=== PATIENT | female | born 1940 | race Caucasian/White ===

== ENCOUNTER 2016-09-30 10:11 | Inpatient (IN) ==
[2016-09-30 10:50] LABS: Calcium 9.5 mg/dL (8.6-10.8); Potassium 3.2 mEq/L (3.5-4.5)
[2016-09-30 11:21] LABS: Basophils % 0.3 %; Eosinophils % 0.5 %; Hemoglobin 8.6 g/dL (11.5-15.4); Immature Granulocytes % 3.4 % (0-4); Immature Platelets 2.4 % (1.1-6.1); Lymphocytes # 1.5 K/mcL (0.6-4.6); Mean Corpuscular HGB Conc 29.7 g/dL (31.6-35.5); Mean Corpuscular Hemoglobin 27.8 pg (28.0-33.3); Mean Corpuscular Volume 93.9 fL (83.0-100.0); Mean Platelet Volume 9.9 fL (9.4-12.4); Monocytes # 0.7 K/mcL (0.0-1.3); Monocytes % 8.8 %; Neutrophils # 5.3 K/mcL (1.6-8.9); Nucleated Red Blood Cells 1.4 /100 WBC (0); Platelet Count 224 K/mcL (140-400); Red Blood Count 3.09 M/mcL (3.82-4.97); Red Cell Distribution Width 22.2 % (11.5-14.5)
--- NOTE | 2016-09-30 11:26 | Emergency Department Note ---
Disposition Clinical Impression: Lactic acidosis, Hypoxia, Acute kidney injury Anemia Qualifiers: Anemia type: iron deficiency Iron deficiency anemia type: chronic blood loss Qualified Code(s): D50.0 - Iron deficiency anemia secondary to blood loss ( chronic) Disposition: Admitted As Inpatient Condition: Good Referrals: NONE,PCP [Primary Care Provider] - Forms: ED Satisfaction Letter Time of Disposition: 13:47 General Adult HPI - General Chief complaint: ED Shortness of Breath/Dyspnea Stated complaint: Poss PE Time Seen by Provider: 09/30/16 10:16 Source: patient, family Limitations: no limitations Nursing Notes Reviewed: Yes Vital Signs Reviewed: Yes - History of Present Illness HPI Narrative: History of present illness: 76-year-old female complex past medical history to include: Polymyalgia rheumatica, atrial fibrillation, [place] with 2 cardiac stents, hypertension, mild COPD. No prior history of blood clotting disorder. Denies fevers or chills. For the past month increasing shortness of breath dyspnea on exertion swelling of the extremities and fatigue. She says at times she gets pain in the left side of her chest goes into her left shoulder. Had a chemical stress test approximately 1 month ago per patient was negative. Patient was seen in the pulmonologists office this morning and because of her low pulse ox and her symptoms they are concerned about possible pulmonary embolism and sent her here for further evaluation. Patient of note does have an allergy to contrast dye and her GFR is [address] angiogram for PE and unsafe study. Using the well' s criteria patient is moderate risk and will getting a d-dimer along with the VQ scan and chest x-ray. Patient offers no other complaints aside from dyspnea and fatigue at this time Pain Scale: 0 - Related Data Home Medications Medication Instructions Recorded Confirmed Furosemide [Lasix] 40 mg PO DAILY 10/20/14 09/30/16 Levothyroxine [Synthroid] 100 mcg PO QAM 10/20/14 09/30/16 Losartan [Cozaar] 100 mg PO HS 10/20/14 09/30/16 Nitroglycerin 0.4 mg SL AD PRN 10/20/14 09/30/16 Prasugrel [Effient] 10 mg PO DAILY 10/20/14 09/30/16 Rivaroxaban [Xarelto] 15 mg PO HS 10/20/14 09/30/16 Amiodarone [Cordarone] 200 mg PO DAILY 09/27/15 09/30/16 Ascorbate Calcium [Vitamin C] 1,000 mg PO DAILY 09/30/16 09/30/16 Calcium Crb,Cit/D3/Min34/Dinah 2 tab PO BID 09/30/16 09/30/16 [Citracal + Bone Density Tablet] Esomeprazole Magnesium [Nexium 44.6 mg PO BID 09/30/16 09/30/16 24Hr] Ezetimibe [Zetia] 10 mg PO DAILY 09/30/16 09/30/16 FLUoxetine HCl [Fluoxetine HCl] 40 mg PO DAILY 09/30/16 09/30/16 Mv,Ca,Min/Iron/FA/Guarana/Caff 1 tab PO DAILY 09/30/16 09/30/16 [One-A-Day Women's Tablet] Ondansetron HCl [Ondansetron HCl] 4 mg PO TID PRN 09/30/16 09/30/16 Zolpidem Tartrate [Zolpidem 5 mg PO HS 09/30/16 09/30/16 Tartrate] predniSONE [PredniSONE] 30 mg PO DAILY 09/30/16 09/30/16 risperiDONE [Risperidone] 1 mg PO DAILY 09/30/16 09/30/16 Allergies Allergy/AdvReac Type Severity Reaction Status Date / Time olanzapine [From Zyprexa] Allergy See Verified 09/30/16 12:49 Comments ciprofloxacin [From Cipro] AdvReac Vomiting Verified 09/30/16 12:49 Erythromycin Base AdvReac Vomiting Verified 09/30/16 12:49 Sulfa (Sulfonamide AdvReac Vomiting Verified 09/30/16 12:49 Antibiotics) ivp DYE Allergy Hives Uncoded 09/29/14 15:11 All systems ED: reviewed and negative except as stated. Cardiovascular: Reports: chest pain, dyspnea on exertion, edema Endocrine: Reports: fatigue Past Medical History - Past Medical History Attestation: Yes The following information was validated with the patient. Source: patient, old records reviewed Medical history: Reports: atrial fibrillation, coronary artery disease, hypertension, myocardial infarction, thyroid disease Surgical history: Reports: appendectomy, cataract, cholecystectomy, hysterectomy Psychiatric history: Reports: no psych history - Social History Smoking Status: Former smoker Smokeless Tobacco Status: No Alcohol use: Reports: none Drug use: Reports: none Physical Exam - General Limitations: no limitations General appearance: alert, in distress, obese - Head Head exam: atraumatic, normocephalic - Eye Eye exam: Present: normal appearance, PERRL, EOMI - ENT ENT exam: normal exam, normal oropharynx - Neck Neck exam: Present: normal inspection, full ROM - Chest Chest inspection: Present: normal inspection - Respiratory Respiratory exam: Present: normal lung sounds bilaterally, respiratory distress - Cardiovascular Cardiovascular exam: Present: normal rhythm - Abdominal Exam Abdominal exam: Present: soft, Non-Tender - Extremities Exam Extremities exam: Present: normal inspection, pedal edema - Back Exam Back exam: Present: normal inspection, full ROM - Neurological Exam Neurological exam: Present: alert, oriented X3, CN II-XII intact - Psychiatric Psychiatric exam: Present: normal affect, normal mood - Skin Skin exam: Present: warm, dry, intact Course - Reevaluation(s) Reevaluation #1: ED workup is in progress. Patient's creatinine is 1.6 it was normal last time it has been as high patella with months ago. Which suggests acute kidney injury. Patient also has nucleated RBCs which will need to be further worked up. Troponin is negative. Dimer is elevated at 866. VQ scan pending. Provided 45 minutes of critical care services for this patient. Time: 12:11 Reevaluation #2: ED workup is complete. Patient's lactic L Uli level is elevated above 3, along with her acute kidney injury. VQ scan is read as low probability. Patient also has been having increasing anemia. First and call placed to hospitalist for admission for hypoxia and other laboratory abnormalities for admission. We will try ordered for patient. Disposition pending. Time: 13:18 Reevaluation #3: Discussed the case with the hospitalist, patient accepted for admission in stable condition Time: 13:44 Vital Signs Temperature 97.6 F 09/30/16 10:14 Pulse Rate 88 09/30/16 10:14 Respiratory Rate 18 09/30/16 10:14 Blood Pressure 154/85 09/30/16 10:14 O2 Sat by Pulse Oximetry 95 09/30/16 10:14 Temperature 97.6 F 09/30/16 10:14 Pulse Rate 80 09/30/16 12:57 Respiratory Rate 18 09/30/16 12:57 Blood Pressure 161/74 09/30/16 12:57 O2 Sat by Pulse Oximetry 99 09/30/16 12:57 Oxygen Delivery Oxygen Delivery Room Air Medical Decision Making - Medical Records Medical records reviewed: Yes I reviewed the patient's medical records. - Lab Data Lab results reviewed: Yes I reviewed the patient's lab results. Result diagrams: 09/30/16 11:01 09/30/16 10:30 Lab Results 09/30/16 09/30/16 09/30/16 Range/Units 10:30 10:30 10:30 WBC (4.3-11.1) K/mcL RBC (3.82-4.97) M/mcL Hgb (11.5-15.4) g/dL Hct (35.3-44.9) % MCV (83.0-100.0) fL MCH (28.0-33.3) pg MCHC (31.6-35.5) g/dL RDW (11.5-14.5) % Plt Count (140-400) K/mcL MPV (9.4-12.4) fL Immature Gran % (0-4) % Seg Neutrophils % % Lymphocytes % % Monocytes % % Eosinophils % % Basophils % % Neutrophils # (1.6-8.9) K/mcL Lymphocytes # (0.6-4.6) K/mcL Monocytes # (0.0-1.3) K/mcL Eosinophils # (0.0-0.6) K/mcL Basophils # (0.0-0.2) K/mcL Nucleated RBCs/100 WBC (0) /100 WBC Immature Plt Fraction (1.1-6.1) % D-Dimer (0-500) ng/mLFEU Sodium 142 (136-145) mEq/L Potassium 3.2 L (3.5-4.5) mEq/L Chloride 98 (98-109) mEq/L Carbon Dioxide 32 H (19-29) mEq/L BUN 16 (7-20) mg/dL Creatinine 1.69 H (0.57-1.11) mg/dL Est GFR ( Amer) 36 L (> 60) Est GFR (Non-Af Amer) 30 L (> 60) BUN/Creatinine Ratio 9 (6-26) Glucose 115 H (70-99) mg/dL Calculated Osmolality 296 (280-300) Lactic Acid 3.6 H (0.5-2.2) mmol/L Calcium 9.5 (8.6-10.8) mg/dL Troponin I 0.01 (0-0.03) ng/mL B-Natriuretic Peptide (0-100) pg/mL Specimen Rejected 09/30/16 09/30/16 09/30/16 Range/Units 10:30 10:30 10:30 WBC (4.3-11.1) K/mcL RBC (3.82-4.97) M/mcL Hgb (11.5-15.4) g/dL Hct (35.3-44.9) % MCV (83.0-100.0) fL MCH (28.0-33.3) pg MCHC (31.6-35.5) g/dL RDW (11.5-14.5) % Plt Count (140-400) K/mcL MPV (9.4-12.4) fL Immature Gran % (0-4) % Seg Neutrophils % % Lymphocytes % % Monocytes % % Eosinophils % % Basophils % % Neutrophils # (1.6-8.9) K/mcL Lymphocytes # (0.6-4.6) K/mcL Monocytes # (0.0-1.3) K/mcL Eosinophils # (0.0-0.6) K/mcL Basophils # (0.0-0.2) K/mcL Nucleated RBCs/100 WBC (0) /100 WBC Immature Plt Fraction (1.1-6.1) % D-Dimer 855 H (0-500) ng/mLFEU Sodium (136-145) mEq/L Potassium (3.5-4.5) mEq/L Chloride (98-109) mEq/L Carbon Dioxide (19-29) mEq/L BUN (7-20) mg/dL Creatinine (0.57-1.11) mg/dL Est GFR ( Amer) (> 60) Est GFR (Non-Af Amer) (> 60) BUN/Creatinine Ratio (6-26) Glucose (70-99) mg/dL Calculated Osmolality (280-300) Lactic Acid (0.5-2.2) mmol/L Calcium (8.6-10.8) mg/dL Troponin I (0-0.03) ng/mL B-Natriuretic Peptide 44 (0-100) pg/mL Specimen Rejected MCV Delta 09/30/16 Range/Units 11:01 WBC 7.7 (4.3-11.1) K/mcL RBC 3.09 L (3.82-4.97) M/mcL Hgb 8.6 L (11.5-15.4) g/dL Hct 29.0 L (35.3-44.9) % MCV 93.9 D (83.0-100.0) fL MCH 27.8 L (28.0-33.3) pg MCHC 29.7 L (31.6-35.5) g/dL RDW 22.2 H (11.5-14.5) % Plt Count 224 (140-400) K/mcL MPV 9.9 (9.4-12.4) fL Immature Gran % 3.4 (0-4) % Seg Neutrophils % 68.0 % Lymphocytes % 19.0 % Monocytes % 8.8 % Eosinophils % 0.5 % Basophils % 0.3 % Neutrophils # 5.3 (1.6-8.9) K/mcL Lymphocytes # 1.5 (0.6-4.6) K/mcL Monocytes # 0.7 (0.0-1.3) K/mcL Eosinophils # 0.0 (0.0-0.6) K/mcL Basophils # 0.0 (0.0-0.2) K/mcL Nucleated RBCs/100 WBC 1.4 H (0) /100 WBC Immature Plt Fraction 2.4 (1.1-6.1) % D-Dimer (0-500) ng/mLFEU Sodium (136-145) mEq/L Potassium (3.5-4.5) mEq/L Chloride (98-109) mEq/L Carbon Dioxide (19-29) mEq/L BUN (7-20) mg/dL Creatinine (0.57-1.11) mg/dL Est GFR ( Amer) (> 60) Est GFR (Non-Af Amer) (> 60) BUN/Creatinine Ratio (6-26) Glucose (70-99) mg/dL Calculated Osmolality (280-300) Lactic Acid (0.5-2.2) mmol/L Calcium (8.6-10.8) mg/dL Troponin I (0-0.03) ng/mL B-Natriuretic Peptide (0-100) pg/mL Specimen Rejected - Radiology Data Radiology results reviewed: Yes I reviewed the patient's radiology results. - EKG Data EKG #1 EKG attestation: Yes I reviewed and interpreted this EKG. EKG results narrative: 12 Lead EKG: Interpreted without cardiology shows a sinus rhythm at 79 bpm. [place] interval 153 ms, QRS duration 119 ms QT corrected [place] 52 ms old within normal limits. What looks like nonspecific ST-T changes and a possible early right bundle branch block. There are no acute ischemic changes on this EKG, no acute changes when compared to a prior EKG dated 09/06/2016
[2016-09-30] MEDS ORDERED: predniSONE 20 MG TABLET PO ONE (13:16)
[2016-09-30] MEDS ORDERED: Ondansetron ODT 4 MG TAB.RAPDIS SL ONE (13:51)
--- NOTE | 2016-09-30 16:10 | Electrocardiograph Report ---
[address] [address] Test Date: 2016-09-30 Pat Name: Giuliana Melendez Department: 105 Room: 2A Gender: F Electronics Specialist: MELISSA : 1940 Requested By: Bala Dunn Order Number: [id number] Reading MD: Faustino Duncan MD Measurements Intervals [place] Rate: 79 P: 71 PA: 153 QRS: 31 QRSD: 119 T: 12 QT: 317 QTc: 352 Interpretive Statements SINUS RHYTHM INCOMPLETE RBBB BASELINE ARTIFACT COMPLICATES ACCURATE INTERPRETATION Electronically Signed On 09-30-2016 16:08:35 EDT by Faustino Duncan MD
[2016-09-30] MEDS ORDERED: Naloxone 0.4 MG/ML INJ IVP PRN (16:47)
[2016-09-30] MEDS ORDERED: Nitroglycerin 0.4 MG TAB.SUBL SL PRN (16:49)
--- NOTE | 2016-09-30 17:15 | Internal Med History&Physical ---
Date of Encounter: 09/30/16 Time of Encounter: 16:30 Assessment and Plan (1) Hypoxia Current visit: Yes Status: Acute 1 patient has been experiencing increasing shortness of breath and hypoxia at home. According the patient home SPO2 is around 88%. She has been utilizing her daughter's oxygen as well as she uses CPAP at night. 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 PE workup was negative. Do not suspect this is related to CHF Unsure of cause of hypoxia possibly related to pulmonary hypertension, anemia or paroxysmal atrial fibrillation. We will continue with oxygen titrated to maintain SPO2 greater than 92%-BiPAP at night 2 we will obtain cardiac echo rule out possible right sided heart failure- pulmonary hypertension 3 patient is on Xarelto Effifent and steroids. Last EGD colonoscopy was in 2012. We will obtain stool for occult blood. If positive we will consult GI. We will continue to monitor signs and symptoms of bleeding 4 we will continue with cardiac monitoring to monitor for any possible arrhythmias. We will continue with his amiodarone Xarelto. Patient may need to a Holter monitor upon discharge and will need to follow up with cardiology as outpatient. (2) Acute kidney injury Current visit: Yes Status: Acute 1 creatinine is 1.69 baseline is less than 1 patient has been experiencing multiple bouts of diarrhea as well as she is taking Lasix and losartan. We will hold Lasix and losartan for now continue to monitor creatinine 2 monitor and replace electrolytes 3 avoid nephrotoxins 4 monitor intake and output (3) Intractable diarrhea Current visit: Yes Status: Acute 1 over the past few weeks patient has been experiencing diarrhea. Occurs mostly after eating. She has been on PPI as well as steroid. We will obtain stool for occult blood as well as GI panel and C. difficile. If C. difficile is negative we will continue with Imodium 2 consult GI as needed (4) Lactic acidosis Current visit: Yes Status: Acute 1 patient has been experiencing diarrhea and has been receiving diuretics suspect this is contributing to her acidosis. We will hold diuretics for now and workup patient for positive diarrhea. We will recheck lactate. (5) Hypothyroidism (acquired) Current visit: No Status: Acute 1 we will check TSH patient is on amiodarone and will continue with her Synthroid (6) CAD S/P percutaneous coronary angioplasty Current visit: No Status: Chronic 1 patient does have history of stents we will continue with her Effifent statin and nitroglycerin as needed for chest pain (7) Iron deficiency anemia Current visit: No Status: Chronic 1 patient's hemoglobin is down from last month 10.7 - 8.6. No active bleeding at this time. Patient is on anticoagulation we will obtain stool for occult blood consult GI if positive. 2 she received her last iron infusion last week she will continue follow-up with oncology as outpatient Qualifiers: Iron deficiency anemia type: unspecified iron deficiency Qualified Code(s) : D50.9 - Iron deficiency anemia, unspecified (8) Paroxysmal atrial fibrillation Current visit: No Status: Chronic 1 presently she is in sinus rhythm will continue with her amiodarone and Xarelto. 2 continuous cardiac monitoring 3 patient may require Holter monitor upon discharge she may be experiencing atrial fibrillation which could be triggering her shortness of breath (9) Hypokalemia Current visit: Yes Status: Acute 1 patient has been experiencing bouts of diarrhea as well as receiving Lasix. Potassium is 3.2. We will hold Lasix for now and replace potassium and recheck in a.m. (10) DVT prophylaxis Current visit: Yes Status: Chronic Patient is on Xarelto Internal Medicine - H&P: HPI Chief complaint: SOB Admitted From: Emergency Dept Plans for Post Hospital Care: Home History of present illness: Ms. Melendez is a 76 year old female past medical history of polymyalgia rheumatica atrial fibrillation [place] with 2 cardiac stents hypertension obstructive sleep apnea anemia. According to the patient probably 6 months ago she was diagnosed with polymyalgia rheumatica she was placed on steroids and was doing well until he started to taper her steroids down. She began to experience chest pain and some shortness of breath. She did have a stress test last month which was negative for any ischemia she also had PFTs which were normal. She does have a history of anemia and does receive iron infusions. She is on both Xarelto and Effivent . She did have a colonoscopy in 2012 suggested sessile polyp at splenic flexure. Upper GI endoscopy showed gastric ulcers with clean base 07/2012. Patient's currently on PPI for the past couple weeks she has been experiencing intractable nausea and diarrhea. Which mainly occurs after she eats. She has been experiencing lower extremity edema as well. 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 According to ER records patient underwent a VQ scan due to WILY an allergy to contrast CT scan was completed which was low probability ability for PE. Lab work did reveal hemoglobin 8.6 which is down from last month 10.7 Leukocytosis test was 2.2 crit was 1.69 visit signs around less than 1 troponin was 0.01 BNP was 44 d-dimer was 855. She has been admitted for further workup and evaluation. Presently patient does not appear to be respiratory distress or lung sounds do have some faint scattered crackles in the bases heart sounds are regular S1-S2 no rubs Josemanuel Zachariah is noted EKG does show sinus rhythm with no ST-T wave abnormalities noted abdomen soft nontender she is edematous in her lower extremities with +2 pitting edema. Chest x-ray showed no acute cardiopulmonary abnormalities I reviewed this case with Dr. Doll who agrees with plan. Past Med Surg Social Fam HX - Past Medical History Medical history: atrial fibrillation, coronary artery disease, hypertension, myocardial infarction, thyroid disease Psychiatric history: no psych history - Past Surgical History Surgical History: appendectomy, cataract, cholecystectomy, hysterectomy - Social History Smoking Status: Former smoker Smokeless Tobacco Status: No Alcohol use: none Drug use: none Internal Medicine - H&P: Meds Furosemide [Lasix] 40 mg PO DAILY 10/20/14 [History] Levothyroxine [Synthroid] 100 mcg PO QAM 10/20/14 [History] Losartan [Cozaar] 100 mg PO HS 10/20/14 [History] Nitroglycerin 0.4 mg SL AD PRN 10/20/14 [History] Prasugrel [Effient] 10 mg PO DAILY 10/20/14 [History] Rivaroxaban [Xarelto] 15 mg PO HS 10/20/14 [History] Amiodarone [Cordarone] 200 mg PO DAILY 09/27/15 [History] Ascorbate Calcium [Vitamin C] 1,000 mg PO DAILY 09/30/16 [History] Calcium Crb,Cit/D3/Min34/Dinah [Citracal + Bone Density Tablet] 2 tab PO BID [History] Esomeprazole Magnesium [Nexium 24Hr] 44.6 mg PO BID 09/30/16 [History] Ezetimibe [Zetia] 10 mg PO DAILY 09/30/16 [History] FLUoxetine HCl [Fluoxetine HCl] 40 mg PO DAILY 09/30/16 [History] Mv,Ca,Min/Iron/FA/Guarana/Caff [One-A-Day Women's Tablet] 1 tab PO DAILY [History] Ondansetron HCl [Ondansetron HCl] 4 mg PO TID PRN 09/30/16 [History] Zolpidem Tartrate [Zolpidem Tartrate] 5 mg PO HS 09/30/16 [History] predniSONE [PredniSONE] 30 mg PO DAILY 09/30/16 [History] risperiDONE [Risperidone] 1 mg PO DAILY 09/30/16 [History] Allergies olanzapine [From Zyprexa] Allergy (Verified 09/30/16 12:49) See Comments not sure of reaction ciprofloxacin [From Cipro] Adverse Reaction (Verified 09/30/16 12:49) Vomiting Erythromycin Base Adverse Reaction (Verified 09/30/16 12:49) Vomiting Sulfa (Sulfonamide Antibiotics) Adverse Reaction (Verified 09/30/16 12:49) Vomiting ivp DYE Allergy (Uncoded 09/29/14 15:11) Hives All Systems PM: A 10-system review of systems was performed and is negative for pertinent findings except as documented above in the HPI. - Constitutional Constitutional: fatigue, weight gain, no chills, no fever(s), no night sweats - EENT Eyes: no change in vision, no discharge, no pain, no photophobia Nose, mouth and throat: no dysphagia, no nasal discharge, no neck pain, no sore throat - Cardiovascular Cardiovascular ROS IM: chest pain, dyspnea on exertion, palpitations - Respiratory Respiratory: dyspnea, dyspnea on exertion, no cough, no wheezing, no excessive phlegm production - Gastrointestinal Gastrointestinal: nausea, no abdominal pain, no diarrhea, no hematemesis, no hematochezia, no melena, no vomiting - Genitourinary Genitourinary: no change in urinary stream, no dysuria, no flank pain, no hematuria - Musculoskeletal Musculoskeletal ROS IM: arthralgias - Integumentary Integumentary IM: no rash, no unusual bruising - Neurological Neurological ROS: no confusion, no convulsions, no focal weakness, no numbness, no tingling, no tremor(s) - Hematologic/Lymphatic Hematologic/Lymphatic: no easy bruising - Constitutional Vitals: Temp Pulse Resp BP Pulse Ox 97.6 F 75 17 155/93 98 09/30/16 10:14 09/30/16 13:45 09/30/16 14:47 09/30/16 14:47 09/30/16 13:45 General appearance: Present: A&O X 3, answers questions appropriately - Head Head exam: Present: atraumatic, normocephalic - Neck Neck exam general surgery: Present: supple, trachea midline. Absent: lymphadenopathy - Respiratory Respiratory exam: Present: rales. Absent: accessory muscle use, rhonchi, wheezes - Cardiovascular Cardiovascular exam: Present: RRR, +S1, +S2. Absent: diastolic murmur, gallop, rubs, systolic murmur - GI/Abdominal GI/Abdominal exam: Present: normal bowel sounds, soft, no peritoneal signs. Absent: distended, tenderness - Extremities Exam Extremities exam: Present: pedal edema, warm, radial pulses palpable and symmetrical. Absent: calf tenderness, cyanotic - Neurological Exam Neurological exam: Present: CN II-XII intact, oriented X3, no focal deficits. Absent: pronater drift, facial droop, speech deficit - Skin Skin exam: Present: dry, intact Internal Med - H&P Results - Labs CBC & Chem 7: 09/30/16 11:01 09/30/16 10:30 - EKG Data EKG shows normal: sinus rhythm - EKG Data Prior EKG available for review: yes When compared to previous EKG: there is no significant change - Diagnostic Studies Other Images Additional comments: Chest X-Ray 09/30/16 11:08 IMPRESSION: Low lung volumes with left basilar atelectasis. No acute cardiopulmonary disease. D/ / Giovani Singh MD / Giovani Singh MD Interpreting Provider: Giovani Singh MD Pulmonary Perfusion Imaging 09/30/16 11:08 IMPRESSION: Low Probability for Pulmonary Embolus. Patchy heterogeneous decreased ventilation greater on the left. This could be secondary to airway disease. The left lower lobe disease could represent atelectasis or pneumonia. D/ / Johnson Yang MD / Johnson Yang MD Interpreting Provider: Johnson Yang MD
[2016-09-30 21:02] LABS: INR 1.3; Prothrombin Time 14.6 Seconds (9.4-12.1)
[2016-09-30 21:05] LABS: Activated Partial Thrombo Time 27.6 Seconds (26.0-36.0)
[2016-09-30 21:09] LABS: Alanine Aminotransferase 30 Units/L (0-55); Albumin 2.7 g/dL (3.5-5.0); Alkaline Phosphatase 76 Units/L (38-126); Aspartate Amino Transferase 15 Units/L (5-34); BUN/Creatinine Ratio 12 (6-26); Bilirubin,Direct 0.1 mg/dL (0.0-0.5); Bilirubin,Indirect 0.2 mg/dL (0.0-1.2); Blood Urea Nitrogen 20 mg/dL (7-20); Calcium 8.7 mg/dL (8.6-10.8); Carbon Dioxide 31 mEq/L (19-29); Chloride 98 mEq/L (98-109); Globulin 2.6 g/dL (2.4-3.5); Glucose 302 mg/dL (70-99); Osmolality,Calculated 304 (280-300); Sodium 140 mEq/L (136-145); Total Protein 5.3 g/dL (6.0-8.3); eGFR For African Americans 35 (> 60); eGFR For Non-African Americans 29 (> 60)
[2016-09-30 21:11] LABS: Bilirubin,Total < 0.3 mg/dL (0.2-1.2); Potassium 4.3 mEq/L (3.5-4.5)
[2016-09-30] MEDS: *HR* Rivaroxaban 15 MG TABLET PO SCH (21:12)
[2016-09-30] MEDS ORDERED: 0.9 % Sodium Chloride 1,000 ML IVC ONE (21:18)
[2016-10-01 01:11] LABS: Basophils % 0.2 %; Eosinophils % 0.2 %; Hematocrit 23.4 % (35.3-44.9); Hemoglobin 7.1 g/dL (11.5-15.4); Immature Granulocytes % 1.8 % (0-4); Lymphocytes # 0.7 K/mcL (0.6-4.6); Lymphocytes % 11.4 %; Mean Corpuscular HGB Conc 30.3 g/dL (31.6-35.5); Mean Corpuscular Hemoglobin 28.6 pg (28.0-33.3); Mean Corpuscular Volume 94.4 fL (83.0-100.0); Mean Platelet Volume 9.7 fL (9.4-12.4); Monocytes # 0.4 K/mcL (0.0-1.3); Monocytes % 6.5 %; Neutrophils # 4.9 K/mcL (1.6-8.9); Nucleated Red Blood Cells 1.1 /100 WBC (0); Platelet Count 198 K/mcL (140-400); Red Blood Count 2.48 M/mcL (3.82-4.97); Red Cell Distribution Width 22.3 % (11.5-14.5); Segmented Neutrophils % 79.9 %
[2016-10-01 01:24] LABS: Calcium 8.3 mg/dL (8.6-10.8); Chol/HDL Ratio 3.9 (0-4.9); Magnesium 2.2 mg/dL (1.6-2.6)
[2016-10-01] MEDS: *HR* Amiodarone 200 MG TABLET PO SCH (08:00)
[2016-10-01] MEDS: predniSONE 10 MG TABLET PO SCH (08:00)
[2016-10-01] MEDS ORDERED: (Ezetimibe [Zetia] 10 MG) PO SCH (09:00)
[2016-10-01] MEDS ORDERED: Perflutren Lipid Microsphere 1.3 ML in 0.9 % Sodium Chloride 8.7 ML IVP ONE (16:00)
--- NOTE | 2016-10-01 16:04 | Internal Med Progress Note ---
<Yoan Parkinson - Last Filed: 10/01/16 17:29> Date of Encounter: 10/01/16 - Constitutional Vitals: Temp Pulse Resp BP Pulse Ox 97.7 F 88 13 192/85 98 10/01/16 16:38 10/01/16 16:38 10/01/16 16:38 10/01/16 16:38 10/01/16 16:38 Internal Medicine: Result - Labs CBC & Chem 7: 10/01/16 01:03 10/01/16 01:03 - ABG Interpretation ABG results: PT/INR, D-dimer PT 14.6 Seconds (9.4-12.1) H 09/30/16 20:45 D-Dimer 855 ng/mLFEU (0-500) H 09/30/16 10:30 Consult Discharge Plan - Plan Referrals: Rina Kaba MD [Non-Partnered Physician] - 10/08/16 9:40 am - Attending Attestation I examined this patient and my medical decision-making was reviewed with the Resident Physician. I agree with the documented findings, disposition and treatment plan as described except to the extent set forth below. <Gordon Whittington - Last Filed: 10/01/16 18:16> Date of Encounter: 10/01/16 Time of Encounter: 15:58 - Assessment and plan (1) Hypoxia Current Visit: Yes Status: Acute Assessment and plan: Pulm HTN Vs Anemia vs Paroxysmal Afib vs less likely PE. Patient was experiencing increaseness of SOB and hypoxia at home. Improved at home with CPAP and usage of daughter's oxygen. She was at her tallow [employer] apt when her hypoxia was concern and was instructed to go to ED. NM ventilation perfusion scan - low probability of PE. Hgb last month was 10.7, on admission 7.7. Received Iron infusions, last was last week. Last EGD and colonoscopy in 2012 which did not identify a source of bleeding. - cardio echo pending - stool occult pending, will consult GI if positive - hgb 7.1, continue to monitor - continue cardiac monitoring for arrhythmias - Ct. Amiodarone 200 mg, Xarelto 15 mg, Prasurgrel 10 mg (2) Hypertension Current Visit: No Status: Acute Assessment and plan: poorly controlled HTN. home meds Amiodarone, Lasix 40, Losartan 100. - continue amiodarone 200 mg - BP today 140/80 - will restart home meds Qualifiers: Hypertension type: essential hypertension Qualified Code(s): I10 - Essential (primary) hypertension (3) Hypothyroidism (acquired) Current Visit: No Status: Acute Assessment and plan: TSH 0.653 stable. Cotninue home synthroid (4) Paroxysmal atrial fibrillation Current Visit: No Status: Chronic Assessment and plan: continue amiodarone, Xarelto - Will restart home meds (5) Lactic acidosis Current Visit: Yes Status: Acute Assessment and plan: lactic acidosis 3.6 - 5.7. Will follow (6) Anemia Current Visit: Yes Status: Acute Assessment and plan: last month hgb was 10.7, upon admission 8.6. No active bleed identified. last iron infusion was last week, followed by heme. - will obain stool occult, GI consult if positive Qualifiers: Anemia type: iron deficiency Iron deficiency anemia type: chronic blood loss Qualified Code(s): D50.0 - Iron deficiency anemia secondary to blood loss (chronic) (7) Acute kidney injury Current Visit: Yes Status: Acute Assessment and plan: Cr on admission 1.69, 1.72. Baseline 1.69. Today Cr 1.43 - resolved. will restart home meds. (8) Hypokalemia Current Visit: Yes Status: Acute Assessment and plan: patient has been experiencing bouts of diarrhea as well as receiving Lasix. Potassium is 3.2 - Potassium 4.3, 4.0 - resolved - Subjective Interval history: Ms Melendez is a 76 year old woman on day 1 of admit. She was found to be hypoxic at the pulmonary office and recommended to go to ED. Hx: afib, [place] w/ 2 stent, htn, rosalinda, anemia. 6 months ago diagnosed by family physician with polymalgia rheumatica placed on 60mg prednisone which resolved her symptoms of achivng all over, weakness in legs and arms. Symptoms returned after her prednisone was tapered. Her main complaint is non-foul smelling diarrhea. denies bowel movement today. denies f/c/n/v/ aching/weakness. - Constitutional Vitals: Temp Pulse Resp BP Pulse Ox 98.2 F 81 16 143/75 98 10/01/16 13:48 10/01/16 11:22 08/15/17 11:22 10/01/16 11:22 10/01/16 11:22 General appearance: Present: A&O X 3, answers questions appropriately - Head Head exam: Present: atraumatic, normocephalic - Respiratory Respiratory exam: Present: CTAB. Absent: accessory muscle use, rales, rhonchi, wheezes - Cardiovascular Cardiovascular exam: Present: RRR, +S1, +S2. Absent: diastolic murmur, gallop, rubs, systolic murmur - GI/Abdominal GI/Abdominal exam: Present: normal bowel sounds, soft, no peritoneal signs. Absent: distended, tenderness - Psychiatric Psychiatric exam: Present: normal affect, normal mood Internal Medicine: Result - Labs CBC & Chem 7: 10/01/16 01:03 10/01/16 01:03 Labs: Short CBC 10/01/16 Range/Units 01:03 WBC 6.1 (4.3-11.1) K/mcL Hgb 7.1 L D (11.5-15.4) g/dL Hct 23.4 L (35.3-44.9) % Plt Count 198 (140-400) K/mcL Neutrophils # 4.9 (1.6-8.9) K/mcL BMP 09/30/16 10/01/16 20:45 01:03 Sodium 140 141 Potassium 4.3 D 4.0 Chloride 98 102 Carbon Dioxide 31 H 34 H BUN 20 18 Creatinine 1.72 H 1.43 H Glucose 302 H 172 H Calcium 8.7 8.3 L Cardiac Enzymes 09/30/16 10/01/16 10/01/16 Range/Units 17:19 01:03 01:03 Troponin I 0.00 0.00 0.00 (0-0.03) ng/mL Liver Function 09/30/16 Range/Units 20:45 Total Bilirubin < 0.3 (0.2-1.2) mg/dL Direct Bilirubin 0.1 (0.0-0.5) mg/dL AST 15 (5-34) Units/L ALT 30 (0-55) Units/L Alkaline Phosphatase 76 (38-126) Units/L Albumin 2.7 L (3.5-5.0) g/dL - ABG Interpretation ABG results: PT/INR, D-dimer PT 14.6 Seconds (9.4-12.1) H 09/30/16 20:45 D-Dimer 855 ng/mLFEU (0-500) H 09/30/16 10:30
[2016-10-01] MEDS: risperiDONE 1 MG TABLET PO SCH (21:18)
[2016-10-02 04:41] LABS: Hemoglobin 7.6 g/dL (11.5-15.4); Mean Corpuscular HGB Conc 29.2 g/dL (31.6-35.5); Mean Corpuscular Hemoglobin 27.9 pg (28.0-33.3); Mean Corpuscular Volume 95.6 fL (83.0-100.0); Mean Platelet Volume 9.8 fL (9.4-12.4); Platelet Count 200 K/mcL (140-400); Red Blood Count 2.72 M/mcL (3.82-4.97); Red Cell Distribution Width 22.3 % (11.5-14.5)
[2016-10-02 04:53] LABS: Potassium 3.7 mEq/L (3.5-4.5)
[2016-10-02] MEDS: predniSONE 10 MG TABLET PO SCH (07:49)
[2016-10-02] MEDS: FLUoxetine 20 MG CAPSULE PO SCH (07:51)
[2016-10-02] MEDS: *HR* Amiodarone 200 MG TABLET PO SCH (07:51)
[2016-10-02] MEDS ORDERED: Furosemide 40 MG TABLET PO SCH (09:00)
--- NOTE | 2016-10-02 09:56 | Internal Med Progress Note ---
<Gordon Whittington - Last Filed: 10/02/16 16:25> Date of Encounter: 10/02/16 Time of Encounter: 09:54 - Assessment and plan (1) Hypoxia Current Visit: Yes Status: Acute Assessment and plan: Pulm HTN Vs Anemia vs Paroxysmal Afib vs less likely PE. Patient was experiencing increaseness of SOB and hypoxia at home. Improved at home with CPAP and usage of daughter's oxygen. She was at her [employer] apt when her hypoxia was concern and was instructed to go to ED. NM ventilation perfusion scan - low probability of PE. Hgb last month was 10.7, on admission 7.7. Received Iron infusions, last was last week. Last EGD and colonoscopy in 2012 which did not identify a source of bleeding. Echo LVEF 55% and indeterminate RVSP. - GI consulted. - Iron panel, MMA, retic ordered - CXR 2 view standing - pending - hgb 7.6, continue to monitor - continue cardiac monitoring for arrhythmias - Ct. Amiodarone 200 mg, Xarelto 15 mg, Prasurgrel 10 mg (2) Hypertension Current Visit: No Status: Acute Assessment and plan: poorly controlled HTN. home meds Amiodarone, Lasix 40, Losartan 100. - continue amiodarone 200 mg - BP today 140/80 - will restart home meds Qualifiers: Hypertension type: essential hypertension Qualified Code(s): I10 - Essential (primary) hypertension (3) Hypothyroidism (acquired) Current Visit: No Status: Acute Assessment and plan: TSH 0.653 stable. Cotninue home synthroid (4) Paroxysmal atrial fibrillation Current Visit: No Status: Chronic Assessment and plan: continue amiodarone, Xarelto - Will restart home meds (5) Lactic acidosis Current Visit: Yes Status: Acute Assessment and plan: lactic acidosis 3.6 - 5.7. Will follow (6) Anemia Current Visit: Yes Status: Acute Assessment and plan: last month hgb was 10.7, upon admission 8.6. No active bleed identified. last iron infusion was last week, followed by heme. - will obain stool occult, GI consult if positive Qualifiers: Anemia type: iron deficiency Iron deficiency anemia type: chronic blood loss Qualified Code(s): D50.0 - Iron deficiency anemia secondary to blood loss (chronic) (7) Acute kidney injury Current Visit: Yes Status: Acute Assessment and plan: Cr on admission 1.69, 1.72. Baseline 1.69. Today Cr 1.43 - resolved. will restart home meds. (8) Hypokalemia Current Visit: Yes Status: Acute Assessment and plan: patient has been experiencing bouts of diarrhea as well as receiving Lasix. Potassium is 3.2 - Potassium 4.3, 4.0 - resolved - Subjective Interval history: Ms Melendez is a 76 year old woman on day 2 of admit. She was found to be hypoxic at the pulmonary office and recommended to go to ED. Hx: afib, [place] w/ 2 stent, htn, rosalinda, anemia. 6 months ago diagnosed by family physician with polymalgia rheumatica placed on 60mg prednisone which resolved her symptoms of achivng all over, weakness in legs and arms. Symptoms returned after her prednisone was tapered. Patient reports doing a lot better with 3L O2, and continues to do well denies bowel movement today. denies f/c/n/v/ aching/weakness. - Constitutional Vitals: Temp Pulse Resp BP Pulse Ox 97.6 F 75 18 166/92 100 10/02/16 06:47 10/02/16 06:47 10/02/16 06:47 10/02/16 06:47 10/02/16 06:47 General appearance: Present: A&O X 3, answers questions appropriately - Head Head exam: Present: atraumatic, normocephalic - Respiratory Respiratory exam: Present: decreased breath sounds. Absent: accessory muscle use, rales, rhonchi, wheezes - Cardiovascular Cardiovascular exam: Present: distant heart sounds - GI/Abdominal GI/Abdominal exam: Present: hypoactive bowel sounds Internal Medicine: Result - Labs CBC & Chem 7: 10/02/16 04:13 10/02/16 04:13 Labs: Short CBC 10/02/16 Range/Units 04:13 WBC 6.1 (4.3-11.1) K/mcL Hgb 7.6 L (11.5-15.4) g/dL Hct 26.0 L (35.3-44.9) % Plt Count 200 (140-400) K/mcL BMP 10/02/16 04:13 Sodium 142 Potassium 3.7 Chloride 102 Carbon Dioxide 35 H BUN 17 Creatinine 1.15 H Glucose 144 H Calcium 9.0 - ABG Interpretation ABG results: PT/INR, D-dimer PT 14.6 Seconds (9.4-12.1) H 09/30/16 20:45 D-Dimer 855 ng/mLFEU (0-500) H 09/30/16 10:30 - VTE Documentation of Mechanical Device: Intermittent pneumatic compression device Consult Discharge Plan - Plan Referrals: Rina Kaba MD [Non-Partnered Physician] - 10/08/16 9:40 am <Yoan Parkinson P - Last Filed: 10/02/16 18:09> Date of Encounter: 10/02/16 - Constitutional Vitals: Temp Pulse Resp BP Pulse Ox 97.8 F 85 15 133/68 98 10/02/16 15:27 10/02/16 15:27 10/02/16 15:27 10/02/16 15:27 10/02/16 15:27 Internal Medicine: Result - Labs CBC & Chem 7: 10/02/16 04:13 10/02/16 04:13 Labs: Short CBC 10/02/16 Range/Units 04:13 WBC 6.1 (4.3-11.1) K/mcL Hgb 7.6 L (11.5-15.4) g/dL Hct 26.0 L (35.3-44.9) % Plt Count 200 (140-400) K/mcL BMP 10/02/16 04:13 Sodium 142 Potassium 3.7 Chloride 102 Carbon Dioxide 35 H BUN 17 Creatinine 1.15 H Glucose 144 H Calcium 9.0 - ABG Interpretation ABG results: PT/INR, D-dimer PT 14.6 Seconds (9.4-12.1) H 09/30/16 20:45 D-Dimer 855 ng/mLFEU (0-500) H 09/30/16 10:30 - Impressions Impressions Chest X-Ray 10/02/16 11:28 IMPRESSION: 1. Cardiomegaly with vascular congestion. D/ / Hebert Zarate MD / Hebert Zarate MD Interpreting Provider: Hebert Zarate MD - Attending Attestation I examined this patient and my medical decision-making was reviewed with the Resident Physician. I agree with the documented findings, disposition and treatment plan as described except to the extent set forth below.
[2016-10-02 13:07] LABS: Immature Reticulocyte % 35.2 % (11.0-38.0); Retculocyte # 0.25 M/mcL (0.05-0.10); Reticulocyte % 8.2 % (1.6-2.8)
[2016-10-02 13:18] LABS: % Iron Saturation 13 % (15-50); Iron 48 mcg/dL (50-170); Transferrin 273 mg/dL (180-382)
[2016-10-02] MEDS ORDERED: Furosemide 40 MG/4 ML VIAL IVP ONE (15:51)
[2016-10-02] MEDS: risperiDONE 1 MG TABLET PO SCH (20:45)
[2016-10-02] MEDS: *HR* Rivaroxaban 15 MG TABLET PO SCH (20:47)
[2016-10-03 05:43] LABS: Calcium 8.7 mg/dL (8.6-10.8); Potassium 3.4 mEq/L (3.5-4.5)
[2016-10-03 05:47] LABS: Hematocrit 25.2 % (35.3-44.9); Hemoglobin 7.3 g/dL (11.5-15.4); Mean Corpuscular Hemoglobin 27.5 pg (28.0-33.3); Mean Corpuscular Volume 95.1 fL (83.0-100.0); Mean Platelet Volume 9.9 fL (9.4-12.4); Platelet Count 199 K/mcL (140-400); Red Blood Count 2.65 M/mcL (3.82-4.97); Red Cell Distribution Width 21.8 % (11.5-14.5)
[2016-10-03] MEDS: FLUoxetine 20 MG CAPSULE PO SCH (08:53)
[2016-10-03] MEDS: predniSONE 10 MG TABLET PO SCH (08:53)
[2016-10-03] MEDS: Furosemide 40 MG/4 ML VIAL IVP SCH (08:54)
[2016-10-03] MEDS: *HR* Amiodarone 200 MG TABLET PO SCH (08:54)
[2016-10-03] MEDS ORDERED: Lactulose Oral Soln 20 GM/30 ML UDC PO ONE (09:52)
--- NOTE | 2016-10-03 09:53 | Internal Med Progress Note ---
<Gordon Whittington - Last Filed: 10/03/16 14:38> Date of Encounter: 10/03/16 Time of Encounter: 09:53 - Assessment and plan (1) Anemia Current Visit: Yes Status: Acute Assessment and plan: last month hgb was 10.7, upon admission 8.6. No active bleed identified. last iron infusion was last week, followed by heme. - GI will scope on Friday - holding xarelto - placed on clear liquid diet Qualifiers: Anemia type: iron deficiency Iron deficiency anemia type: chronic blood loss Qualified Code(s): D50.0 - Iron deficiency anemia secondary to blood loss (chronic) (2) Hypoxia Current Visit: Yes Status: Acute Assessment and plan: Pulm HTN Vs Anemia vs Paroxysmal Afib vs less likely PE. Patient was experiencing increaseness of SOB and hypoxia at home. Improved at home with CPAP and usage of daughter's oxygen. She was at her [employer] apt when her hypoxia was concern and was instructed to go to ED. NM ventilation perfusion scan - low probability of PE. Hgb last month was 10.7, on admission 7.7. Received Iron infusions, last was last week. Last EGD and colonoscopy in 2012 which did not identify a source of bleeding. Echo LVEF 55% and indeterminate RVSP. Fe 48 and Trasnferrin 273. - GI will scope on Friday - hgb 7.6, continue to monitor - continue cardiac monitoring for arrhythmias - Ct. Amiodarone 200 mg, Prasurgrel 10 mg (3) Hypertension Current Visit: No Status: Acute Assessment and plan: poorly controlled HTN. home meds Amiodarone, Lasix 40, Losartan 100. - continue amiodarone 200 mg - BP today 140/80 - will restart home meds Qualifiers: Hypertension type: essential hypertension Qualified Code(s): I10 - Essential (primary) hypertension (4) Hypothyroidism (acquired) Current Visit: No Status: Acute Assessment and plan: TSH 0.653 stable. Cotninue home synthroid (5) Paroxysmal atrial fibrillation Current Visit: No Status: Chronic Assessment and plan: continue amiodarone - Will restart home meds (6) Lactic acidosis Current Visit: Yes Status: Acute Assessment and plan: lactic acidosis 3.6 - 5.7. Will follow (7) Acute kidney injury Current Visit: Yes Status: Acute Assessment and plan: Cr on admission 1.69, 1.72. Baseline 1.69. Today Cr 1.43 - resolved. will restart home meds. (8) Hypokalemia Current Visit: Yes Status: Acute Assessment and plan: patient has been experiencing bouts of diarrhea as well as receiving Lasix. Potassium is 3.2 - Potassium 4.3, 4.0 - resolved - Subjective Interval history: Ms Melendez is a 76 year old woman on day 3 of admit. She was found to be hypoxic at the pulmonary office and recommended to go to ED. Hx: afib, [place] w/ 2 stent, htn, rosalinda, anemia. 6 months ago diagnosed by family physician with polymalgia rheumatica placed on 60mg prednisone which resolved her symptoms of achivng all over, weakness in legs and arms. Symptoms returned after her prednisone was tapered. Patient reports doing a lot better with 3L O2. Complains of constipation. She states she has a decrease in swelling in her face. denies f/c/n/v/ aching/ weakness. - Constitutional Vitals: Temp Pulse Resp BP Pulse Ox 97.8 F 72 15 133/69 99 10/03/16 07:53 10/03/16 07:53 10/03/16 07:53 10/03/16 07:53 10/03/16 07:53 General appearance: Present: A&O X 3, answers questions appropriately - Head Head exam: Present: atraumatic, normocephalic - Respiratory Respiratory exam: Present: decreased breath sounds - Cardiovascular Cardiovascular exam: Present: distant heart sounds - GI/Abdominal GI/Abdominal exam: Present: hypoactive bowel sounds, soft, no peritoneal signs. Absent: distended, tenderness - Neurological Exam Neurological exam: Present: alert, oriented X3 - Psychiatric Psychiatric exam: Present: normal affect, normal mood Internal Medicine: Result - Labs CBC & Chem 7: 10/03/16 04:38 10/03/16 04:38 Labs: Short CBC 10/03/16 Range/Units 04:38 WBC 6.0 (4.3-11.1) K/mcL Hgb 7.3 L (11.5-15.4) g/dL Hct 25.2 L (35.3-44.9) % Plt Count 199 (140-400) K/mcL BMP 10/03/16 04:38 Sodium 142 Potassium 3.4 L Chloride 101 Carbon Dioxide 36 H BUN 19 Creatinine 1.10 Glucose 124 H Calcium 8.7 - ABG Interpretation ABG results: PT/INR, D-dimer PT 14.6 Seconds (9.4-12.1) H 09/30/16 20:45 D-Dimer 855 ng/mLFEU (0-500) H 09/30/16 10:30 - Impressions Impressions Chest X-Ray 10/02/16 11:28 IMPRESSION: 1. Cardiomegaly with vascular congestion. D/ / Hebert Zarate MD / Hebert Zarate MD Interpreting Provider: Hebert Zarate MD - VTE Documentation of Mechanical Device: Intermittent pneumatic compression device Consult Discharge Plan - Plan Referrals: Rina Kaba MD [Non-Partnered Physician] - 10/08/16 9:40 am <Yoan Parkinson P - Last Filed: 10/03/16 18:26> Date of Encounter: 10/03/16 - Constitutional Vitals: Temp Pulse Resp BP Pulse Ox 97.8 F 86 16 124/62 98 10/03/16 16:14 10/03/16 16:14 10/03/16 16:14 10/03/16 16:14 10/03/16 16:14 Internal Medicine: Result - Labs CBC & Chem 7: 10/03/16 04:38 10/03/16 04:38 Labs: Short CBC 10/03/16 Range/Units 04:38 WBC 6.0 (4.3-11.1) K/mcL Hgb 7.3 L (11.5-15.4) g/dL Hct 25.2 L (35.3-44.9) % Plt Count 199 (140-400) K/mcL BMP 10/03/16 04:38 Sodium 142 Potassium 3.4 L Chloride 101 Carbon Dioxide 36 H BUN 19 Creatinine 1.10 Glucose 124 H Calcium 8.7 - ABG Interpretation ABG results: PT/INR, D-dimer PT 14.6 Seconds (9.4-12.1) H 09/30/16 20:45 D-Dimer 855 ng/mLFEU (0-500) H 09/30/16 10:30 - Attending Attestation I examined this patient and my medical decision-making was reviewed with the Resident Physician. I agree with the documented findings, disposition and treatment plan as described except to the extent set forth below.
--- NOTE | 2016-10-03 11:14 | Gastroenterology Consult Note ---
<Catalino Riojas - Last Filed: 10/03/16 11:12> Date of Encounter: 10/03/16 Time of Encounter: 10:00 - Assessment and plan (1) Iron deficiency anemia Current Visit: No Status: Chronic Assessment and plan: On admission, Hgb 8.6 and this AM Hgb 7.3. On 09/05/2016 Hgb 10.7 and on 2016 Hgb 12.5. Iron is low at 48. Continue to monitor CBC and transfuse PRBC as needed. Patient last received Effient yesterday morning, and last received Xarelto on Friday. Continue to hold Xarelto and Effient. Plan for EGD and colonoscopy tomorrow. Clear liquid diet today, no red or purple. NPO at midnight. If unable tolerate NuLytely please use MiraLAX prep. If not clear by 6 AM, give 2 tap water enemas. Qualifiers: Iron deficiency anemia type: unspecified iron deficiency Qualified Code(s) : D50.9 - Iron deficiency anemia, unspecified (2) Hypoxia Current Visit: Yes Status: Acute - Time Spent With Patient Total time spent is greater than 50% in coordination of care (as documented) at patient's floor/unit and/or counseling patient: GI History of Present Illness - Data of Consult Patient: known to practice within the last 3 years Consult date: 10/03/16 Requesting Physician: Yoan Parkinson MD - Consult Narrative Reason for consult: anemia History of present illness: Ms. Melendez is a 76 year old female with PMHx of Polymyalgia rheumatica, A fib, CAD, HTN, [place], MESERET who has been experiencing for the past month increasing SOB, FAITH, swelling of extremities, and fatigue. Had a chemical stress test approximately 1 month ago per patient was negative. Patient was seen in the pulmonologists office and because of her low pulse ox and her symptoms they are concerned about possible pulmonary embolism and sent her to the ED for further evaluation. We were consulted due to her anemia. On admission, Hgb 8.6 and this AM Hgb 7.3. On 09/05/2016 Hgb 10.7 and on 07/29/2016 Hgb 12.5. Iron is low at 48. Procedures: EGD 04/20/2014 Dr. Thurman: Normal, empiric dilation of the entire esophagus. EGD 12/01/2013 Dr. Thurman: Gastritis, hyperplastic polyp. Capsule endoscopy 11/04/2013: Finding of a small amount of dark blood in the duodenal lumen with no identifiable source of bleeding. Colonoscopy 03/18/2012 Dr. Monet: 3 mm tubular adenoma at splenic flexure, recommended repeat in 3 years. EGD 03/18/2012 Dr. Monet: Gastric ulcers, chemical gastritis. NSAIDs: None Anticoagulation: Xarelto and Effient Past Med Surg Social Fam HX - Past Medical History Medical history: atrial fibrillation, coronary artery disease, hypertension, myocardial infarction, thyroid disease Psychiatric history: no psych history - Past Surgical History Surgical History: appendectomy, cataract, cholecystectomy, hysterectomy - Social History Smoking Status: Former smoker Smokeless Tobacco Status: No Alcohol use: none Drug use: none - Gastrointestinal Gastrointestinal: Present: as per HPI - Constitutional Constitutional: as per HPI - EENT Eyes: as per HPI Ears: Present: as per HPI Nose, mouth and throat: Present: as per HPI - Cardiovascular Cardiovascular ROS: Present: as per HPI - Respiratory Respiratory IM: Present: as per HPI - Genitourinary Genitourinary: Absent: change in color, Urinary frequency - Neurological ROS Neurological GI: Present: as per HPI - Hematologic/Lymphatic Hematologic/Lymphatic pediatric: Present: as per HPI - Musculoskeletal Musculoskeletal ROS GI: Present: as per HPI - Integumentary Integumentary GI: Present: as per HPI - Psychiatric ROS Psychiatric GI: Present: as per HPI - Endocrine Endocrine IM: Present: as per HPI - Constitutional Vitals: Temp Pulse Resp BP Pulse Ox 97.8 F 72 15 133/69 99 10/03/16 07:53 10/03/16 07:53 10/03/16 07:53 10/03/16 07:53 10/03/16 07:53 General appearance: Present: cooperative, A&O X 3, no acute distress, answers questions appropriately - Head Head exam: Present: atraumatic, normocephalic - Eye Eye exam: Present: normal appearance, sclera anicteric - ENT ENT exam: Present: mucous membranes dry - Neck Neck exam general surgery: Present: normal inspection, trachea midline - Respiratory Respiratory exam: Present: decreased breath sounds, CTAB. Absent: rales, rhonchi - Cardiovascular Cardiovascular exam: Present: RRR, +S1, +S2 - GI/Abdominal GI/Abdominal exam: Present: soft, no peritoneal signs. Absent: distended, firm , guarding, tenderness - Rectal Rectal exam: Present: deferred - Extremities Exam Extremities exam: Present: warm - Neurological Exam Neurological exam: Present: no focal deficits - Psychiatric Psychiatric exam: Present: normal affect, normal mood - Skin Skin exam: Present: dry, intact, normal color, warm Results - Labs CBC & Chem 7: 10/03/16 04:38 10/03/16 04:38 Labs: Last Result Calcium 8.7 mg/dL (8.6-10.8) 10/03/16 04:38 Iron 48 mcg/dL (50-170) L 10/02/16 12:38 % Saturation 13 % (15-50) L 10/02/16 12:38 Transferrin 273 mg/dL (180-382) 10/02/16 12:38 Troponin I 0.00 ng/mL (0-0.03) 10/01/16 01:03 Triglycerides 182 mg/dL (< 150) H 10/01/16 01:03 Entire Visit Hgb 7.3 g/dL (11.5-15.4) L 10/03/16 04:38 Hct 25.2 % (35.3-44.9) L 10/03/16 04:38 PT 14.6 Seconds (9.4-12.1) H 09/30/16 20:45 Total Bilirubin < 0.3 mg/dL (0.2-1.2) 09/30/16 20:45 AST 15 Units/L (5-34) 09/30/16 20:45 ALT 30 Units/L (0-55) 09/30/16 20:45 - ABG ABG results: PT/INR, D-dimer PT 14.6 Seconds (9.4-12.1) H 09/30/16 20:45 D-Dimer 855 ng/mLFEU (0-500) H 09/30/16 10:30 - Impressions Impressions Chest X-Ray 10/02/16 11:28 IMPRESSION: 1. Cardiomegaly with vascular congestion. D/ / Hebert Zarate MD / Hebert Zarate MD Interpreting Provider: Hebert Zarate MD Consult Discharge Plan - Plan Referrals: Rina Kaba MD [Non-Partnered Physician] - 10/08/16 9:40 am <Yoshi Thurmaned - Last Filed: 10/03/16 17:57> Date of Encounter: 10/03/16 Time of Encounter: 13:00 - Time Spent With Patient Total time spent is greater than 50% in coordination of care (as documented) at patient's floor/unit and/or counseling patient: GI History of Present Illness - Data of Consult Requesting Physician: Yoan Parkinson MD - Consult Narrative History of present illness: Ms. Melendez is a 76 year old female - Constitutional Vitals: Temp Pulse Resp BP Pulse Ox 97.8 F 86 16 124/62 98 10/03/16 16:14 10/03/16 16:14 10/03/16 16:14 10/03/16 16:14 10/03/16 16:14 Results - Labs CBC & Chem 7: 10/03/16 04:38 10/03/16 04:38 Labs: Last Result Calcium 8.7 mg/dL (8.6-10.8) 10/03/16 04:38 Iron 48 mcg/dL (50-170) L 10/02/16 12:38 % Saturation 13 % (15-50) L 10/02/16 12:38 Transferrin 273 mg/dL (180-382) 10/02/16 12:38 Troponin I 0.00 ng/mL (0-0.03) 10/01/16 01:03 Triglycerides 182 mg/dL (< 150) H 10/01/16 01:03 Entire Visit Hgb 7.3 g/dL (11.5-15.4) L 10/03/16 04:38 Hct 25.2 % (35.3-44.9) L 10/03/16 04:38 PT 14.6 Seconds (9.4-12.1) H 09/30/16 20:45 Total Bilirubin < 0.3 mg/dL (0.2-1.2) 09/30/16 20:45 AST 15 Units/L (5-34) 09/30/16 20:45 ALT 30 Units/L (0-55) 09/30/16 20:45 - ABG ABG results: PT/INR, D-dimer PT 14.6 Seconds (9.4-12.1) H 09/30/16 20:45 D-Dimer 855 ng/mLFEU (0-500) H 09/30/16 10:30 - Attending Attestation I examined this patient and my medical decision-making was reviewed with the Resident Physician. I agree with the documented findings, disposition and treatment plan as described except to the extent set forth below.
[2016-10-03] MEDS ORDERED: Polyethylene Glycol 3350 255 GM POWDER PO ONE ×3 (14:31→21:51)
[2016-10-03] MEDS: Pantoprazole 40 MG VIAL IVP SCH (17:26)
[2016-10-03] MEDS ORDERED: Ondansetron 4 MG/2 ML VIAL IVP PRN (20:42)
[2016-10-03] MEDS ORDERED: Furosemide 40 MG/4 ML VIAL IVP ONE (20:47)
[2016-10-03] MEDS ORDERED: 0.9 % Sodium Chloride 250 ML ONE (22:56)
[2016-10-03] MEDS: risperiDONE 1 MG TABLET PO SCH (23:27)
[2016-10-04] MEDS: Pantoprazole 40 MG VIAL IVP SCH ×2 (05:24→17:49)
[2016-10-04 06:20] LABS: Hematocrit 30.6 % (35.3-44.9); Mean Corpuscular Hemoglobin 28.9 pg (28.0-33.3); Mean Platelet Volume 9.7 fL (9.4-12.4); Platelet Count 195 K/mcL (140-400); Red Blood Count 3.29 M/mcL (3.82-4.97); Red Cell Distribution Width 21.2 % (11.5-14.5)
[2016-10-04 06:21] LABS: Hemoglobin 9.5 g/dL (11.5-15.4)
[2016-10-04 06:34] LABS: Potassium 2.9 mEq/L (3.5-4.5)
[2016-10-04] MEDS: *HR* Amiodarone 200 MG TABLET PO SCH (09:06)
[2016-10-04] MEDS: Furosemide 40 MG/4 ML VIAL IVP SCH (09:06)
--- NOTE | 2016-10-04 10:07 | Anesthesia Evaluation PreOp ---
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 HX Other Medical History: Renal (ckd), Other (BMI 48) Anesthesia History: No Prior Anesthetic Complications Alcohol Use: none Drug use: none Medications and Allergies Furosemide [Lasix] 40 mg PO DAILY 10/20/14 [History] Levothyroxine [Synthroid] 100 mcg PO QAM 10/20/14 [History] Losartan [Cozaar] 100 mg PO HS 10/20/14 [History] Nitroglycerin 0.4 mg SL AD PRN 10/20/14 [History] Prasugrel [Effient] 10 mg PO DAILY 10/20/14 [History] Rivaroxaban [Xarelto] 15 mg PO HS 10/20/14 [History] Amiodarone [Cordarone] 200 mg PO DAILY 09/27/15 [History] Ascorbate Calcium [Vitamin C] 1,000 mg PO DAILY 09/30/16 [History] Calcium Crb,Cit/D3/Min34/Dinah [Citracal + Bone Density Tablet] 2 tab PO BID [History] Esomeprazole Magnesium [Nexium 24Hr] 44.6 mg PO BID 09/30/16 [History] Ezetimibe [Zetia] 10 mg PO DAILY 09/30/16 [History] FLUoxetine HCl [Fluoxetine HCl] 40 mg PO DAILY 09/30/16 [History] Mv,Ca,Min/Iron/FA/Guarana/Caff [One-A-Day Women's Tablet] 1 tab PO DAILY [History] Ondansetron HCl [Ondansetron HCl] 4 mg PO TID PRN 09/30/16 [History] Zolpidem Tartrate [Zolpidem Tartrate] 5 mg PO HS 09/30/16 [History] predniSONE [PredniSONE] 30 mg PO DAILY 09/30/16 [History] risperiDONE [Risperidone] 1 mg PO DAILY 09/30/16 [History] 3 Allergy/AdvReac Type Severity Reaction Status Date / Time olanzapine [From Zyprexa] Allergy See Verified 09/30/16 12:49 Comments ciprofloxacin [From Cipro] AdvReac Vomiting Verified 09/30/16 12:49 Erythromycin Base AdvReac Vomiting Verified 09/30/16 12:49 Sulfa (Sulfonamide AdvReac Vomiting Verified 09/30/16 12:49 Antibiotics) ivp DYE Allergy Hives Uncoded 09/29/14 15:11 - Meds/Allergy Pre-op Review Medications Reviewed: Yes Allergies Reviewed: Yes Beta Blockers on Current Med List: No Anesthesia Results - Labs 10/04/16 05:50 10/04/16 05:50 - Imaging EKG: report reviewed, image reviewed (SINUS RHYTHM INCOMPLETE RBBB BASELINE ARTIFACT COMPLICATES ACCURATE INTERPRETATION) Additional studies: TTE: Impressions: LVEF 65%. Definity echo contrast was used. Pseudonormal LV diastolic dysfunction. RV is not well evaluated. No significant valvular dysfunction. Lack of adequate TR signal to estimate RVSP. IVC is not dilated. Anesthesia Exam Last Vital Signs Temp 98.2 F 10/04/16 07:27 Pulse 107 10/04/16 07:27 Resp 17 10/04/16 07:27 BP 115/71 10/04/16 07:27 Pulse Ox 99 10/04/16 07:27 Weight: 140 kg (BMI 48) - HEENT Pupil (Motor): Pupils equal, EOMI Mallampati: III Teeth: Edentulous Oral Opening: Greater than 3 - HEALTH SAFETY ENGINEER LOC: Oriented HEALTH SAFETY ENGINEER Motor: Normal RUE, Normal LUE, Normal RLE, Normal LLE, Normal Face - Cardiac Rhythm: Regular Murmur: None - Pulmonary Breath Sounds: bilateral Clear Respiratory Effort: Symmetrical Anesthesia Assess/Plan ASA Score: 3 Modified Juanita Scale for Level of Consciousness: Cooperative, oriented, and tranquil Anesthetic Plan: MAC Monitoring Plan: Standard Monitors Recovery Plan: PACU
--- NOTE | 2016-10-04 11:17 | Anesthesia Evaluation Post Op ---
Date of Encounter: 10/04/16 Time of Encounter: 11:22 - Vital Signs Vital Signs: Vital Signs/O2 Sat, Most Current Temp Pulse Resp BP Pulse Ox 97.8 F 87 20 132/38 99 10/04/16 09:45 10/04/16 09:45 10/04/16 09:45 10/04/16 09:45 10/04/16 09:45 - Lungs Lungs: Clear Ascult./Percussion - Airway Airway: Non-obstructed - Cardiovascular Regular Rate - Mental Status Mental Status: Alert & Oriented, Answers Appropriately - Pain Pain Scale: 0 Pain Scale used: Numeric (1 - 10) - Nausea Vomiting Nausea Vomiting: Not Present - Hydration Hydration: NPO, Has not voided - Discharge PostOp Status: Transfer Patient to floor
--- NOTE | 2016-10-04 11:25 | Internal Med Progress Note ---
<Gordon Whittington - Last Filed: 10/04/16 14:33> Date of Encounter: 10/04/16 Time of Encounter: 11:22 - Assessment and plan (1) Anemia Current Visit: Yes Status: Acute Assessment and plan: last month hgb was 10.7, upon admission 8.6. received 1 unit prbc 10/03/16, hgb 9.5 on 10/04/16 No active bleed identified. last iron infusion was last week, followed by heme. - GI will scope today - pending - holding xarelto - placed on clear liquid diet Qualifiers: Anemia type: iron deficiency Iron deficiency anemia type: chronic blood loss Qualified Code(s): D50.0 - Iron deficiency anemia secondary to blood loss (chronic) (2) Hypoxia Current Visit: Yes Status: Acute Assessment and plan: Pulm HTN Vs Anemia vs Paroxysmal Afib vs less likely PE. Patient was experiencing increaseness of SOB and hypoxia at home. Improved at home with CPAP and usage of daughter's oxygen. 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 NM ventilation perfusion scan - low probability of PE. Hgb last month was 10.7, on admission 7.7. Received Iron infusions, last was last week. Last EGD and colonoscopy in 2012 which did not identify a source of bleeding. Echo LVEF 55% and indeterminate RVSP. Fe 48 and Trasnferrin 273. - GI will scope today - continue cardiac monitoring for arrhythmias - Ct. Amiodarone 200 mg (3) Hypertension Current Visit: No Status: Acute Assessment and plan: poorly controlled HTN. home meds Amiodarone, Lasix 40, Losartan 100. - continue amiodarone 200 mg - BP today 151/81 - continue to closely monitor - will restart home meds Qualifiers: Hypertension type: essential hypertension Qualified Code(s): I10 - Essential (primary) hypertension (4) Hypothyroidism (acquired) Current Visit: No Status: Acute Assessment and plan: TSH 0.653 stable. Continue home synthroid (5) Paroxysmal atrial fibrillation Current Visit: No Status: Chronic Assessment and plan: continue amiodarone - Will restart home meds - home anti-coag currently held for procedure (6) Lactic acidosis Current Visit: Yes Status: Acute Assessment and plan: lactic acidosis 3.6 - 5.7. Will follow (7) Acute kidney injury Current Visit: Yes Status: Acute Assessment and plan: Cr on admission 1.69, 1.72. Baseline 1.69. Today Cr 1.43 - resolved. will restart home meds. (8) Hypokalemia Current Visit: Yes Status: Acute Assessment and plan: patient has been experiencing bouts of diarrhea as well as receiving Lasix. Potassium is 3.2 - Potassium 4.3, 4.0 - resolved - Subjective Interval history: Ms Melendez is a 76 year old woman on day 4 of admit. She was found to be hypoxic at the pulmonary office and recommended to go to ED. Hx: afib, [place] w/ 2 stent, htn, rosalinda, anemia. 6 months ago diagnosed by family physician with polymalgia rheumatica placed on 60mg prednisone which resolved her symptoms of achivng all over, weakness in legs and arms. Symptoms returned after her prednisone was tapered. Patient reports having a rough night straining to have bowel movement and only sleeping 1 hour last night. Had to get multiple bowel preps, and eventually enema. denies f/c/n/v/ aching/weakness - Constitutional Vitals: Temp Pulse Resp BP Pulse Ox 97.8 F 87 20 132/38 99 10/04/16 09:45 10/04/16 09:45 10/04/16 09:45 10/04/16 09:45 10/04/16 09:45 General appearance: Present: A&O X 3, answers questions appropriately - Head Head exam: Present: atraumatic, normocephalic - Respiratory Respiratory exam: Present: CTAB. Absent: accessory muscle use, rales, rhonchi, wheezes - Cardiovascular Cardiovascular exam: Present: RRR, +S1, +S2. Absent: diastolic murmur, gallop, rubs, systolic murmur - GI/Abdominal GI/Abdominal exam: Present: hypoactive bowel sounds, soft, no peritoneal signs. Absent: distended, tenderness Internal Medicine: Result - Labs CBC & Chem 7: 10/04/16 05:50 10/04/16 05:50 Labs: Short CBC 10/04/16 Range/Units 05:50 WBC 10.7 D (4.3-11.1) K/mcL Hgb 9.5 L D (11.5-15.4) g/dL Hct 30.6 L (35.3-44.9) % Plt Count 195 (140-400) K/mcL [facility] 10/04/16 05:50 Sodium 140 Potassium 2.9 L Chloride 97 L Carbon Dioxide 34 H BUN 14 Creatinine 1.10 Glucose 105 H Calcium 9.0 - ABG Interpretation ABG results: PT/INR, D-dimer PT 14.6 Seconds (9.4-12.1) H 09/30/16 20:45 D-Dimer 855 ng/mLFEU (0-500) H 09/30/16 10:30 - VTE Documentation of Mechanical Device: Intermittent pneumatic compression device Consult Discharge Plan - Plan Referrals: Rina Kaba MD [Non-Partnered Physician] - 10/08/16 9:40 am <Yoan Parkinson - Last Filed: 10/04/16 20:24> Date of Encounter: 10/04/16 - Constitutional Vitals: Temp Pulse Resp BP Pulse Ox 99.3 F 96 18 103/58 93 10/04/16 16:42 10/04/16 16:42 10/04/16 16:42 10/04/16 16:42 10/04/16 16:42 Internal Medicine: Result - Labs CBC & Chem 7: 10/04/16 05:50 10/04/16 05:50 Labs: Short CBC 10/04/16 Range/Units 05:50 WBC 10.7 D (4.3-11.1) K/mcL Hgb 9.5 L D (11.5-15.4) g/dL Hct 30.6 L (35.3-44.9) % Plt Count 195 (140-400) K/mcL [facility] 10/04/16 05:50 Sodium 140 Potassium 2.9 L Chloride 97 L Carbon Dioxide 34 H BUN 14 Creatinine 1.10 Glucose 105 H Calcium 9.0 - ABG Interpretation ABG results: PT/INR, D-dimer PT 14.6 Seconds (9.4-12.1) H 09/30/16 20:45 D-Dimer 855 ng/mLFEU (0-500) H 09/30/16 10:30 - Attending Attestation I examined this patient and my medical decision-making was reviewed with the Resident Physician. I agree with the documented findings, disposition and treatment plan as described except to the extent set forth below.
[2016-10-04] MEDS ORDERED: Potassium Chloride 40 MEQ, Lidocaine 1% 2 ML in D5% in Water 500 ML IVPB ONE (11:40)
[2016-10-04] MEDS: predniSONE 10 MG TABLET PO SCH (13:13)
[2016-10-04] MEDS: FLUoxetine 20 MG CAPSULE PO SCH (13:14)
[2016-10-04] MEDS: risperiDONE 1 MG TABLET PO SCH (20:46)
[2016-10-05 05:34] LABS: Hematocrit 26.1 % (35.3-44.9); Hemoglobin 8.1 g/dL (11.5-15.4); Mean Corpuscular Hemoglobin 28.9 pg (28.0-33.3); Mean Corpuscular Volume 93.2 fL (83.0-100.0); Mean Platelet Volume 10.1 fL (9.4-12.4); Platelet Count 172 K/mcL (140-400); Red Cell Distribution Width 20.8 % (11.5-14.5)
[2016-10-05 05:44] LABS: Potassium 3.8 mEq/L (3.5-4.5)
[2016-10-05 05:45] LABS: Calcium 8.5 mg/dL (8.6-10.8)
[2016-10-05] MEDS: Pantoprazole 40 MG VIAL IVP SCH ×2 (06:19→16:51)
[2016-10-05] MEDS: predniSONE 10 MG TABLET PO SCH (08:59)
[2016-10-05] MEDS: Furosemide 40 MG/4 ML VIAL IVP SCH (08:59)
[2016-10-05] MEDS: *HR* Amiodarone 200 MG TABLET PO SCH (09:00)
[2016-10-05] MEDS: FLUoxetine 20 MG CAPSULE PO SCH (09:00)
--- NOTE | 2016-10-05 13:41 | Internal Med Progress Note ---
Date of Encounter: 10/05/16 Time of Encounter: 13:38 - Assessment and plan (1) Anemia Current Visit: Yes Status: Acute Assessment and plan: last month hgb was 10.7, upon admission 8.6. received 1 unit prbc 10/03/16, hgb 9.5 on 10/04/16 No active bleed identified. last iron infusion was last week, followed by heme. - GI will scope today - pending - holding xarelto - placed on clear liquid diet 10/05/2016. Status post EGD and colonoscopy. EGD/colonoscopy findings noted. No active/overt/occult bleeding. Patient denies dizziness, shortness of breath, chest pain, abdominal pain or melena. Plan: Continue close monitoring. Likely home in 1-2 days Qualifiers: Anemia type: iron deficiency Iron deficiency anemia type: chronic blood loss Qualified Code(s): D50.0 - Iron deficiency anemia secondary to blood loss (chronic) (2) Hypertension Current Visit: No Status: Acute Assessment and plan: poorly controlled HTN. home meds Amiodarone, Lasix 40, Losartan 100. - continue amiodarone 200 mg - BP today 151/81 - continue to closely monitor - will restart home meds Qualifiers: Hypertension type: essential hypertension Qualified Code(s): I10 - Essential (primary) hypertension (3) Hypothyroidism (acquired) Current Visit: No Status: Acute Assessment and plan: TSH 0.653 stable. Continue home synthroid (4) Paroxysmal atrial fibrillation Current Visit: No Status: Chronic Assessment and plan: continue amiodarone - Will restart home meds - home anti-coag currently held for procedure - Subjective Interval history: Patient seen and examined. Chart reviewed. Patient is comfortably lying in the bed. Patient's family is at bedside. Patient denies any chest pain, shortness of breath, abdominal pain, nausea, vomiting and diarrhea. All questions answered. - Constitutional Vitals: Temp Pulse Resp BP Pulse Ox 97.8 F 91 16 144/76 98 10/05/16 09:58 10/05/16 09:58 10/05/16 09:58 10/05/16 09:58 10/05/16 09:58 General appearance: Present: A&O X 3, answers questions appropriately - Head Head exam: Present: atraumatic, normocephalic - Eye Eye exam: Present: PERRL, conjuntiva pink, sclera anicteric Pupils: Present: PERRL - Neck Neck exam general surgery: Present: supple, trachea midline. Absent: lymphadenopathy - Respiratory Respiratory exam: Present: CTAB. Absent: accessory muscle use, rales, rhonchi, wheezes - Cardiovascular Cardiovascular exam: Present: RRR, +S1, +S2. Absent: diastolic murmur, gallop, rubs, systolic murmur - GI/Abdominal GI/Abdominal exam: Present: normal bowel sounds, soft, no peritoneal signs. Absent: distended, tenderness - Extremities Exam Extremities exam: Present: warm, radial pulses palpable and symmetrical. Absent : calf tenderness, cyanotic, pedal edema - Neurological Exam Neurological exam: Present: CN II-XII intact, oriented X3, no focal deficits. Absent: pronater drift, facial droop, speech deficit - Skin Skin exam: Present: dry, intact Internal Medicine: Result - Labs CBC & Chem 7: 10/05/16 04:03 10/05/16 04:03 Labs: Short CBC 10/05/16 Range/Units 04:03 WBC 8.0 (4.3-11.1) K/mcL Hgb 8.1 L (11.5-15.4) g/dL Hct 26.1 L (35.3-44.9) % Plt Count 172 (140-400) K/mcL [facility] 10/05/16 04:03 Sodium 141 Potassium 3.8 Chloride 101 Carbon Dioxide 33 H BUN 16 Creatinine 1.35 H Glucose 148 H Calcium 8.5 L - ABG Interpretation ABG results: PT/INR, D-dimer PT 14.6 Seconds (9.4-12.1) H 09/30/16 20:45 D-Dimer 855 ng/mLFEU (0-500) H 09/30/16 10:30 - VTE Documentation of Mechanical Device: Intermittent pneumatic compression device Consult Discharge Plan - Plan Referrals: Rina Kaba MD [Non-Partnered Physician] - 10/08/16 9:40 am
[2016-10-05] MEDS: risperiDONE 1 MG TABLET PO SCH (21:20)
[2016-10-06 05:34] LABS: Basophils % 0.2 %; Eosinophils # 0.1 K/mcL (0.0-0.6); Eosinophils % 0.8 %; Hematocrit 26.5 % (35.3-44.9); Hemoglobin 8.1 g/dL (11.5-15.4); Lymphocytes # 1.3 K/mcL (0.6-4.6); Lymphocytes % 19.2 %; Mean Corpuscular HGB Conc 30.6 g/dL (31.6-35.5); Mean Corpuscular Hemoglobin 28.5 pg (28.0-33.3); Mean Corpuscular Volume 93.3 fL (83.0-100.0); Mean Platelet Volume 9.5 fL (9.4-12.4); Monocytes # 0.5 K/mcL (0.0-1.3); Neutrophils # 4.6 K/mcL (1.6-8.9); Platelet Count 157 K/mcL (140-400); Red Blood Count 2.84 M/mcL (3.82-4.97); Red Cell Distribution Width 19.9 % (11.5-14.5); Segmented Neutrophils % 69.8 %
[2016-10-06 05:52] LABS: Alanine Aminotransferase 26 Units/L (0-55); Albumin 2.4 g/dL (3.5-5.0); Alkaline Phosphatase 69 Units/L (38-126); Aspartate Amino Transferase 13 Units/L (5-34); BUN/Creatinine Ratio 19 (6-26); Bilirubin,Total < 0.3 mg/dL (0.2-1.2); Blood Urea Nitrogen 20 mg/dL (7-20); Calcium 8.3 mg/dL (8.6-10.8); Carbon Dioxide 34 mEq/L (19-29); Chloride 103 mEq/L (98-109); Globulin 2.4 g/dL (2.4-3.5); Glucose 124 mg/dL (70-99); Osmolality,Calculated 298 (280-300); Potassium 3.6 mEq/L (3.5-4.5); Sodium 142 mEq/L (136-145); Total Protein 4.8 g/dL (6.0-8.3); eGFR For African Americans 60 (> 60); eGFR For Non-African Americans 49 (> 60)
[2016-10-06] MEDS: Pantoprazole 40 MG VIAL IVP SCH ×2 (05:52→18:38)
[2016-10-06] MEDS: predniSONE 10 MG TABLET PO SCH (08:20)
[2016-10-06] MEDS: FLUoxetine 20 MG CAPSULE PO SCH (08:20)
[2016-10-06] MEDS: *HR* Amiodarone 200 MG TABLET PO SCH (08:20)
[2016-10-06] MEDS: Furosemide 40 MG/4 ML VIAL IVP SCH (08:21)
--- NOTE | 2016-10-06 09:37 | Internal Med Progress Note ---
<Gordon Whittington - Last Filed: 10/06/16 09:34> Date of Encounter: 10/06/16 Time of Encounter: 09:34 - Assessment and plan (1) Anemia Current Visit: Yes Status: Acute Assessment and plan: last month hgb was 10.7, upon admission 8.6. received 1 unit prbc 10/03/16, hgb 9.5 on 10/04/16 No active bleed identified. last iron infusion was last week, followed by heme. EGD and colonoscopy identified no source of bleeding. Patient denies dizziness, shortness of breath, chest pain, abdominal pain or melena. - Continue close monitoring. - Likely home tomorrow Qualifiers: Anemia type: iron deficiency Iron deficiency anemia type: chronic blood loss Qualified Code(s): D50.0 - Iron deficiency anemia secondary to blood loss (chronic) (2) Hypoxia Current Visit: Yes Status: Acute Assessment and plan: Pulm HTN Vs Anemia vs Paroxysmal Afib vs less likely PE. Patient was experiencing increaseness of SOB and hypoxia at home. Improved at home with CPAP and usage of daughter's oxygen. 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 NM ventilation perfusion scan - low probability of PE. Hgb last month was 10.7, on admission 7.7. Received Iron infusions, last was last week. Last EGD and colonoscopy in 2012 which did not identify a source of bleeding. Echo LVEF 55% and indeterminate RVSP. Fe 48 and Trasnferrin 273. - continue cardiac monitoring for arrhythmias - Ct. Amiodarone 200 mg (3) Hypertension Current Visit: No Status: Acute Assessment and plan: poorly controlled HTN. home meds Amiodarone, Lasix 40, Losartan 100. - BP today 114/58 - continue amiodarone 200 mg - continue to closely monitor - will restart home meds Qualifiers: Hypertension type: essential hypertension Qualified Code(s): I10 - Essential (primary) hypertension (4) Hypothyroidism (acquired) Current Visit: No Status: Acute Assessment and plan: TSH 0.653 stable. Continue home synthroid (5) Paroxysmal atrial fibrillation Current Visit: No Status: Chronic Assessment and plan: continue amiodarone - Will restart home meds - home anti-coag (6) Lactic acidosis Current Visit: Yes Status: Acute Assessment and plan: lactic acidosis 3.6 - 5.7. Will follow (7) Acute kidney injury Current Visit: Yes Status: Acute Assessment and plan: Cr on admission 1.69, 1.72. Baseline 1.69. Today Cr 1.43 - resolved. ct. home meds. (8) Hypokalemia Current Visit: Yes Status: Acute Assessment and plan: patient has been experiencing bouts of diarrhea as well as receiving Lasix. Potassium is 3.2 - Potassium 4.3, 4.0 - resolved - Subjective Interval history: Ms Melendez is a 76 year old woman on day 6 of admit. She was found to be hypoxic at the pulmonary office and recommended to go to ED. Hx: afib, [place] w/ 2 stent, htn, rosalinda, anemia. 6 months ago diagnosed by family physician with polymalgia rheumatica placed on 60mg prednisone which resolved her symptoms of achivng all over, weakness in legs and arms. Symptoms returned after her prednisone was tapered. Patient reports no troubles overnight. continues to deny f/c/n/v/ aching/ weakness - Constitutional Vitals: Temp Pulse Resp BP Pulse Ox 98.1 F 78 16 114/58 92 10/06/16 06:40 10/06/16 06:40 10/06/16 06:40 10/06/16 06:40 10/06/16 08:36 General appearance: Present: A&O X 3, answers questions appropriately - Head Head exam: Present: atraumatic, normocephalic - Respiratory Respiratory exam: Present: CTAB. Absent: accessory muscle use, rales, rhonchi, wheezes - Cardiovascular Cardiovascular exam: Present: RRR, +S1, +S2. Absent: diastolic murmur, gallop, rubs, systolic murmur - GI/Abdominal GI/Abdominal exam: Present: normal bowel sounds, soft, no peritoneal signs. Absent: distended, tenderness Internal Medicine: Result - Labs CBC & Chem 7: 10/06/16 04:59 10/06/16 04:59 Labs: Short CBC 10/06/16 Range/Units 04:59 WBC 6.5 (4.3-11.1) K/mcL Hgb 8.1 L (11.5-15.4) g/dL Hct 26.5 L (35.3-44.9) % Plt Count 157 (140-400) K/mcL Neutrophils # 4.6 (1.6-8.9) K/mcL BMP 10/06/16 04:59 Sodium 142 Potassium 3.6 Chloride 103 Carbon Dioxide 34 H BUN 20 Creatinine 1.08 Glucose 124 H Calcium 8.3 L Liver Function 10/06/16 Range/Units 04:59 Total Bilirubin < 0.3 (0.2-1.2) mg/dL AST 13 (5-34) Units/L ALT 26 (0-55) Units/L Alkaline Phosphatase 69 (38-126) Units/L Albumin 2.4 L (3.5-5.0) g/dL - ABG Interpretation ABG results: PT/INR, D-dimer PT 14.6 Seconds (9.4-12.1) H 09/30/16 20:45 D-Dimer 855 ng/mLFEU (0-500) H 09/30/16 10:30 - VTE Documentation of Mechanical Device: Intermittent pneumatic compression device Consult Discharge Plan - Plan Referrals: Rina Kaba MD [Non-Partnered Physician] - 10/08/16 9:40 am <Yoan Parkinson P - Last Filed: 10/06/16 16:11> Date of Encounter: 10/06/16 - Assessment and plan (1) Anemia Current Visit: Yes Status: Acute Qualifiers: Anemia type: iron deficiency Iron deficiency anemia type: chronic blood loss Qualified Code(s): D50.0 - Iron deficiency anemia secondary to blood loss (chronic) (2) Hypertension Current Visit: No Status: Acute Qualifiers: Hypertension type: essential hypertension Qualified Code(s): I10 - Essential (primary) hypertension (3) Hypothyroidism (acquired) Current Visit: No Status: Acute (4) Paroxysmal atrial fibrillation Current Visit: No Status: Chronic - Constitutional Vitals: Temp Pulse Resp BP Pulse Ox 97.7 F 92 16 148/78 97 10/06/16 12:15 10/06/16 12:15 10/06/16 12:15 10/06/16 12:15 10/06/16 12:15 Internal Medicine: Result - Labs CBC & Chem 7: 10/06/16 04:59 10/06/16 04:59 Labs: Short CBC 10/06/16 Range/Units 04:59 WBC 6.5 (4.3-11.1) K/mcL Hgb 8.1 L (11.5-15.4) g/dL Hct 26.5 L (35.3-44.9) % Plt Count 157 (140-400) K/mcL Neutrophils # 4.6 (1.6-8.9) K/mcL BMP 10/06/16 04:59 Sodium 142 Potassium 3.6 Chloride 103 Carbon Dioxide 34 H BUN 20 Creatinine 1.08 Glucose 124 H Calcium 8.3 L Liver Function 10/06/16 Range/Units 04:59 Total Bilirubin < 0.3 (0.2-1.2) mg/dL AST 13 (5-34) Units/L ALT 26 (0-55) Units/L Alkaline Phosphatase 69 (38-126) Units/L Albumin 2.4 L (3.5-5.0) g/dL - ABG Interpretation ABG results: PT/INR, D-dimer PT 14.6 Seconds (9.4-12.1) H 09/30/16 20:45 D-Dimer 855 ng/mLFEU (0-500) H 09/30/16 10:30 - Attending Attestation I examined this patient and my medical decision-making was reviewed with the Resident Physician. I agree with the documented findings, disposition and treatment plan as described except to the extent set forth below.
[2016-10-06] MEDS: risperiDONE 1 MG TABLET PO SCH (20:04)
[2016-10-07 04:39] LABS: Basophils % 0.3 %; Eosinophils # 0.1 K/mcL (0.0-0.6); Eosinophils % 0.8 %; Hematocrit 27.1 % (35.3-44.9); Hemoglobin 8.2 g/dL (11.5-15.4); Immature Granulocytes % 1.8 % (0-4); Lymphocytes # 1.3 K/mcL (0.6-4.6); Lymphocytes % 20.4 %; Mean Corpuscular HGB Conc 30.3 g/dL (31.6-35.5); Mean Corpuscular Hemoglobin 28.4 pg (28.0-33.3); Mean Corpuscular Volume 93.8 fL (83.0-100.0); Mean Platelet Volume 10.1 fL (9.4-12.4); Monocytes # 0.5 K/mcL (0.0-1.3); Monocytes % 7.3 %; Neutrophils # 4.3 K/mcL (1.6-8.9); Platelet Count 148 K/mcL (140-400); Red Blood Count 2.89 M/mcL (3.82-4.97); Segmented Neutrophils % 69.4 %
[2016-10-07 04:48] LABS: Alanine Aminotransferase 26 Units/L (0-55); Albumin 2.5 g/dL (3.5-5.0); Albumin/Globulin Ratio 0.9 (1.1-2.2); Alkaline Phosphatase 69 Units/L (38-126); Aspartate Amino Transferase 22 Units/L (5-34); BUN/Creatinine Ratio 22 (6-26); Bilirubin,Total 0.4 mg/dL (0.2-1.2); Blood Urea Nitrogen 20 mg/dL (7-20); Calcium 8.7 mg/dL (8.6-10.8); Carbon Dioxide 33 mEq/L (19-29); Chloride 101 mEq/L (98-109); Globulin 2.7 g/dL (2.4-3.5); Glucose 133 mg/dL (70-99); Osmolality,Calculated 299 (280-300); Sodium 142 mEq/L (136-145); Total Protein 5.2 g/dL (6.0-8.3); eGFR For African Americans > 60 (> 60); eGFR For Non-African Americans 59 (> 60)
[2016-10-07 04:49] LABS: Potassium 3.6 mEq/L (3.5-4.5)
[2016-10-07] MEDS: Pantoprazole 40 MG VIAL IVP SCH (05:08)
[2016-10-07] MEDS: predniSONE 10 MG TABLET PO SCH (07:19)
[2016-10-07] MEDS: FLUoxetine 20 MG CAPSULE PO SCH (07:19)
[2016-10-07] MEDS: *HR* Amiodarone 200 MG TABLET PO SCH (07:19)
[2016-10-07] MEDS: Furosemide 40 MG/4 ML VIAL IVP SCH (07:19)
[2016-10-07 08:44] VITALS: BP 141/81
[2016-10-07] MEDS ORDERED: *HR* Propofol 200 MG/20 ML VIAL IVP ONE (09:55)
--- NOTE | 2016-10-07 10:03 | Discharge Summary ---
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 Priority: Primary Status: Acute (2) Anemia Priority: Secondary Status: Acute Qualifiers: Anemia type: iron deficiency Iron deficiency anemia type: chronic blood loss Qualified Code(s): D50.0 - Iron deficiency anemia secondary to blood loss (chronic) (3) Hypoxia Priority: Secondary Status: Acute (4) Hypertension Priority: Secondary Status: Acute Qualifiers: Hypertension type: essential hypertension Qualified Code(s): I10 - Essential (primary) hypertension (5) Hypothyroidism (acquired) Priority: Secondary Status: Acute (6) Paroxysmal atrial fibrillation Priority: Secondary Status: Chronic (7) Lactic acidosis Priority: Secondary Status: Acute (8) Acute kidney injury Priority: Secondary Status: Acute (9) Hypokalemia Priority: Secondary Status: Acute - Discharge Medications Home Medications: Furosemide [Lasix] 40 mg PO DAILY 10/20/14 [History] Levothyroxine [Synthroid] 100 mcg PO QAM 10/20/14 [History] Losartan [Cozaar] 100 mg PO HS 10/20/14 [History] Nitroglycerin 0.4 mg SL AD PRN 10/20/14 [History] Prasugrel [Effient] 10 mg PO DAILY 10/20/14 [History] Rivaroxaban [Xarelto] 15 mg PO HS 10/20/14 [History] Amiodarone [Cordarone] 200 mg PO DAILY 09/27/15 [History] Ascorbate Calcium [Vitamin C] 1,000 mg PO DAILY 09/30/16 [History] Calcium Crb,Cit/D3/Min34/Dinah [Citracal + Bone Density Tablet] 2 tab PO BID [History] Esomeprazole Magnesium [Nexium 24Hr] 44.6 mg PO BID 09/30/16 [History] Ezetimibe [Zetia] 10 mg PO DAILY 09/30/16 [History] FLUoxetine HCl [Fluoxetine HCl] 40 mg PO DAILY 09/30/16 [History] Mv,Ca,Min/Iron/FA/Guarana/Caff [One-A-Day Women's Tablet] 1 tab PO DAILY [History] Ondansetron HCl 4 mg PO TID PRN 09/30/16 [History] Zolpidem Tartrate 5 mg PO HS 09/30/16 [History] predniSONE [PredniSONE] 30 mg PO DAILY 09/30/16 [History] risperiDONE [Risperidone] 1 mg PO DAILY 09/30/16 [History] Allergies/Adverse Reactions: 3 Allergy/AdvReac Type Severity Reaction Status Date / Time olanzapine [From Zyprexa] Allergy See Verified 09/30/16 12:49 Comments ciprofloxacin [From Cipro] AdvReac Vomiting Verified 09/30/16 12:49 Erythromycin Base AdvReac Vomiting Verified 09/30/16 12:49 Sulfa (Sulfonamide AdvReac Vomiting Verified 09/30/16 12:49 Antibiotics) ivp DYE Allergy Hives Uncoded 09/29/14 15:11 Date of admission: 10/01/16 16:34 Primary care physician: PCP NONE Consults: 10/02/16 11:30 Consult to Gastroenterology [CONS] Routine Consulting Provider: [facility] [place] Reason for Consult: lastmonth hgb 10.7, hgb on this admission ~7. possible GI bleed. Call Completed: Yes - Patient Status Disposition: Home Health Service Condition: Good Functional capacity at discharge: wheelchair bound Overall status at discharge: patient is progressing back to baseline - Discharge Instructions Instructions: Anemia (DC), Hypoxia (GEN) Follow Up With: Rina Kaba MD [Non-Partnered Physician] - 10/08/16 9:40 am Valeria Cook MD [Partnered Physician] - Additional Instructions: F/U with [facility] and PCP < 1 week - Diet and Activity Activity: increase activity as tolerated Diet: diabetic diet, low salt diet Interval History: Ms Melednez is a 76 year old F who was admitted due to an hypoxic episode which was recorded at home with an SPO2 of 88% w/ long hx of smoking, MESERET w/ CPAP, and using daughter's O2. Pulm perfusion, echocardiogram, and CXR showed very low probability of PE. Patient was placed on 3L of O2 and her SpO2 remained >95 %. Day of discharge she passed the 6 minute walk test, and did not qualify for home O2 She was found to have a hgb of 8.6 on admission, last month 10.7. GI performed EGD and colonoscopy without identify source of bleed. Her hgb further dropped and she was transfused 1 unit RBC, in which her hgb responded. She was also found to have WILY on admission, her lasix and losartan were held and Cr returned back to baseline. She also had complaints of diarrhea prior to hospitalization, which her daughter gave her 2 doses of immodium, and then received 2 doses in the hospital. She did not have a bowel movement for multiple days, and then had to receive enemas to relieve backup. Hospital course: Ms. Melendez is a 76 year old female - Time Spent with Patient Total time spent providing and/or coordinating discharge services: - Constitutional Vitals: Temp Pulse Resp BP Pulse Ox 97.6 F 91 18 141/81 99 10/07/16 08:40 10/07/16 08:40 10/07/16 08:40 10/07/16 08:40 10/07/16 08:40 General appearance: Present: A&O X 3, answers questions appropriately - Head Head exam: Present: atraumatic, normocephalic - Respiratory Respiratory exam: Present: decreased breath sounds Additional comments: obese patient, difficult to hear breathing vs transmitted breath sounds from O2. - Cardiovascular Cardiovascular exam: Present: RRR, +S1, +S2. Absent: diastolic murmur, gallop, rubs, systolic murmur - VTE Documentation of Mechanical Device: Intermittent pneumatic compression device <Yoan Parkinson P - Last Filed: 10/07/16 16:25> Date of Encounter: 10/07/16 - Discharge Diagnosis (1) Anemia Status: Acute Qualifiers: Anemia type: iron deficiency Iron deficiency anemia type: chronic blood loss Qualified Code(s): D50.0 - Iron deficiency anemia secondary to blood loss (chronic) (2) Hypertension Status: Acute Qualifiers: Hypertension type: essential hypertension Qualified Code(s): I10 - Essential (primary) hypertension (3) Hypothyroidism (acquired) Status: Acute (4) Paroxysmal atrial fibrillation Status: Chronic Date of admission: 10/01/16 16:34 Primary care physician: PCP NONE Consults: 10/02/16 11:30 Consult to Gastroenterology [CONS] Routine Consulting Provider: [facility] Reason for Consult: lastmonth hgb 10.7, hgb on this admission ~7. possible GI bleed. Call Completed: Yes Hospital course: Ms. Melendez is a 76 year old female - Time Spent with Patient Total time spent providing and/or coordinating discharge services: - Constitutional Vitals: Temp Pulse Resp BP Pulse Ox 97.6 F 91 18 141/81 99 10/07/16 08:40 10/07/16 08:40 10/07/16 08:40 10/07/16 08:40 10/07/16 10:00 - Attending Attestation I examined this patient and my medical decision-making was reviewed with the Resident Physician. I agree with the documented findings, disposition and treatment plan as described except to the extent set forth below.
--- NOTE | 2016-10-07 10:07 | Physician Discharge Referral ---
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 For more information, call the [place] Tobacco Quit Line at 7-926-TTRQ-NOW. - Transfer Medications Home Medications: Furosemide [Lasix] 40 mg PO DAILY 10/20/14 [History] Levothyroxine [Synthroid] 100 mcg PO QAM 10/20/14 [History] Losartan [Cozaar] 100 mg PO HS 10/20/14 [History] Nitroglycerin 0.4 mg SL AD PRN 10/20/14 [History] Prasugrel [Effient] 10 mg PO DAILY 10/20/14 [History] Rivaroxaban [Xarelto] 15 mg PO HS 10/20/14 [History] Amiodarone [Cordarone] 200 mg PO DAILY 09/27/15 [History] Ascorbate Calcium [Vitamin C] 1,000 mg PO DAILY 09/30/16 [History] Calcium Crb,Cit/D3/Min34/Dinah [Citracal + Bone Density Tablet] 2 tab PO BID [History] Esomeprazole Magnesium [Nexium 24Hr] 44.6 mg PO BID 09/30/16 [History] Ezetimibe [Zetia] 10 mg PO DAILY 09/30/16 [History] FLUoxetine HCl [Fluoxetine HCl] 40 mg PO DAILY 09/30/16 [History] Mv,Ca,Min/Iron/FA/Guarana/Caff [One-A-Day Women's Tablet] 1 tab PO DAILY [History] Ondansetron HCl 4 mg PO TID PRN 09/30/16 [History] Zolpidem Tartrate 5 mg PO HS 09/30/16 [History] predniSONE [PredniSONE] 30 mg PO DAILY 09/30/16 [History] risperiDONE [Risperidone] 1 mg PO DAILY 09/30/16 [History] Allergies/Adverse Reactions: 3 Allergy/AdvReac Type Severity Reaction Status Date / Time olanzapine [From Zyprexa] Allergy See Verified 09/30/16 12:49 Comments ciprofloxacin [From Cipro] AdvReac Vomiting Verified 09/30/16 12:49 Erythromycin Base AdvReac Vomiting Verified 09/30/16 12:49 Sulfa (Sulfonamide AdvReac Vomiting Verified 09/30/16 12:49 Antibiotics) ivp DYE Allergy Hives Uncoded 09/29/14 15:11 Certification: Further, I certify that my clinical findings support that this patient is homebound (i.e. absences from home require considerable and taxing effort and are for medical reasons or scientologist services or infrequently or short duration when for other reasons) because: Homebound Reason: Patient requires assistance of a person or device to safely leave home Attestation: My signature below is to certify that this patient is under my care and that I, or nurse practitioner, or a physician's syrup mixer assistant working with me, has a face-to -face encounter with this patient. <Yoan Parkinson P - Last Filed: 10/07/16 16:26> - Diagnosis (1) Anemia Status: Acute (2) Hypertension Status: Acute (3) Hypothyroidism (acquired) Status: Acute (4) Paroxysmal atrial fibrillation Status: Chronic - Respiratory Orders Smoking Cessation: Smoking cessation has been advised. For more information, call the [place] Tobacco Quit Line at 6-584-VTIB-NOW. Certification: Further, I certify that my clinical findings support that this patient is homebound (i.e. absences from home require considerable and taxing effort and are for medical reasons or scientologist services or infrequently or short duration when for other reasons) because: Attestation: My signature below is to certify that this patient is under my care and that I, or nurse practitioner, or a physician's syrup mixer assistant working with me, has a face-to -face encounter with this patient.
== END 2016-10-07 11:44 | disposition home health service (06) | DRG 206 ==
LOC: EMEROO 10:11 → 2ANU 10:11 → SUATTDRO 14:39 → 2ANU 15:32
PROVIDERS: ADMIT Internal Medicine; ATTEND Internal Medicine
PROC: ENDOEBX (2016-10-04 10:00)

== ENCOUNTER 2016-10-19 17:19 | Inpatient (IN) ==
--- NOTE | 2016-10-19 17:43 | Emergency Department Note ---
Disposition Clinical Impression: Bilateral lower extremity edema, Elevated lactic acid level, Chronic anemia Fluid overload Qualifiers: Hypervolemia type: unspecified Qualified Code(s): E87.70 - Fluid overload, unspecified Dyspnea Qualifiers: Dyspnea type: unspecified Qualified Code(s): R06.00 - Dyspnea, unspecified Chronic kidney disease Qualifiers: Chronic kidney disease stage: unspecified stage Qualified Code(s): N18.9 - Chronic kidney disease, unspecified Disposition: Admitted As Inpatient Condition: Fair Referrals: Rina Kaba MD [Primary Care Provider] - Forms: Work/School Release, ED Satisfaction Letter Time of Disposition: 19:35 General Adult HPI - General Chief complaint: ED Weakness Stated complaint: Weakness Time Seen by Provider: 10/19/16 17:31 Source: EMS Limitations: no limitations Nursing Notes Reviewed: Yes Vital Signs Reviewed: Yes - History of Present Illness HPI Narrative: Patient is a 76-year-old female with past medical history of hypertension, hyperlipidemia, CHF, CKD, chronic anemia. She presents today due to generalized weakness, shortness of breath, worsening bilateral exudates swelling. Patient states that she was just admitted here at the hospital due to shortness of breath and lower extremity edema. She had adjustment of her diuretics during her stay. She was changed from Lasix to torsemide 10 mg daily. She says that she has been taking this medication daily along with fluid restriction but continues to have worsening lower extremity bilateral edema, worsening shortness of breath especially when lying flat at night. She also reports that she was given a blood transfusion for chronic anemia during her most recent stay. Endoscopy report shows multiple polyps found, internal hemorrhoids, but no other signs of active bleeding or cause of chronic anemia. She denies any chest pain, nausea, vomiting, fevers, abdominal pain, numbness, tingling, weakness. She is concerned for fluid overload. Pain Scale: 0 - Related Data Home Medications Medication Instructions Recorded Confirmed Furosemide [Lasix] 40 mg PO DAILY 10/20/14 10/14/16 Levothyroxine [Synthroid] 100 mcg PO QAM 10/20/14 10/14/16 Losartan [Cozaar] 100 mg PO HS 10/20/14 10/14/16 Nitroglycerin 0.4 mg SL AD PRN 10/20/14 10/14/16 Prasugrel [Effient] 10 mg PO DAILY 10/20/14 10/14/16 Rivaroxaban [Xarelto] 15 mg PO HS 10/20/14 10/14/16 Amiodarone [Cordarone] 200 mg PO DAILY 09/27/15 10/14/16 Ascorbate Calcium [Vitamin C] 1,000 mg PO DAILY 09/30/16 10/14/16 Calcium Crb,Cit/D3/Min34/Dinah 2 tab PO BID 09/30/16 10/14/16 [Citracal + Bone Density Tablet] Esomeprazole Magnesium [Nexium 44.6 mg PO BID 09/30/16 10/14/16 24Hr] Ezetimibe [Zetia] 10 mg PO DAILY 09/30/16 10/14/16 FLUoxetine HCl [Fluoxetine HCl] 40 mg PO DAILY 09/30/16 10/14/16 Mv,Ca,Min/Iron/FA/Guarana/Caff 1 tab PO DAILY 09/30/16 10/14/16 [One-A-Day Women's Tablet] Ondansetron HCl 4 mg PO TID PRN 09/30/16 10/14/16 Zolpidem Tartrate 5 mg PO HS 09/30/16 10/14/16 predniSONE [PredniSONE] 25 mg PO DAILY 09/30/16 10/14/16 risperiDONE [Risperidone] 1 mg PO DAILY 09/30/16 10/14/16 Allergies Allergy/AdvReac Type Severity Reaction Status Date / Time olanzapine [From Zyprexa] Allergy See Verified 09/30/16 12:49 Comments ciprofloxacin [From Cipro] AdvReac Vomiting Verified 09/30/16 12:49 Erythromycin Base AdvReac Vomiting Verified 09/30/16 12:49 Sulfa (Sulfonamide AdvReac Vomiting Verified 09/30/16 12:49 Antibiotics) ivp DYE Allergy Hives Uncoded 09/29/14 15:11 All systems ED: reviewed and negative except as stated. Constitutional: Denies: fever Cardiovascular: Denies: chest pain, palpitations Respiratory: Reports: dyspnea. Denies: cough, wheezes Gastrointestinal: Denies: abdominal pain, nausea, vomiting, diarrhea Neurological: Denies: weakness, numbness, paresthesias Endocrine: Reports: fatigue Past Medical History - Past Medical History Attestation: Yes The following information was validated with the patient. Source: patient Medical history: Reports: atrial fibrillation, coronary artery disease, hypertension, myocardial infarction, thyroid disease Surgical history: Reports: appendectomy, cataract, cholecystectomy, hysterectomy Psychiatric history: Reports: no psych history [employer] BW DEVELOPER history: Reports: no SAP BW DEVELOPER history - Social History Smoking Status: Former smoker Smokeless Tobacco Status: No Alcohol use: Reports: none Drug use: Reports: none Physical Exam - General Limitations: no limitations General appearance: alert, in no apparent distress - Head Head exam: atraumatic, normocephalic, normal inspection - Eye Eye exam: Present: normal appearance, PERRL, EOMI - ENT ENT exam: normal exam, normal oropharynx, mucous membranes moist - Neck Neck exam: Present: normal inspection, full ROM, trachea midline - Chest Chest inspection: Present: normal inspection, symmetric chest wall rise - Respiratory Respiratory exam: Present: other (Mild wheezes bilateral lower lobes) - Cardiovascular Cardiovascular exam: Present: normal rhythm, tachycardia, normal heart sounds - Abdominal Exam Abdominal exam: Present: soft, Non-Tender, distention. Absent: tenderness, guarding, rebound, rigidity - Extremities Exam Extremities exam: Present: other (Significant bilateral lower extremity edema, pitting; +2 over 4 dorsalis pedis pulses bilaterally). Absent: tenderness - Neurological Exam Neurological exam: Present: alert, oriented X3 - Psychiatric Psychiatric exam: Present: normal affect, normal mood - Skin Skin exam: Present: warm, dry, intact, normal color Course Course Narrative: Patient was tachycardic, mildly hypertensive on presentation. Physical exam shows:Significant bilateral lower extremity edema, pitting up to mid thigh; +2 over 4 dorsalis pedis pulses bilaterally. We will obtain basic blood work, EKG , troponin level, BNP. Patient has CT scan of the chest today that showed no acute abnormalities, did show chronic atelectasis. Will give the patient does have IV Lasix here and then plan to admit after labs come back for fluid overload and further adjustment of diuretics. 18:29 troponin negative. EKG shows sinus tachycardia with right bundle branch block, no acute ST changes from his EKG on 09/30/2016. Hemoglobin 9.1, down from 10.1 on 10/15. BMP shows creatinine mildly elevated from baseline. Lactic acid 6.1. Patient has CT scan of the chest today that showed no acute abnormalities, did show chronic atelectasis. No obvious signs of infection at this time to explain elevated lactic acid level. Currently waiting on urinalysis and LFTs. 19:33 UA negative for UTI. LFTs not concerning. I spoke with Dr. Nowak for admission for fluid overload. He accepted the patient and requested that neurology be contacted. I talked with Dr. Weldon who recommended strict I& O. He will act as a consult tomorrow morning. Vital Signs Temperature 98.0 F 10/19/16 17:25 Pulse Rate 102 10/19/16 17:25 Respiratory Rate 18 10/19/16 17:25 Blood Pressure 137/58 10/19/16 17:25 O2 Sat by Pulse Oximetry 93 10/19/16 17:25 Temperature 98.0 F 10/19/16 17:25 Pulse Rate 89 10/19/16 19:28 Respiratory Rate 12 10/19/16 19:28 Blood Pressure 143/64 10/19/16 19:28 O2 Sat by Pulse Oximetry 97 10/19/16 19:28 Oxygen Delivery Oxygen Delivery Room Air Medical Decision Making - MDM Narrative Medical decision making narrative: troponin negative. EKG shows sinus tachycardia with right bundle branch block , no acute ST changes from his EKG on 09/30/2016. Hemoglobin 9.1, down from 10.1 on 10/15. BMP shows creatinine mildly elevated from baseline. Lactic acid 6.1. Patient has CT scan of the chest today that showed no acute abnormalities , did show chronic atelectasis. No obvious signs of infection at this time to explain elevated lactic acid level. UA negative for UTI. LFTs not concerning. I spoke with Dr. Nowak for admission for fluid overload. He accepted the patient and requested that neurology be contacted. I talked with Dr. Weldon who recommended strict I&O. He will act as a consult tomorrow morning. - Medical Records Medical records reviewed: Yes I reviewed the patient's medical records. - Lab Data Lab results reviewed: Yes I reviewed the patient's lab results. Result diagrams: 10/19/16 17:45 10/19/16 17:45 Lab Results 10/19/16 10/19/16 10/19/16 Range/Units 17:45 17:45 17:45 WBC 9.2 (4.3-11.1) K/mcL RBC 3.24 L (3.82-4.97) M/mcL Hgb 9.1 L (11.5-15.4) g/dL Hct 30.3 L (35.3-44.9) % MCV 93.5 (83.0-100.0) fL MCH 28.1 (28.0-33.3) pg MCHC 30.0 L (31.6-35.5) g/dL RDW 19.3 H (11.5-14.5) % Plt Count 194 (140-400) K/mcL MPV 9.8 (9.4-12.4) fL Immature Gran % 2.0 (0-4) % Seg Neutrophils % 85.8 % Lymphocytes % 7.9 % Monocytes % 4.0 % Eosinophils % 0.1 % Basophils % 0.2 % Neutrophils # 7.9 (1.6-8.9) K/mcL Lymphocytes # 0.7 (0.6-4.6) K/mcL Monocytes # 0.4 (0.0-1.3) K/mcL Eosinophils # 0.0 (0.0-0.6) K/mcL Basophils # 0.0 (0.0-0.2) K/mcL Nucleated RBCs/100 WBC 0.3 H (0) /100 WBC Sodium 141 (136-145) mEq/L Potassium 4.5 D (3.5-4.5) mEq/L Chloride 104 (98-109) mEq/L Carbon Dioxide 24 (19-29) mEq/L BUN 21 H (7-20) mg/dL Creatinine 1.42 H (0.57-1.11) mg/dL Est GFR ( Amer) 44 L (> 60) Est GFR (Non-Af Amer) 36 L (> 60) BUN/Creatinine Ratio 15 (6-26) Glucose 273 H (70-99) mg/dL Calculated Osmolality 305 H (280-300) Lactic Acid 6.1 H* (0.5-2.2) mmol/L Calcium 8.8 (8.6-10.8) mg/dL Total Bilirubin 0.3 (0.2-1.2) mg/dL Direct Bilirubin 0.1 (0.0-0.5) mg/dL Indirect Bilirubin 0.2 (0.0-1.2) mg/dL AST 16 (5-34) Units/L ALT 28 (0-55) Units/L Alkaline Phosphatase 93 (38-126) Units/L Troponin I (0-0.03) ng/mL B-Natriuretic Peptide (0-100) pg/mL Serum Total Protein 5.4 L (6.0-8.3) g/dL Albumin 2.7 L (3.5-5.0) g/dL Globulin 2.7 (2.4-3.5) g/dL Albumin/Globulin Ratio 1.0 L (1.1-2.2) Urine Color (Yellow) Urine Clarity (Clear) Urine pH (5.0-8.0) pH Units Ur Specific Norris (1.010-1.025) Urine Protein (Neg-Trace) mg/dL Urine Glucose (UA) (Normal) mg/dL Urine Ketones (Negative) mg/dL Urine Blood (Negative) Urine Nitrite (Negative) Urine Bilirubin (Negative) Urine Urobilinogen (Normal) mg/dL Ur Leukocyte Esterase (Negative) Urine Microscopic RBC (0-3) per hpf Urine Microscopic WBC (0-3) per hpf Ur Squamous Epith Cells (None-Few) per lpf Urine Bacteria (None-Few) per hpf Hyaline Casts (None-Few) per lpf Ur Culture Indicated? (NO) 10/19/16 10/19/16 10/19/16 Range/Units 17:45 17:45 18:35 WBC (4.3-11.1) K/mcL RBC (3.82-4.97) M/mcL Hgb (11.5-15.4) g/dL Hct (35.3-44.9) % MCV (83.0-100.0) fL MCH (28.0-33.3) pg MCHC (31.6-35.5) g/dL RDW (11.5-14.5) % Plt Count (140-400) K/mcL MPV (9.4-12.4) fL Immature Gran % (0-4) % Seg Neutrophils % % Lymphocytes % % Monocytes % % Eosinophils % % Basophils % % Neutrophils # (1.6-8.9) K/mcL Lymphocytes # (0.6-4.6) K/mcL Monocytes # (0.0-1.3) K/mcL Eosinophils # (0.0-0.6) K/mcL Basophils # (0.0-0.2) K/mcL Nucleated RBCs/100 WBC (0) /100 WBC Sodium (136-145) mEq/L Potassium (3.5-4.5) mEq/L Chloride (98-109) mEq/L Carbon Dioxide (19-29) mEq/L BUN (7-20) mg/dL Creatinine (0.57-1.11) mg/dL Est GFR ( Amer) (> 60) Est GFR (Non-Af Amer) (> 60) BUN/Creatinine Ratio (6-26) Glucose (70-99) mg/dL Calculated Osmolality (280-300) Lactic Acid (0.5-2.2) mmol/L Calcium (8.6-10.8) mg/dL Total Bilirubin (0.2-1.2) mg/dL Direct Bilirubin (0.0-0.5) mg/dL Indirect Bilirubin (0.0-1.2) mg/dL AST (5-34) Units/L ALT (0-55) Units/L Alkaline Phosphatase (38-126) Units/L Troponin I 0.00 (0-0.03) ng/mL B-Natriuretic Peptide 38 (0-100) pg/mL Serum Total Protein (6.0-8.3) g/dL Albumin (3.5-5.0) g/dL Globulin (2.4-3.5) g/dL Albumin/Globulin Ratio (1.1-2.2) Urine Color Yellow (Yellow) Urine Clarity Clear (Clear) Urine pH 6.0 (5.0-8.0) pH Units Ur Specific Norris 1.020 (1.010-1.025) Urine Protein Negative (Neg-Trace) mg/dL Urine Glucose (UA) >=1000 H (Normal) mg/dL Urine Ketones Negative (Negative) mg/dL Urine Blood Small H (Negative) Urine Nitrite Negative (Negative) Urine Bilirubin Negative (Negative) Urine Urobilinogen Normal (Normal) mg/dL Ur Leukocyte Esterase Negative (Negative) Urine Microscopic RBC 0-3 (0-3) per hpf Urine Microscopic WBC 0-3 (0-3) per hpf Ur Squamous Epith Cells Moderate H (None-Few) per lpf Urine Bacteria None Seen (None-Few) per hpf Hyaline Casts None Seen (None-Few) per lpf Ur Culture Indicated? NO (NO) - Radiology Data Radiology results reviewed: Yes I reviewed the patient's radiology results. - EKG Data EKG #1 EKG attestation: Yes I reviewed and interpreted this EKG. EKG results narrative: 10/19/2016 18:08. Sinus tachycardia. Rate 100. AL 150. QRS 104. QTC 425. Normal axis. Right bundle branch block. No acute ST changes from previous EKG on 09/30/2016 [facility] - [facility] Situation: Demographics, MOA Background: Presenting Complaint, Relevant PMH, Meds, & Allergies Assessment: Vital Signs, Course and respsone to treatment, Exam Concerns, Patient/Family Expectation, Pertinant Lab Results, Outstanding Labs Recommendation: Barrier(s) to disposition, Recommendation based on pending studies, treatments, or consults Hermes Report Given to: Dr Eliu Mirza Repor Time: 19:35 Attestation Statement - Attestation Attestation: I, Saul Benavidez DO, examined this patient [id number] and my medical decision-making was reviewed with Dr. Jason Anderson, Resident Physician. I agree with the documented findings, disposition and treatment plan as described except to the extent set forth below. Please see my progress notes for details. 76-year-old female presents by EMS for evaluation of shortness of breath at home. She was seen and evaluated and discharged within the last several weeks for fluid overload. She was discharged home without any intervention except for oral medications. Patient has been persistently gaining fluid last several days and has exertional dyspnea at this time. Physical exam shows a morbidly obese female sitting upright in the bed with some mild respiratory distress and orthopnea. Vital signs reviewed she is tachycardic but otherwise stableand fever. Patient detailed workup including chest x-ray labs liver function testing. She has an elevated lactic acid of unknown etiology at this time. She has no abdominal pain or other symptoms. White blood cell count is normal no infectious etiology noted on the workup at this time. Patient will be provided with IV Lasix here for a catheter placed for symptom control and admission to be completed for appears to be fluid overloaded unknown etiology as well as elevated lactic acid. Patient otherwise stable resting admitted this time family and patient for now comfortable the course of care plan. No other concerns or issues noted during the treatment course this time. See detailed documentation of the medical intervention and consultations with the resident physician
[2016-10-19] MEDS ORDERED: Furosemide 40 MG/4 ML VIAL IVP ONE (17:47)
[2016-10-19 17:56] LABS: Basophils % 0.2 %; Eosinophils % 0.1 %; Hematocrit 30.3 % (35.3-44.9); Hemoglobin 9.1 g/dL (11.5-15.4); Lymphocytes # 0.7 K/mcL (0.6-4.6); Lymphocytes % 7.9 %; Mean Corpuscular Hemoglobin 28.1 pg (28.0-33.3); Mean Corpuscular Volume 93.5 fL (83.0-100.0); Mean Platelet Volume 9.8 fL (9.4-12.4); Monocytes # 0.4 K/mcL (0.0-1.3); Neutrophils # 7.9 K/mcL (1.6-8.9); Nucleated Red Blood Cells 0.3 /100 WBC (0); Platelet Count 194 K/mcL (140-400); Red Blood Count 3.24 M/mcL (3.82-4.97); Red Cell Distribution Width 19.3 % (11.5-14.5); Segmented Neutrophils % 85.8 %
[2016-10-19 18:09] LABS: Calcium 8.8 mg/dL (8.6-10.8)
[2016-10-19 18:16] LABS: Potassium 4.5 mEq/L (3.5-4.5)
[2016-10-19 18:47] LABS: Albumin 2.7 g/dL (3.5-5.0); Bilirubin,Direct 0.1 mg/dL (0.0-0.5); Bilirubin,Indirect 0.2 mg/dL (0.0-1.2); Bilirubin,Total 0.3 mg/dL (0.2-1.2); Globulin 2.7 g/dL (2.4-3.5); Total Protein 5.4 g/dL (6.0-8.3)
[2016-10-19 18:50] LABS: Bilirubin,Urine Negative (Negative); Blood,Urine Small (Negative); Clarity,Urine Clear (Clear); Color,Urine Yellow (Yellow); Glucose,Urine (UA) >=1000 mg/dL (Normal); Ketones,Urine Negative (Negative); Leukocyte Esterase,Urine Negative (Negative); Nitrite,Urine Negative (Negative); Protein,Urine Negative (Neg-Trace); Urobilinogen,Urine Normal (Normal)
[2016-10-19 18:53] LABS: Bacteria,Urine None Seen per hpf (None-Few); Hyaline Casts,Urine None Seen per lpf (None-Few); RBC,Urine 0-3 per hpf (0-3); Squamous Epithelial Cell,Urine Moderate per lpf (None-Few); WBC,Urine 0-3 per hpf (0-3)
[2016-10-19] MEDS ORDERED: Nitroglycerin 0.4 MG TAB.SUBL SL PRN (22:07)
[2016-10-19] MEDS ORDERED: Ondansetron 4 MG/2 ML VIAL IVP PRN (22:09)
[2016-10-19] MEDS ORDERED: Acetaminophen 325 MG TABLET PO PRN (22:09)
[2016-10-19] MEDS ORDERED: MOM Conc 10 ML UD.LIQ PO PRN (22:09)
[2016-10-19] MEDS ORDERED: Naloxone 0.4 MG/ML INJ IVP PRN (22:09)
[2016-10-19] MEDS ORDERED: Albuterol 2.5 MG/3 ML NEBULIZER IH PRN (22:13)
--- NOTE | 2016-10-19 22:18 | Internal Med History&Physical ---
Date of Encounter: 10/20/16 Time of Encounter: 22:16 Assessment and Plan (1) Atrial fibrillation with RVR Current visit: Yes Status: Acute Patient has converted to sinus rhythm she was on IV Cardizem in the ER which has been stopped (2) Acute on chronic congestive heart failure Current visit: Yes Status: Acute IV Lasix Qualifiers: Qualified Code(s): I50.9 - Heart failure, unspecified (3) COPD (chronic obstructive pulmonary disease) Current visit: Yes Status: Acute Qualifiers: Qualified Code(s): J44.9 - Chronic obstructive pulmonary disease, unspecified (4) Elevated lactic acid level Current visit: Yes Status: Acute (5) Chronic kidney disease Current visit: Yes Status: Acute Qualifiers: Chronic kidney disease stage: unspecified stage Qualified Code(s): N18.9 - Chronic kidney disease, unspecified (6) Hypertension Current visit: Yes Status: Acute Qualifiers: Qualified Code(s): I10 - Essential (primary) hypertension (7) Hyperlipidemia Current visit: Yes Status: Acute Qualifiers: Qualified Code(s): E78.5 - Hyperlipidemia, unspecified (8) CAD S/P percutaneous coronary angioplasty Current visit: Yes Status: Chronic (9) Morbid obesity with BMI of 45.0-49.9, adult Current visit: Yes Status: Acute (10) Hypothyroidism (acquired) Current visit: Yes Status: Acute Internal Medicine - H&P: HPI Chief complaint: Shortness of breath Admitted From: Home Plans for Post Hospital Care: Home History of present illness: Martha is a 76-year-old female with past medical history of hypertension, hyperlipidemia, CHF, CKD, chronic anemia. She presents today due to generalized weakness, shortness of breath, worsening bilateral exudates swelling. Patient states that she was just admitted here at the hospital due to shortness of breath and lower extremity edema. She had adjustment of her diuretics during her stay. She was changed from Lasix to torsemide 10 mg daily. She says that she has been taking this medication daily along with fluid restriction but continues to have worsening lower extremity bilateral edema, worsening shortness of breath especially when lying flat at night. She also reports that she was given a blood transfusion for chronic anemia during her most recent stay. Endoscopy report shows multiple polyps found, internal hemorrhoids, but no other signs of active bleeding or cause of chronic anemia. She denies any chest pain, nausea, vomiting, fevers, abdominal pain, numbness, tingling, weakness. She is concerned for fluid overload. Past Med Surg Social Fam HX - Past Medical History Medical history: atrial fibrillation, coronary artery disease, hypertension, myocardial infarction, thyroid disease Psychiatric history: no psych history - Past Surgical History Surgical History: appendectomy, cataract, cholecystectomy, hysterectomy - Social History Smoking Status: Former smoker Smokeless Tobacco Status: No Alcohol use: none Drug use: none Internal Medicine - H&P: Meds Furosemide [Lasix] 40 mg PO DAILY 10/20/14 [History] Levothyroxine [Synthroid] 100 mcg PO QAM 10/20/14 [History] Losartan [Cozaar] 100 mg PO HS 10/20/14 [History] Nitroglycerin 0.4 mg SL AD PRN 10/20/14 [History] Prasugrel [Effient] 10 mg PO DAILY 10/20/14 [History] Rivaroxaban [Xarelto] 15 mg PO HS 10/20/14 [History] Amiodarone [Cordarone] 200 mg PO DAILY 09/27/15 [History] Ascorbate Calcium [Vitamin C] 1,000 mg PO DAILY 09/30/16 [History] Calcium Crb,Cit/D3/Min34/Dinah [Citracal + Bone Density Tablet] 2 tab PO BID [History] Esomeprazole Magnesium [Nexium 24Hr] 44.6 mg PO BID 09/30/16 [History] Ezetimibe [Zetia] 10 mg PO DAILY 09/30/16 [History] FLUoxetine HCl [Fluoxetine HCl] 40 mg PO DAILY 09/30/16 [History] Mv,Ca,Min/Iron/FA/Guarana/Caff [One-A-Day Women's Tablet] 1 tab PO DAILY [History] Ondansetron HCl 4 mg PO TID PRN 09/30/16 [History] Zolpidem Tartrate 5 mg PO HS 09/30/16 [History] predniSONE [PredniSONE] 25 mg PO DAILY 09/30/16 [History] risperiDONE [Risperidone] 1 mg PO DAILY 09/30/16 [History] Torsemide [Demadex] 10 mg PO QAM 10/20/16 [History] 3 Allergy/AdvReac Type Severity Reaction Status Date / Time olanzapine [From Zyprexa] Allergy See Verified 09/30/16 12:49 Comments ciprofloxacin [From Cipro] AdvReac Vomiting Verified 09/30/16 12:49 Erythromycin Base AdvReac Vomiting Verified 09/30/16 12:49 Sulfa (Sulfonamide AdvReac Vomiting Verified 09/30/16 12:49 Antibiotics) ivp DYE Allergy Hives Uncoded 09/29/14 15:11 All Systems PM: A 10-system review of systems was performed and is negative for pertinent findings except as documented above in the HPI. - Constitutional Constitutional: no chills, no fever(s), no night sweats - EENT Eyes: no change in vision, no discharge, no pain, no photophobia Ears: no ear discharge, no ear pain, no tinnitus Nose, mouth and throat: no dysphagia, no nasal discharge, no neck pain, no sore throat - Cardiovascular Cardiovascular ROS IM: dyspnea, edema, no chest pain, no diaphoresis, no lightheadedness, no palpitations, no syncope - Respiratory Respiratory: no cough, no dyspnea, no wheezing, no excessive phlegm production - Gastrointestinal Gastrointestinal: no abdominal pain, no diarrhea, no hematemesis, no hematochezia, no melena, no nausea, no vomiting - Genitourinary Genitourinary: no change in urinary stream, no dysuria, no flank pain, no hematuria - Musculoskeletal Musculoskeletal ROS IM: no numbness, no tingling - Integumentary Integumentary IM: no rash, no unusual bruising - Neurological Neurological ROS: no confusion, no convulsions, no focal weakness, no numbness, no tingling, no tremor(s) - Hematologic/Lymphatic Hematologic/Lymphatic: no easy bruising - Constitutional Vitals: Temp Pulse Resp BP Pulse Ox 97.7 F 87 18 126/73 94 10/19/16 20:59 10/19/16 20:59 10/19/16 20:59 10/19/16 20:59 10/19/16 20:59 - Head Head exam: Present: atraumatic, normocephalic - Eye Eye exam: Present: PERRL, conjuntiva pink, sclera anicteric Pupils: Present: PERRL - Neck Neck exam general surgery: Present: supple, trachea midline. Absent: lymphadenopathy - Respiratory Respiratory exam: Present: decreased breath sounds, rales. Absent: accessory muscle use, rhonchi, wheezes - Cardiovascular Cardiovascular exam: Present: irregular rhythm, +S1, +S2. Absent: diastolic murmur, gallop, rubs, systolic murmur - GI/Abdominal GI/Abdominal exam: Present: normal bowel sounds, soft, no peritoneal signs. Absent: distended, tenderness - Extremities Exam Extremities exam: Present: warm, radial pulses palpable and symmetrical. Absent : calf tenderness, cyanotic, pedal edema - Neurological Exam Neurological exam: Present: CN II-XII intact, oriented X3, no focal deficits. Absent: pronater drift, facial droop, speech deficit - Skin Skin exam: Present: dry, intact Internal Med - H&P Results - Labs CBC & Chem 7: 10/19/16 17:45 10/19/16 17:45
[2016-10-19] MEDS: Ipratropium/Albuterol Neb 3 ML IH SCH (22:58)
[2016-10-19] MEDS: Furosemide 40 MG/4 ML VIAL IVP SCH (23:29)
[2016-10-19] MEDS: *HR* Rivaroxaban 15 MG TABLET PO SCH (23:30)
[2016-10-20] MEDS: Ipratropium/Albuterol Neb 3 ML IH SCH ×4 (04:29→22:23)
[2016-10-20 05:19] LABS: Basophils % 0.3 %; Eosinophils # 0.1 K/mcL (0.0-0.6); Eosinophils % 0.6 %; Hematocrit 29.7 % (35.3-44.9); Hemoglobin 9.1 g/dL (11.5-15.4); Immature Granulocytes % 2.2 % (0-4); Lymphocytes % 25.5 %; Mean Corpuscular HGB Conc 30.6 g/dL (31.6-35.5); Mean Corpuscular Hemoglobin 28.7 pg (28.0-33.3); Mean Corpuscular Volume 93.7 fL (83.0-100.0); Mean Platelet Volume 10.1 fL (9.4-12.4); Monocytes # 0.6 K/mcL (0.0-1.3); Monocytes % 7.8 %; Neutrophils # 4.9 K/mcL (1.6-8.9); Nucleated Red Blood Cells 0.9 /100 WBC (0); Platelet Count 185 K/mcL (140-400); Red Blood Count 3.17 M/mcL (3.82-4.97); Red Cell Distribution Width 19.2 % (11.5-14.5); Segmented Neutrophils % 63.6 %
[2016-10-20 05:30] LABS: Calcium 9.2 mg/dL (8.6-10.8)
[2016-10-20 05:32] LABS: Potassium 3.4 mEq/L (3.5-4.5)
[2016-10-20] MEDS: risperiDONE 1 MG TABLET PO SCH (09:05)
[2016-10-20] MEDS: Multivit/Ca/Min/Fe/FA 1 TAB TABLET PO SCH (09:06)
[2016-10-20] MEDS: FLUoxetine 20 MG CAPSULE PO SCH (09:06)
[2016-10-20] MEDS: Ascorbic Acid 500 MG TABLET PO SCH (09:06)
[2016-10-20] MEDS: Furosemide 40 MG/4 ML VIAL IVP SCH ×2 (09:07→20:50)
[2016-10-20] MEDS: *HR* Amiodarone 200 MG TABLET PO SCH (09:07)
[2016-10-20] MEDS: (Ezetimibe [Zetia] 10 MG) PO SCH (09:07)
--- NOTE | 2016-10-20 09:33 | Nephrology Consult Note ---
Date of Encounter: 10/20/16 Time of Encounter: 09:29 Assessment and Plan (1) CKD (chronic kidney disease), stage III Current Visit: Yes Status: Chronic Chronic: established with Dr. Coburn in the [facility] office just two days ago. I reviewed his notes and recent hospital progress notes. See below : (2) Diabetic renal disease Current Visit: Yes Status: Chronic Glucosuria noted in the UA. I advised improved glycemic control, weight loss and lifestyle modifications to help delay CKD progression over the assisted. Qualifiers: Diabetes mellitus type: type 2 Qualified Code(s): E11.21 - Type 2 diabetes mellitus with diabetic nephropathy (3) Bilateral lower extremity edema Current Visit: Yes Status: Acute Suspect multifactorial, but definitely not d/t nephrotic syndrome (she has no proteinuria). Counseled her on lifestyle mods. Continue diuretics as long as the met alkalosis and SCr demonstrate tolerability to the lasix 40mg IV bid. UOP appears responsive. Hx of urologic / ureteral surgeries, and so the fact that she may have had diminished UOP may also include a post-renal issue: therefore she has indications to keep the suarez catheter and to have a renal U/S checked. After this hospitalization she may need to see Urology. (4) Hypokalemia Current Visit: No Status: Acute Will replete and check Mag tomorrow. 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 She recently established care with Dr. Coburn. She did not affirm CP, N/V/ D or recent increase in dietary sodium. Her adult daughter did most of the talking. The pt does not take NSAIDs. There is no FHx of ESRD. She said torsemide was recently decreased to 10 mg per day. Past Med Surg Social Fam HX - Past Medical History Medical history: atrial fibrillation, coronary artery disease, hypertension, myocardial infarction, thyroid disease Psychiatric history: no psych history - Past Surgical History Surgical History: appendectomy, cataract, cholecystectomy, hysterectomy - Social History Smoking Status: Former smoker Smokeless Tobacco Status: No Alcohol use: none Drug use: none Medications and Allergies Levothyroxine [Synthroid] 100 mcg PO QAM 10/20/14 [History] Losartan [Cozaar] 100 mg PO HS 10/20/14 [History] Prasugrel [Effient] 10 mg PO DAILY 10/20/14 [History] Rivaroxaban [Xarelto] 15 mg PO QPM 10/20/14 [History] Amiodarone [Cordarone] 200 mg PO HS 09/27/15 [History] Ascorbate Calcium [Vitamin C] 1,000 mg PO DAILY 09/30/16 [History] Calcium Crb,Cit/D3/Min34/Dinah [Citracal + Bone Density Tablet] 2 tab PO BID [History] Esomeprazole Magnesium [Nexium 24Hr] 44.6 mg PO BID 09/30/16 [History] Ezetimibe [Zetia] 10 mg PO HS 09/30/16 [History] FLUoxetine HCl [Fluoxetine HCl] 40 mg PO DAILY 09/30/16 [History] Mv,Ca,Min/Iron/FA/Guarana/Caff [One-A-Day Women's Tablet] 1 tab PO DAILY [History] Zolpidem Tartrate 5 mg PO HS 09/30/16 [History] predniSONE [PredniSONE] 25 mg PO DAILY 09/30/16 [History] risperiDONE [Risperidone] 1 mg PO HS 09/30/16 [History] Torsemide [Demadex] 10 mg PO QAM 10/20/16 [History] 3 Allergy/AdvReac Type Severity Reaction Status Date / Time olanzapine [From Zyprexa] Allergy See Verified 09/30/16 12:49 Comments ciprofloxacin [From Cipro] AdvReac Vomiting Verified 09/30/16 12:49 Erythromycin Base AdvReac Vomiting Verified 09/30/16 12:49 Sulfa (Sulfonamide AdvReac Vomiting Verified 09/30/16 12:49 Antibiotics) ivp DYE Allergy Hives Uncoded 09/29/14 15:11 Review of Systems All Systems: reviewed and no additional remarkable complaints except as stated Exam - Vital Signs Vital signs: Initial Vital Signs Temp Pulse Resp BP Pulse Ox 98.0 F 102 18 137/58 93 10/19/16 17:25 10/19/16 17:25 10/19/16 17:25 10/19/16 17:25 10/19/16 17:25 Vital Signs - Last 8 Hours Temp Pulse Resp BP Pulse Ox 10/20/16 07:27 98.2 F 87 16 121/72 98 10/20/16 05:44 89 10/20/16 05:31 98.5 F 83 16 154/55 92 10/20/16 04:30 15 93 Intake and Output 10/19/16 10/20/16 10/20/16 23:59 07:59 15:59 Intake Total 0 / 0 200 / 200 Output Total 850 / 850 925 / 925 Balance -850 / -850 -725 / -725 Intake: Oral 0 / 0 200 / 200 Output: Catheter 850 / 850 925 / 925 - General Appearance General appearance: well-developed, well-nourished, appears started age, obese, chronically ill, fatigue, frail EENT: ATNC, PERRL, mucous membranes moist Neck: supple Respiratory: course breath sounds Cardiology: edema, regular rate, regular rhythm, normal S1, normal S2 Gastrointestinal: normoactive bowel sounds, no tenderness, no guarding, obese Integumentary: warm and dry Neurologic: no focal deficit, no asterixis, alert and oriented x3 Musculoskeletal: no deformities, no erythema, no clubbing Psychiatric: mood/affect appropriate, cooperative Results - Lab Results 10/23/16 06:43 10/23/16 06:43 Most recent lab results Calcium 9.2 mg/dL (8.6-10.8) 10/20/16 05:00 I reviewed the above data putnam and also reviewed labs, progress notes, vitals , I/Os and imaging. Consult Discharge Plan - Plan Referrals: Rina Kaba MD [Primary Care Provider] -
[2016-10-20] MEDS: *HR* Rivaroxaban 15 MG TABLET PO SCH (20:51)
[2016-10-21] MEDS: Ipratropium/Albuterol Neb 3 ML IH SCH ×3 (04:31→16:12)
[2016-10-21 08:12] LABS: Basophils % 0.3 %; Eosinophils # 0.1 K/mcL (0.0-0.6); Eosinophils % 1.1 %; Hemoglobin 8.7 g/dL (11.5-15.4); Immature Granulocytes % 1.7 % (0-4); Lymphocytes # 1.2 K/mcL (0.6-4.6); Lymphocytes % 16.4 %; Mean Corpuscular Hemoglobin 28.2 pg (28.0-33.3); Mean Corpuscular Volume 94.2 fL (83.0-100.0); Mean Platelet Volume 10.3 fL (9.4-12.4); Monocytes # 0.6 K/mcL (0.0-1.3); Monocytes % 7.9 %; Neutrophils # 5.3 K/mcL (1.6-8.9); Nucleated Red Blood Cells 0.6 /100 WBC (0); Platelet Count 198 K/mcL (140-400); Red Blood Count 3.08 M/mcL (3.82-4.97); Red Cell Distribution Width 19.9 % (11.5-14.5); Segmented Neutrophils % 72.6 %
[2016-10-21 08:28] LABS: Calcium 8.8 mg/dL (8.6-10.8); Magnesium 1.9 mg/dL (1.6-2.6); Phosphorous 3.5 mg/dL (2.3-4.7); Potassium 3.4 mEq/L (3.5-4.5)
--- NOTE | 2016-10-21 11:26 | Nephrology Progress Note ---
Date of Encounter: 10/21/16 Time of Encounter: 09:15 - Assessment and Plan (1) CKD (chronic kidney disease), stage III Current Visit: Yes Status: Chronic Edema continues: cont Lasix 40mg IV BID with slow but steady UOP. Need strict I/ Os. Long discussion with the pt, her and the family including her adult daughter. (2) Diabetic renal disease Current Visit: Yes Status: Chronic Qualifiers: Diabetes mellitus type: type 2 Qualified Code(s): E11.21 - Type 2 diabetes mellitus with diabetic nephropathy (3) Bilateral lower extremity edema Current Visit: Yes Status: Acute (4) Hypokalemia Current Visit: No Status: Acute (5) Hypoxia Current Visit: No Status: Acute Subjective Principal diagnosis: Edema Interval history: Pt was s/e and did not affirm N/V/D. Her family was present and the pt's daughter asked to stop Albuterol treatments (I'll defer to the primary team). Objective - Vital Signs Vital signs: Vital Signs Temp Pulse Resp BP Pulse Ox 10/21/16 07:56 98 F 92 16 137/62 94 10/21/16 04:31 16 94 10/21/16 03:44 98.3 F 93 15 141/74 94 10/21/16 00:00 98.6 F 95 93 131/69 93 10/20/16 22:24 19 92 10/20/16 19:00 98.7 F 101 22 131/93 98 10/20/16 16:36 18 95 10/20/16 12:18 20 96 Intake and Output 10/20/16 10/21/16 10/21/16 23:59 07:59 15:59 Intake Total 0 / 0 0 / 0 360 / 360 Output Total 600 / 600 650 / 650 Balance -600 / -600 -650 / -650 360 / 360 Intake: Oral 0 / 0 0 / 0 360 / 360 Output: Catheter 600 / 600 650 / 650 Other: Meal Breakfast Percent of Meal Consumed 25% Weight 144 kg Patient Weight 10/21/16 23:59 Weight 144 kg - General Appearance Exam: General appearance: well-developed, well-nourished, appears started age, obese, chronically ill, fatigue, frail EENT: ATNC, PERRL, mucous membranes moist Neck: supple Respiratory: course breath sounds Cardiology: edema, regular rate, regular rhythm, normal S1, normal S2 Gastrointestinal: normoactive bowel sounds, no tenderness, no guarding, obese Integumentary: warm and dry Neurologic: no focal deficit, no asterixis, alert and oriented x3 Musculoskeletal: no deformities, no erythema, no clubbing Psychiatric: mood/affect appropriate, cooperative - Lab 10/23/16 06:43 10/23/16 06:43 Most recent lab results Calcium 8.8 mg/dL (8.6-10.8) 10/21/16 07:05 Phosphorus 3.5 mg/dL (2.3-4.7) 10/21/16 07:05 Magnesium 1.9 mg/dL (1.6-2.6) 10/21/16 07:05 Consult Discharge Plan - Plan Referrals: Rina Kaba MD [Primary Care Provider] -
[2016-10-21] MEDS: *HR* Amiodarone 200 MG TABLET PO SCH (11:42)
[2016-10-21] MEDS: Ascorbic Acid 500 MG TABLET PO SCH (11:42)
[2016-10-21] MEDS: Multivit/Ca/Min/Fe/FA 1 TAB TABLET PO SCH (11:42)
[2016-10-21] MEDS: FLUoxetine 20 MG CAPSULE PO SCH (11:42)
[2016-10-21] MEDS: risperiDONE 1 MG TABLET PO SCH (11:43)
[2016-10-21] MEDS: (Ezetimibe [Zetia] 10 MG) PO SCH (11:43)
[2016-10-21] MEDS: Furosemide 40 MG/4 ML VIAL IVP SCH ×2 (11:43→21:51)
[2016-10-21] MEDS: *HR* Rivaroxaban 15 MG TABLET PO SCH (21:50)
--- NOTE | 2016-10-21 23:47 | Internal Med Progress Note ---
Date of Encounter: 10/22/16 Time of Encounter: 10:00 - Assessment and plan (1) Acute on chronic congestive heart failure Current Visit: Yes Status: Acute Qualifiers: Qualified Code(s): I50.9 - Heart failure, unspecified (2) Acute kidney injury Current Visit: No Status: Acute Assessment and plan: renally dosed medications and avoiding nephrotoxic agents. Nephro following. (3) Fluid overload Current Visit: Yes Status: Acute Qualifiers: Hypervolemia type: other Qualified Code(s): E87.79 - Other fluid overload - Subjective Interval history: Breathing improved with diuresis - Constitutional Vitals: Temp Pulse Resp BP Pulse Ox 98.5 F 92 19 130/61 94 10/21/16 21:12 10/21/16 21:12 10/21/16 21:12 10/21/16 21:12 10/21/16 21:12 Internal Medicine: Result - Labs CBC & Chem 7: 10/21/16 07:05 10/21/16 07:05 Labs: Short CBC 10/21/16 Range/Units 07:05 WBC 7.3 (4.3-11.1) K/mcL Hgb 8.7 L (11.5-15.4) g/dL Hct 29.0 L (35.3-44.9) % Plt Count 198 (140-400) K/mcL Neutrophils # 5.3 (1.6-8.9) K/mcL BMP 10/21/16 07:05 Sodium 144 Potassium 3.4 L Chloride 102 Carbon Dioxide 31 H BUN 25 H Creatinine 1.41 H Glucose 157 H Calcium 8.8 - Impressions Impressions Chest X-Ray 10/21/16 13:53 IMPRESSION: Patchy infrahilar and basilar airspace disease. This could represent atelectasis particularly given the low lung volumes. Pneumonia not excluded. Follow-up recommended with departmental upright PA and lateral views. D/ / Johnson Yang MD / Johnson Yang MD Interpreting Provider: Johnson Yang MD Chest X-Ray 10/21/16 16:34 IMPRESSION: 1. Trace left pleural effusion and associated atelectasis. D/ / Jose Garcia MD / Jose Garcia MD Interpreting Provider: Jose Garcia MD Consult Discharge Plan - Plan Referrals: Rina Kaba MD [Primary Care Provider] -
--- NOTE | 2016-10-21 23:48 | Internal Med Progress Note ---
Date of Encounter: 10/21/16 Time of Encounter: 10:00 - Assessment and plan (1) Acute kidney injury superimposed on chronic kidney disease Current Visit: Yes Status: Acute (2) Acute on chronic congestive heart failure Current Visit: Yes Status: Acute Qualifiers: Qualified Code(s): I50.9 - Heart failure, unspecified (3) Atrial fibrillation with RVR Current Visit: Yes Status: Acute - Subjective Interval history: Little urine output today. Breathing became more difficult. Has been inactive in bed, per nursing they are trying to get her more active. CXR done today for dyspnea showed atelectasis low lung volumes - Constitutional Vitals: Temp Pulse Resp BP Pulse Ox 98.5 F 92 19 130/61 94 10/21/16 21:12 10/21/16 21:12 10/21/16 21:12 10/21/16 21:12 10/21/16 21:12 General appearance: Present: A&O X 3, morbidly obese, no acute distress - Head Head exam: Present: atraumatic, normocephalic - Respiratory Respiratory exam: Present: decreased breath sounds, rales. Absent: accessory muscle use, wheezes - Cardiovascular Cardiovascular exam: Present: RRR - Extremities Exam Extremities exam: Present: pedal edema, radial pulses palpable and symmetrical. Absent: calf tenderness Internal Medicine: Result - Labs CBC & Chem 7: 10/21/16 07:05 10/21/16 07:05 Labs: Short CBC 10/21/16 Range/Units 07:05 WBC 7.3 (4.3-11.1) K/mcL Hgb 8.7 L (11.5-15.4) g/dL Hct 29.0 L (35.3-44.9) % Plt Count 198 (140-400) K/mcL Neutrophils # 5.3 (1.6-8.9) K/mcL BMP 10/21/16 07:05 Sodium 144 Potassium 3.4 L Chloride 102 Carbon Dioxide 31 H BUN 25 H Creatinine 1.41 H Glucose 157 H Calcium 8.8 - Impressions Impressions Chest X-Ray 10/21/16 13:53 IMPRESSION: Patchy infrahilar and basilar airspace disease. This could represent atelectasis particularly given the low lung volumes. Pneumonia not excluded. Follow-up recommended with departmental upright PA and lateral views. D/ / Johnson Yang MD / Johnson Yang MD Interpreting Provider: Johnson Yang MD Chest X-Ray 10/21/16 16:34 IMPRESSION: 1. Trace left pleural effusion and associated atelectasis. D/ / Jose Garcia MD / Jose Garcia MD Interpreting Provider: Jose Garcia MD Consult Discharge Plan - Plan Referrals: Rina Kaba MD [Primary Care Provider] -
[2016-10-22] MEDS: Ipratropium/Albuterol Neb 3 ML IH SCH ×3 (00:31→10:48)
[2016-10-22 05:29] LABS: Basophils % 0.4 %; Eosinophils # 0.1 K/mcL (0.0-0.6); Eosinophils % 1.8 %; Hematocrit 30.1 % (35.3-44.9); Hemoglobin 9.2 g/dL (11.5-15.4); Immature Granulocytes % 2.2 % (0-4); Lymphocytes # 1.2 K/mcL (0.6-4.6); Lymphocytes % 17.1 %; Mean Corpuscular HGB Conc 30.6 g/dL (31.6-35.5); Mean Corpuscular Hemoglobin 28.8 pg (28.0-33.3); Mean Corpuscular Volume 94.4 fL (83.0-100.0); Mean Platelet Volume 10.3 fL (9.4-12.4); Monocytes # 0.8 K/mcL (0.0-1.3); Monocytes % 10.6 %; Neutrophils # 4.8 K/mcL (1.6-8.9); Nucleated Red Blood Cells 0.4 /100 WBC (0); Platelet Count 197 K/mcL (140-400); Red Blood Count 3.19 M/mcL (3.82-4.97); Red Cell Distribution Width 19.6 % (11.5-14.5); Segmented Neutrophils % 67.9 %
[2016-10-22 05:44] LABS: Calcium 8.6 mg/dL (8.6-10.8); Potassium 3.6 mEq/L (3.5-4.5)
--- NOTE | 2016-10-22 08:17 | Electrocardiograph Report ---
[place] [id number] Test Date: 2016-10-19 Pat Name: Giuliana Melendez Department: 104 Room: 2N5 Gender: F Person Investigator: LIAT : 1940 Requested By: Jason Anderson Order Number: [id number] Reading MD: Marlyn Reinoso Measurements Intervals [place] Rate: 100 P: 54 PA: 150 QRS: 46 QRSD: 104 T: 41 QT: 368 QTc: 425 Interpretive Statements SINUS TACHYCARDIA POSSIBLE RIGHT VENTRICULAR CONDUCTION DELAY ABNORMAL RHYTHM ECG Electronically Signed On 10-21-2016 11:22:31 EDT by Marlyn Reinoso
[2016-10-22] MEDS: risperiDONE 1 MG TABLET PO SCH (09:07)
[2016-10-22] MEDS: Ascorbic Acid 500 MG TABLET PO SCH (09:07)
[2016-10-22] MEDS: *HR* Amiodarone 200 MG TABLET PO SCH (09:07)
[2016-10-22] MEDS: FLUoxetine 20 MG CAPSULE PO SCH (09:07)
[2016-10-22] MEDS: Furosemide 40 MG/4 ML VIAL IVP SCH (09:07)
[2016-10-22] MEDS: Multivit/Ca/Min/Fe/FA 1 TAB TABLET PO SCH (09:07)
[2016-10-22] MEDS: (Ezetimibe [Zetia] 10 MG) PO SCH (09:09)
--- NOTE | 2016-10-22 09:30 | Nephrology Progress Note ---
Date of Encounter: 10/22/16 Time of Encounter: 09:28 - Assessment and Plan (1) CKD (chronic kidney disease), stage III Current Visit: Yes Status: Chronic Kidney function stable Continue Lasix 40mg IV BID Good UOP 1025ml Continue fluid restriction (2) Fluid overload Current Visit: Yes Status: Acute see above Qualifiers: Hypervolemia type: other Qualified Code(s): E87.79 - Other fluid overload (3) Morbid obesity with BMI of 45.0-49.9, adult Current Visit: Yes Status: Acute per primary team Subjective Principal diagnosis: CKD stage 3, fluid overload Interval history: Patient seen and examined. Family at bedside. Patient states she is feeling ok this morning. Objective - Vital Signs Vital signs: Vital Signs Temp Pulse Resp BP Pulse Ox 10/22/16 07:00 113 18 127/83 95 10/22/16 05:15 97.7 F 92 18 110/62 65 10/21/16 23:52 99.7 F H 97 20 146/70 94 10/21/16 21:12 98.5 F 92 19 130/61 94 10/21/16 15:40 98.2 F 98 16 138/58 96 10/21/16 12:07 95 10/21/16 11:24 98 F 102 16 141/66 95 10/21/16 11:14 16 96 Intake and Output 10/21/16 10/22/16 10/22/16 23:59 07:59 15:59 Intake Total 0 / 0 0 / 0 Output Total 750 / 750 Balance 0 / 0 -750 / -750 Intake: Oral 0 / 0 0 / 0 Output: Catheter 750 / 750 Other: # Voids 0 Weight 144 kg 145.5 kg Patient Weight 10/22/16 23:59 Weight 145.5 kg - General Appearance General appearance: Present: obese EENT: Present: ATNC, mucous membranes moist, hearing intact, vision intact Neck: Present: supple Respiratory: Present: clear (occa wheeze heard in [place]) Cardiology: Present: edema, rapid rhythm Gastrointestinal: Present: no tenderness, no guarding, obese Integumentary: Present: warm and dry Neurologic: Present: alert and oriented x3 Psychiatric: Present: mood/affect appropriate, cooperative - Lab 10/22/16 04:41 10/22/16 04:41 Most recent lab results Calcium 8.6 mg/dL (8.6-10.8) 10/22/16 04:41 Phosphorus 3.5 mg/dL (2.3-4.7) 10/21/16 07:05 Magnesium 1.9 mg/dL (1.6-2.6) 10/21/16 07:05 Consult Discharge Plan - Plan Referrals: Rina Kaba MD [Primary Care Provider] -
[2016-10-22] MEDS ORDERED: Bisacodyl 10 MG RECTAL SUPPOSITORY RC ONE (13:54)
[2016-10-22] MEDS ORDERED: Ipratropium/Albuterol Neb 3 ML IH PRN (14:18)
[2016-10-22] MEDS ORDERED: Furosemide 40 MG/4 ML VIAL IVP SCH (17:00)
[2016-10-22] MEDS: Sennosides/Docusate Sodium TABLET PO SCH ×2 (17:27→21:24)
--- NOTE | 2016-10-22 19:28 | Internal Med Progress Note ---
Date of Encounter: 10/22/16 Time of Encounter: 13:00 - Assessment and plan (1) Morbid obesity with BMI of 50.0-59.9, adult Current Visit: Yes Status: Acute Assessment and plan: Outpatient follow-up, dietary regimen. (2) DVT prophylaxis Current Visit: No Status: Chronic Assessment and plan: On Xarelto. No additional prophylaxis indicated. (3) Chronic anemia Current Visit: Yes Status: Acute Assessment and plan: Monitor H&H. (4) Atrial fibrillation with RVR Current Visit: Yes Status: Acute Assessment and plan: Currently rate controlled. We will continue with amiodarone. (5) Acute on chronic congestive heart failure Current Visit: Yes Status: Acute Assessment and plan: A cardiogram from 10/01/2016 shows ejection fraction of 65% and diastolic dysfunction. We will treat her with IV Lasix, fluid restriction and daily weights. Qualifiers: Congestive heart failure type: diastolic Qualified Code(s): I50.33 - Acute on chronic diastolic (congestive) heart failure (6) Acute kidney injury superimposed on chronic kidney disease Current Visit: Yes Status: Acute - Subjective Interval history: She reports moderate shortness of breath at rest associated with weakness constant around last few days. She reports inability to ambulate due to dyspnea on exertion and wheezing. - Constitutional Vitals: Temp Pulse Resp BP Pulse Ox 97.6 F 99 17 139/67 96 10/22/16 15:00 10/22/16 15:00 10/22/16 15:00 10/22/16 15:00 10/22/16 15:00 General appearance: Present: A&O X 3, morbidly obese, no acute distress - Head Head exam: Present: atraumatic, normocephalic - Eye Eye exam: Present: PERRL, conjuntiva pink, sclera anicteric Pupils: Present: PERRL - Respiratory Respiratory exam: Present: wheezes. Absent: accessory muscle use, rales, rhonchi - Cardiovascular Cardiovascular exam: Present: irregular rhythm, +S1, +S2. Absent: diastolic murmur, gallop, rubs, systolic murmur - GI/Abdominal GI/Abdominal exam: Present: normal bowel sounds, soft, no peritoneal signs. Absent: distended, tenderness - Extremities Exam Extremities exam: Present: pedal edema, warm, radial pulses palpable and symmetrical. Absent: calf tenderness, cyanotic - Skin Skin exam: Present: dry, intact Internal Medicine: Result - Labs CBC & Chem 7: 10/22/16 04:41 10/22/16 04:41 Labs: Short CBC 10/22/16 Range/Units 04:41 WBC 7.1 (4.3-11.1) K/mcL Hgb 9.2 L (11.5-15.4) g/dL Hct 30.1 L (35.3-44.9) % Plt Count 197 (140-400) K/mcL Neutrophils # 4.8 (1.6-8.9) K/mcL BMP 10/22/16 04:41 Sodium 142 Potassium 3.6 Chloride 103 Carbon Dioxide 31 H BUN 27 H Creatinine 1.26 H Glucose 163 H Calcium 8.6 - Impressions Impressions Retroperitoneum Ultrasound 10/22/16 11:30 IMPRESSION: Increased echogenicity of the kidneys, suggestive of chronic medical renal disease. No evidence of hydronephrosis. Limited distention of the bladder limits evaluation. Gallegos catheter is present. D/ / Isaiah Coreas MD / Isaiah Coreas MD Interpreting Provider: Isaiah Coreas MD Consult Discharge Plan - Plan Referrals: Rina Kaba MD [Primary Care Provider] -
[2016-10-22] MEDS: *HR* Rivaroxaban 15 MG TABLET PO SCH (21:26)
[2016-10-23 07:51] LABS: Basophils % 0.6 %; Eosinophils # 0.1 K/mcL (0.0-0.6); Eosinophils % 1.7 %; Hematocrit 29.6 % (35.3-44.9); Lymphocytes # 1.3 K/mcL (0.6-4.6); Lymphocytes % 17.5 %; Mean Corpuscular HGB Conc 30.4 g/dL (31.6-35.5); Mean Corpuscular Hemoglobin 28.2 pg (28.0-33.3); Mean Corpuscular Volume 92.8 fL (83.0-100.0); Mean Platelet Volume 10.2 fL (9.4-12.4); Monocytes # 0.8 K/mcL (0.0-1.3); Monocytes % 10.5 %; Neutrophils # 4.8 K/mcL (1.6-8.9); Nucleated Red Blood Cells 0.3 /100 WBC (0); Platelet Count 217 K/mcL (140-400); Red Blood Count 3.19 M/mcL (3.82-4.97); Red Cell Distribution Width 19.6 % (11.5-14.5); Segmented Neutrophils % 67.7 %
[2016-10-23 08:09] LABS: Calcium 8.9 mg/dL (8.6-10.8); Potassium 3.5 mEq/L (3.5-4.5)
--- NOTE | 2016-10-23 10:33 | Nephrology Progress Note ---
Date of Encounter: 10/23/16 Time of Encounter: 10:32 - Assessment and Plan (1) CKD (chronic kidney disease), stage III Current Visit: Yes Status: Chronic SCr slightly improving along with the slow diuresis of Lasix 40mg IV BID, but since she remains edematous, I will increase the lasix to 40mg IV TID. Okay to d/c the suarez from my perspective. Continue strict I/Os. Long discussion with the pt and her adult daughters. (2) Diabetic renal disease Current Visit: Yes Status: Chronic Qualifiers: Diabetes mellitus type: type 2 Qualified Code(s): E11.21 - Type 2 diabetes mellitus with diabetic nephropathy (3) Bilateral lower extremity edema Current Visit: Yes Status: Acute (4) Hypokalemia Current Visit: No Status: Acute (5) Hypoxia Current Visit: No Status: Acute Subjective Principal diagnosis: CKD stage 3, fluid overload Interval history: Pt was s/e and did not affirm N/V/D or uremic symptoms. Her daughter asked to keep the suarez, but I counseled them that it's safer to try to remove a suarez catheter if able. Objective - Vital Signs Vital signs: Vital Signs Temp Pulse Resp BP Pulse Ox 10/23/16 08:00 98.4 F 98 18 135/77 96 10/23/16 04:41 98.4 F 93 16 139/61 92 10/22/16 23:49 97.9 F 95 20 140/61 94 10/22/16 21:20 93 10/22/16 19:28 98.8 F 98 20 109/55 93 10/22/16 15:00 97.6 F 99 17 139/67 96 10/22/16 10:48 98 Intake and Output 10/22/16 10/23/16 10/23/16 23:59 07:59 15:59 Intake Total 120 / 120 120 / 120 Balance 120 / 120 120 / 120 Intake: Oral 120 / 120 120 / 120 Other: Meal Dinner Breakfast Percent of Meal Consumed 80% 25% Weight 149.7 kg Patient Weight 10/23/16 23:59 Weight 149.7 kg - General Appearance Exam: General appearance: well-developed, well-nourished, appears started age, obese, chronically ill, fatigue, frail EENT: ATNC, PERRL, mucous membranes moist Neck: supple Respiratory: course breath sounds Cardiology: edema, regular rate, regular rhythm, normal S1, normal S2 Gastrointestinal: normoactive bowel sounds, no tenderness, no guarding, obese Integumentary: warm and dry Neurologic: no focal deficit, no asterixis, alert and oriented x3 Musculoskeletal: no deformities, no erythema, no clubbing Psychiatric: mood/affect appropriate, cooperative - Lab 10/23/16 06:43 10/23/16 06:43 Most recent lab results Calcium 8.9 mg/dL (8.6-10.8) 10/23/16 06:43 Phosphorus 3.5 mg/dL (2.3-4.7) 10/21/16 07:05 Magnesium 1.9 mg/dL (1.6-2.6) 10/21/16 07:05 Consult Discharge Plan - Plan Referrals: Rina Kaba MD [Primary Care Provider] -
[2016-10-23] MEDS: Sennosides/Docusate Sodium TABLET PO SCH ×2 (11:04→21:51)
[2016-10-23] MEDS: predniSONE 10 MG TABLET PO SCH (11:05)
[2016-10-23] MEDS: FLUoxetine 20 MG CAPSULE PO SCH (11:05)
[2016-10-23] MEDS: *HR* Amiodarone 200 MG TABLET PO SCH (11:05)
[2016-10-23] MEDS: Ascorbic Acid 500 MG TABLET PO SCH (11:06)
[2016-10-23] MEDS: Multivit/Ca/Min/Fe/FA 1 TAB TABLET PO SCH (11:06)
[2016-10-23] MEDS: Furosemide 40 MG/4 ML VIAL IVP SCH ×2 (11:07→18:34)
[2016-10-23] MEDS: (Ezetimibe [Zetia] 10 MG) PO SCH (11:08)
[2016-10-23] MEDS: risperiDONE 1 MG TABLET PO SCH (11:20)
[2016-10-23] MEDS ORDERED: D5% in Water 1,000 ML IVC PRN (11:35)
[2016-10-23] MEDS ORDERED: Dextrose Gel 15 GM PO PRN ×2 (11:35)
[2016-10-23] MEDS ORDERED: *HR* Dextrose 50 % in Water (Syg) 50 ML SYRINGE IVP PRN (11:35)
[2016-10-23] MEDS: Insulin LISPRO 300 UNITS/3 ML VIAL SQ SCH ×3 (12:53→21:53)
[2016-10-23] MEDS: Levalbuterol Neb 1.25 MG/3 ML IH SCH ×3 (13:05→21:51)
--- NOTE | 2016-10-23 19:16 | Internal Med Progress Note ---
Date of Encounter: 10/23/16 Time of Encounter: 13:00 - Assessment and plan (1) Morbid obesity with BMI of 50.0-59.9, adult Current Visit: Yes Status: Acute Assessment and plan: Outpatient follow-up, dietary regimen. (2) DVT prophylaxis Current Visit: No Status: Chronic Assessment and plan: On Xarelto. No additional prophylaxis indicated. (3) Chronic anemia Current Visit: Yes Status: Acute Assessment and plan: Monitor H&H. (4) Atrial fibrillation with RVR Current Visit: Yes Status: Acute Assessment and plan: Currently rate controlled. We will continue with amiodarone. (5) Acute on chronic congestive heart failure Current Visit: Yes Status: Acute Assessment and plan: A cardiogram from 10/01/2016 shows ejection fraction of 65% and diastolic dysfunction. We will treat her with IV Lasix, fluid restriction and daily weights. Qualifiers: Congestive heart failure type: systolic Qualified Code(s): I50.23 - Acute on chronic systolic (congestive) heart failure (6) Acute kidney injury superimposed on chronic kidney disease Current Visit: Yes Status: Acute (7) Elevated glucose level Current Visit: Yes Status: Acute Assessment and plan: *Start low-dose insulin sliding scale. Check hemoglobin A1c - Subjective Interval history: She reports moderate shortness of breath at rest associated with weakness constant around last few days. She reports inability to ambulate due to dyspnea on exertion and wheezing. - Constitutional Vitals: Temp Pulse Resp BP Pulse Ox 98.3 F 98 16 142/79 97 10/23/16 15:49 10/23/16 15:49 10/23/16 16:40 10/23/16 16:40 10/23/16 16:40 General appearance: Present: A&O X 3, morbidly obese, no acute distress - Respiratory Respiratory exam: Present: CTAB. Absent: accessory muscle use, rales, rhonchi, wheezes - Cardiovascular Cardiovascular exam: Present: RRR, +S1, +S2. Absent: diastolic murmur, gallop, rubs, systolic murmur - GI/Abdominal GI/Abdominal exam: Present: normal bowel sounds, soft, no peritoneal signs. Absent: distended, tenderness - Extremities Exam Extremities exam: Present: pedal edema, warm, radial pulses palpable and symmetrical. Absent: calf tenderness, cyanotic - Skin Skin exam: Present: dry, intact Internal Medicine: Result - Labs CBC & Chem 7: 10/23/16 06:43 10/23/16 06:43 Labs: Short CBC 10/23/16 Range/Units 06:43 WBC 7.1 (4.3-11.1) K/mcL Hgb 9.0 L (11.5-15.4) g/dL Hct 29.6 L (35.3-44.9) % Plt Count 217 (140-400) K/mcL Neutrophils # 4.8 (1.6-8.9) K/mcL BMP 10/23/16 06:43 Sodium 142 Potassium 3.5 Chloride 103 Carbon Dioxide 34 H BUN 31 H Creatinine 1.23 H Glucose 156 H Calcium 8.9 - Impressions Impressions Chest X-Ray 10/23/16 08:00 IMPRESSION: Left lower lobe atelectasis versus pneumonia, not significantly changed. No pleural effusion. D/ / Giovani Singh MD / Giovani Singh MD Interpreting Provider: Giovani Singh MD Consult Discharge Plan - Plan Referrals: Rina Kaba MD [Primary Care Provider] -
[2016-10-23] MEDS: *HR* Rivaroxaban 15 MG TABLET PO SCH (21:50)
[2016-10-24] MEDS: Levalbuterol Neb 1.25 MG/3 ML IH SCH ×4 (04:00→22:38)
[2016-10-24 05:01] LABS: Basophils % 0.3 %; Eosinophils # 0.1 K/mcL (0.0-0.6); Hematocrit 27.8 % (35.3-44.9); Hemoglobin 8.5 g/dL (11.5-15.4); Immature Granulocytes % 1.5 % (0-4); Lymphocytes # 1.3 K/mcL (0.6-4.6); Mean Corpuscular HGB Conc 30.6 g/dL (31.6-35.5); Mean Corpuscular Hemoglobin 28.4 pg (28.0-33.3); Mean Platelet Volume 10.1 fL (9.4-12.4); Monocytes # 0.6 K/mcL (0.0-1.3); Monocytes % 7.6 %; Neutrophils # 5.2 K/mcL (1.6-8.9); Nucleated Red Blood Cells 0.3 /100 WBC (0); Platelet Count 203 K/mcL (140-400); Red Blood Count 2.99 M/mcL (3.82-4.97); Segmented Neutrophils % 71.6 %
[2016-10-24 05:13] LABS: Calcium 8.9 mg/dL (8.6-10.8); Potassium 3.5 mEq/L (3.5-4.5)
--- NOTE | 2016-10-24 09:47 | Nephrology Progress Note ---
Date of Encounter: 10/24/16 Time of Encounter: 09:45 - Assessment and Plan (1) CKD (chronic kidney disease), stage III Current Visit: Yes Status: Chronic Kidney function continues to remain stable Continue Lasix 40mg IV TID Good UOP 1550ml Nephrology signing off at this time. Please reconsult if needed Follow up in office in 4 weeks BMP 1 week after discharge (2) Fluid overload Current Visit: Yes Status: Acute Improving see above Qualifiers: Hypervolemia type: other Qualified Code(s): E87.79 - Other fluid overload (3) Morbid obesity with BMI of 45.0-49.9, adult Current Visit: Yes Status: Acute per primary team Subjective Principal diagnosis: CKD stage 3, fluid overload Interval history: Patient seen and examined. Family at bedside. Sitting up in chair, states she is feeling better. Objective - Vital Signs Vital signs: Vital Signs Temp Pulse Resp BP Pulse Ox 10/24/16 07:13 97.5 F L 81 16 118/65 95 10/24/16 04:10 97.4 F L 87 18 133/54 100 10/24/16 04:00 16 97 10/23/16 21:52 16 94 10/23/16 20:00 98.5 F 103 18 151/77 96 10/23/16 16:40 16 142/79 97 10/23/16 15:49 98.3 F 98 18 142/79 95 10/23/16 13:05 18 96 10/23/16 11:48 97.8 F 100 16 131/89 97 Intake and Output 10/23/16 10/24/16 10/24/16 23:59 07:59 15:59 Intake Total 970 / 970 0 / 0 Output Total 1550 / 1550 500 / 500 Balance -580 / -580 -500 / -500 Intake: Oral 970 / 970 0 / 0 Output: Urine 1550 / 1550 500 / 500 Other: Meal Dinner Percent of Meal Consumed 95% Weight 148.5 kg Blood Glucose* 282 155 Patient Weight 10/24/16 23:59 Weight 148.5 kg - General Appearance General appearance: Present: obese EENT: Present: ATNC, mucous membranes moist, hearing intact, vision intact Neck: Present: supple Respiratory: Present: clear Cardiology: Present: edema (improved), normal S1, normal S2 Gastrointestinal: Present: no tenderness, no guarding, obese Integumentary: Present: warm and dry Neurologic: Present: alert and oriented x3 Psychiatric: Present: mood/affect appropriate, cooperative - Lab 10/24/16 04:22 10/24/16 04:22 Most recent lab results Calcium 8.9 mg/dL (8.6-10.8) 10/24/16 04:22 Phosphorus 3.5 mg/dL (2.3-4.7) 10/21/16 07:05 Magnesium 2.0 mg/dL (1.6-2.6) 10/24/16 04:22 - VTE Documentation of Mechanical Device: Graduated compression elastic hosiery Consult Discharge Plan - Plan Referrals: Rina Kaba MD [Primary Care Provider] -
[2016-10-24] MEDS: Insulin LISPRO 300 UNITS/3 ML VIAL SQ SCH ×4 (09:49→21:20)
[2016-10-24] MEDS: predniSONE 10 MG TABLET PO SCH (09:50)
[2016-10-24] MEDS: FLUoxetine 20 MG CAPSULE PO SCH (09:50)
[2016-10-24] MEDS: Multivit/Ca/Min/Fe/FA 1 TAB TABLET PO SCH (09:50)
[2016-10-24] MEDS: Sennosides/Docusate Sodium TABLET PO SCH ×2 (09:50→21:11)
[2016-10-24] MEDS: *HR* Amiodarone 200 MG TABLET PO SCH (09:50)
[2016-10-24] MEDS: Furosemide 40 MG/4 ML VIAL IVP SCH ×3 (09:50→17:35)
[2016-10-24] MEDS: Ascorbic Acid 500 MG TABLET PO SCH (09:50)
[2016-10-24] MEDS: risperiDONE 1 MG TABLET PO SCH (09:50)
[2016-10-24] MEDS: (Ezetimibe [Zetia] 10 MG) PO SCH (09:52)
[2016-10-24] MEDS ORDERED: predniSONE 10 MG TABLET PO ONE (11:18)
[2016-10-24] MEDS: Ipratropium Neb 0.5 MG NEBULIZER IH SCH ×2 (15:32→22:38)
--- NOTE | 2016-10-24 19:32 | Internal Med Progress Note ---
Date of Encounter: 10/24/16 Time of Encounter: 19:31 - Assessment and plan (1) Morbid obesity with BMI of 50.0-59.9, adult Current Visit: Yes Status: Acute Assessment and plan: Outpatient follow-up, dietary regimen. (2) DVT prophylaxis Current Visit: No Status: Chronic Assessment and plan: On Xarelto. No additional prophylaxis indicated. (3) Chronic anemia Current Visit: Yes Status: Acute Assessment and plan: Monitor H&H. (4) Atrial fibrillation with RVR Current Visit: Yes Status: Acute Assessment and plan: Currently rate controlled. We will continue with amiodarone. (5) Acute on chronic congestive heart failure Current Visit: Yes Status: Acute Assessment and plan: A cardiogram from 10/01/2016 shows ejection fraction of 65% and diastolic dysfunction. We will treat her with IV Lasix, fluid restriction and daily weights. Qualifiers: Congestive heart failure type: systolic Qualified Code(s): I50.23 - Acute on chronic systolic (congestive) heart failure (6) Acute kidney injury superimposed on chronic kidney disease Current Visit: Yes Status: Acute Assessment and plan: Appreciate nephrology recommendations. We will monitor kidney function closely. Strict I's and O's and daily weights. (7) Elevated glucose level Current Visit: Yes Status: Acute Assessment and plan: *Start low-dose insulin sliding scale. Check hemoglobin A1c (8) COPD (chronic obstructive pulmonary disease) Current Visit: Yes Status: Acute Assessment and plan: She does not tolerate albuterol due to tremors. She tolerated Xopenex well. We will continue with this. Can add Atrovent. Will increase prednisone to 40 mg daily. Qualifiers: COPD type: emphysema Emphysema type: unspecified Qualified Code(s): J43.9 - Emphysema, unspecified - Subjective Interval history: She reports mild shortness of breath at rest associated with weakness slightly improved from yesterday. She was started on Xopenex yesterday which she thinks helps her breathing. - Constitutional Vitals: Temp Pulse Resp BP Pulse Ox 97.5 F L 105 17 129/67 93 10/24/16 16:00 10/24/16 16:00 10/24/16 16:00 10/24/16 16:00 10/24/16 16:00 General appearance: Present: A&O X 3, morbidly obese, no acute distress - Respiratory Respiratory exam: Present: prolonged expiratory phase, wheezes. Absent: accessory muscle use, rales, rhonchi - Cardiovascular Cardiovascular exam: Present: RRR, +S1, +S2. Absent: diastolic murmur, gallop, rubs, systolic murmur - GI/Abdominal GI/Abdominal exam: Present: normal bowel sounds, soft, no peritoneal signs. Absent: distended, tenderness - Extremities Exam Extremities exam: Present: warm, radial pulses palpable and symmetrical. Absent : calf tenderness, cyanotic, pedal edema - Skin Skin exam: Present: dry, intact Internal Medicine: Result - Labs CBC & Chem 7: 10/24/16 04:22 10/24/16 04:22 Labs: Short CBC 10/24/16 Range/Units 04:22 WBC 7.2 (4.3-11.1) K/mcL Hgb 8.5 L (11.5-15.4) g/dL Hct 27.8 L (35.3-44.9) % Plt Count 203 (140-400) K/mcL Neutrophils # 5.2 (1.6-8.9) K/mcL BMP 10/24/16 04:22 Sodium 144 Potassium 3.5 Chloride 103 Carbon Dioxide 32 H BUN 28 H Creatinine 1.14 H Glucose 159 H Calcium 8.9 - VTE Documentation of Mechanical Device: Graduated compression elastic hosiery Consult Discharge Plan - Plan Referrals: Rina Kaba MD [Primary Care Provider] -
[2016-10-24] MEDS: *HR* Rivaroxaban 15 MG TABLET PO SCH (21:12)
[2016-10-25 01:33] LABS: Eosinophils % 0.2 %; Hematocrit 25.6 % (35.3-44.9); Hemoglobin 8.1 g/dL (11.5-15.4); Immature Granulocytes % 2.1 % (0-4); Lymphocytes # 0.8 K/mcL (0.6-4.6); Lymphocytes % 8.9 %; Mean Corpuscular HGB Conc 31.6 g/dL (31.6-35.5); Mean Corpuscular Hemoglobin 28.9 pg (28.0-33.3); Mean Corpuscular Volume 91.4 fL (83.0-100.0); Mean Platelet Volume 10.2 fL (9.4-12.4); Monocytes # 0.5 K/mcL (0.0-1.3); Monocytes % 5.9 %; Nucleated Red Blood Cells 0.2 /100 WBC (0); Platelet Count 209 K/mcL (140-400); Red Cell Distribution Width 18.6 % (11.5-14.5); Segmented Neutrophils % 82.9 %
[2016-10-25 01:46] LABS: Calcium 8.6 mg/dL (8.6-10.8); Potassium 3.9 mEq/L (3.5-4.5)
[2016-10-25] MEDS: Levalbuterol Neb 1.25 MG/3 ML IH SCH ×4 (04:49→22:25)
[2016-10-25] MEDS: Ipratropium Neb 0.5 MG NEBULIZER IH SCH ×4 (04:49→22:25)
[2016-10-25] MEDS: Sennosides/Docusate Sodium TABLET PO SCH (09:32)
[2016-10-25] MEDS: FLUoxetine 20 MG CAPSULE PO SCH (09:33)
[2016-10-25] MEDS: Ascorbic Acid 500 MG TABLET PO SCH (09:33)
[2016-10-25] MEDS: *HR* Amiodarone 200 MG TABLET PO SCH (09:33)
[2016-10-25] MEDS: Multivit/Ca/Min/Fe/FA 1 TAB TABLET PO SCH (09:33)
[2016-10-25] MEDS: Insulin LISPRO 300 UNITS/3 ML VIAL SQ SCH ×4 (09:33→19:59)
[2016-10-25] MEDS: risperiDONE 1 MG TABLET PO SCH (09:33)
[2016-10-25] MEDS: Furosemide 40 MG/4 ML VIAL IVP SCH ×3 (09:33→17:21)
[2016-10-25] MEDS: predniSONE 20 MG TABLET PO SCH (09:33)
[2016-10-25] MEDS: (Ezetimibe [Zetia] 10 MG) PO SCH (09:35)
[2016-10-25] MEDS ORDERED: Sennosides/Docusate Sodium TABLET PO PRN (11:17)
--- NOTE | 2016-10-25 19:13 | Internal Med Progress Note ---
Date of Encounter: 10/25/16 Time of Encounter: 11:00 - Assessment and plan (1) Morbid obesity with BMI of 50.0-59.9, adult Current Visit: Yes Status: Acute Assessment and plan: Outpatient follow-up, dietary regimen. (2) DVT prophylaxis Current Visit: No Status: Chronic Assessment and plan: On Xarelto. No additional prophylaxis indicated. (3) Chronic anemia Current Visit: Yes Status: Acute Assessment and plan: Monitor H&H. (4) Atrial fibrillation with RVR Current Visit: Yes Status: Acute Assessment and plan: Currently rate controlled. We will continue with amiodarone. (5) Acute on chronic congestive heart failure Current Visit: Yes Status: Acute Assessment and plan: Continue with Lasix 40 mg IV every 8 hours. Echocardiogram from 10/01/2016 shows ejection fraction of 65% and diastolic dysfunction. We will treat her with IV Lasix, fluid restriction and daily weights. Qualifiers: Congestive heart failure type: systolic Qualified Code(s): I50.23 - Acute on chronic systolic (congestive) heart failure (6) Acute kidney injury superimposed on chronic kidney disease Current Visit: Yes Status: Acute Assessment and plan: Continue with IV Lasix 3 times a day. Avoid nephrotoxins. Appreciate nephrology recommendations. We will monitor kidney function closely. Strict I's and O's and daily weights. (7) Elevated glucose level Current Visit: Yes Status: Acute Assessment and plan: *Start low-dose insulin sliding scale. Check hemoglobin A1c (8) COPD (chronic obstructive pulmonary disease) Current Visit: Yes Status: Acute Assessment and plan: She does not tolerate albuterol due to tremors. She tolerated Xopenex well. We will continue with this. Can add Atrovent. Will increase prednisone to 40 mg daily. Qualifiers: COPD type: emphysema Emphysema type: unspecified Qualified Code(s): J43.9 - Emphysema, unspecified - Subjective Interval history: 10/25/2016: She reports improvement in her shortness of breath which notes mild depressed and she can move and ambulate within her room. Xopenex and Atrovent have helped and so did prednisone. She continued to report lower extremity swelling. 10/24/2016: She reports mild shortness of breath at rest associated with weakness slightly improved from yesterday. She was started on Xopenex yesterday which she thinks helps her breathing. - Constitutional Vitals: Temp Pulse Resp BP Pulse Ox 98.1 F 91 17 156/69 94 10/25/16 15:55 10/25/16 15:55 10/25/16 16:09 10/25/16 15:55 10/25/16 16:09 General appearance: Present: A&O X 3, morbidly obese, no acute distress - Respiratory Respiratory exam: Present: CTAB. Absent: accessory muscle use, rales, rhonchi, wheezes - Cardiovascular Cardiovascular exam: Present: RRR, +S1, +S2. Absent: diastolic murmur, gallop, rubs, systolic murmur - GI/Abdominal GI/Abdominal exam: Present: normal bowel sounds, soft, no peritoneal signs. Absent: distended, tenderness - Extremities Exam Extremities exam: Present: pedal edema (2+ lower extremity edema), warm, radial pulses palpable and symmetrical. Absent: calf tenderness, cyanotic - Neurological Exam Neurological exam: Present: CN II-XII intact, oriented X3, no focal deficits. Absent: pronater drift, facial droop, speech deficit Internal Medicine: Result - Labs CBC & Chem 7: 10/25/16 01:21 10/25/16 01:21 Labs: Short CBC 10/25/16 Range/Units 01:21 WBC 8.5 (4.3-11.1) K/mcL Hgb 8.1 L (11.5-15.4) g/dL Hct 25.6 L (35.3-44.9) % Plt Count 209 (140-400) K/mcL Neutrophils # 7.0 (1.6-8.9) K/mcL BMP 10/25/16 01:21 Sodium 142 Potassium 3.9 Chloride 103 Carbon Dioxide 30 H BUN 25 H Creatinine 1.11 Glucose 198 H Calcium 8.6 - VTE Documentation of Mechanical Device: Graduated compression elastic hosiery Consult Discharge Plan - Plan Referrals: Rina Kaba MD [Primary Care Provider] -
[2016-10-25] MEDS: *HR* Rivaroxaban 15 MG TABLET PO SCH (19:58)
[2016-10-26] MEDS: Ipratropium Neb 0.5 MG NEBULIZER IH SCH ×4 (04:07→21:35)
[2016-10-26] MEDS: Levalbuterol Neb 1.25 MG/3 ML IH SCH ×4 (04:08→21:35)
[2016-10-26 07:19] LABS: BUN/Creatinine Ratio 26 (6-26); Blood Urea Nitrogen 27 mg/dL (7-20); Calcium 8.8 mg/dL (8.6-10.8); Carbon Dioxide 31 mEq/L (19-29); Chloride 104 mEq/L (98-109); Glucose 129 mg/dL (70-99); Osmolality,Calculated 307 (280-300); Potassium 3.6 mEq/L (3.5-4.5); Sodium 145 mEq/L (136-145); eGFR For African Americans > 60 (> 60); eGFR For Non-African Americans 52 (> 60)
[2016-10-26 07:47] LABS: Basophils % 0.4 %; Eosinophils # 0.2 K/mcL (0.0-0.6); Hematocrit 26.4 % (35.3-44.9); Immature Granulocytes % 2.5 % (0-4); Lymphocytes # 1.3 K/mcL (0.6-4.6); Mean Corpuscular HGB Conc 30.3 g/dL (31.6-35.5); Mean Corpuscular Hemoglobin 28.4 pg (28.0-33.3); Mean Corpuscular Volume 93.6 fL (83.0-100.0); Mean Platelet Volume 10.5 fL (9.4-12.4); Monocytes # 0.6 K/mcL (0.0-1.3); Monocytes % 7.4 %; Neutrophils # 5.4 K/mcL (1.6-8.9); Nucleated Red Blood Cells 1.1 /100 WBC (0); Platelet Count 235 K/mcL (140-400); Red Blood Count 2.82 M/mcL (3.82-4.97); Red Cell Distribution Width 18.9 % (11.5-14.5); Segmented Neutrophils % 70.7 %
[2016-10-26] MEDS: risperiDONE 1 MG TABLET PO SCH (08:26)
[2016-10-26] MEDS: FLUoxetine 20 MG CAPSULE PO SCH (08:26)
[2016-10-26] MEDS: Ascorbic Acid 500 MG TABLET PO SCH (08:27)
[2016-10-26] MEDS: *HR* Amiodarone 200 MG TABLET PO SCH (08:27)
[2016-10-26] MEDS: predniSONE 20 MG TABLET PO SCH (08:27)
[2016-10-26] MEDS: Furosemide 40 MG/4 ML VIAL IVP SCH ×3 (08:28→16:38)
[2016-10-26] MEDS: Multivit/Ca/Min/Fe/FA 1 TAB TABLET PO SCH (08:28)
[2016-10-26] MEDS: (Ezetimibe [Zetia] 10 MG) PO SCH (08:32)
[2016-10-26] MEDS: Insulin LISPRO 300 UNITS/3 ML VIAL SQ SCH ×4 (08:32→22:24)
--- NOTE | 2016-10-26 18:50 | Internal Med Progress Note ---
Date of Encounter: 10/26/16 Time of Encounter: 18:48 - Assessment and plan (1) Morbid obesity with BMI of 50.0-59.9, adult Current Visit: Yes Status: Acute Assessment and plan: Outpatient follow-up, dietary regimen. (2) DVT prophylaxis Current Visit: No Status: Chronic Assessment and plan: On Xarelto. No additional prophylaxis indicated. (3) Chronic anemia Current Visit: Yes Status: Acute Assessment and plan: Monitor H&H. We will transfuse if hemoglobin below 8.0. (4) Atrial fibrillation with RVR Current Visit: Yes Status: Acute Assessment and plan: Currently rate controlled. We will continue with amiodarone. (5) Acute on chronic congestive heart failure Current Visit: Yes Status: Acute Assessment and plan: Continue with Lasix 40 mg IV every 8 hours. Echocardiogram from 10/01/2016 shows ejection fraction of 65% and diastolic dysfunction. We will treat her with IV Lasix, fluid restriction and daily weights. Qualifiers: Congestive heart failure type: systolic Qualified Code(s): I50.23 - Acute on chronic systolic (congestive) heart failure (6) Acute kidney injury superimposed on chronic kidney disease Current Visit: Yes Status: Acute Assessment and plan: Continue with IV Lasix 3 times a day. Avoid nephrotoxins. Appreciate nephrology recommendations. We will monitor kidney function closely. Strict I's and O's and daily weights. (7) Elevated glucose level Current Visit: Yes Status: Acute Assessment and plan: 10/26/2016: She will likely just need a diabetic diet and no medications at home. Her hemoglobin A1c is 6.0. 10/25/2016: Start low-dose insulin sliding scale. Check hemoglobin A1c (8) COPD (chronic obstructive pulmonary disease) Current Visit: Yes Status: Acute Assessment and plan: She does not tolerate albuterol due to tremors. She tolerated Xopenex well. We will continue with this. Can add Atrovent. Will increase prednisone to 40 mg daily. Qualifiers: COPD type: emphysema Emphysema type: unspecified Qualified Code(s): J43.9 - Emphysema, unspecified - Subjective Interval history: 10/26/2016: She reports being more active today, able to ambulate within her room. Her shortness of breath has improved. She reports improvement in her lower extremity edema. 10/25/2016: She reports improvement in her shortness of breath which notes mild depressed and she can move and ambulate within her room. Xopenex and Atrovent have helped and so did prednisone. She continued to report lower extremity swelling. 10/24/2016: She reports mild shortness of breath at rest associated with weakness slightly improved from yesterday. She was started on Xopenex yesterday which she thinks helps her breathing. - Constitutional Vitals: Temp Pulse Resp BP Pulse Ox 97.7 F 90 16 152/73 94 10/26/16 16:07 10/26/16 16:07 10/26/16 16:15 10/26/16 16:07 10/26/16 16:15 General appearance: Present: A&O X 3, morbidly obese, no acute distress - Respiratory Respiratory exam: Present: CTAB. Absent: accessory muscle use, rales, rhonchi, wheezes - Cardiovascular Cardiovascular exam: Present: RRR, +S1, +S2. Absent: diastolic murmur, gallop, rubs, systolic murmur - GI/Abdominal GI/Abdominal exam: Present: normal bowel sounds, soft, no peritoneal signs. Absent: distended, tenderness - Extremities Exam Extremities exam: Present: pedal edema (2+ lower extremity pitting edema, upper extremity edema significantly improved), warm, radial pulses palpable and symmetrical. Absent: calf tenderness, cyanotic - Skin Skin exam: Present: dry, intact Internal Medicine: Result - Labs CBC & Chem 7: 10/26/16 06:42 10/26/16 06:42 Labs: Short CBC 10/26/16 Range/Units 06:42 WBC 7.6 (4.3-11.1) K/mcL Hgb 8.0 L (11.5-15.4) g/dL Hct 26.4 L (35.3-44.9) % Plt Count 235 (140-400) K/mcL Neutrophils # 5.4 (1.6-8.9) K/mcL BMP 10/26/16 06:42 Sodium 145 Potassium 3.6 Chloride 104 Carbon Dioxide 31 H BUN 27 H Creatinine 1.03 Glucose 129 H Calcium 8.8 - VTE Documentation of Mechanical Device: Graduated compression elastic hosiery Consult Discharge Plan - Plan Referrals: Rina Kaba MD [Primary Care Provider] -
[2016-10-26] MEDS: *HR* Rivaroxaban 15 MG TABLET PO SCH (22:23)
[2016-10-27] MEDS: Levalbuterol Neb 1.25 MG/3 ML IH SCH ×4 (03:50→21:39)
[2016-10-27] MEDS: Ipratropium Neb 0.5 MG NEBULIZER IH SCH ×4 (03:50→21:39)
[2016-10-27 05:00] LABS: Basophils % 0.4 %; Eosinophils # 0.1 K/mcL (0.0-0.6); Eosinophils % 1.5 %; Hematocrit 25.7 % (35.3-44.9); Hemoglobin 7.9 g/dL (11.5-15.4); Immature Granulocytes % 2.4 % (0-4); Lymphocytes # 1.3 K/mcL (0.6-4.6); Lymphocytes % 17.6 %; Mean Corpuscular HGB Conc 30.7 g/dL (31.6-35.5); Mean Corpuscular Hemoglobin 28.2 pg (28.0-33.3); Mean Corpuscular Volume 91.8 fL (83.0-100.0); Mean Platelet Volume 10.2 fL (9.4-12.4); Monocytes # 0.5 K/mcL (0.0-1.3); Monocytes % 7.2 %; Neutrophils # 5.2 K/mcL (1.6-8.9); Nucleated Red Blood Cells 1.1 /100 WBC (0); Platelet Count 209 K/mcL (140-400); Segmented Neutrophils % 70.9 %
[2016-10-27 05:12] LABS: % Iron Saturation 10 % (15-50); Iron 34 mcg/dL (50-170); Transferrin 241 mg/dL (180-382)
[2016-10-27 05:15] LABS: BUN/Creatinine Ratio 27 (6-26); Blood Urea Nitrogen 26 mg/dL (7-20); Calcium 8.8 mg/dL (8.6-10.8); Carbon Dioxide 30 mEq/L (19-29); Chloride 103 mEq/L (98-109); Glucose 143 mg/dL (70-99); Osmolality,Calculated 303 (280-300); Potassium 3.1 mEq/L (3.5-4.5); Sodium 143 mEq/L (136-145); eGFR For African Americans > 60 (> 60); eGFR For Non-African Americans 55 (> 60)
[2016-10-27] MEDS: Insulin LISPRO 300 UNITS/3 ML VIAL SQ SCH ×3 (10:30→16:31)
[2016-10-27] MEDS: predniSONE 20 MG TABLET PO SCH (10:39)
[2016-10-27] MEDS: FLUoxetine 20 MG CAPSULE PO SCH (10:39)
[2016-10-27] MEDS: *HR* Amiodarone 200 MG TABLET PO SCH (10:40)
[2016-10-27] MEDS: Ascorbic Acid 500 MG TABLET PO SCH (10:40)
[2016-10-27] MEDS: risperiDONE 1 MG TABLET PO SCH (10:40)
[2016-10-27] MEDS: Furosemide 40 MG/4 ML VIAL IVP SCH ×4 (10:40→18:37)
[2016-10-27] MEDS: Multivit/Ca/Min/Fe/FA 1 TAB TABLET PO SCH (10:40)
[2016-10-27] MEDS: (Ezetimibe [Zetia] 10 MG) PO SCH (10:41)
--- NOTE | 2016-10-27 11:11 | Discharge Summary ---
Date of Encounter: 10/27/16 Time of Encounter: 11:03 - Discharge Diagnosis (1) Morbid obesity with BMI of 50.0-59.9, adult Priority: Secondary Status: Acute (2) Chronic anemia Priority: Secondary Status: Acute (3) Atrial fibrillation with RVR Priority: Secondary Status: Acute (4) Acute on chronic congestive heart failure Priority: Primary Status: Acute Qualifiers: Congestive heart failure type: systolic Qualified Code(s): I50.23 - Acute on chronic systolic (congestive) heart failure (5) Acute kidney injury superimposed on chronic kidney disease Priority: Secondary Status: Acute (6) Elevated glucose level Priority: Secondary Status: Acute (7) COPD (chronic obstructive pulmonary disease) Priority: Secondary Status: Acute Qualifiers: COPD type: emphysema Emphysema type: unspecified Qualified Code(s): J43.9 - Emphysema, unspecified (8) Iron deficiency anemia Priority: Secondary Status: Chronic Qualifiers: Iron deficiency anemia type: unspecified iron deficiency Qualified Code(s) : D50.9 - Iron deficiency anemia, unspecified (9) CAD S/P percutaneous coronary angioplasty Priority: Secondary Status: Chronic (10) CKD (chronic kidney disease), stage III Priority: Secondary Status: Chronic - Discharge Medications Prescriptions: Ipratropium Neb [Atrovent Neb] 0.5 mg IH [id number] 30 Days Levalbuterol Neb [Xopenex Neb] 1.25 mg IH [id number] 30 Days Furosemide [Lasix] 40 mg PO TID 30 Days Potassium Chloride 20 meq PO BID #60 predniSONE [PredniSONE] 40 mg PO DAILY #60 tab Home Medications: Levothyroxine [Synthroid] 100 mcg PO QAM 10/20/14 [History] Losartan [Cozaar] 100 mg PO HS 10/20/14 [History] Prasugrel [Effient] 10 mg PO DAILY 10/20/14 [History] Rivaroxaban [Xarelto] 15 mg PO QPM 10/20/14 [History] Amiodarone [Cordarone] 200 mg PO HS 09/27/15 [History] Ascorbate Calcium [Vitamin C] 1,000 mg PO DAILY 09/30/16 [History] Calcium Crb,Cit/D3/Min34/Dinah [Citracal + Bone Density Tablet] 2 tab PO BID [History] Esomeprazole Magnesium [Nexium 24Hr] 44.6 mg PO BID 09/30/16 [History] Ezetimibe [Zetia] 10 mg PO HS 09/30/16 [History] FLUoxetine HCl [Fluoxetine HCl] 40 mg PO DAILY 09/30/16 [History] Mv,Ca,Min/Iron/FA/Guarana/Caff [One-A-Day Women's Tablet] 1 tab PO DAILY [History] Zolpidem Tartrate 5 mg PO HS 09/30/16 [History] predniSONE [PredniSONE] 25 mg PO DAILY 09/30/16 [History] risperiDONE [Risperidone] 1 mg PO HS 09/30/16 [History] Furosemide [Lasix] 40 mg PO TID 30 Days 10/27/16 [Rx] Ipratropium Neb [Atrovent Neb] 0.5 mg IH [id number] 30 Days 10/27/16 [Rx] Levalbuterol Neb [Xopenex Neb] 1.25 mg IH [id number] 30 Days 10/27/16 [Rx] Potassium Chloride 20 meq PO BID #60 10/27/16 [Rx] predniSONE [PredniSONE] 40 mg PO DAILY #60 tab 10/27/16 [Rx] Allergies/Adverse Reactions: 3 Allergy/AdvReac Type Severity Reaction Status Date / Time olanzapine [From Zyprexa] Allergy See Verified 09/30/16 12:49 Comments ciprofloxacin [From Cipro] AdvReac Vomiting Verified 09/30/16 12:49 Erythromycin Base AdvReac Vomiting Verified 09/30/16 12:49 Sulfa (Sulfonamide AdvReac Vomiting Verified 09/30/16 12:49 Antibiotics) ivp DYE Allergy Hives Uncoded 09/29/14 15:11 Date of admission: 10/19/16 22:09 Primary care physician: Rina Kaba, - Patient Status Disposition: Home Health Service Condition: Fair Functional capacity at discharge: uses cane/walker Overall status at discharge: patient is progressing back to baseline - Discharge Instructions Follow Up With: Rina Kaba MD [Primary Care Provider] - Additional Instructions: Follow low sodium diet. Low sugar and low carbohydrate. Follow-up with PCP within the next 7 days. Follow up with process machine operator and fisher diver net within the next 7-14 days. If weight goes up in spite of treatment with Lasix he can double up on your morning Lasix dose. If weight continues to go up clear doctor right away. - Diet and Activity Activity: increase activity as tolerated Diet: diabetic diet (Follow diabetic diet while on prednisone), low fat, low cholesterol, low salt diet (Fluid restriction of 1500 mL daily) Hospital course: Ms. Melendez is a 76 year old female with multiple medical comorbidities including morbid obesity, essential hypertension, hyperlipidemia, coronary artery disease, diastolic CHF, CK D and chronic anemia who was brought to the hospital for evaluation of shortness of breath. She also reported worsening lower extremity edema since she was switched from Lasix to torsemide. She was diagnosed with fluid overload secondary to acute diastolic heart failure. Additionally her creatinine was elevated from her baseline. She was admitted to the medical service. She was treated with IV Lasix. She had a good diuretic response. Nephrology was consulted. They recommended continued Lasix therapy. Her creatinine continued to trend down and today as at 0.98. Her echocardiogram showed normal ejection fraction and diastolic dysfunction. Her hemoglobin trended down and today is 7.9 and given her history of heart disease she will be transfused 1 unit PRBC and given a dose of Lasix after transfusion. She is being followed for her chronic anemia by hematology and was advised to follow-up within the next 2 weeks. Her edema and shortness of breath have improved. She had a cumulative 6.6 L out during this hospitalization. She will be switched to oral Lasix and discharged home. - Time Spent with Patient Total time spent providing and/or coordinating discharge services: Greater than 30 minutes - Constitutional Vitals: Temp Pulse Resp BP Pulse Ox 97.9 F 93 16 144/71 93 10/27/16 07:20 10/27/16 07:20 10/27/16 10:25 10/27/16 07:20 10/27/16 10:25 General appearance: Present: A&O X 3, morbidly obese, no acute distress - Respiratory Respiratory exam: Present: wheezes. Absent: accessory muscle use, rales, rhonchi - Cardiovascular Cardiovascular exam: Present: RRR, +S1, +S2. Absent: diastolic murmur, gallop, rubs, systolic murmur - GI/Abdominal GI/Abdominal exam: Present: normal bowel sounds, soft, no peritoneal signs. Absent: distended, tenderness - Extremities Exam Extremities exam: Present: pedal edema, warm, radial pulses palpable and symmetrical. Absent: calf tenderness, cyanotic - Skin Skin exam: Present: dry, intact - VTE Documentation of Mechanical Device: Graduated compression elastic hosiery
--- NOTE | 2016-10-27 11:28 | Physician Discharge Referral ---
Home Health/Hosp Referral Info Transfer to: Home Health Provider in Charge Post Discharge: PCP - Diagnosis (1) Morbid obesity with BMI of 50.0-59.9, adult Status: Acute (2) Chronic anemia Status: Acute (3) Atrial fibrillation with RVR Status: Acute (4) Acute on chronic congestive heart failure Status: Acute (5) Acute kidney injury superimposed on chronic kidney disease Status: Acute (6) Elevated glucose level Status: Acute (7) COPD (chronic obstructive pulmonary disease) Status: Acute (8) Iron deficiency anemia Status: Chronic (9) CAD S/P percutaneous coronary angioplasty Status: Chronic (10) CKD (chronic kidney disease), stage III Status: Chronic - Respiratory Orders Smoking Cessation: Smoking cessation has been advised. For more information, call the [place] Tobacco Quit Line at 5-794-AYRV-NOW. - Diet/Nutrition Diet/Nutrition Orders: No Added Salt (EDWIN) (Fluid restriction 1500 mL daily), Cardiac, No Concentrated Sweets - Activity Activity Orders: Walker - Services Needed Following services are medically necessary services: Nursing, Home Health Aide, Physical Therapy - Transfer Medications Prescriptions: Ipratropium Neb [Atrovent Neb] 0.5 mg IH [id number] 30 Days Levalbuterol Neb [Xopenex Neb] 1.25 mg IH [id number] 30 Days Furosemide [Lasix] 40 mg PO TID 30 Days Potassium Chloride 20 meq PO BID #60 predniSONE [PredniSONE] 40 mg PO DAILY #60 tab Home Medications: Levothyroxine [Synthroid] 100 mcg PO QAM 10/20/14 [History] Losartan [Cozaar] 100 mg PO HS 10/20/14 [History] Prasugrel [Effient] 10 mg PO DAILY 10/20/14 [History] Rivaroxaban [Xarelto] 15 mg PO QPM 10/20/14 [History] Amiodarone [Cordarone] 200 mg PO HS 09/27/15 [History] Ascorbate Calcium [Vitamin C] 1,000 mg PO DAILY 09/30/16 [History] Calcium Crb,Cit/D3/Min34/Dinah [Citracal + Bone Density Tablet] 2 tab PO BID [History] Esomeprazole Magnesium [Nexium 24Hr] 44.6 mg PO BID 09/30/16 [History] Ezetimibe [Zetia] 10 mg PO HS 09/30/16 [History] FLUoxetine HCl [Fluoxetine HCl] 40 mg PO DAILY 09/30/16 [History] Mv,Ca,Min/Iron/FA/Guarana/Caff [One-A-Day Women's Tablet] 1 tab PO DAILY [History] Zolpidem Tartrate 5 mg PO HS 09/30/16 [History] predniSONE [PredniSONE] 25 mg PO DAILY 09/30/16 [History] risperiDONE [Risperidone] 1 mg PO HS 09/30/16 [History] Furosemide [Lasix] 40 mg PO TID 30 Days 10/27/16 [Rx] Ipratropium Neb [Atrovent Neb] 0.5 mg IH [id number] 30 Days 10/27/16 [Rx] Levalbuterol Neb [Xopenex Neb] 1.25 mg IH [id number] 30 Days 10/27/16 [Rx] Potassium Chloride 20 meq PO BID #60 10/27/16 [Rx] predniSONE [PredniSONE] 40 mg PO DAILY #60 tab 10/27/16 [Rx] Allergies/Adverse Reactions: 3 Allergy/AdvReac Type Severity Reaction Status Date / Time olanzapine [From Zyprexa] Allergy See Verified 09/30/16 12:49 Comments ciprofloxacin [From Cipro] AdvReac Vomiting Verified 09/30/16 12:49 Erythromycin Base AdvReac Vomiting Verified 09/30/16 12:49 Sulfa (Sulfonamide AdvReac Vomiting Verified 09/30/16 12:49 Antibiotics) ivp DYE Allergy Hives Uncoded 09/29/14 15:11 Certification: Further, I certify that my clinical findings support that this patient is homebound (i.e. absences from home require considerable and taxing effort and are for medical reasons or restoration services or infrequently or short duration when for other reasons) because: Homebound Reason: Patient requires assistance of a person or device to safely leave home, Leaving home requires considerable and taxing effort due to condition, Severity of cardiac or pulmonary status limits activity tolerance Attestation: My signature below is to certify that this patient is under my care and that I, or nurse practitioner, or a physician's dental chairside assistant working with me, has a face-to -face encounter with this patient.
[2016-10-27] MEDS ORDERED: 0.9 % Sodium Chloride 500 ML ONE (14:54)
[2016-10-27 18:40] VITALS: BP 154/77
[2016-10-28 21:44] LABS: Ferritin 102 ng/ml (5-204)
== END 2016-10-27 17:30 | disposition home health service (06) | DRG 291 ==
LOC: EMEROO 17:19 → 2NENU 17:19 → SUATTDRO 22:09
PROVIDERS: ADMIT Internal Medicine; ATTEND Internal Medicine

== ENCOUNTER 2016-12-01 17:38 | Inpatient (IN) ==
--- NOTE | 2016-12-01 18:18 | Emergency Department Note ---
Disposition Clinical Impression: Weakness CHF (congestive heart failure) Qualifiers: Congestive heart failure type: unspecified congestive heart failure type Congestive heart failure chronicity: acute on chronic Qualified Code(s): I50.9 - Heart failure, unspecified Disposition: Still a Patient Condition: Good Referrals: Rina Kaba MD [Primary Care Provider] - Forms: ED Satisfaction Letter Time of Disposition: 18:57 General Adult HPI - General Chief complaint: ED Dizziness Stated complaint: SOB, weak Time Seen by Provider: 12/01/16 17:52 Source: EMS Limitations: physical limitation Nursing Notes Reviewed: Yes Vital Signs Reviewed: Yes - History of Present Illness HPI Narrative: Two-week history of increased weight gain increased shortness of breath. Does have history of CHF. 2 day history of generalized weakness and myalgias. No provoking or alleviating factors. Has tried Lasix and spironolactone increased with no relief. Pain Scale: 6 - Related Data Home Medications Medication Instructions Recorded Confirmed Levothyroxine [Synthroid] 100 mcg PO QAM 10/20/14 10/20/16 Losartan [Cozaar] 100 mg PO HS 10/20/14 10/20/16 Prasugrel [Effient] 10 mg PO DAILY 10/20/14 10/20/16 Rivaroxaban [Xarelto] 15 mg PO QPM 10/20/14 10/20/16 Amiodarone [Cordarone] 200 mg PO HS 09/27/15 10/20/16 Ascorbate Calcium [Vitamin C] 1,000 mg PO DAILY 09/30/16 10/20/16 Calcium Crb,Cit/D3/Min34/Dinah 2 tab PO BID 09/30/16 10/20/16 [Citracal + Bone Density Tablet] Esomeprazole Magnesium [Nexium 44.6 mg PO BID 09/30/16 10/20/16 24Hr] Ezetimibe [Zetia] 10 mg PO HS 09/30/16 10/20/16 FLUoxetine HCl [Fluoxetine HCl] 40 mg PO DAILY 09/30/16 10/20/16 Mv,Ca,Min/Iron/FA/Guarana/Caff 1 tab PO DAILY 09/30/16 10/20/16 [One-A-Day Women's Tablet] Zolpidem Tartrate 5 mg PO HS 09/30/16 10/20/16 predniSONE [PredniSONE] 25 mg PO DAILY 09/30/16 10/20/16 risperiDONE [Risperidone] 1 mg PO HS 09/30/16 10/20/16 Previous Rx's Medication Instructions Recorded Furosemide [Lasix] 40 mg PO TID 30 Days tab 10/27/16 Ipratropium Neb [Atrovent Neb] 0.5 mg IH [id number] 30 Days inh 10/27/16 Levalbuterol Neb [Xopenex Neb] 1.25 mg IH [id number] 30 Days 10/27/16 Potassium Chloride 20 meq PO BID #60 10/27/16 predniSONE [PredniSONE] 40 mg PO DAILY #60 tab 10/27/16 Allergies Allergy/AdvReac Type Severity Reaction Status Date / Time olanzapine [From Zyprexa] Allergy See Verified 09/30/16 12:49 Comments ciprofloxacin [From Cipro] AdvReac Vomiting Verified 09/30/16 12:49 Erythromycin Base AdvReac Vomiting Verified 09/30/16 12:49 Sulfa (Sulfonamide AdvReac Vomiting Verified 09/30/16 12:49 Antibiotics) ivp DYE Allergy Hives Uncoded 09/29/14 15:11 All systems ED: reviewed and negative except as stated. Constitutional: Reports: weakness. Denies: fever, chills ENT ED: Denies: congestion Cardiovascular: Reports: dyspnea on exertion. Denies: chest pain, palpitations , syncope Respiratory: Reports: dyspnea. Denies: cough, sputum production Gastrointestinal: Denies: abdominal pain, nausea, vomiting, diarrhea Genitourinary: Reports: other (foul odor to urine ). Denies: urgency, dysuria, frequency Musculoskeletal: Reports: myalgia. Denies: back pain, neck pain Integumentary: Denies: rash Neurological: Denies: headache, weakness Past Medical History - Past Medical History Attestation: Yes The following information was validated with the patient. Source: patient Medical history: Reports: atrial fibrillation, coronary artery disease, hypertension, myocardial infarction, renal disease, thyroid disease Surgical history: Reports: appendectomy, cataract, cholecystectomy, hysterectomy Psychiatric history: Reports: no psych history ALARM MECHANISM ADJUSTER history: Reports: no ALARM MECHANISM ADJUSTER history - Social History Smoking Status: Former smoker Smokeless Tobacco Status: No Alcohol use: Reports: none Drug use: Reports: none Physical Exam - General Limitations: physical limitation General appearance: alert, in no apparent distress - Head Head exam: atraumatic, normocephalic, normal inspection - Eye Eye exam: Present: normal appearance, PERRL, EOMI. Absent: scleral icterus, conjunctival injection - ENT ENT exam: normal exam, normal oropharynx, mucous membranes moist - Neck Neck exam: Present: normal inspection, full ROM, trachea midline. Absent: tenderness, meningismus - Chest Chest inspection: Present: normal inspection, symmetric chest wall rise. Absent : tenderness, rash - Respiratory Respiratory exam: Present: other (Mild rales to lower lobes bilaterally.). Absent: respiratory distress, accessory muscle use - Cardiovascular Cardiovascular exam: Present: regular rate, normal rhythm, normal heart sounds - Abdominal Exam Abdominal exam: Present: soft, Non-Tender. Absent: tenderness, organomegaly - Extremities Exam Extremities exam: Present: normal inspection, full ROM, normal capillary refill. Absent: tenderness, pedal edema - Back Exam Back exam: Present: normal inspection, full ROM. Absent: tenderness - Neurological Exam Neurological exam: Present: alert, oriented X3 - Psychiatric Psychiatric exam: Present: normal affect, normal mood - Skin Skin exam: Present: warm, dry, intact, normal color. Absent: rash, cyanosis, diaphoresis, erythema Course Course Narrative: Female patient presenting from home with family. She is advising that she has generalized aches all over. Patient's family states the patient has had an increase in weight gain in the past 2 weeks. She states she does have a history of CHF and has been on an increasing dose of Lasix as well as potassium and spironolactone with no decrease in her weight. Patient denies any fevers or chills. She does report increasing shortness of breath. Dyspnea on exertion. Had an event today where she had a near syncopal event walking to her bed. This is after urinating. The daughter states that she was able to place the patient on the bed before she fell to the floor. The patient's lung sounds are relatively clear but she does have some mild rales in her lower lobes. She does have pitting edema to her lower extremities. Her abdomen is soft and nontender. She denies any trouble urinating but does state that she has some foul odor to her urine. She is requesting to be cathetered because she does not believe she can get up to move around. We will do basic lab workup on patient inclusive of a chest x-ray. I anticipate an admission due to increased generalized weakness and increased shortness of breath and increased weight gain. - Consultations Consultation #1: Dat accepted patient stable condition Time: 19:39 Vital Signs Temperature 99.2 F 12/01/16 17:44 Pulse Rate 89 12/01/16 17:44 Respiratory Rate 12 12/01/16 17:44 Blood Pressure 172/85 12/01/16 17:44 O2 Sat by Pulse Oximetry 99 12/01/16 17:44 Temperature 99.2 F 12/01/16 17:44 Pulse Rate 99 12/01/16 18:26 Respiratory Rate 12 12/01/16 18:20 Blood Pressure 172/85 12/01/16 18:26 O2 Sat by Pulse Oximetry 97 12/01/16 18:20 Oxygen Delivery Oxygen Delivery Nasal Cannula Medical Decision Making - Medical Records Medical records reviewed: Yes I reviewed the patient's medical records. - Lab Data Lab results reviewed: Yes I reviewed the patient's lab results. Result diagrams: 12/01/16 18:27 12/01/16 18:27 Lab Results 12/01/16 12/01/16 12/01/16 Range/Units 18:24 18:27 18:27 WBC 8.5 (4.3-11.1) K/mcL RBC 3.12 L (3.82-4.97) M/mcL Hgb 8.8 L (11.5-15.4) g/dL Hct 28.9 L (35.3-44.9) % MCV 92.6 (83.0-100.0) fL MCH 28.2 (28.0-33.3) pg MCHC 30.4 L (31.6-35.5) g/dL RDW 17.6 H (11.5-14.5) % Plt Count 241 (140-400) K/mcL MPV 9.8 (9.4-12.4) fL Immature Gran % 1.3 (0-4) % Seg Neutrophils % 82.1 % Lymphocytes % 10.4 % Monocytes % 5.3 % Eosinophils % 0.5 % Basophils % 0.4 % Neutrophils # 7.0 (1.6-8.9) K/mcL Lymphocytes # 0.9 (0.6-4.6) K/mcL Monocytes # 0.5 (0.0-1.3) K/mcL Eosinophils # 0.0 (0.0-0.6) K/mcL Basophils # 0.0 (0.0-0.2) K/mcL Nucleated RBCs/100 WBC 0.4 H (0) /100 WBC PT 13.9 H (9.4-12.1) Seconds INR 1.3 APTT 29.7 (26.0-36.0) Seconds Sodium (136-145) mEq/L Potassium (3.5-4.5) mEq/L Chloride (98-109) mEq/L Carbon Dioxide (19-29) mEq/L BUN (7-20) mg/dL Creatinine (0.57-1.11) mg/dL Est GFR ( Amer) (> 60) Est GFR (Non-Af Amer) (> 60) BUN/Creatinine Ratio (6-26) Glucose (70-99) mg/dL POC Glucose 183 H (58-89) Calculated Osmolality (280-300) Lactic Acid (0.5-2.2) mmol/L Calcium (8.6-10.8) mg/dL Troponin I (0-0.03) ng/mL B-Natriuretic Peptide (0-100) pg/mL Urine Color (Yellow) Urine Clarity (Clear) Urine pH (5.0-8.0) pH Units Ur Specific [place] (1.010-1.025) Urine Protein (Neg-Trace) mg/dL Urine Glucose (UA) (Normal) mg/dL Urine Ketones (Negative) mg/dL Urine Blood (Negative) Urine Nitrite (Negative) Urine Bilirubin (Negative) Urine Urobilinogen (Normal) mg/dL Ur Leukocyte Esterase (Negative) Urine Microscopic RBC (0-3) per hpf Urine Microscopic WBC (0-3) per hpf Ur Squamous Epith Cells (None-Few) per lpf Urine Bacteria (None-Few) per hpf Hyaline Casts (None-Few) per lpf 12/01/16 12/01/16 12/01/16 Range/Units 18:27 18:27 18:27 WBC (4.3-11.1) K/mcL RBC (3.82-4.97) M/mcL Hgb (11.5-15.4) g/dL Hct (35.3-44.9) % MCV (83.0-100.0) fL MCH (28.0-33.3) pg MCHC (31.6-35.5) g/dL RDW (11.5-14.5) % Plt Count (140-400) K/mcL MPV (9.4-12.4) fL Immature Gran % (0-4) % Seg Neutrophils % % Lymphocytes % % Monocytes % % Eosinophils % % Basophils % % Neutrophils # (1.6-8.9) K/mcL Lymphocytes # (0.6-4.6) K/mcL Monocytes # (0.0-1.3) K/mcL Eosinophils # (0.0-0.6) K/mcL Basophils # (0.0-0.2) K/mcL Nucleated RBCs/100 WBC (0) /100 WBC PT (9.4-12.1) Seconds INR APTT (26.0-36.0) Seconds Sodium 140 (136-145) mEq/L Potassium 4.2 (3.5-4.5) mEq/L Chloride 99 (98-109) mEq/L Carbon Dioxide 33 H (19-29) mEq/L BUN 23 H (7-20) mg/dL Creatinine 1.31 H (0.57-1.11) mg/dL Est GFR ( Amer) 48 L (> 60) Est GFR (Non-Af Amer) 40 L (> 60) BUN/Creatinine Ratio 18 (6-26) Glucose 177 H (70-99) mg/dL POC Glucose (58-89) Calculated Osmolality 298 (280-300) Lactic Acid 2.5 H (0.5-2.2) mmol/L Calcium 9.2 (8.6-10.8) mg/dL Troponin I 0.01 (0-0.03) ng/mL B-Natriuretic Peptide (0-100) pg/mL Urine Color (Yellow) Urine Clarity (Clear) Urine pH (5.0-8.0) pH Units Ur Specific [place] (1.010-1.025) Urine Protein (Neg-Trace) mg/dL Urine Glucose (UA) (Normal) mg/dL Urine Ketones (Negative) mg/dL Urine Blood (Negative) Urine Nitrite (Negative) Urine Bilirubin (Negative) Urine Urobilinogen (Normal) mg/dL Ur Leukocyte Esterase (Negative) Urine Microscopic RBC (0-3) per hpf Urine Microscopic WBC (0-3) per hpf Ur Squamous Epith Cells (None-Few) per lpf Urine Bacteria (None-Few) per hpf Hyaline Casts (None-Few) per lpf 12/01/16 12/01/16 Range/Units 18:27 18:41 WBC (4.3-11.1) K/mcL RBC (3.82-4.97) M/mcL Hgb (11.5-15.4) g/dL Hct (35.3-44.9) % MCV (83.0-100.0) fL MCH (28.0-33.3) pg MCHC (31.6-35.5) g/dL RDW (11.5-14.5) % Plt Count (140-400) K/mcL MPV (9.4-12.4) fL Immature Gran % (0-4) % Seg Neutrophils % % Lymphocytes % % Monocytes % % Eosinophils % % Basophils % % Neutrophils # (1.6-8.9) K/mcL Lymphocytes # (0.6-4.6) K/mcL Monocytes # (0.0-1.3) K/mcL Eosinophils # (0.0-0.6) K/mcL Basophils # (0.0-0.2) K/mcL Nucleated RBCs/100 WBC (0) /100 WBC PT (9.4-12.1) Seconds INR APTT (26.0-36.0) Seconds Sodium (136-145) mEq/L Potassium (3.5-4.5) mEq/L Chloride (98-109) mEq/L Carbon Dioxide (19-29) mEq/L BUN (7-20) mg/dL Creatinine (0.57-1.11) mg/dL Est GFR ( Amer) (> 60) Est GFR (Non-Af Amer) (> 60) BUN/Creatinine Ratio (6-26) Glucose (70-99) mg/dL POC Glucose (58-89) Calculated Osmolality (280-300) Lactic Acid (0.5-2.2) mmol/L Calcium (8.6-10.8) mg/dL Troponin I (0-0.03) ng/mL B-Natriuretic Peptide 29 (0-100) pg/mL Urine Color Yellow (Yellow) Urine Clarity Clear (Clear) Urine pH 7.0 (5.0-8.0) pH Units Ur Specific [place] 1.013 (1.010-1.025) Urine Protein Negative (Neg-Trace) mg/dL Urine Glucose (UA) Normal (Normal) mg/dL Urine Ketones Negative (Negative) mg/dL Urine Blood Negative (Negative) Urine Nitrite Negative (Negative) Urine Bilirubin Negative (Negative) Urine Urobilinogen Normal (Normal) mg/dL Ur Leukocyte Esterase Trace H (Negative) Urine Microscopic RBC 0-3 (0-3) per hpf Urine Microscopic WBC 0-3 (0-3) per hpf Ur Squamous Epith Cells Moderate H (None-Few) per lpf Urine Bacteria Many H (None-Few) per hpf Hyaline Casts None Seen (None-Few) per lpf - Radiology Data Radiology results reviewed: Yes I reviewed the patient's radiology results. Chest X-Ray 12/01/16 18:11 IMPRESSION: Stable portable study. D/ / Yareli Hoyos Cha, MD / Yareli Hoyos Cha, MD Interpreting Provider: Yareli Hoyos Cha, MD - EKG Data EKG #1 EKG attestation: Yes I reviewed and interpreted this EKG. EKG results narrative: 89 NSR, no stemi. Attestation Statement - Attestation Attestation: I, Jesus Maxwell, examined this patient and my medical decision-making was reviewed with the WASTEWATER TECHNICIAN/PA/Advanced Practice Nurse/Resident Physician. I agree with the documented findings, disposition and treatment plan as described except to the extent set forth below. 76-year-old female presents to ED after syncopal event. +unconscious for seconds before resolving without intervention, no post-ictal period. Pt denies chest pain, palpitations, SOB, fever, chills, dysuria. event occured after urination. never happened before. +recent spironolactone and lasix however pt continues to have weight gain and LE edema. Likely vasovagal syncope, but will admit for further evaluation of LE edema, anemia, Lactic acidosis.
[2016-12-01 18:37] LABS: Basophils % 0.4 %; Eosinophils % 0.5 %; Hematocrit 28.9 % (35.3-44.9); Hemoglobin 8.8 g/dL (11.5-15.4); Immature Granulocytes % 1.3 % (0-4); Lymphocytes # 0.9 K/mcL (0.6-4.6); Lymphocytes % 10.4 %; Mean Corpuscular HGB Conc 30.4 g/dL (31.6-35.5); Mean Corpuscular Hemoglobin 28.2 pg (28.0-33.3); Mean Corpuscular Volume 92.6 fL (83.0-100.0); Mean Platelet Volume 9.8 fL (9.4-12.4); Monocytes # 0.5 K/mcL (0.0-1.3); Monocytes % 5.3 %; Nucleated Red Blood Cells 0.4 /100 WBC (0); Platelet Count 241 K/mcL (140-400); Red Blood Count 3.12 M/mcL (3.82-4.97); Red Cell Distribution Width 17.6 % (11.5-14.5); Segmented Neutrophils % 82.1 %
[2016-12-01 18:50] LABS: Calcium 9.2 mg/dL (8.6-10.8); Potassium 4.2 mEq/L (3.5-4.5)
[2016-12-01 18:55] LABS: INR 1.3; Prothrombin Time 13.9 Seconds (9.4-12.1)
[2016-12-01 18:58] LABS: Activated Partial Thrombo Time 29.7 Seconds (26.0-36.0)
[2016-12-01 18:58] LABS: Bilirubin,Urine Negative (Negative); Blood,Urine Negative (Negative); Clarity,Urine Clear (Clear); Color,Urine Yellow (Yellow); Glucose,Urine (UA) Normal (Normal); Ketones,Urine Negative (Negative); Leukocyte Esterase,Urine Trace (Negative); Nitrite,Urine Negative (Negative); Protein,Urine Negative (Neg-Trace); Specific Gravity,Urine 1.013 (1.010-1.025); Urobilinogen,Urine Normal (Normal)
[2016-12-01 19:00] LABS: Bacteria,Urine Many per hpf (None-Few); Hyaline Casts,Urine None Seen per lpf (None-Few); RBC,Urine 0-3 per hpf (0-3); Squamous Epithelial Cell,Urine Moderate per lpf (None-Few); WBC,Urine 0-3 per hpf (0-3)
[2016-12-01] MEDS ORDERED: Ondansetron 4 MG/2 ML VIAL IVP PRN (21:08)
[2016-12-01] MEDS ORDERED: *HR* Morphine 2 MG/ML SYRINGE IVP PRN (21:08)
[2016-12-01] MEDS ORDERED: Acetaminophen 325 MG TABLET PO PRN (21:08)
[2016-12-01] MEDS ORDERED: Naloxone 0.4 MG/ML INJ IVP PRN (21:08)
--- NOTE | 2016-12-01 22:05 | Internal Med History&Physical ---
Date of Encounter: 12/01/16 Time of Encounter: 21:35 Assessment and Plan (1) CHF (congestive heart failure) Current visit: Yes Status: Acute Syncope - unclear etiology - possibly due to UTI, CHF and Atrial fibrillation Acute on chronic diastolic CHF exacerbation, mild - with LVEF 65% - with weight gain and worsening bilateral lower leg edema Continue IV Lasix, Losartan Chest x-ray - clear lungs, stable EKG - sinus rhythm with no acute ST-T changes Troponin - 0.01, cycle Troponin BNP - 29 Cardiac telemetry, fluid restriction, strict I's and O's, daily weight, labs in a.m., monitor closely Qualifiers: Congestive heart failure type: diastolic Congestive heart failure chronicity: acute on chronic Qualified Code(s): I50.33 - Acute on chronic diastolic (congestive) heart failure (2) UTI (urinary tract infection) Current visit: Yes Status: Acute Probable UTI, present on admission - possibly contributing to generalized weakness and syncope Empiric IV Rocephin Cultures - pending Qualifiers: Urinary tract infection type: acute cystitis Hematuria presence: without hematuria Qualified Code(s): N30.00 - Acute cystitis without hematuria (3) Atrial fibrillation Current visit: Yes Status: Chronic Chronic atrial fibrillation, rate controlled Continue home dose of Amiodarone Continue anticoagulation with Xarelto Qualifiers: Atrial fibrillation type: chronic Qualified Code(s): I48.2 - Chronic atrial fibrillation (4) COPD (chronic obstructive pulmonary disease) Current visit: No Status: Chronic COPD, stable Continue breathing treatments Continue BiPAP for obstructive sleep apnea Qualifiers: COPD type: unspecified COPD Qualified Code(s): J44.9 - Chronic obstructive pulmonary disease, unspecified (5) Hyperlipidemia Current visit: No Status: Chronic Continue Zetia, patient is intolerant of statins Qualifiers: Hyperlipidemia type: unspecified Qualified Code(s): E78.5 - Hyperlipidemia , unspecified (6) Hypertension Current visit: No Status: Chronic Essential hypertension, controlled, monitor Continue home meds Qualifiers: Hypertension type: essential hypertension Qualified Code(s): I10 - Essential (primary) hypertension (7) CAD S/P percutaneous coronary angioplasty Current visit: No Status: Chronic Coronary artery disease status post stents - history of PR - stable Continue Prasugrel, Zetia EKG - sinus rhythm with no acute ST-T changes Troponin - negative (8) CKD (chronic kidney disease), stage III Current visit: No Status: Chronic Chronic kidney disease stage III, stable - creatinine and GFR at baseline Patient follows up with Dr. Toshia Clayton in a.m. (9) Morbid obesity with BMI of 45.0-49.9, adult Current visit: No Status: Chronic Morbid obesity with BMI of 46.0 (10) MESERET (obstructive sleep apnea) Current visit: Yes Status: Chronic Continue BiPAP (11) DVT prophylaxis Current visit: No Status: Chronic Internal Medicine - H&P: HPI Chief complaint: Syncope, shortness of breath Admitted From: Emergency Dept Plans for Post Hospital Care: Home History of present illness: Ms. Melendez is a 76 year old female with past medical history of HTN, Atrial fibrillation, MESERET, CKD stage III, HLD, CAD s/p stents, hypothyroidism, COPD, chronic anemia and CHF diastolic dysfunction. Patient presents to the ED with complaints of syncope and generalized weakness. Examined in the room. Patient is awake and alert. Not in any distress. Able to provide all history. No family members at bedside. Patient states she developed generalized body aches about 24 hours ago. She took an extra dose of Percocet at home last night. She woke up this morning and continued to have body aches. She states she was having some difficulty ambulating and required assistance from her daughter to go to the bathroom. When she was walking back from the bathroom to her bed, she had passed out for a few seconds and had to be supported by her daughter. Patient states she did not fall to the ground. She denies any head injury or any other injuries. Patient complains of associated shortness of breath and dizziness. Denies chest pain or palpitations. Complains of nausea but no vomiting. Denies abdominal pain or diarrhea or loss of appetite. Patient also states she has gained more weight over the past few days and her legs have been swelling. She states she has been following a strict fluid restriction of 1500 mL daily. Patient states she has been taking all her meds including Lasix regularly. She also takes Prasugrel and Xarelto. She complains of easy bruising because of the blood thinners. Currently patient states she does not have dizziness or shortness of breath. Seems to be feeling better. No other associated symptoms. No other acute complaints. Patient states she did use her nebulizer treatments today, but did not help with shortness of breath. She also used her daughter's oxygen and this seemed to have given some relief. Initial workup in the ED reveals chronic anemia and elevated creatinine which is likely at baseline. Troponin is negative and BNP peptide is within normal limits. EKG shows sinus rhythm with no acute ST-T changes. Chest x-ray shows clear lungs. UA shows trace leukocyte esterase. Patient has been given IV Rocephin in the ED for probable UTI. Patient is being admitted for CHF exacerbation, with worsening lower leg edema. She will need IV Lasix and strict intake/output with fluid restriction. Patient has been explained about her condition and plan of care in detail. She understood and agreed. No unanswered questions. CODE STATUS full code. Past Med Surg Social Fam HX - Past Medical History Medical history: atrial fibrillation, coronary artery disease, hypertension, myocardial infarction, renal disease, thyroid disease Psychiatric history: no psych history - Past Surgical History Surgical History: appendectomy, cataract, cholecystectomy, hysterectomy - Social History Smoking Status: Former smoker Smokeless Tobacco Status: No Alcohol use: none Drug use: none - Family History Father Adopted: No Living Status: Hx Family Cardiac Disorders: Yes (PR) Mother Adopted: No Living Status: Hx Family Cancer: Yes (Colon cancer) Internal Medicine - H&P: Meds Amiodarone [Cordarone] 200 mg PO DAILY 12/01/16 [History] Ascorbic Acid [Vitamin C] 1,000 mg PO DAILY 12/01/16 [History] Calcium Carb,Cit/D3/Phytostrol [Citracal D + Heart Health Tab] 1 each PO DAILY 12/01/16 [History] Docusate [Colace] 100 mg PO DAILY 12/01/16 [History] Esomeprazole Magnesium [Nexium 24Hr] 80 mg PO DAILY 12/01/16 [History] Ezetimibe [Zetia] 10 mg PO DAILY 12/01/16 [History] FLUoxetine HCl [Fluoxetine HCl] 40 mg PO DAILY 12/01/16 [History] Furosemide [Lasix] 40 mg PO TID 12/01/16 [History] Ipratropium [Atrovent Inhaler] 1 puff IH BID 12/01/16 [History] Levalbuterol [Xopenex] 1 puff IH BID 12/01/16 [History] Levothyroxine [Synthroid] 100 mcg PO 0630 12/01/16 [History] Losartan [Cozaar] 100 mg PO DAILY 12/01/16 [History] Multivitamin [Multivitamins] 1 each PO DAILY 12/01/16 [History] Potassium [Potassium] 10 meq PO TID 12/01/16 [History] Prasugrel [Effient] 10 mg PO DAILY 12/01/16 [History] RisperiDONE [Risperidone Odt] 1 mg PO HS 12/01/16 [History] Rivaroxaban [Xarelto] 15 mg PO 1700 12/01/16 [History] Spironolactone [Aldactone] 25 mg PO BID 12/01/16 [History] Zolpidem [Ambien] 5 mg PO HS 12/01/16 [History] predniSONE [Prednisone] 12.5 mg PO DAILY 12/01/16 [History] 3 Allergy/AdvReac Type Severity Reaction Status Date / Time olanzapine [From Zyprexa] Allergy See Verified 09/30/16 12:49 Comments ciprofloxacin [From Cipro] AdvReac Vomiting Verified 09/30/16 12:49 Erythromycin Base AdvReac Vomiting Verified 09/30/16 12:49 Sulfa (Sulfonamide AdvReac Vomiting Verified 09/30/16 12:49 Antibiotics) ivp DYE Allergy Hives Uncoded 09/29/14 15:11 All Systems PM: A 10-system review of systems was performed and is negative for pertinent findings except as documented above in the HPI. - Constitutional Constitutional: fatigue, weakness, no chills, no fever(s) - EENT Eyes: no blurry vision - Cardiovascular Cardiovascular ROS IM: dyspnea, dyspnea on exertion, edema, lightheadedness, syncope, no chest pain, no claudication, no diaphoresis, no palpitations - Respiratory Respiratory: cough, dyspnea, dyspnea on exertion, no hemoptysis, no wheezing, no chest congestion - Gastrointestinal Gastrointestinal: no abdominal pain, no bloating, no cramping, no diarrhea, no hematochezia, no melena, no nausea, no vomiting - Genitourinary Genitourinary: no dysuria - Neurological Neurological ROS: dizziness, no abnormal gait, no abnormal speech, no confusion , no focal weakness, no loss of vision, no numbness, no tingling - Psychiatric Psychiatric: no confusion - Endocrine Endocrine IM: fatigue - Constitutional Vitals: Temp Pulse Resp BP Pulse Ox 98.6 F 80 20 136/79 99 12/01/16 21:09 12/01/16 21:09 12/01/16 21:09 12/01/16 21:09 12/01/16 21:09 General appearance: Present: cooperative, A&O X 3, morbidly obese, pleasant, no acute distress, answers questions appropriately - Head Head exam: Present: atraumatic - Eye Eye exam: Present: EOMI - ENT ENT exam: Present: mucous membranes moist - Neck Additional comments: Obese - Respiratory Respiratory exam: Present: CTAB. Absent: accessory muscle use, chest wall tenderness, rales, rhonchi, wheezes, tachypnea - Cardiovascular Cardiovascular exam: Present: RRR, +S1, +S2 - GI/Abdominal GI/Abdominal exam: Present: soft (Obese). Absent: distended, firm, guarding, tenderness - Extremities Exam Extremities exam: Present: pedal edema (Bilateral lower leg 2+ pitting edema), radial pulses palpable and symmetrical. Absent: calf tenderness, cyanotic - Neurological Exam Neurological exam: Present: alert, oriented X3, no focal deficits. Absent: facial droop, speech deficit Internal Med - H&P Results - Labs CBC & Chem 7: 12/01/16 18:27 12/01/16 18:27
[2016-12-01] MEDS: RisperiDONE-M 1 MG TAB.RAPDIS PO SCH (22:18)
[2016-12-01] MEDS: Spironolactone 25 MG TABLET PO SCH (22:18)
[2016-12-01] MEDS: Furosemide 40 MG/4 ML VIAL IVP SCH (22:18)
[2016-12-01] MEDS: Ipratropium 1 PUFF INHALER IH SCH (22:22)
[2016-12-02 00:23] LABS: Basophils % 0.3 %; Eosinophils # 0.1 K/mcL (0.0-0.6); Eosinophils % 0.8 %; Hematocrit 26.5 % (35.3-44.9); Hemoglobin 8.2 g/dL (11.5-15.4); Immature Platelets 2.4 % (1.1-6.1); Lymphocytes # 1.4 K/mcL (0.6-4.6); Lymphocytes % 18.8 %; Mean Corpuscular HGB Conc 30.9 g/dL (31.6-35.5); Mean Corpuscular Hemoglobin 28.6 pg (28.0-33.3); Mean Corpuscular Volume 92.3 fL (83.0-100.0); Mean Platelet Volume 9.8 fL (9.4-12.4); Monocytes # 0.6 K/mcL (0.0-1.3); Monocytes % 7.5 %; Neutrophils # 5.2 K/mcL (1.6-8.9); Nucleated Red Blood Cells 0.5 /100 WBC (0); Platelet Count 222 K/mcL (140-400); Red Blood Count 2.87 M/mcL (3.82-4.97); Red Cell Distribution Width 17.5 % (11.5-14.5); Segmented Neutrophils % 71.6 %
[2016-12-02 00:34] LABS: Calcium 8.7 mg/dL (8.6-10.8); Magnesium 2.4 mg/dL (1.6-2.6); Potassium 3.8 mEq/L (3.5-4.5)
--- NOTE | 2016-12-02 09:05 | Internal Med Progress Note ---
<Lorena Ortiz - Last Filed: 12/02/16 14:32> Date of Encounter: 12/02/16 Time of Encounter: 10:20 - Assessment and plan (1) Syncope and collapse Current Visit: Yes Status: Acute Assessment and plan: carotid duplex ordered continuous cardiac monitoring recent stress test and echo *10/01/2016 echo: EF 65%, pseudonormal LV diastolic dysfunction. No significant valvular dysfunction. *09/12/2016 stress test: EF 70%, negative for ischemia or infarct. (2) Weakness Current Visit: Yes Status: Acute Assessment and plan: increased weakness with back pain spreading to whole body aches/pain in the past 2 weeks consult to PT/OT consult to social service director and nurse navigator for discharge planning - patient came from home. She has had increased difficulty walking the distances of her house in the weeks prior to admission. (3) CHF (congestive heart failure) Current Visit: Yes Status: Acute Assessment and plan: history of increasing weights and pedal edema prior to admission BNP normal switch lasix to IV continue spironolactone, losartan continuous cardiac monitoring, 1.5 L fluid restriction, strict I/Os, daily weights 10/01/2016 echo: EF 65%, pseudonormal LV diastolic dysfunction. No significant valvular dysfunction. Qualifiers: Congestive heart failure type: diastolic Congestive heart failure chronicity: acute on chronic Qualified Code(s): I50.33 - Acute on chronic diastolic (congestive) heart failure (4) UTI (urinary tract infection) Current Visit: Yes Status: Acute Assessment and plan: probable culture pending rocephin Qualifiers: Urinary tract infection type: acute cystitis Hematuria presence: without hematuria Qualified Code(s): N30.00 - Acute cystitis without hematuria (5) Atrial fibrillation Current Visit: Yes Status: Chronic Assessment and plan: chronic, stable, rhythm controlled continue home medications: rhythm control: amiodarone rate control: carvedilol anticoagulation: Xarelto Qualifiers: Atrial fibrillation type: chronic Qualified Code(s): I48.2 - Chronic atrial fibrillation (6) MESERET (obstructive sleep apnea) Current Visit: Yes Status: Chronic Assessment and plan: continue BiPAP at night (7) Chronic anemia Current Visit: No Status: Acute Assessment and plan: appears to be anemia of chronic disease follows with Dr. Mcadams of Heme/Onc outpatient (8) Chronic kidney disease Current Visit: No Status: Acute Assessment and plan: chronic, stable follows with Dr. Pope outpatient recently started on spironolactone monitor with daily labs avoid nephrotoxins as able renally dose medications as needed Qualifiers: Chronic kidney disease stage: stage 3 (moderate) Qualified Code(s): N18.3 - Chronic kidney disease, stage 3 (moderate) (9) CAD S/P percutaneous coronary angioplasty Current Visit: No Status: Chronic Assessment and plan: stable continue home medications - effient, zetia 09/12/2016 stress test EF 70%, negative for ischemia or infarct (10) Hypertension Current Visit: No Status: Chronic Assessment and plan: chronic, stable continue home medications - carvedilol, losartan Qualifiers: Hypertension type: essential hypertension Qualified Code(s): I10 - Essential (primary) hypertension (11) Hyperlipidemia Current Visit: No Status: Chronic Assessment and plan: continue home medication - zetia intolerant to statins Qualifiers: Hyperlipidemia type: unspecified Qualified Code(s): E78.5 - Hyperlipidemia , unspecified - Subjective Interval history: Patient is doing better today. Swelling in face and extremities has decreased. Whole body pain is improved. She still has generalized weakness. - Constitutional Vitals: Temp Pulse Resp BP Pulse Ox 97.7 F 80 14 116/55 99 12/02/16 07:30 12/02/16 07:30 12/02/16 07:30 12/02/16 07:30 12/02/16 07:30 General appearance: Present: cooperative, A&O X 3, morbidly obese, pleasant, no acute distress, answers questions appropriately - Head Head exam: Present: atraumatic, normocephalic - Eye Eye exam: Present: PERRL, conjuntiva pink, sclera anicteric Pupils: Present: PERRL - Neck Neck exam general surgery: Present: supple, trachea midline - Respiratory Respiratory exam: Present: decreased breath sounds - Cardiovascular Cardiovascular exam: Present: distant heart sounds, RRR - GI/Abdominal GI/Abdominal exam: Present: normal bowel sounds, soft. Absent: tenderness Additional comments: exam limited by body habitus - Extremities Exam Extremities exam: Present: warm. Absent: calf tenderness, cyanotic, pedal edema - Neurological Exam Neurological exam: Present: alert, oriented X3. Absent: facial droop, speech deficit - Skin Skin exam: Present: dry, intact, warm Internal Medicine: Result - Labs CBC & Chem 7: 12/02/16 00:15 12/02/16 00:15 Labs: Short CBC 12/02/16 Range/Units 00:15 WBC 7.3 (4.3-11.1) K/mcL Hgb 8.2 L (11.5-15.4) g/dL Hct 26.5 L (35.3-44.9) % Plt Count 222 (140-400) K/mcL Neutrophils # 5.2 (1.6-8.9) K/mcL BMP 12/02/16 00:15 Sodium 142 Potassium 3.8 Chloride 100 Carbon Dioxide 33 H BUN 19 Creatinine 1.13 H Glucose 123 H Calcium 8.7 Cardiac Enzymes 12/02/16 12/02/16 Range/Units 00:15 06:00 Troponin I 0.01 0.01 (0-0.03) ng/mL - ABG Interpretation ABG results: PT/INR, D-dimer PT 13.9 Seconds (9.4-12.1) H 12/01/16 18:27 Consult Discharge Plan - Plan Referrals: Rina Kaba MD [Primary Care Provider] - <Yoan Parkinson P - Last Filed: 12/02/16 20:35> Date of Encounter: 12/02/16 - Constitutional Vitals: Temp Pulse Resp BP Pulse Ox 98.2 F 89 14 120/61 98 12/02/16 14:49 12/02/16 14:49 12/02/16 14:49 12/02/16 14:49 12/02/16 14:49 Internal Medicine: Result - Labs CBC & Chem 7: 12/02/16 00:15 12/02/16 00:15 Labs: Short CBC 12/02/16 Range/Units 00:15 WBC 7.3 (4.3-11.1) K/mcL Hgb 8.2 L (11.5-15.4) g/dL Hct 26.5 L (35.3-44.9) % Plt Count 222 (140-400) K/mcL Neutrophils # 5.2 (1.6-8.9) K/mcL BMP 12/02/16 00:15 Sodium 142 Potassium 3.8 Chloride 100 Carbon Dioxide 33 H BUN 19 Creatinine 1.13 H Glucose 123 H Calcium 8.7 Cardiac Enzymes 12/02/16 12/02/16 12/02/16 Range/Units 00:15 06:00 11:59 Troponin I 0.01 0.01 0.01 (0-0.03) ng/mL - ABG Interpretation ABG results: PT/INR, D-dimer PT 13.9 Seconds (9.4-12.1) H 12/01/16 18:27 - Attending Attestation I examined this patient and my medical decision-making was reviewed with the Resident Physician. I agree with the documented findings, disposition and treatment plan as described except to the extent set forth below. 76/female Admitted with syncopal episode. Syncopal episode is the principal diagnosis and not the CHF exacerbation. Presently workup is going on for syncopal episode. Etiology for syncopal episode can be multifactorial. Plan: We will follow up the workup for syncopal episode. We will in all subspecialty if needed. Plan explained to the patient and her family members. The verbalize understanding
[2016-12-02] MEDS: Multivit/Ca/Min/Fe/FA 1 TAB TABLET PO SCH (09:07)
[2016-12-02] MEDS: FLUoxetine 20 MG CAPSULE PO SCH (09:07)
[2016-12-02] MEDS: Ascorbic Acid 500 MG TABLET PO SCH (09:07)
[2016-12-02] MEDS: Spironolactone 25 MG TABLET PO SCH ×2 (09:08→20:52)
[2016-12-02] MEDS: Furosemide 40 MG/4 ML VIAL IVP SCH ×3 (09:08→20:56)
[2016-12-02] MEDS: *HR* Amiodarone 200 MG TABLET PO SCH (09:08)
[2016-12-02] MEDS ORDERED: *HR* HYDROcodone/Acet 5/325 mg TABLET PO PRN (10:18)
[2016-12-02] MEDS: Ipratropium 1 PUFF INHALER IH SCH ×2 (10:32→22:41)
[2016-12-02] MEDS: Levalbuterol Neb 1.25 MG/3 ML IH SCH ×2 (10:32→22:41)
[2016-12-02] MEDS ORDERED: Ondansetron ODT 4 MG TAB.RAPDIS SL PRN (12:28)
[2016-12-02] MEDS ORDERED: Gabapentin 300 MG CAPSULE PO SCH (15:00)
[2016-12-02] MEDS: *HR* Rivaroxaban 15 MG TABLET PO SCH (16:00)
[2016-12-02] MEDS: (Ezetimibe [Zetia] 10 MG) PO SCH (16:01)
[2016-12-02] MEDS ORDERED: predniSONE 10 MG TABLET PO STA ×2 (16:55→18:24)
--- NOTE | 2016-12-02 18:08 | Electrocardiograph Report ---
[place] [id number] Test Date: 2016-12-01 Pat Name: Giuliana Melendez Department: 103 Room: 2NE23 Gender: F [employer]: : 1940 Requested By: Jesus Maxwell Order Number: [id number] Reading MD: Faustino Duncan MD Measurements Intervals [place] Rate: 89 P: 43 HI: 168 QRS: 24 QRSD: 108 T: 30 QT: 355 QTc: 402 Interpretive Statements SINUS RHYTHM incomplete rbbb Electronically Signed On 12-02-2016 18:06:35 EDT by Faustino Duncan MD
[2016-12-02] MEDS: RisperiDONE-M 1 MG TAB.RAPDIS PO SCH (20:51)
[2016-12-03] MEDS ORDERED: predniSONE 5 MG TABLET PO SCH (09:00)
[2016-12-03] MEDS: Ascorbic Acid 500 MG TABLET PO SCH (09:46)
[2016-12-03] MEDS: Multivit/Ca/Min/Fe/FA 1 TAB TABLET PO SCH (09:46)
[2016-12-03] MEDS: *HR* Amiodarone 200 MG TABLET PO SCH (09:46)
[2016-12-03] MEDS: Spironolactone 25 MG TABLET PO SCH ×2 (09:46→22:43)
[2016-12-03] MEDS: FLUoxetine 20 MG CAPSULE PO SCH (09:46)
[2016-12-03] MEDS: Furosemide 40 MG/4 ML VIAL IVP SCH ×3 (09:47→22:43)
[2016-12-03] MEDS: Levalbuterol Neb 1.25 MG/3 ML IH SCH (09:48)
[2016-12-03] MEDS: Ipratropium 1 PUFF INHALER IH SCH ×2 (09:48→22:49)
[2016-12-03] MEDS: (Ezetimibe [Zetia] 10 MG) PO SCH (09:49)
--- NOTE | 2016-12-03 10:28 | Internal Med Progress Note ---
<Lorena Ortiz - Last Filed: 12/03/16 14:44> Date of Encounter: 12/03/16 Time of Encounter: 10:26 - Assessment and plan (1) Weakness Current Visit: Yes Status: Acute Assessment and plan: Reports increased weakness with pain spreading from back to whole body in the past 2 weeks. She was diagnosed with temporal arteritis and has been tapering prednisone. Her dose was decreased 11/29 to 12.5 mg by her taper. Possible polymyalgia rheumatica? -Trial IV steroids to see if patient pain and weakness improve. consult to PT/OT consult to social media strategist and nurse navigator for discharge planning - patient came from home. She has had increased difficulty walking the distances of her house in the weeks prior to admission. (2) Syncope and collapse Current Visit: Yes Status: Acute Assessment and plan: carotid duplex pending, preliminary report: right carotid normal, left carotid very minimal nonstenotic plaque only negative orthostatic vital signs continuous cardiac monitoring recent stress test and echo *10/01/2016 echo: EF 65%, pseudonormal LV diastolic dysfunction. No significant valvular dysfunction. *09/12/2016 stress test: EF 70%, negative for ischemia or infarct. (3) CHF (congestive heart failure) Current Visit: Yes Status: Acute Assessment and plan: history of increasing weights and pedal edema prior to admission BNP normal switch lasix to IV continue spironolactone, losartan continuous cardiac monitoring, 1.5 L fluid restriction, strict I/Os, daily weights 10/01/2016 echo: EF 65%, pseudonormal LV diastolic dysfunction. No significant valvular dysfunction. Qualifiers: Congestive heart failure type: diastolic Congestive heart failure chronicity: acute on chronic Qualified Code(s): I50.33 - Acute on chronic diastolic (congestive) heart failure (4) UTI (urinary tract infection) Current Visit: Yes Status: Acute Assessment and plan: probable culture pending kesha Qualifiers: Urinary tract infection type: acute cystitis Hematuria presence: without hematuria Qualified Code(s): N30.00 - Acute cystitis without hematuria (5) Atrial fibrillation Current Visit: Yes Status: Chronic Assessment and plan: chronic, stable, rhythm controlled continue home medications: rhythm control: amiodarone rate control: carvedilol anticoagulation: Xarelto Qualifiers: Atrial fibrillation type: chronic Qualified Code(s): I48.2 - Chronic atrial fibrillation (6) MESERET (obstructive sleep apnea) Current Visit: Yes Status: Chronic Assessment and plan: continue BiPAP at night (7) Chronic anemia Current Visit: No Status: Acute Assessment and plan: appears to be anemia of chronic disease follows with Dr. Mcadams of Heme/Onc outpatient (8) Chronic kidney disease Current Visit: No Status: Acute Assessment and plan: chronic, stable follows with Dr. Pope outpatient recently started on spironolactone monitor with daily labs avoid nephrotoxins as able renally dose medications as needed Qualifiers: Chronic kidney disease stage: stage 3 (moderate) Qualified Code(s): N18.3 - Chronic kidney disease, stage 3 (moderate) (9) CAD S/P percutaneous coronary angioplasty Current Visit: No Status: Chronic Assessment and plan: stable continue home medications - effient, zetia 09/12/2016 stress test EF 70%, negative for ischemia or infarct (10) Hypertension Current Visit: No Status: Chronic Assessment and plan: chronic, stable continue home medications - carvedilol, losartan Qualifiers: Hypertension type: essential hypertension Qualified Code(s): I10 - Essential (primary) hypertension (11) Hyperlipidemia Current Visit: No Status: Chronic Assessment and plan: continue home medication - zetia intolerant to statins Qualifiers: Hyperlipidemia type: unspecified Qualified Code(s): E78.5 - Hyperlipidemia , unspecified - Subjective Interval history: Patient states that she could not get comfortable in the hospital bed yesterday. She continues to have whole body pain. - Constitutional Vitals: Temp Pulse Resp BP Pulse Ox 98.3 F 77 14 115/80 97 12/03/16 07:38 12/03/16 07:38 12/03/16 09:51 12/03/16 07:38 12/03/16 09:51 General appearance: Present: cooperative, morbidly obese, pleasant, no acute distress, answers questions appropriately - Head Head exam: Present: atraumatic, normocephalic - Eye Eye exam: Present: PERRL, conjuntiva pink, sclera anicteric Pupils: Present: PERRL - Neck Neck exam general surgery: Present: supple, trachea midline - Respiratory Respiratory exam: Present: CTAB. Absent: respiratory distress, wheezes, tachypnea Additional comments: on 2L NC, does not use home O2 - Cardiovascular Cardiovascular exam: Present: RRR, +S1, +S2. Absent: diastolic murmur, gallop, rubs, systolic murmur - GI/Abdominal GI/Abdominal exam: Present: normal bowel sounds, soft. Absent: tenderness Additional comments: exam limited by body habitus - Extremities Exam Extremities exam: Present: warm. Absent: calf tenderness, cyanotic, pedal edema - Neurological Exam Neurological exam: Present: alert. Absent: facial droop, speech deficit - Skin Skin exam: Present: dry, intact, normal color, warm Internal Medicine: Result - Labs CBC & Chem 7: 12/03/16 10:56 12/03/16 10:56 Labs: Cardiac Enzymes 12/02/16 Range/Units 11:59 Troponin I 0.01 (0-0.03) ng/mL - ABG Interpretation ABG results: PT/INR, D-dimer PT 13.9 Seconds (9.4-12.1) H 12/01/16 18:27 Consult Discharge Plan - Plan Referrals: Rina Kaba MD [Primary Care Provider] - <Alphonse Lee - Last Filed: 12/03/16 18:49> Date of Encounter: 12/03/16 - Assessment and plan (1) UTI (urinary tract infection) Current Visit: Yes Status: Acute Qualifiers: Urinary tract infection type: acute cystitis Hematuria presence: without hematuria Qualified Code(s): N30.00 - Acute cystitis without hematuria (2) Polymyalgia rheumatica Current Visit: Yes Status: Suspected (3) Temporal arteritis Current Visit: Yes Status: Acute (4) Syncope and collapse Current Visit: Yes Status: Acute (5) MESERET (obstructive sleep apnea) Current Visit: Yes Status: Chronic (6) CHF (congestive heart failure) Current Visit: Yes Status: Acute Qualifiers: Congestive heart failure type: diastolic Congestive heart failure chronicity: acute on chronic Qualified Code(s): I50.33 - Acute on chronic diastolic (congestive) heart failure (7) Hypertension Current Visit: No Status: Chronic Qualifiers: Hypertension type: essential hypertension Qualified Code(s): I10 - Essential (primary) hypertension (8) Paroxysmal atrial fibrillation Current Visit: No Status: Chronic - Constitutional Vitals: Temp Pulse Resp BP Pulse Ox 97.7 F 80 14 123/57 97 12/03/16 15:42 12/03/16 15:42 12/03/16 15:42 12/03/16 15:42 12/03/16 15:42 Internal Medicine: Result - Labs CBC & Chem 7: 12/03/16 10:56 12/03/16 10:56 Labs: Short CBC 12/03/16 Range/Units 10:56 WBC 7.0 (4.3-11.1) K/mcL Hgb 8.4 L (11.5-15.4) g/dL Hct 27.3 L (35.3-44.9) % Plt Count 241 (140-400) K/mcL Neutrophils # 5.1 (1.6-8.9) K/mcL BMP 12/03/16 10:56 Sodium 141 Potassium 3.8 Chloride 99 Carbon Dioxide 35 H BUN 19 Creatinine 1.31 H Glucose 141 H Calcium 8.9 Liver Function 12/03/16 Range/Units 10:56 Total Bilirubin 0.2 (0.2-1.2) mg/dL Direct Bilirubin 0.1 (0.0-0.5) mg/dL AST 15 (5-34) Units/L ALT 23 (0-55) Units/L Alkaline Phosphatase 71 (38-126) Units/L Albumin 2.8 L (3.5-5.0) g/dL - ABG Interpretation ABG results: PT/INR, D-dimer PT 13.9 Seconds (9.4-12.1) H 12/01/16 18:27 - Attending Attestation I examined this patient and my medical decision-making was reviewed with the Resident Physician on 12/03/16. I agree with the documented findings, disposition and treatment plan as described except to the extent set forth below. Ms Melendez is currently admitted for weakness and syncope. She remains moderate to high risk due to potential for worsening neuro status. She has diagnosis of temporal arteritis - no biopsy and has been weaning off prednisone. Now has shoulder pain and low back/hip pain. Exam Alert. Comfortable Mucus membranes dry Heart reg No wheeze No weakess with movement but painful shoulder I/P 1. Weakness - PT/OT 2. ? PMR Further diagnoses and plan as above.
[2016-12-03 11:06] LABS: Basophils % 0.1 %; Eosinophils # 0.1 K/mcL (0.0-0.6); Hematocrit 27.3 % (35.3-44.9); Hemoglobin 8.4 g/dL (11.5-15.4); Immature Granulocytes % 1.1 % (0-4); Lymphocytes # 1.1 K/mcL (0.6-4.6); Lymphocytes % 16.4 %; Mean Corpuscular HGB Conc 30.8 g/dL (31.6-35.5); Mean Corpuscular Hemoglobin 28.6 pg (28.0-33.3); Mean Corpuscular Volume 92.9 fL (83.0-100.0); Monocytes # 0.6 K/mcL (0.0-1.3); Monocytes % 8.6 %; Neutrophils # 5.1 K/mcL (1.6-8.9); Nucleated Red Blood Cells 0.6 /100 WBC (0); Platelet Count 241 K/mcL (140-400); Red Blood Count 2.94 M/mcL (3.82-4.97); Red Cell Distribution Width 17.6 % (11.5-14.5); Segmented Neutrophils % 72.8 %
[2016-12-03 11:16] LABS: Albumin 2.8 g/dL (3.5-5.0); Bilirubin,Direct 0.1 mg/dL (0.0-0.5); Bilirubin,Indirect 0.1 mg/dL (0.0-1.2); Bilirubin,Total 0.2 mg/dL (0.2-1.2); Calcium 8.9 mg/dL (8.6-10.8); Globulin 2.8 g/dL (2.4-3.5); Potassium 3.8 mEq/L (3.5-4.5); Total Protein 5.6 g/dL (6.0-8.3)
[2016-12-03] MEDS ORDERED: methylPREDNISolone 125 MG/2 ML VIAL IVP ONE (14:11)
[2016-12-03] MEDS: *HR* Rivaroxaban 15 MG TABLET PO SCH (15:44)
[2016-12-03] MEDS ORDERED: MOM Conc 10 ML UD.LIQ PO PRN (16:15)
[2016-12-03] MEDS: RisperiDONE-M 1 MG TAB.RAPDIS PO SCH (22:44)
[2016-12-03] MEDS: Levalbuterol 1 PUFF INHALER IH SCH (22:49)
[2016-12-04 03:51] LABS: Basophils % 0.1 %; Hematocrit 27.4 % (35.3-44.9); Hemoglobin 8.3 g/dL (11.5-15.4); Immature Granulocytes % 1.1 % (0-4); Lymphocytes # 0.7 K/mcL (0.6-4.6); Mean Corpuscular HGB Conc 30.3 g/dL (31.6-35.5); Mean Corpuscular Hemoglobin 28.1 pg (28.0-33.3); Mean Corpuscular Volume 92.9 fL (83.0-100.0); Mean Platelet Volume 10.2 fL (9.4-12.4); Monocytes # 0.1 K/mcL (0.0-1.3); Monocytes % 1.7 %; Neutrophils # 6.4 K/mcL (1.6-8.9); Nucleated Red Blood Cells 0.3 /100 WBC (0); Platelet Count 237 K/mcL (140-400); Red Blood Count 2.95 M/mcL (3.82-4.97); Segmented Neutrophils % 88.1 %
[2016-12-04 04:05] LABS: Calcium 8.9 mg/dL (8.6-10.8); Potassium 3.9 mEq/L (3.5-4.5)
[2016-12-04] MEDS ORDERED: MethylPREDNISolone 40 MG/ML VIAL IVP SCH (06:00)
--- NOTE | 2016-12-04 06:37 | Internal Med Progress Note ---
<Lorena Ortiz - Last Filed: 12/04/16 08:32> Date of Encounter: 12/04/16 Time of Encounter: 06:35 - Assessment and plan (1) Weakness Current Visit: Yes Status: Acute Assessment and plan: improved with one time dose of 80 mg solumedrol will increase daily prednisone back to 15 mg (from 12.5) probably PMR due to pain in the hip and shoulder girdles along with weakness that appeared when the patient tapered to 12.5 mg of prednisone at home (2) Polymyalgia rheumatica Current Visit: Yes Status: Suspected Assessment and plan: will increase home dose of prednisone to 15 (from 12.5) and change taper to a PMR taper (long, slow) from a temporal arteritis taper (3) Syncope and collapse Current Visit: Yes Status: Acute Assessment and plan: carotid duplex - essentially normal carotids negative orthostatic vital signs continuous cardiac monitoring recent stress test and echo *10/01/2016 echo: EF 65%, pseudonormal LV diastolic dysfunction. No significant valvular dysfunction. *09/12/2016 stress test: EF 70%, negative for ischemia or infarct. (4) Temporal arteritis Current Visit: Yes Status: Acute Assessment and plan: currently on prednisone taper (5) CHF (congestive heart failure) Current Visit: Yes Status: Acute Assessment and plan: history of increasing weights and pedal edema prior to admission BNP normal switch lasix to IV continue spironolactone, losartan continuous cardiac monitoring, 1.5 L fluid restriction, strict I/Os, daily weights 10/01/2016 echo: EF 65%, pseudonormal LV diastolic dysfunction. No significant valvular dysfunction. Qualifiers: Congestive heart failure type: diastolic Congestive heart failure chronicity: acute on chronic Qualified Code(s): I50.33 - Acute on chronic diastolic (congestive) heart failure (6) Atrial fibrillation Current Visit: Yes Status: Chronic Assessment and plan: chronic, stable, rhythm controlled continue home medications: rhythm control: amiodarone rate control: carvedilol anticoagulation: Xarelto Qualifiers: Atrial fibrillation type: chronic Qualified Code(s): I48.2 - Chronic atrial fibrillation (7) MESERET (obstructive sleep apnea) Current Visit: Yes Status: Chronic Assessment and plan: continue BiPAP at night (8) Chronic anemia Current Visit: No Status: Acute Assessment and plan: appears to be anemia of chronic disease follows with Dr. Mcadams of Heme/Onc outpatient (9) Chronic kidney disease Current Visit: No Status: Acute Assessment and plan: chronic, stable follows with Dr. Pope outpatient recently started on spironolactone monitor with daily labs avoid nephrotoxins as able renally dose medications as needed Qualifiers: Chronic kidney disease stage: stage 3 (moderate) Qualified Code(s): N18.3 - Chronic kidney disease, stage 3 (moderate) (10) CAD S/P percutaneous coronary angioplasty Current Visit: No Status: Chronic Assessment and plan: stable continue home medications - effient, zetia 09/12/2016 stress test EF 70%, negative for ischemia or infarct (11) Hypertension Current Visit: No Status: Chronic Assessment and plan: chronic, stable continue home medications - carvedilol, losartan Qualifiers: Hypertension type: essential hypertension Qualified Code(s): I10 - Essential (primary) hypertension (12) Hyperlipidemia Current Visit: No Status: Chronic Assessment and plan: continue home medication - zetia intolerant to statins Qualifiers: Hyperlipidemia type: unspecified Qualified Code(s): E78.5 - Hyperlipidemia , unspecified (13) UTI (urinary tract infection) Current Visit: Yes Status: Resolved Assessment and plan: resolved possible UTI based on urinalysis, more likely contaminated received rocephin x2 days Qualifiers: Urinary tract infection type: acute cystitis Hematuria presence: without hematuria Qualified Code(s): N30.00 - Acute cystitis without hematuria - Subjective Interval history: Patient states that she feels better today. Her body aches are decreased. States she needs milk of magnesia today - she takes this at home. - Constitutional Vitals: Temp Pulse Resp BP Pulse Ox 98 F 74 18 118/69 92 12/03/16 21:00 12/03/16 21:00 12/03/16 22:49 12/03/16 21:00 12/03/16 22:49 General appearance: Present: cooperative, morbidly obese, pleasant, no acute distress, answers questions appropriately - Head Head exam: Present: atraumatic, normocephalic - Eye Eye exam: Present: PERRL, conjuntiva pink, sclera anicteric Pupils: Present: PERRL - Neck Neck exam general surgery: Present: supple, trachea midline - Respiratory Respiratory exam: Present: CTAB. Absent: accessory muscle use, rales, rhonchi, wheezes - Cardiovascular Cardiovascular exam: Present: RRR, +S1, +S2. Absent: diastolic murmur, gallop, rubs, systolic murmur - GI/Abdominal GI/Abdominal exam: Present: normal bowel sounds, soft, no peritoneal signs. Absent: distended, tenderness Additional comments: exam limited by body habitus - Extremities Exam Extremities exam: Present: warm. Absent: calf tenderness, cyanotic, pedal edema - Neurological Exam Neurological exam: Present: alert, oriented X3. Absent: facial droop, speech deficit - Skin Skin exam: Present: dry, intact, normal color, warm Internal Medicine: Result - Labs CBC & Chem 7: 12/04/16 02:49 12/04/16 02:49 Labs: Short CBC 12/03/16 12/04/16 Range/Units 10:56 02:49 WBC 7.0 7.2 (4.3-11.1) K/mcL Hgb 8.4 L 8.3 L (11.5-15.4) g/dL Hct 27.3 L 27.4 L (35.3-44.9) % Plt Count 241 237 (140-400) K/mcL Neutrophils # 5.1 6.4 (1.6-8.9) K/mcL BMP 12/03/16 12/04/16 10:56 02:49 Sodium 141 140 Potassium 3.8 3.9 Chloride 99 99 Carbon Dioxide 35 H 33 H BUN 19 18 Creatinine 1.31 H 1.17 H Glucose 141 H 220 H Calcium 8.9 8.9 Liver Function 12/03/16 Range/Units 10:56 Total Bilirubin 0.2 (0.2-1.2) mg/dL Direct Bilirubin 0.1 (0.0-0.5) mg/dL AST 15 (5-34) Units/L ALT 23 (0-55) Units/L Alkaline Phosphatase 71 (38-126) Units/L Albumin 2.8 L (3.5-5.0) g/dL - ABG Interpretation ABG results: PT/INR, D-dimer PT 13.9 Seconds (9.4-12.1) H 12/01/16 18:27 Consult Discharge Plan - Plan Referrals: Rina Kaba MD [Primary Care Provider] - <Alphonse Lee - Last Filed: 12/04/16 18:04> Date of Encounter: 12/04/16 - Assessment and plan (1) UTI (urinary tract infection) Current Visit: Yes Status: Resolved Qualifiers: Urinary tract infection type: acute cystitis Hematuria presence: without hematuria Qualified Code(s): N30.00 - Acute cystitis without hematuria (2) Polymyalgia rheumatica Current Visit: Yes Status: Suspected (3) Temporal arteritis Current Visit: Yes Status: Acute (4) Syncope and collapse Current Visit: Yes Status: Acute (5) MESERET (obstructive sleep apnea) Current Visit: Yes Status: Chronic (6) CHF (congestive heart failure) Current Visit: Yes Status: Acute Qualifiers: Congestive heart failure type: diastolic Congestive heart failure chronicity: acute on chronic Qualified Code(s): I50.33 - Acute on chronic diastolic (congestive) heart failure (7) Hypertension Current Visit: No Status: Chronic Qualifiers: Hypertension type: essential hypertension Qualified Code(s): I10 - Essential (primary) hypertension (8) Paroxysmal atrial fibrillation Current Visit: No Status: Chronic - Constitutional Vitals: Temp Pulse Resp BP Pulse Ox 98.0 F 81 20 137/65 94 12/04/16 15:26 12/04/16 15:26 12/04/16 15:26 12/04/16 15:26 12/04/16 15:26 Internal Medicine: Result - Labs CBC & Chem 7: 12/04/16 02:49 12/04/16 02:49 Labs: Short CBC 12/04/16 Range/Units 02:49 WBC 7.2 (4.3-11.1) K/mcL Hgb 8.3 L (11.5-15.4) g/dL Hct 27.4 L (35.3-44.9) % Plt Count 237 (140-400) K/mcL Neutrophils # 6.4 (1.6-8.9) K/mcL BMP 12/04/16 02:49 Sodium 140 Potassium 3.9 Chloride 99 Carbon Dioxide 33 H BUN 18 Creatinine 1.17 H Glucose 220 H Calcium 8.9 - ABG Interpretation ABG results: PT/INR, D-dimer PT 13.9 Seconds (9.4-12.1) H 12/01/16 18:27 - Attending Attestation I examined this patient and my medical decision-making was reviewed with the Resident Physician on 12/04/16. I agree with the documented findings, disposition and treatment plan as described except to the extent set forth below. Ms Melendez is currently admitted for weakness and probable syncope. She remains moderate to high risk due to potential for worsening clinical status. Ms Melendez is doing better since getting IV steroids yesterday. Her PO dose has been increased. Her pain in her shoulders has improved. No fever or chills. No CP or SOB Exam Alert. Comfortable Heart not tachy No wheeze Abd nontender I/P 1. PMR 2. Weakness 3. 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 Further diagnoses and plan as above.
[2016-12-04] MEDS: Multivit/Ca/Min/Fe/FA 1 TAB TABLET PO SCH (09:30)
[2016-12-04] MEDS: Ascorbic Acid 500 MG TABLET PO SCH (09:30)
[2016-12-04] MEDS: *HR* Amiodarone 200 MG TABLET PO SCH (09:32)
[2016-12-04] MEDS: Furosemide 40 MG/4 ML VIAL IVP SCH ×3 (09:32→19:52)
[2016-12-04] MEDS: predniSONE 10 MG TABLET PO SCH (09:33)
[2016-12-04] MEDS: Spironolactone 25 MG TABLET PO SCH ×2 (09:33→19:52)
[2016-12-04] MEDS: MOM Conc 10 ML UD.LIQ PO SCH (09:33)
[2016-12-04] MEDS: FLUoxetine 20 MG CAPSULE PO SCH (09:33)
[2016-12-04] MEDS: (Ezetimibe [Zetia] 10 MG) PO SCH (09:39)
[2016-12-04] MEDS: Levalbuterol 1 PUFF INHALER IH SCH ×2 (10:53→20:28)
[2016-12-04] MEDS: Ipratropium 1 PUFF INHALER IH SCH ×2 (10:53→20:28)
[2016-12-04] MEDS: *HR* Rivaroxaban 15 MG TABLET PO SCH (18:30)
[2016-12-04] MEDS: RisperiDONE-M 1 MG TAB.RAPDIS PO SCH (19:52)
[2016-12-05 05:11] LABS: Calcium 8.8 mg/dL (8.6-10.8)
[2016-12-05 07:13] VITALS: BP 123/49
--- NOTE | 2016-12-05 08:44 | Discharge Summary ---
<Lorena Ortiz - Last Filed: 12/05/16 10:30> Date of Encounter: 12/05/16 Time of Encounter: 08:40 - Discharge Diagnosis (1) Weakness Priority: Primary Status: Acute (2) Polymyalgia rheumatica Priority: Primary Status: Suspected (3) Syncope and collapse Priority: Secondary Status: Acute (4) Temporal arteritis Priority: Secondary Status: Acute (5) CHF (congestive heart failure) Priority: Secondary Status: Acute Qualifiers: Congestive heart failure type: diastolic Congestive heart failure chronicity: acute on chronic Qualified Code(s): I50.33 - Acute on chronic diastolic (congestive) heart failure (6) Atrial fibrillation Priority: Secondary Status: Chronic Qualifiers: Atrial fibrillation type: chronic Qualified Code(s): I48.2 - Chronic atrial fibrillation (7) MESERET (obstructive sleep apnea) Priority: Secondary Status: Chronic (8) Chronic anemia Priority: Secondary Status: Acute (9) Chronic kidney disease Priority: Secondary Status: Acute Qualifiers: Chronic kidney disease stage: stage 3 (moderate) Qualified Code(s): N18.3 - Chronic kidney disease, stage 3 (moderate) (10) CAD S/P percutaneous coronary angioplasty Priority: Secondary Status: Chronic (11) Hypertension Priority: Secondary Status: Chronic Qualifiers: Hypertension type: essential hypertension Qualified Code(s): I10 - Essential (primary) hypertension (12) Hyperlipidemia Priority: Secondary Status: Chronic Qualifiers: Hyperlipidemia type: unspecified Qualified Code(s): E78.5 - Hyperlipidemia , unspecified (13) UTI (urinary tract infection) Priority: Secondary Status: Resolved Qualifiers: Urinary tract infection type: acute cystitis Hematuria presence: without hematuria Qualified Code(s): N30.00 - Acute cystitis without hematuria - Discharge Medications Prescriptions: predniSONE [PredniSONE] 2 mg PO DAILY #100 tablet predniSONE [PredniSONE] 5 mg PO DAILY #77 tablet Home Medications: Amiodarone [Cordarone] 200 mg PO DAILY 12/01/16 [History] Ascorbic Acid [Vitamin C] 1,000 mg PO DAILY 12/01/16 [History] Calcium Carb,Cit/D3/Phytostrol [Citracal D + Heart Health Tab] 1 each PO DAILY 12/01/16 [History] Docusate [Colace] 100 mg PO DAILY 12/01/16 [History] Esomeprazole Magnesium [Nexium 24Hr] 80 mg PO DAILY 12/01/16 [History] Ezetimibe [Zetia] 10 mg PO DAILY 12/01/16 [History] FLUoxetine HCl [Fluoxetine HCl] 40 mg PO DAILY 12/01/16 [History] Furosemide [Lasix] 40 mg PO TID 12/01/16 [History] Ipratropium [ATROVENT Inhaler] 1 puff IH BID 12/01/16 [History] Levalbuterol [Xopenex INH] 1 puff IH BID 12/01/16 [History] Levothyroxine [Synthroid] 100 mcg PO 0630 12/01/16 [History] Losartan [Cozaar] 100 mg PO DAILY 12/01/16 [History] Multivitamin [Multivitamins] 1 each PO DAILY 12/01/16 [History] Potassium 10 meq PO TID 12/01/16 [History] Prasugrel [Effient] 10 mg PO DAILY 12/01/16 [History] RisperiDONE [Risperidone Odt] 1 mg PO HS 12/01/16 [History] Rivaroxaban [Xarelto] 15 mg PO 1700 12/01/16 [History] Spironolactone [Aldactone] 25 mg PO BID 12/01/16 [History] Zolpidem [Ambien] 5 mg PO HS 12/01/16 [History] Carvedilol 3.125 mg PO BID 12/02/16 [History] Gabapentin [Neurontin] 300 mg PO TID 12/02/16 [History] Ondansetron HCl 1 tab SL TID PRN 12/02/16 [History] Ergocalciferol (VITAMIN D2) [Drisdol (50,000 Unit)] 50,000 unit PO QWEEK capsule 12/05/16 [Rx] predniSONE [PredniSONE] 2 mg PO DAILY #100 tablet 12/05/16 [Rx] predniSONE [PredniSONE] 5 mg PO DAILY #77 tablet 12/05/16 [Rx] Allergies/Adverse Reactions: 3 Allergy/AdvReac Type Severity Reaction Status Date / Time olanzapine [From Zyprexa] Allergy See Verified 09/30/16 12:49 Comments ciprofloxacin [From Cipro] AdvReac Vomiting Verified 09/30/16 12:49 Erythromycin Base AdvReac Vomiting Verified 09/30/16 12:49 Sulfa (Sulfonamide AdvReac Vomiting Verified 09/30/16 12:49 Antibiotics) ivp DYE Allergy Hives Uncoded 09/29/14 15:11 Procedures/tests Complete & Pending: Procedures Performed prior 72 hours Category Date Time Status EV carotid duplex imaging BI Routine Y 12/03/16 10:49 Completed Date of admission: 12/01/16 21:08 Primary care physician: Rina Kaba, Consults: 12/01/16 22:34 Consult to Physical Therapy [CONS] Routine Comment: Evaluate, develop and implement POC Reason for Consult: patient is very weak syncopal episode at home not safe to discharge home Consult to Biology Tutor [CONS] Routine Reason for SW Consult: patient has hh via [facility] , might need andrew home oz, no oxgyen at home has a nurse charlie tello patient is very weak no energy at home OT [Consult to Occupational Therapy] [CONS] Routine Comment: Evaluate, develop and implement POC Reason for Consult: patient is very weak at home not safe to discharge syncopal episode at home. 12/01/16 22:37 Consult to Nurse Navigator [CONS] Routine Comment: patient is already enrolled with [facility] Discharging clinician: Lorena Ortiz Anticipated date of discharge: 12/05/16 - Patient Status Disposition: Home Health Service Condition: Good Functional capacity at discharge: uses cane/walker Overall status at discharge: patient is back to baseline - Discharge Instructions Instructions: Heart Failure (DC) Follow Up With: Ottoniel Dozier MD [Non-Partnered Physician] - Rina Kaba MD [Primary Care Provider] - 12/11/16 10:00 am - Diet and Activity Activity: as per physical therapy Diet: low fat, low cholesterol, other (1.5 L fluid restriction) Interval History: Patient feels much better today. States she is ready to go home. Her pain is much improved. Hospital course: Ms. Melendez is a 76 year old female admitted following possible syncope when she was walking from the bathroom to the bedroom and stopped at the foot of the bed, turned white, and collapsed. She had been experiencing increased weakness and pain for approximately 2 weeks with the pain going from her back to her entire body and being aching in nature. She was also having weight gain associated with CKD and CHF. She was beign treated for temporal arteritis and tapering prednisone. On further question and exam, her weakness was largely subjective or due to pain and her pain was mainly located in the hip and shoulder girdle. Due to this, PMR (polymyalgia rheumatica) was suspected and she given a one time dose of solumedrol. This greatly improved her pain and weakness. Her prednisone taper was bumped up from 12.5 mg to 15 mg and she is being discharged home on a longer prednisone taper for PMR. She will follow-up outpatient with her PCP, rheumatology, nephrology, and cardiology. She can keep her normal appointments with nephrology and cardiology. She has an appointment next month with rheumatology. She will have a hospital follow-up appointment scheduled with her PCP. She is also going home with home health nursing, PT, and OT; which she had prior to admission. - Time Spent with Patient Total time spent providing and/or coordinating discharge services: - Constitutional Vitals: Temp Pulse Resp BP Pulse Ox 97.5 F L 75 15 123/49 93 12/05/16 07:08 12/05/16 07:08 12/05/16 07:08 12/05/16 07:08 12/05/16 07:08 General appearance: Present: cooperative, morbidly obese, pleasant, no acute distress, answers questions appropriately - Head Head exam: Present: atraumatic, normocephalic - Eye Eye exam: Present: PERRL, conjuntiva pink, sclera anicteric Pupils: Present: PERRL - Neck Neck exam general surgery: Present: supple, trachea midline - Respiratory Respiratory exam: Present: CTAB. Absent: accessory muscle use, rales, rhonchi, wheezes - Cardiovascular Cardiovascular exam: Present: RRR, +S1, +S2. Absent: diastolic murmur, gallop, rubs, systolic murmur - GI/Abdominal GI/Abdominal exam: Present: normal bowel sounds, soft, no peritoneal signs. Absent: distended, tenderness Additional comments: exam limited by body habitus - Extremities Exam Extremities exam: Present: normal capillary refill, normal inspection, warm. Absent: pedal edema, tenderness - Neurological Exam Neurological exam: Present: CN II-XII intact, oriented X3, no focal deficits. Absent: pronater drift, facial droop, speech deficit - Skin Skin exam: Present: dry, intact, normal color, warm <Jesus,Alphonse A - Last Filed: 12/05/16 15:17> Date of Encounter: 12/05/16 - Discharge Diagnosis (1) Polymyalgia rheumatica Status: Suspected (2) UTI (urinary tract infection) Status: Resolved Qualifiers: Urinary tract infection type: acute cystitis Hematuria presence: without hematuria Qualified Code(s): N30.00 - Acute cystitis without hematuria (3) Temporal arteritis Status: Acute (4) Syncope and collapse Status: Resolved (5) MESERET (obstructive sleep apnea) Status: Chronic (6) CHF (congestive heart failure) Status: Acute Qualifiers: Congestive heart failure type: diastolic Congestive heart failure chronicity: acute on chronic Qualified Code(s): I50.33 - Acute on chronic diastolic (congestive) heart failure (7) Hypertension Status: Chronic Qualifiers: Hypertension type: essential hypertension Qualified Code(s): I10 - Essential (primary) hypertension (8) Paroxysmal atrial fibrillation Priority: Secondary Status: Chronic Procedures/tests Complete & Pending: Procedures Performed prior 72 hours Category Date Time Status EV carotid duplex imaging BI Routine Y 12/03/16 10:49 Completed Date of admission: 12/01/16 21:08 Primary care physician: Rina Kaba, Consults: 12/01/16 22:34 Consult to Physical Therapy [CONS] Routine Comment: Evaluate, develop and implement POC Reason for Consult: patient is very weak syncopal episode at home not safe to discharge home Consult to Biology Tutor [CONS] Routine Reason for SW Consult: patient has hh via [facility] , might need andrew home oz, no oxgyen at home has a nurse charlie tello patient is very weak no energy at home OT [Consult to Occupational Therapy] [CONS] Routine Comment: Evaluate, develop and implement POC Reason for Consult: patient is very weak at home not safe to discharge syncopal episode at home. 12/01/16 22:37 Consult to Nurse Navigator [CONS] Routine Comment: patient is already enrolled with [facility] course: Ms. Melendez is a 76 year old female - Time Spent with Patient Total time spent providing and/or coordinating discharge services: 39min - Constitutional Vitals: Temp Pulse Resp BP Pulse Ox 97.5 F L 75 15 123/49 93 12/05/16 07:08 12/05/16 07:08 12/05/16 07:08 12/05/16 07:08 12/05/16 07:08 - Attending Attestation I examined this patient and my medical decision-making was reviewed with the Resident Physician on 12/05/16. I agree with the documented findings, disposition and treatment plan as described except to the extent set forth below. Ms Melendez has been admitted for weakness and falls. She has responded to increased steroid dose. Her achiness has improved. She is afebrile with stable vitals. She is ready to go home today. Exam Alert. Comfortable Heart reg No wheeze Plan D/C home today Continue PO steroids. Follow up with rheumatology as scheduled. Need calcium and Vit D - bisphosphonate per rheumatology.
--- NOTE | 2016-12-05 09:17 | Physician Discharge Referral ---
Home Health/Hosp Referral Info Transfer to: Home Health Attending Provider: Dr. Alphonse Lee Provider in Charge Post Discharge: PCP - Diagnosis (1) Weakness Priority: Primary Status: Acute (2) Polymyalgia rheumatica Priority: Primary Status: Suspected (3) Syncope and collapse Priority: Secondary Status: Acute (4) Temporal arteritis Priority: Secondary Status: Acute (5) CHF (congestive heart failure) Priority: Secondary Status: Acute (6) Atrial fibrillation Priority: Secondary Status: Chronic (7) MESERET (obstructive sleep apnea) Priority: Secondary Status: Chronic (8) Chronic anemia Priority: Secondary Status: Acute (9) Chronic kidney disease Priority: Secondary Status: Acute (10) CAD S/P percutaneous coronary angioplasty Priority: Secondary Status: Chronic (11) Hypertension Priority: Secondary Status: Chronic (12) Hyperlipidemia Priority: Secondary Status: Chronic (13) UTI (urinary tract infection) Priority: Secondary Status: Resolved - Respiratory Orders Smoking Cessation: Smoking cessation has been advised. For more information, call the [place] [employer] Quit Line at 0-359-WZNP-NOW. - Diet/Nutrition Diet/Nutrition Orders: Cardiac (1.5 L fluid restriction) - Activity Activity Orders: Up ad juanita, Walker - Services Needed Following services are medically necessary services: Nursing, Home Health Aide, Physical Therapy, Occupational Therapy - Transfer Medications Prescriptions: predniSONE [PredniSONE] 2 mg PO DAILY #100 tablet predniSONE [PredniSONE] 5 mg PO DAILY #77 tablet Home Medications: Amiodarone [Cordarone] 200 mg PO DAILY 12/01/16 [History] Ascorbic Acid [Vitamin C] 1,000 mg PO DAILY 12/01/16 [History] Calcium Carb,Cit/D3/Phytostrol [Citracal D + Heart Health Tab] 1 each PO DAILY 12/01/16 [History] Docusate [Colace] 100 mg PO DAILY 12/01/16 [History] Esomeprazole Magnesium [Nexium 24Hr] 80 mg PO DAILY 12/01/16 [History] Ezetimibe [Zetia] 10 mg PO DAILY 12/01/16 [History] FLUoxetine HCl [Fluoxetine HCl] 40 mg PO DAILY 12/01/16 [History] Furosemide [Lasix] 40 mg PO TID 12/01/16 [History] Ipratropium [ATROVENT Inhaler] 1 puff IH BID 12/01/16 [History] Levalbuterol [Xopenex INH] 1 puff IH BID 12/01/16 [History] Levothyroxine [Synthroid] 100 mcg PO 0630 12/01/16 [History] Losartan [Cozaar] 100 mg PO DAILY 12/01/16 [History] Multivitamin [Multivitamins] 1 each PO DAILY 12/01/16 [History] Potassium 10 meq PO TID 12/01/16 [History] Prasugrel [Effient] 10 mg PO DAILY 12/01/16 [History] RisperiDONE [Risperidone Odt] 1 mg PO HS 12/01/16 [History] Rivaroxaban [Xarelto] 15 mg PO 1700 12/01/16 [History] Spironolactone [Aldactone] 25 mg PO BID 12/01/16 [History] Zolpidem [Ambien] 5 mg PO HS 12/01/16 [History] Carvedilol 3.125 mg PO BID 12/02/16 [History] Gabapentin [Neurontin] 300 mg PO TID 12/02/16 [History] Ondansetron HCl 1 tab SL TID PRN 12/02/16 [History] Ergocalciferol (VITAMIN D2) [Drisdol (50,000 Unit)] 50,000 unit PO QWEEK capsule 12/05/16 [Rx] predniSONE [PredniSONE] 2 mg PO DAILY #100 tablet 12/05/16 [Rx] predniSONE [PredniSONE] 5 mg PO DAILY #77 tablet 12/05/16 [Rx] Allergies/Adverse Reactions: 3 Allergy/AdvReac Type Severity Reaction Status Date / Time olanzapine [From Zyprexa] Allergy See Verified 09/30/16 12:49 Comments ciprofloxacin [From Cipro] AdvReac Vomiting Verified 09/30/16 12:49 Erythromycin Base AdvReac Vomiting Verified 09/30/16 12:49 Sulfa (Sulfonamide AdvReac Vomiting Verified 09/30/16 12:49 Antibiotics) ivp DYE Allergy Hives Uncoded 09/29/14 15:11 Certification: Further, I certify that my clinical findings support that this patient is homebound (i.e. absences from home require considerable and taxing effort and are for medical reasons or judaism services or infrequently or short duration when for other reasons) because: Homebound Reason: Patient requires assistance of a person or device to safely leave home, Leaving home requires considerable and taxing effort due to condition Attestation: My signature below is to certify that this patient is under my care and that I, or nurse practitioner, or a physician's student assistant working with me, has a face-to -face encounter with this patient.
[2016-12-05] MEDS: Ascorbic Acid 500 MG TABLET PO SCH (09:34)
[2016-12-05] MEDS: Spironolactone 25 MG TABLET PO SCH (09:35)
[2016-12-05] MEDS: Furosemide 40 MG/4 ML VIAL IVP SCH (09:35)
[2016-12-05] MEDS: predniSONE 10 MG TABLET PO SCH (09:35)
[2016-12-05] MEDS: MOM Conc 10 ML UD.LIQ PO SCH (09:36)
[2016-12-05] MEDS: (Ezetimibe [Zetia] 10 MG) PO SCH (09:36)
[2016-12-05] MEDS: FLUoxetine 20 MG CAPSULE PO SCH (09:36)
[2016-12-05] MEDS: *HR* Amiodarone 200 MG TABLET PO SCH (09:36)
[2016-12-05] MEDS: Multivit/Ca/Min/Fe/FA 1 TAB TABLET PO SCH (09:37)
== END 2016-12-05 11:05 | disposition home health service (06) | DRG 291 ==
LOC: EMEROO 17:38 → 2NENU 17:38 → SUATTDRO 21:08
PROVIDERS: ADMIT Internal Medicine; ATTEND Internal Medicine

== ENCOUNTER 2016-12-23 16:12 | Inpatient (IN) ==
[2016-12-23] MEDS ORDERED: Ipratropium/Albuterol Neb 3 ML IH ONE (19:39)
--- NOTE | 2016-12-23 19:47 | Emergency Department Note ---
START Narrative - START START: I examined this patient and my medical decision-making was reviewed with the WAITSTAFF CAPTAIN/PA/Advanced Practice Nurse/Resident Physician. I agree with the documented findings, disposition and treatment plan as described except to the extent set forth below. ED attending: Patient's emergency medicine resident Dr. BRODIE SORTO. Please see copy of this note for H&P evaluation and management and ED disposition. We both had independent [id number] time in contact with this patient. Briefly: 76-year-old female morbidly obese but in by family for cough for several days and body ache for months. Patient arrives with some expiratory wheezing audibly some mild respiratory distress. Patient is going ahead and do chest x-ray screening labs. Disposition pending.
[2016-12-23] MEDS ORDERED: methylPREDNISolone 125 MG/2 ML VIAL IVP ONE (19:49)
--- NOTE | 2016-12-23 20:03 | Emergency Department Note ---
Disposition Clinical Impression: COPD (chronic obstructive pulmonary disease), Acute on chronic congestive heart failure Disposition: Still a Patient Condition: Fair Referrals: Rina Kaba MD [Primary Care Provider] - Forms: ED Satisfaction Letter, Work/School Release General Adult HPI - General Chief complaint: ED General Medical Stated complaint: cough for a week, pain all over, for months Time Seen by Provider: 12/23/16 19:26 Source: patient Mode of arrival: ambulatory Limitations: no limitations Nursing Notes Reviewed: Yes Vital Signs Reviewed: Yes - History of Present Illness HPI Narrative: Patient presents to the ED with the chief complaint of shortness of breath and cough. Onset was about a week ago. Has been prophylactically treated with antibiotics of doxycycline and azithromycin by her primary care physician. Reports that she is not getting better. He does have a history of congestive heart failure and is treated with Lasix and spironolactone, although her peripheral edema has improved. Reports she has had a deep rattling cough but has not been able to cough up any sputum. States that she hurts all over chronically. Has seen rheumatology and thought that she may have had polymyalgia rheumatica and is on chronic steroid treatment at 12.5 mg per day of prednisone. Reports that she has a history of COPD as well. She stopped smoking 25 years ago and no one smokes in the home. States she just hurts all over and does not feel well. No fevers. Some chest tightness but denies pain otherwise. No vomiting, no diarrhea. SHe also has a history of anemia and is supposed to be having a bone biopsy next week with oncology. She has had multiple transfusions in the past. She has had upper and lower scopes in the found no source of bleeding. She is on Effient and Xarelto for atrial fibrillation Pain Scale: 8 - Related Data Home Medications Medication Instructions Recorded Confirmed Amiodarone [Cordarone] 200 mg PO DAILY 12/01/16 12/13/16 Ascorbic Acid [Vitamin C] 1,000 mg PO DAILY 12/01/16 12/13/16 Calcium Carb,Cit/D3/Phytostrol 1 each PO DAILY 12/01/16 12/13/16 [Citracal D + Heart Health Tab] Esomeprazole Magnesium [Nexium 80 mg PO DAILY 12/01/16 12/13/16 24Hr] Ezetimibe [Zetia] 10 mg PO DAILY 12/01/16 12/13/16 FLUoxetine HCl [Fluoxetine HCl] 40 mg PO DAILY 12/01/16 12/13/16 Furosemide [Lasix] 40 mg PO TID 12/01/16 12/13/16 Ipratropium [ATROVENT Inhaler] 1 puff IH BID 12/01/16 12/13/16 Levothyroxine [Synthroid] 100 mcg PO 0630 12/01/16 12/13/16 Losartan [Cozaar] 100 mg PO DAILY 12/01/16 12/13/16 Multivitamin [Multivitamins] 1 each PO DAILY 12/01/16 12/13/16 Potassium 10 meq PO TID 12/01/16 12/13/16 Prasugrel [Effient] 10 mg PO DAILY 12/01/16 12/13/16 RisperiDONE [Risperidone Odt] 1 mg PO HS 12/01/16 12/13/16 Rivaroxaban [Xarelto] 15 mg PO 1700 12/01/16 12/13/16 Zolpidem [Ambien] 5 mg PO HS 12/01/16 12/13/16 Carvedilol 3.125 mg PO BID 12/02/16 12/13/16 Gabapentin [Neurontin] 300 mg PO TID 12/02/16 12/13/16 PredniSONE [Deltasone] 20 mg PO DAILY 12/13/16 12/13/16 Allergies Allergy/AdvReac Type Severity Reaction Status Date / Time olanzapine [From Zyprexa] Allergy See Verified 12/13/16 15:34 Comments ciprofloxacin [From Cipro] AdvReac Vomiting Verified 12/13/16 15:34 Erythromycin Base AdvReac Vomiting Verified 12/13/16 15:34 Sulfa (Sulfonamide AdvReac Vomiting Verified 12/13/16 15:34 Antibiotics) ivp DYE Allergy Hives Uncoded 12/13/16 15:34 All systems ED: reviewed and negative except as stated. Constitutional: Denies: fever Cardiovascular: Reports: chest pain Respiratory: Reports: cough, dyspnea, wheezes Musculoskeletal: Reports: as per HPI Integumentary: Denies: rash Neurological: Denies: headache Endocrine: Reports: fatigue Past Medical History - Past Medical History Attestation: Yes The following information was validated with the patient. Source: patient, old records reviewed Medical history: Reports: atrial fibrillation, coronary artery disease, hypertension, myocardial infarction, renal disease, thyroid disease Surgical history: Reports: appendectomy, cataract, cholecystectomy, hysterectomy Psychiatric history: Reports: no psych history BALLASTER history: Reports: no BALLASTER history - Social History Smoking Status: Former smoker Smokeless Tobacco Status: No Alcohol use: Reports: none Drug use: Reports: none Physical Exam - General Limitations: no limitations General appearance: alert, in no apparent distress - Head Head exam: atraumatic, normocephalic, normal inspection - Eye Eye exam: Present: normal appearance, PERRL, EOMI, periorbital swelling, other - ENT ENT exam: normal exam, normal oropharynx, mucous membranes moist - Chest Chest inspection: Present: normal inspection, symmetric chest wall rise - Respiratory Respiratory exam: Present: wheezes (Diffuse inspiratory and expiratory wheezes in all lung [place]nam). Absent: normal lung sounds bilaterally, respiratory distress - Cardiovascular Cardiovascular exam: Present: regular rate, normal rhythm, normal heart sounds - Abdominal Exam Abdominal exam: Present: soft, Non-Tender, other (obese). Absent: tenderness, distention, guarding, rebound, rigidity - Extremities Exam Extremities exam: Present: normal inspection, full ROM, pedal edema (1-2+ pitting bilateral ). Absent: tenderness - Neurological Exam Neurological exam: Present: alert, oriented X3 - Psychiatric Psychiatric exam: Present: flat affect - Skin Skin exam: Present: warm, dry, intact, normal color Course Course Narrative: Patient presenting to the ED with suspected COPD exacerbation versus pneumonia. Patient's wheezing all throughout. 2 nebs and steroids ordered. She will need to be admitted. - Reevaluation(s) Reevaluation #1: Patient is awaiting blood draws establishment of IV and chest x-ray. Patient did get breathing treatments and 2 Percocet for pain control. Patient be signed out to the [facility] emergency medicine attending ELYSIA Graff. After the patient's labs have been completed and she will reevaluate and will admit patient to the medicine service. Patient signed out in stable condition Time: 20:45 Vital Signs Temperature 97.9 F 12/23/16 16:34 Pulse Rate 95 12/23/16 16:34 Respiratory Rate 16 12/23/16 16:34 Blood Pressure 120/65 12/23/16 16:34 O2 Sat by Pulse Oximetry 92 12/23/16 16:34 Temperature 97.9 F 12/23/16 16:34 Pulse Rate 82 12/23/16 19:39 Respiratory Rate 16 12/23/16 19:57 Blood Pressure 138/75 12/23/16 19:39 O2 Sat by Pulse Oximetry 94 12/23/16 19:57 Oxygen Delivery Oxygen Delivery Room Air Medical Decision Making - Medical Records Medical records reviewed: Yes I reviewed the patient's medical records. - Lab Data Lab results reviewed: Yes I reviewed the patient's lab results. - Radiology Data Radiology results reviewed: Yes I reviewed the patient's radiology results. - EKG Data EKG #1 EKG attestation: Yes I reviewed and interpreted this EKG. EKG results narrative: Sinus rhythm, rate 84, MS interval 159, QRS 109, QTC 435, normal axis, right ventricular conduction delay, no acute ischemic changes.
[2016-12-23] MEDS ORDERED: *HR* OxyCODONE/APAP 5/325 TABLET PO ONE (20:23)
[2016-12-23 20:54] LABS: Basophils % 0.1 %; Eosinophils % 0.2 %; Lymphocytes # 1.5 K/mcL (0.6-4.6); Lymphocytes % 14.2 %; Mean Corpuscular Volume 86.7 fL (83.0-100.0); Mean Platelet Volume 10.1 fL (9.4-12.4); Monocytes # 0.6 K/mcL (0.0-1.3); Monocytes % 5.7 %; Neutrophils # 8.1 K/mcL (1.6-8.9); Nucleated Red Blood Cells 0.2 /100 WBC (0); Platelet Count 273 K/mcL (140-400); Red Blood Count 3.46 M/mcL (3.82-4.97); Red Cell Distribution Width 16.1 % (11.5-14.5); Segmented Neutrophils % 78.8 %
[2016-12-23 21:08] LABS: Calcium 9.7 mg/dL (8.6-10.8); Potassium 3.8 mEq/L (3.5-4.5)
[2016-12-23 21:30] LABS: Thyroid Stimulating Hormone 1.236 mcIU/mL (0.350-4.840)
--- NOTE | 2016-12-23 22:15 | Emergency Department Note ---
START Narrative - START START: I spoke with Dr. Soraida tuttle to admit pt. 22:10.
[2016-12-24] MEDS ORDERED: Ipratropium/Albuterol Neb 3 ML IH PRN (05:29)
[2016-12-24] MEDS ORDERED: *HR* Morphine 2 MG/ML SYRINGE IVP PRN (05:29)
[2016-12-24] MEDS ORDERED: Naloxone 0.4 MG/ML INJ IVP PRN (05:31)
[2016-12-24] MEDS ORDERED: Acetaminophen 325 MG TABLET PO PRN (05:31)
[2016-12-24] MEDS ORDERED: Ondansetron 4 MG/2 ML VIAL IVP PRN (05:31)
--- NOTE | 2016-12-24 05:35 | Internal Med History&Physical ---
Date of Encounter: 12/24/16 Time of Encounter: 05:33 Assessment and Plan (1) Acute respiratory failure with hypoxia Current visit: Yes Status: Acute Acute on chronic hypoxic respiratory failure secondary to acute COPD exacerbation possibly from acute bacterial bronchitis that failed outpatient therapy Start cefepime IV, sputum culture concerning for possible Pseudomonas colonization Solu-Medrol, oxygen therapy, DuoNeb nebs as needed Omeprazole for GI prophylaxis and Xarelto for DVT prophylaxis. The patient will be admitted as inpatient, expected to stay more than 2 midnights. Full code. Time spent on this admission 40 minutes (2) Hypertension Current visit: No Status: Chronic Stable Qualifiers: Hypertension type: essential hypertension Qualified Code(s): I10 - Essential (primary) hypertension (3) Hyperlipidemia Current visit: No Status: Chronic Qualifiers: Hyperlipidemia type: unspecified Qualified Code(s): E78.5 - Hyperlipidemia , unspecified (4) CAD S/P percutaneous coronary angioplasty Current visit: No Status: Chronic Continue aspirin and Effient (5) Morbid obesity with BMI of 45.0-49.9, adult Current visit: No Status: Chronic (6) Paroxysmal atrial fibrillation Current visit: No Status: Chronic Continue Xarelto amiodarone (7) Chronic kidney disease Current visit: No Status: Acute Qualifiers: Chronic kidney disease stage: stage 3 (moderate) Qualified Code(s): N18.3 - Chronic kidney disease, stage 3 (moderate) (8) CHF (congestive heart failure) Current visit: No Status: Acute No exacerbation Continue Lasix 40 mg 3 times a day Qualifiers: Congestive heart failure type: diastolic Congestive heart failure chronicity: acute on chronic Qualified Code(s): I50.33 - Acute on chronic diastolic (congestive) heart failure (9) Polymyalgia rheumatica Current visit: No Status: Suspected No prednisone for now as the patient will be on Solu-Medrol Internal Medicine - H&P: HPI Chief complaint: Shortness of breath Admitted From: Emergency Dept History of present illness: Ms. Melendez is a 76 year old female with a past medical history of COPD oxygen dependent, chronic kidney disease stage III, possible polymyalgia rheumatica on prednisone 20 mg daily, atrial fibrillation on Xarelto, diastolic CHF who was recently discharged from the hospital on 12/05/2016 where she was treated for possible PMR and temporal arteritis. Patient has been feeling more short of breath for the past week, was given doxycycline and azithromycin apparently by his primary care physician. The patient is to complain of yellowish and brownish phlegm coming up. Was wheezing loudly, chest x-ray does not show any acute cardiopulmonary disease but the patient desaturated down to the 80s. Hemoglobin is 9 and she has history of chronic anemia with prior history of gastric ulcers but normal capsule studies and normal colonoscopy except for polypectomy. She was scheduled to have a bone marrow biopsy arranged by oncology today. Past Med Surg Social Fam HX - Past Medical History Medical history: atrial fibrillation (Paroxysmal, On Xarelto), COPD (Oxygen dependent), coronary artery disease (History of stents), GERD, hypertension, myocardial infarction, renal disease (Chronic kidney disease stage III), thyroid disease (Hypothyroidism), other (Morbid obesity, polymyalgia rheumatica on 20 mg of prednisone, iron deficiency anemia, peripheral vascular disease, diverticulitis, gastric ulcer, multiple transfusions since 2011, mild aortic insufficiency, obstructive sleep apnea using CPAP, diastolic CHF) Psychiatric history: no psych history - Past Surgical History Surgical History: appendectomy, cataract, cholecystectomy, hysterectomy, other ( Negative capsule study, partial thyroidectomy and laminectomy) - Social History Smoking Status: Former smoker Smokeless Tobacco Status: No Alcohol use: none Drug use: none - Family History Father Adopted: No Family Member Ethnicity: Non- Living Status: Hx Family Cardiac Disorders: Yes ([place]) Hx Family Respiratory Disorders: Yes (copd) Hx Family Endocrine Disorder: Yes (dm) Mother Adopted: No Living Status: Hx Family Cancer: Yes (Colon cancer) Hx Family Endocrine Disorder: Yes (dm) - Additional Family History Additional family history: Father with COPD and myocardial infarction, sister with diabetes, mother with colon cancer and hypertension Internal Medicine - H&P: Meds Amiodarone [Cordarone] 200 mg PO DAILY 12/01/16 [History] Ascorbic Acid [Vitamin C] 1,000 mg PO DAILY 12/01/16 [History] Calcium Carb,Cit/D3/Phytostrol [Citracal D + Heart Health Tab] 1 each PO DAILY 12/01/16 [History] Esomeprazole Magnesium [Nexium 24Hr] 20 mg PO BID 12/01/16 [History] Ezetimibe [Zetia] 10 mg PO DAILY 12/01/16 [History] FLUoxetine HCl [Fluoxetine HCl] 40 mg PO DAILY 12/01/16 [History] Furosemide [Lasix] 40 mg PO TID 12/01/16 [History] Levothyroxine [Synthroid] 100 mcg PO 0630 12/01/16 [History] Losartan [Cozaar] 100 mg PO DAILY 12/01/16 [History] Multivitamin [Multivitamins] 1 each PO DAILY 12/01/16 [History] Potassium 10 meq PO TID 12/01/16 [History] Prasugrel [Effient] 10 mg PO DAILY 12/01/16 [History] Rivaroxaban [Xarelto] 15 mg PO 1700 12/01/16 [History] Zolpidem [Ambien] 5 mg PO HS 12/01/16 [History] Carvedilol 3.125 mg PO BID 12/02/16 [History] Gabapentin [Neurontin] 300 mg PO HS 12/02/16 [History] PredniSONE [Deltasone] 20 mg PO DAILY 12/13/16 [History] Ipratropium Neb [Atrovent Neb] 0.5 mg IH TID 12/23/16 [History] Levalbuterol Neb [Xopenex Neb] 0.63 mg IH TID 12/23/16 [History] Oxycodone HCl/Acetaminophen [Percocet 5-325 mg Tablet] 1 each PO Q6H PRN [History] Spironolactone [Aldactone] 25 mg PO BID 12/23/16 [History] RisperiDONE [Risperidone Odt] 1 mg PO DAILY 12/24/16 [History] 3 Allergy/AdvReac Type Severity Reaction Status Date / Time olanzapine [From Zyprexa] Allergy See Verified 12/13/16 15:34 Comments ciprofloxacin [From Cipro] AdvReac Vomiting Verified 12/13/16 15:34 Erythromycin Base AdvReac Vomiting Verified 12/13/16 15:34 Sulfa (Sulfonamide AdvReac Vomiting Verified 12/13/16 15:34 Antibiotics) ivp DYE Allergy Hives Uncoded 12/13/16 15:34 All Systems PM: A 10-system review of systems was performed and is negative for pertinent findings except as documented above in the HPI. Review of systems: Denies chest pain, no abdominal pain, other systems out of 10 reveals were negative, extreme fatigue. - Constitutional Vitals: Temp Pulse Resp BP Pulse Ox 98.0 F 72 18 148/85 94 12/24/16 03:30 12/24/16 03:30 12/24/16 03:30 12/24/16 03:30 12/24/16 03:30 General appearance: Present: A&O X 3, morbidly obese - Head Head exam: Present: atraumatic, normocephalic - Eye Eye exam: Present: PERRL, conjuntiva pink, sclera anicteric Pupils: Present: PERRL - Neck Neck exam general surgery: Present: supple, trachea midline. Absent: lymphadenopathy - Respiratory Respiratory exam: Present: CTAB, wheezes (Diffuse wheezing). Absent: accessory muscle use, rales, rhonchi - Cardiovascular Cardiovascular exam: Present: RRR, +S1, +S2. Absent: diastolic murmur, gallop, rubs, systolic murmur - GI/Abdominal GI/Abdominal exam: Present: distended, normal bowel sounds, soft, no peritoneal signs. Absent: tenderness - Extremities Exam Extremities exam: Present: pedal edema (+1 pitting edema in both lower extremities, appears chronic), warm, radial pulses palpable and symmetrical. Absent: calf tenderness, cyanotic - Neurological Exam Neurological exam: Present: CN II-XII intact, oriented X3, no focal deficits. Absent: pronater drift, facial droop, speech deficit - Skin Skin exam: Present: dry, intact Internal Med - H&P Results - Labs CBC & Chem 7: 12/23/16 20:21 12/23/16 20:21
[2016-12-24] MEDS ORDERED: Cefepime HCl 1,000 MG in D5% in Water (Mini-Bag+) 100 ML IVPB SCH (06:00)
[2016-12-24] MEDS: MethylPREDNISolone 40 MG/ML VIAL IVP SCH ×3 (06:01→21:22)
[2016-12-24] MEDS: Cefepime HCl 1,000 MG in Water for inj. (sterile) 10 ML IVP SCH ×2 (06:02→17:34)
[2016-12-24] MEDS: *HR* Amiodarone 200 MG TABLET PO SCH (08:28)
[2016-12-24] MEDS: Furosemide 40 MG TABLET PO SCH ×3 (08:28→21:22)
[2016-12-24] MEDS: FLUoxetine 20 MG CAPSULE PO SCH (08:28)
[2016-12-24] MEDS: Spironolactone 25 MG TABLET PO SCH ×2 (08:28→21:22)
[2016-12-24] MEDS: ZETIA 10MG PO SCH (08:29)
[2016-12-24] MEDS: RisperiDONE-M 1 MG TAB.RAPDIS PO SCH (08:49)
[2016-12-24] MEDS ORDERED: ESOMEPRAZOLE MAGNESIUM 20 MG PO SCH (09:00)
[2016-12-24] MEDS: *HR* OxyCODONE/APAP 5/325 TABLET PO PRN (09:42)
[2016-12-24] MEDS: *HR* HYDROmorphone (PF) 1 MG/ML SYRINGE IVP PRN ×4 (10:49→21:22)
[2016-12-24] MEDS: Levalbuterol Neb 0.63 MG/3 ML IH SCH ×3 (11:20→22:05)
[2016-12-24] MEDS: *HR* Rivaroxaban 15 MG TABLET PO SCH (17:34)
--- NOTE | 2016-12-24 21:11 | Event Note ---
Date of Encounter: 12/24/16 Time of Encounter: 11:00 I have examined the patient signed this morning. She continues to remain off back pain. She is in moderate pain. Heart is regular. Lung exam reveals bilateral expiratory wheezes. We will continue treatment with IV steroids. Continue cefepime. Supplemental oxygen by nasal cannula. She complains of severe back pain. I reviewed her MRI report from February of this year which reveals degenerative disease of the lumbar spine. I am concerned about possible compression fracture given her chronic use of steroids and possible osteoporosis and therefore I will obtain CT of the thoracic and lumbar spine.
[2016-12-24] MEDS: Gabapentin 300 MG CAPSULE PO SCH (21:22)
[2016-12-25 04:55] LABS: Potassium 3.7 mEq/L (3.5-4.5)
[2016-12-25 05:08] LABS: Hematocrit 27.7 % (35.3-44.9); Hemoglobin 8.2 g/dL (11.5-15.4); Mean Corpuscular HGB Conc 29.6 g/dL (31.6-35.5); Mean Corpuscular Hemoglobin 25.7 pg (28.0-33.3); Mean Corpuscular Volume 86.8 fL (83.0-100.0); Mean Platelet Volume 10.4 fL (9.4-12.4); Platelet Count 244 K/mcL (140-400); Red Blood Count 3.19 M/mcL (3.82-4.97); Red Cell Distribution Width 15.7 % (11.5-14.5)
[2016-12-25] MEDS: Cefepime HCl 1,000 MG in Water for inj. (sterile) 10 ML IVP SCH ×2 (06:04→17:12)
[2016-12-25] MEDS: MethylPREDNISolone 40 MG/ML VIAL IVP SCH ×3 (06:05→21:42)
[2016-12-25] MEDS: *HR* OxyCODONE/APAP 5/325 TABLET PO PRN ×2 (06:14→12:52)
[2016-12-25] MEDS: Spironolactone 25 MG TABLET PO SCH ×2 (09:14→20:54)
[2016-12-25] MEDS: Furosemide 40 MG TABLET PO SCH ×3 (09:14→20:53)
[2016-12-25] MEDS: RisperiDONE-M 1 MG TAB.RAPDIS PO SCH (09:14)
[2016-12-25] MEDS: FLUoxetine 20 MG CAPSULE PO SCH (09:14)
[2016-12-25] MEDS: *HR* Amiodarone 200 MG TABLET PO SCH (09:14)
[2016-12-25] MEDS: ZETIA 10MG PO SCH (09:20)
[2016-12-25] MEDS: Levalbuterol Neb 0.63 MG/3 ML IH SCH ×3 (10:27→22:00)
[2016-12-25] MEDS: *HR* HYDROmorphone (PF) 1 MG/ML SYRINGE IVP PRN ×3 (14:35→20:54)
[2016-12-25] MEDS ORDERED: *HR* Promethazine 25 MG/ML VIAL IVP PRN (16:00)
--- NOTE | 2016-12-25 16:08 | Electrocardiograph Report ---
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
[2016-12-25] MEDS: *HR* Rivaroxaban 15 MG TABLET PO SCH (16:22)
--- NOTE | 2016-12-25 19:35 | Internal Med Progress Note ---
Date of Encounter: 12/25/16 Time of Encounter: 15:00 - Assessment and plan (1) Hypertension Current Visit: No Status: Chronic Qualifiers: Hypertension type: essential hypertension Qualified Code(s): I10 - Essential (primary) hypertension (2) Hyperlipidemia Current Visit: No Status: Chronic Qualifiers: Hyperlipidemia type: unspecified Qualified Code(s): E78.5 - Hyperlipidemia , unspecified (3) CAD S/P percutaneous coronary angioplasty Current Visit: No Status: Chronic Assessment and plan: Resume Effient continue Coreg., (4) Morbid obesity with BMI of 45.0-49.9, adult Current Visit: No Status: Chronic Assessment and plan: Outpatient weight loss regimen (5) Paroxysmal atrial fibrillation Current Visit: No Status: Chronic Assessment and plan: Resume anticoagulation with Xarelto. (6) CKD (chronic kidney disease), stage III Current Visit: No Status: Chronic (7) Acute respiratory failure with hypoxia Current Visit: Yes Status: Acute Assessment and plan: Oxygen by nasal cannula. BiPAP as needed for breathing. (8) COPD exacerbation Current Visit: Yes Status: Acute Assessment and plan: IV steroids. Inhaled bronchodilators. (9) CHF (congestive heart failure) Current Visit: No Status: Acute Assessment and plan: Continue with oral Lasix. Daily weight. Sodium restriction diet. Qualifiers: Congestive heart failure type: diastolic Congestive heart failure chronicity: acute on chronic Qualified Code(s): I50.33 - Acute on chronic diastolic (congestive) heart failure (10) Lumbar radiculopathy Current Visit: No Status: Chronic Assessment and plan: Chest pain with significant worsening. She has been managing her pain with oxycodone. She has required increasing doses of oxycodone lately.. I will consult pain management. - Subjective Interval history: Patient reports chronic back pain that is worse today compared to her baseline but improved from yesterday. Changes with position in bed. Her shortness of breath has improved over last 2 days. - Constitutional Vitals: Temp Pulse Resp BP Pulse Ox 98.0 F 74 16 120/56 94 12/25/16 19:01 12/25/16 19:01 12/25/16 19:01 12/25/16 19:01 12/25/16 19:01 General appearance: Present: A&O X 3, morbidly obese - Respiratory Respiratory exam: Present: wheezes. Absent: accessory muscle use, rales, rhonchi - Cardiovascular Cardiovascular exam: Present: RRR, +S1, +S2. Absent: diastolic murmur, gallop, rubs, systolic murmur - GI/Abdominal GI/Abdominal exam: Present: normal bowel sounds, soft, no peritoneal signs. Absent: distended, tenderness - Extremities Exam Extremities exam: Present: warm, radial pulses palpable and symmetrical. Absent : calf tenderness, cyanotic, pedal edema - Skin Skin exam: Present: dry, intact Internal Medicine: Result - Labs CBC & Chem 7: 12/25/16 04:03 12/25/16 04:03 Labs: Short CBC 12/25/16 Range/Units 04:03 WBC 9.5 (4.3-11.1) K/mcL Hgb 8.2 L (11.5-15.4) g/dL Hct 27.7 L (35.3-44.9) % Plt Count 244 (140-400) K/mcL BMP 12/25/16 04:03 Sodium 142 Potassium 3.7 Chloride 102 Carbon Dioxide 31 H BUN 24 H Creatinine 1.11 Glucose 200 H Calcium 9.0 - Impressions Impressions Lumbar Spine CT 12/24/16 18:12 IMPRESSION: Postoperative changes of prior posterior decompression in the lumbar spine as detailed above. No evidence of acute fracture or malalignment in the thoracic or lumbar spine. Multilevel degenerative change as detailed above, greatest in the mid and lower lumbar spine. Minimal retrolisthesis of L3 on L4, similar to prior examination and likely related to facet arthrosis. D/ / 12/24/2016 21:41:29 Isaiah Coreas MD / roma Interpreting Provider: Isaiah Coreas MD Thoracic Spine CT 12/24/16 18:12 IMPRESSION: Postoperative changes of prior posterior decompression in the lumbar spine as detailed above. No evidence of acute fracture or malalignment in the thoracic or lumbar spine. Multilevel degenerative change as detailed above, greatest in the mid and lower lumbar spine. Minimal retrolisthesis of L3 on L4, similar to prior examination and likely related to facet arthrosis. D/ / 12/24/2016 21:41:29 Isaiah Coreas MD / roma Interpreting Provider: Isaiah Coreas MD Consult Discharge Plan - Plan Referrals: Rina Kaba MD [Primary Care Provider] -
[2016-12-25] MEDS: Sennosides/Docusate Sodium TABLET PO SCH (20:53)
[2016-12-25] MEDS: Gabapentin 300 MG CAPSULE PO SCH (20:54)
[2016-12-26] MEDS: Cefepime HCl 1,000 MG in Water for inj. (sterile) 10 ML IVP SCH ×2 (05:53→17:06)
[2016-12-26] MEDS: MethylPREDNISolone 40 MG/ML VIAL IVP SCH ×2 (05:54→14:53)
[2016-12-26] MEDS: *HR* OxyCODONE/APAP 5/325 TABLET PO PRN ×3 (06:06→17:05)
[2016-12-26 06:25] LABS: Hematocrit 27.2 % (35.3-44.9); Hemoglobin 7.9 g/dL (11.5-15.4); Immature Granulocytes % 0.6 % (0-4); Lymphocytes # 0.5 K/mcL (0.6-4.6); Lymphocytes % 5.1 %; Mean Corpuscular Hemoglobin 25.4 pg (28.0-33.3); Mean Corpuscular Volume 87.5 fL (83.0-100.0); Mean Platelet Volume 10.4 fL (9.4-12.4); Monocytes # 0.4 K/mcL (0.0-1.3); Monocytes % 4.3 %; Neutrophils # 8.9 K/mcL (1.6-8.9); Platelet Count 226 K/mcL (140-400); Red Blood Count 3.11 M/mcL (3.82-4.97); Red Cell Distribution Width 15.9 % (11.5-14.5)
[2016-12-26 06:37] LABS: Potassium 4.3 mEq/L (3.5-4.5)
[2016-12-26] MEDS: Levalbuterol Neb 0.63 MG/3 ML IH SCH ×3 (07:59→20:26)
[2016-12-26] MEDS: RisperiDONE-M 1 MG TAB.RAPDIS PO SCH (08:34)
[2016-12-26] MEDS: Sennosides/Docusate Sodium TABLET PO SCH ×2 (08:34→21:18)
[2016-12-26] MEDS: Spironolactone 25 MG TABLET PO SCH ×2 (08:34→21:18)
[2016-12-26] MEDS: FLUoxetine 20 MG CAPSULE PO SCH (08:34)
[2016-12-26] MEDS: *HR* HYDROmorphone (PF) 1 MG/ML SYRINGE IVP PRN ×4 (08:34→18:31)
[2016-12-26] MEDS: *HR* Amiodarone 200 MG TABLET PO SCH (08:34)
[2016-12-26] MEDS: Furosemide 40 MG TABLET PO SCH ×3 (08:35→21:18)
[2016-12-26] MEDS: ZETIA 10MG PO SCH (10:37)
[2016-12-26] MEDS: *HR* Rivaroxaban 15 MG TABLET PO SCH (17:06)
--- NOTE | 2016-12-26 18:26 | Internal Med Progress Note ---
Date of Encounter: 12/26/16 Time of Encounter: 09:00 - Assessment and plan (1) Hypertension Current Visit: No Status: Chronic Assessment and plan: Continue with Coreg, losartan and intact. Qualifiers: Hypertension type: essential hypertension Qualified Code(s): I10 - Essential (primary) hypertension (2) Hyperlipidemia Current Visit: No Status: Chronic Qualifiers: Hyperlipidemia type: unspecified Qualified Code(s): E78.5 - Hyperlipidemia , unspecified (3) CAD S/P percutaneous coronary angioplasty Current Visit: No Status: Chronic Assessment and plan: Resume Effient continue Coreg., (4) Morbid obesity with BMI of 45.0-49.9, adult Current Visit: No Status: Chronic Assessment and plan: Outpatient weight loss regimen (5) Paroxysmal atrial fibrillation Current Visit: No Status: Chronic Assessment and plan: Resume anticoagulation with Xarelto. (6) CKD (chronic kidney disease), stage III Current Visit: No Status: Chronic (7) Acute respiratory failure with hypoxia Current Visit: Yes Status: Acute Assessment and plan: Oxygen by nasal cannula. BiPAP as needed for breathing. (8) COPD exacerbation Current Visit: Yes Status: Acute Assessment and plan: We will start tapering IV steroids. Continue with Inhaled bronchodilators. She is symptomatically improved. (9) CHF (congestive heart failure) Current Visit: No Status: Acute Assessment and plan: Continue with oral Lasix. Daily weight. Sodium restriction diet. Qualifiers: Congestive heart failure type: diastolic Congestive heart failure chronicity: acute on chronic Qualified Code(s): I50.33 - Acute on chronic diastolic (congestive) heart failure (10) Lumbar radiculopathy Current Visit: No Status: Chronic Assessment and plan: Continue with Percocet. Follow-up with pain management. Back pain with significant worsening. She has been managing her pain with oxycodone. - Subjective Interval history: She reports severe sharp back pain with movement. Her shortness of breath has improved - Constitutional Vitals: Temp Pulse Resp BP Pulse Ox 98.0 F 74 16 143/82 98 12/26/16 16:41 12/26/16 16:41 12/26/16 17:15 12/26/16 16:41 12/26/16 17:15 General appearance: Present: A&O X 3, morbidly obese - Eye Eye exam: Present: PERRL, conjuntiva pink, sclera anicteric Pupils: Present: PERRL - Respiratory Respiratory exam: Present: CTAB. Absent: accessory muscle use, rales, rhonchi, wheezes - Cardiovascular Cardiovascular exam: Present: RRR, +S1, +S2. Absent: diastolic murmur, gallop, rubs, systolic murmur - GI/Abdominal GI/Abdominal exam: Present: normal bowel sounds, soft, no peritoneal signs. Absent: distended, tenderness - Extremities Exam Extremities exam: Present: warm, radial pulses palpable and symmetrical. Absent : calf tenderness, cyanotic, pedal edema - Skin Skin exam: Present: dry, intact Internal Medicine: Result - Labs CBC & Chem 7: 12/26/16 05:09 12/26/16 05:09 Labs: Short CBC 12/26/16 Range/Units 05:09 WBC 9.9 (4.3-11.1) K/mcL Hgb 7.9 L (11.5-15.4) g/dL Hct 27.2 L (35.3-44.9) % Plt Count 226 (140-400) K/mcL Neutrophils # 8.9 (1.6-8.9) K/mcL BMP 12/26/16 05:09 Sodium 145 Potassium 4.3 Chloride 104 Carbon Dioxide 31 H BUN 34 H D Creatinine 1.34 H Glucose 218 H Calcium 9.0 Consult Discharge Plan - Plan Referrals: Rina Kaba MD [Primary Care Provider] -
--- NOTE | 2016-12-26 18:43 | Pain Management Consultation ---
Date of Encounter: 12/26/16 Time of Encounter: 18:36 Assessment and Plan (1) Myofacial muscle pain Current Visit: Yes Status: Chronic Recommendations: 1. no evidence for acute spine pathology based on history, exam, or imaging. 2. stop IV opioid. 3. recommend low dose oral opioid such as Tylenol No. 3 or tramadol on a PRN basis. 4. recommend use of gabapentin 100 mg TID rather than singular dose at QHS 5. recommend trying muscle relaxant agent for symptom control 6. recommend PT, out of bed, motion, movement 7. follow up with me as an outpatient for consideration of working diagnosis of fibromyalgia The assessment and plan as outlined above was discussed with the patient and/or family members who expressed understanding and agreement. All questions were answered. History of Present Illness Chief complaint: back pain HPI: Ms. Melendez is a 76 year old female suffering with aching, stabbing, tense pain in the lower back. Pain been present for the past 4-6 weeks. The patient does not have a chronic history of lower back pain, rather she feels the pain began in this timeframe. She denies any accidents or falls. She presented to the emergency Department complaining of pain in the lower back that did not involve pain in the legs. She had a CT scan and was admitted to the hospital secondary to intractable pain. Denies radiation into legs. Pain scale is 10/10 most times. Moving from seated to standing to sitting again helps the pain go down. Denies IV pain medication (dilaudid) is helpful. Past Med Surg Social Fam HX - Past Medical History Medical history: atrial fibrillation (Paroxysmal, On Xarelto), COPD (Oxygen dependent), coronary artery disease (History of stents), GERD, hypertension, myocardial infarction, renal disease (Chronic kidney disease stage III), thyroid disease (Hypothyroidism), other (Morbid obesity, polymyalgia rheumatica on 20 mg of prednisone, iron deficiency anemia, peripheral vascular disease, diverticulitis, gastric ulcer, multiple transfusions since 2011, mild aortic insufficiency, obstructive sleep apnea using CPAP, diastolic CHF) Psychiatric history: no psych history - Past Surgical History Surgical History: appendectomy, cataract, cholecystectomy, hysterectomy, other ( Negative capsule study, partial thyroidectomy and laminectomy) - Social History Smoking Status: Former smoker Smokeless Tobacco Status: No Alcohol use: none Drug use: none - Family History Father Adopted: No Family Member Ethnicity: Non- Living Status: Hx Family Cardiac Disorders: Yes ([place]) Hx Family Respiratory Disorders: Yes (copd) Hx Family Endocrine Disorder: Yes (dm) Mother Adopted: No Living Status: Hx Family Cancer: Yes (Colon cancer) Hx Family Endocrine Disorder: Yes (dm) Medications and Allergies Amiodarone [Cordarone] 200 mg PO DAILY 12/01/16 [History] Ascorbic Acid [Vitamin C] 1,000 mg PO DAILY 12/01/16 [History] Calcium Carb,Cit/D3/Phytostrol [Citracal D + Heart Health Tab] 1 each PO DAILY 12/01/16 [History] Esomeprazole Magnesium [Nexium 24Hr] 20 mg PO BID 12/01/16 [History] Ezetimibe [Zetia] 10 mg PO DAILY 12/01/16 [History] FLUoxetine HCl [Fluoxetine HCl] 40 mg PO DAILY 12/01/16 [History] Furosemide [Lasix] 40 mg PO TID 12/01/16 [History] Levothyroxine [Synthroid] 100 mcg PO 0630 12/01/16 [History] Losartan [Cozaar] 100 mg PO DAILY 12/01/16 [History] Multivitamin [Multivitamins] 1 each PO DAILY 12/01/16 [History] Potassium 10 meq PO TID 12/01/16 [History] Prasugrel [Effient] 10 mg PO DAILY 12/01/16 [History] Rivaroxaban [Xarelto] 15 mg PO 1700 12/01/16 [History] Zolpidem [Ambien] 5 mg PO HS 12/01/16 [History] Carvedilol 3.125 mg PO BID 12/02/16 [History] Gabapentin [Neurontin] 300 mg PO HS 12/02/16 [History] PredniSONE [Deltasone] 20 mg PO DAILY 12/13/16 [History] Ipratropium Neb [Atrovent Neb] 0.5 mg IH TID 12/23/16 [History] Levalbuterol Neb [Xopenex Neb] 0.63 mg IH TID 12/23/16 [History] Oxycodone HCl/Acetaminophen [Percocet 5-325 mg Tablet] 1 each PO Q6H PRN [History] Spironolactone [Aldactone] 25 mg PO BID 12/23/16 [History] RisperiDONE [Risperidone Odt] 1 mg PO DAILY 12/24/16 [History] 3 Allergy/AdvReac Type Severity Reaction Status Date / Time olanzapine [From Zyprexa] Allergy See Verified 12/13/16 15:34 Comments ciprofloxacin [From Cipro] AdvReac Vomiting Verified 12/13/16 15:34 Erythromycin Base AdvReac Vomiting Verified 12/13/16 15:34 Sulfa (Sulfonamide AdvReac Vomiting Verified 12/13/16 15:34 Antibiotics) ivp DYE Allergy Hives Uncoded 12/13/16 15:34 Review of Systems - Constitutional Constitutional ROS IM: no photophobia, no phonophobia, no daytime sleepiness, no fever(s), no stops breathing during sleep - EENT Nose, mouth and throat: no headache(s), no neck pain, no neck trauma - Cardiovascular Cardiovascular ROS: no chest pain, no leg edema, no lightheadedness - Respiratory Respiratory: no pain on inspiration, no pain with cough - Gastrointestinal Gastrointestinal: no abdominal pain, no constipation, no diarrhea, no heartburn - Genitourinary Genitourinary ROS: no difficulty urinating, no flank pain, no urinary hesitancy - Musculoskeletal Musculoskeletal ROS: abnormal gait, muscle weakness, no numbness, no radiating pain into limb, no tingling - Integumentary Integumentary: no erythema, no lesions, no swelling - Neurological Neurological ROS: no abnormal gait, no behavioral changes, no focal weakness, no radicular pain - Psychiatric Psychiatric general: no anxiety, no confusion, no depression - Hematologic/Lymphatic Hematologic/Lymphatic pediatric: no easy bleeding, no easy bruising Physical Exam Initial Vital Signs Temp Pulse Resp BP Pulse Ox 97.9 F 95 16 120/65 92 12/23/16 16:34 12/23/16 16:34 12/23/16 16:34 12/23/16 16:34 12/23/16 16:34 - Additional Findings EYES:: pupils equal and round, no myosis. SKIN:: no areas of echymoses or petechiae CARDIOVASCULAR:: regular rate and rhythm PULMONARY:: nasal oxygen on. Quiet, normal respiratory pattern. GASTROINTESTINAL:: active bowel sounds. MUSCULOSKELETAL GAIT:: antalgic. Able to sit and stand under own power. INSPECTION:: no surgical scarring in upper lumbar area or thoracic spine. PALPATION:: paraspinous musculature is tender to deep palpation in the upper lumbar and lower thoracic area bilaterally. ROM:: Active flexion and extension are reduced in the lumbar area. Active Rotation is reduced in the lumbar area. Facet loading positions (extension with sidebending and rotation) are negative in the lumbar area. STRENGTH:: RIGHT hip flexors: 5/5 :: LEFT hip flexors: 5/5 RIGHT hip adduction 5/5 :: LEFT hip adduction 5/5 RIGHT hip abduction 5/5 :: LEFT hip abduction 5/5 RIGHT knee extension 5/5 :: LEFT knee extension 5/5 RIGHT knee flexion 5/5 :: LEFT knee flexion 5/5 RIGHT ankle dorsiflexion 5/5 :: LEFT ankle dorsiflexion 5/5 RIGHT ankle plantarflexion 5/5 :: LEFT ankle plantarflexion 5/5 RIGHT great toe dorsiflexion 5/5 :: LEFT great toe dorsiflexion 5/5 RIGHT great toe plantarflexion 5/5 :: LEFT great toe plantarflexion 5/5 STRAIGHT LEG RAISE:: LLE is negative at 90 degrees. RLE is positive at 90 degrees for pain along right L4 proximal to knee. NEUROLOGIC SENSATION:: hypesthesia is not noted in lower extremity dermatomes. SIGNS OF NEUROVASCULAR COMPRESSION Clonus: none found bilateral with passive ROM at ankle joint Spasticity:: none Atrophy:: not present in UE or LE musculature Fasciculation:: not present in UE or LE musculature PSYCHIATRIC:: ORIENTATION:: awake and alert. INSIGHT:: good awareness of illness. AFFECT:: pleasant. Radiology Images Viewed By Me:: December 2016 CT scan of the thoracic and lumbar spine does not show an acute compression fracture. There is severe degenerative disc disease present for about the lumbar neuraxis. L4 laminectomy present. No evidence of acute fracture or new disc process. I have reviewed and agree with information documented in the scribed documentation, YO, patient medications, allergies, medical history, surgical history, social history, and family history. Results - Labs 12/26/16 05:09 12/26/16 05:09 Abnormal lab results RBC 3.11 M/mcL (3.82-4.97) L 12/26/16 05:09 Hgb 7.9 g/dL (11.5-15.4) L 12/26/16 05:09 Hct 27.2 % (35.3-44.9) L 12/26/16 05:09 MCH 25.4 pg (28.0-33.3) L 12/26/16 05:09 MCHC 29.0 g/dL (31.6-35.5) L 12/26/16 05:09 RDW 15.9 % (11.5-14.5) H 12/26/16 05:09 Lymphocytes # 0.5 K/mcL (0.6-4.6) L 12/26/16 05:09 Nucleated RBCs/100 WBC 0.2 /100 WBC (0) H 12/23/16 20:21 Carbon Dioxide 31 mEq/L (19-29) H 12/26/16 05:09 BUN 34 mg/dL (7-20) H D 12/26/16 05:09 Creatinine 1.34 mg/dL (0.57-1.11) H 12/26/16 05:09 Est GFR ( Amer) 47 (> 60) L 12/26/16 05:09 Est GFR (Non-Af Amer) 39 (> 60) L 12/26/16 05:09 Glucose 218 mg/dL (70-99) H 12/26/16 05:09 Calculated Osmolality 314 (280-300) H 12/26/16 05:09 Diabetes panel 12/26/16 Range/Units 05:09 Sodium 145 (136-145) mEq/L Potassium 4.3 (3.5-4.5) mEq/L Chloride 104 (98-109) mEq/L Carbon Dioxide 31 H (19-29) mEq/L BUN 34 H D (7-20) mg/dL Creatinine 1.34 H (0.57-1.11) mg/dL Glucose 218 H (70-99) mg/dL Calcium 9.0 (8.6-10.8) mg/dL Calcium panel 12/26/16 Range/Units 05:09 Calcium 9.0 (8.6-10.8) mg/dL Pituitary panel 12/26/16 Range/Units 05:09 Sodium 145 (136-145) mEq/L Potassium 4.3 (3.5-4.5) mEq/L Chloride 104 (98-109) mEq/L Carbon Dioxide 31 H (19-29) mEq/L BUN 34 H D (7-20) mg/dL Creatinine 1.34 H (0.57-1.11) mg/dL Glucose 218 H (70-99) mg/dL Calcium 9.0 (8.6-10.8) mg/dL Adrenal panel 12/26/16 Range/Units 05:09 Sodium 145 (136-145) mEq/L Potassium 4.3 (3.5-4.5) mEq/L Chloride 104 (98-109) mEq/L Carbon Dioxide 31 H (19-29) mEq/L BUN 34 H D (7-20) mg/dL Creatinine 1.34 H (0.57-1.11) mg/dL Glucose 218 H (70-99) mg/dL Calcium 9.0 (8.6-10.8) mg/dL All other labs normal. Consult Discharge Plan - Plan Referrals: Rina Kaba MD [Primary Care Provider] -
[2016-12-26] MEDS: Gabapentin 300 MG CAPSULE PO SCH (21:18)
[2016-12-27] MEDS: Cefepime HCl 1,000 MG in Water for inj. (sterile) 10 ML IVP SCH ×2 (06:02→16:18)
[2016-12-27] MEDS: MethylPREDNISolone 40 MG/ML VIAL IVP SCH ×2 (06:03→16:19)
[2016-12-27] MEDS: *HR* HYDROmorphone (PF) 1 MG/ML SYRINGE IVP PRN (06:12)
[2016-12-27 06:27] LABS: Calcium 8.9 mg/dL (8.6-10.8); Potassium 4.2 mEq/L (3.5-4.5)
[2016-12-27 06:47] LABS: Hematocrit 28.1 % (35.3-44.9); Hemoglobin 8.3 g/dL (11.5-15.4); Immature Granulocytes % 0.8 % (0-4); Lymphocytes # 0.8 K/mcL (0.6-4.6); Lymphocytes % 8.5 %; Mean Corpuscular HGB Conc 29.5 g/dL (31.6-35.5); Mean Corpuscular Hemoglobin 25.8 pg (28.0-33.3); Mean Corpuscular Volume 87.3 fL (83.0-100.0); Mean Platelet Volume 10.3 fL (9.4-12.4); Monocytes # 0.8 K/mcL (0.0-1.3); Monocytes % 8.4 %; Neutrophils # 7.5 K/mcL (1.6-8.9); Nucleated Red Blood Cells 0.2 /100 WBC (0); Platelet Count 231 K/mcL (140-400); Red Blood Count 3.22 M/mcL (3.82-4.97); Red Cell Distribution Width 15.5 % (11.5-14.5); Segmented Neutrophils % 82.3 %
[2016-12-27] MEDS: Furosemide 40 MG TABLET PO SCH ×3 (09:12→20:02)
[2016-12-27] MEDS: Sennosides/Docusate Sodium TABLET PO SCH ×2 (09:12→20:02)
[2016-12-27] MEDS: Gabapentin 100 MG CAPSULE PO SCH ×3 (09:12→20:02)
[2016-12-27] MEDS: Spironolactone 25 MG TABLET PO SCH ×2 (09:12→20:02)
[2016-12-27] MEDS: *HR* Amiodarone 200 MG TABLET PO SCH (09:14)
[2016-12-27] MEDS: FLUoxetine 20 MG CAPSULE PO SCH (09:14)
[2016-12-27] MEDS: *HR* OxyCODONE/APAP 5/325 TABLET PO PRN ×3 (09:14→16:14)
[2016-12-27] MEDS: RisperiDONE-M 1 MG TAB.RAPDIS PO SCH (09:16)
[2016-12-27] MEDS: ZETIA 10MG PO SCH (09:16)
[2016-12-27] MEDS: Levalbuterol Neb 0.63 MG/3 ML IH SCH ×3 (10:49→23:22)
[2016-12-27] MEDS: *HR* Rivaroxaban 15 MG TABLET PO SCH (16:17)
--- NOTE | 2016-12-27 16:51 | Internal Med Progress Note ---
Date of Encounter: 12/27/16 Time of Encounter: 11:00 - Assessment and plan (1) Hypertension Current Visit: No Status: Chronic Assessment and plan: Continue with Coreg, losartan and intact. Qualifiers: Hypertension type: essential hypertension Qualified Code(s): I10 - Essential (primary) hypertension (2) Hyperlipidemia Current Visit: No Status: Chronic Assessment and plan: Continue with statin. Qualifiers: Hyperlipidemia type: unspecified Qualified Code(s): E78.5 - Hyperlipidemia , unspecified (3) CAD S/P percutaneous coronary angioplasty Current Visit: No Status: Chronic Assessment and plan: Resume Effient continue Coreg., (4) Morbid obesity with BMI of 45.0-49.9, adult Current Visit: No Status: Chronic Assessment and plan: Outpatient weight loss regimen (5) Paroxysmal atrial fibrillation Current Visit: No Status: Chronic Assessment and plan: Resume anticoagulation with Xarelto. (6) CKD (chronic kidney disease), stage III Current Visit: No Status: Chronic Assessment and plan: At baseline. No need to monitor while inpatient currently. (7) Acute respiratory failure with hypoxia Current Visit: Yes Status: Acute Assessment and plan: Oxygen by nasal cannula. Oxygen requirements have improved, currently at baseline. (8) COPD exacerbation Current Visit: Yes Status: Acute Assessment and plan: Continue tapering IV steroids. Continue with Inhaled bronchodilators. She is symptomatically improved. (9) CHF (congestive heart failure) Current Visit: No Status: Acute Assessment and plan: Continue with oral Lasix. Daily weight. Sodium restriction diet. Qualifiers: Congestive heart failure type: diastolic Congestive heart failure chronicity: acute on chronic Qualified Code(s): I50.33 - Acute on chronic diastolic (congestive) heart failure (10) Lumbar radiculopathy Current Visit: No Status: Chronic Assessment and plan: I appreciate pain service recommendations. We will start gabapentin. I will continue with Percocet. Stop all IV opiates. CT of the lumbar spine and thoracic spine was done to look for compression fractures or any other pathology. She has had an MRI done in the past and both studies showed extensive degenerative disease. At this point we will treat her pain conservatively and she will have follow-up for possible repeat MRI and more invasive pain management therapeutic options. - Subjective Interval history: She reports severe sharp back pain with movement. Her shortness of breath has improved, denies associated chest pain. - Constitutional Vitals: Temp Pulse Resp BP Pulse Ox 98 F 83 18 135/81 95 12/27/16 16:29 12/27/16 16:29 12/27/16 16:29 12/27/16 16:29 12/27/16 16:29 General appearance: Present: A&O X 3, morbidly obese - Respiratory Respiratory exam: Present: CTAB. Absent: accessory muscle use, rales, rhonchi, wheezes - Cardiovascular Cardiovascular exam: Present: RRR, +S1, +S2. Absent: diastolic murmur, gallop, rubs, systolic murmur - GI/Abdominal GI/Abdominal exam: Present: normal bowel sounds, soft, no peritoneal signs. Absent: distended, tenderness - Extremities Exam Extremities exam: Present: warm, radial pulses palpable and symmetrical. Absent : calf tenderness, cyanotic, pedal edema - Neurological Exam Neurological exam: Present: CN II-XII intact, oriented X3, no focal deficits. Absent: pronater drift, facial droop, speech deficit - Skin Skin exam: Present: dry, intact Internal Medicine: Result - Labs CBC & Chem 7: 12/27/16 06:30 12/27/16 05:37 Labs: Short CBC 12/27/16 Range/Units 06:30 WBC 9.1 (4.3-11.1) K/mcL Hgb 8.3 L (11.5-15.4) g/dL Hct 28.1 L (35.3-44.9) % Plt Count 231 (140-400) K/mcL Neutrophils # 7.5 (1.6-8.9) K/mcL BMP 12/27/16 05:37 Sodium 142 Potassium 4.2 Chloride 105 Carbon Dioxide 28 BUN 30 H Creatinine 1.23 H Glucose 184 H Calcium 8.9 Consult Discharge Plan - Plan Referrals: Rina Kaba MD [Primary Care Provider] -
[2016-12-27] MEDS ORDERED: *HR* HYDROmorphone (PF) 1 MG/ML SYRINGE IVP PRN (18:01)
[2016-12-28] MEDS: *HR* OxyCODONE/APAP 5/325 TABLET PO PRN ×2 (00:01→08:13)
[2016-12-28 04:29] LABS: Calcium 8.5 mg/dL (8.6-10.8); Potassium 4.4 mEq/L (3.5-4.5)
[2016-12-28 04:51] LABS: Basophils % 0.1 %; Hematocrit 27.4 % (35.3-44.9); Hemoglobin 8.3 g/dL (11.5-15.4); Immature Granulocytes % 1.4 % (0-4); Lymphocytes # 0.6 K/mcL (0.6-4.6); Lymphocytes % 7.3 %; Mean Corpuscular HGB Conc 30.3 g/dL (31.6-35.5); Mean Corpuscular Hemoglobin 26.3 pg (28.0-33.3); Mean Corpuscular Volume 86.7 fL (83.0-100.0); Mean Platelet Volume 10.7 fL (9.4-12.4); Monocytes # 0.5 K/mcL (0.0-1.3); Monocytes % 5.9 %; Neutrophils # 7.1 K/mcL (1.6-8.9); Platelet Count 215 K/mcL (140-400); Red Blood Count 3.16 M/mcL (3.82-4.97); Red Cell Distribution Width 15.9 % (11.5-14.5); Segmented Neutrophils % 85.3 %
[2016-12-28] MEDS: Cefepime HCl 1,000 MG in Water for inj. (sterile) 10 ML IVP SCH (05:46)
[2016-12-28] MEDS: Levalbuterol Neb 0.63 MG/3 ML IH SCH (07:57)
[2016-12-28] MEDS: Gabapentin 100 MG CAPSULE PO SCH (08:13)
[2016-12-28] MEDS: RisperiDONE-M 1 MG TAB.RAPDIS PO SCH (08:13)
[2016-12-28] MEDS: *HR* Amiodarone 200 MG TABLET PO SCH (08:14)
[2016-12-28] MEDS: FLUoxetine 20 MG CAPSULE PO SCH (08:16)
[2016-12-28] MEDS: Furosemide 40 MG TABLET PO SCH (08:16)
[2016-12-28] MEDS: Sennosides/Docusate Sodium TABLET PO SCH (08:16)
[2016-12-28] MEDS: Spironolactone 25 MG TABLET PO SCH (08:16)
[2016-12-28] MEDS: ZETIA 10MG PO SCH (08:17)
[2016-12-28] MEDS ORDERED: methylPREDNISolone 125 MG/2 ML VIAL IVP SCH (09:00)
--- NOTE | 2016-12-28 11:17 | Discharge Summary ---
Date of Encounter: 12/28/16 Time of Encounter: 11:03 - Discharge Diagnosis (1) Hypertension Priority: Secondary Status: Chronic Qualifiers: Hypertension type: essential hypertension Qualified Code(s): I10 - Essential (primary) hypertension (2) Hyperlipidemia Priority: Secondary Status: Chronic Qualifiers: Hyperlipidemia type: unspecified Qualified Code(s): E78.5 - Hyperlipidemia , unspecified (3) CAD S/P percutaneous coronary angioplasty Priority: Secondary Status: Chronic (4) Morbid obesity with BMI of 45.0-49.9, adult Priority: Secondary Status: Chronic (5) Paroxysmal atrial fibrillation Priority: Secondary Status: Chronic (6) CKD (chronic kidney disease), stage III Priority: Secondary Status: Chronic (7) Acute respiratory failure with hypoxia Priority: Secondary Status: Acute (8) COPD exacerbation Priority: Primary Status: Acute (9) CHF (congestive heart failure) Priority: Secondary Status: Acute Qualifiers: Congestive heart failure type: diastolic Congestive heart failure chronicity: acute on chronic Qualified Code(s): I50.33 - Acute on chronic diastolic (congestive) heart failure (10) Lumbar radiculopathy Priority: Secondary Status: Chronic (11) Anemia of chronic disease Priority: Secondary Status: Acute - Discharge Medications Prescriptions: Cefdinir [Omnicef] 300 mg PO BID #12 capsule Gabapentin [Neurontin] 200 mg PO TID #90 capsule Metaxalone [Skelaxin] 800 mg PO TID #90 tablet predniSONE [PredniSONE] 60 mg PO DAILY #60 tablet Home Medications: Amiodarone [Cordarone] 200 mg PO DAILY 12/01/16 [History] Ascorbic Acid [Vitamin C] 1,000 mg PO DAILY 12/01/16 [History] Calcium Carb,Cit/D3/Phytostrol [Citracal D + Heart Health Tab] 1 each PO DAILY 12/01/16 [History] Esomeprazole Magnesium [Nexium 24Hr] 20 mg PO BID 12/01/16 [History] Ezetimibe [Zetia] 10 mg PO DAILY 12/01/16 [History] FLUoxetine HCl [Fluoxetine HCl] 40 mg PO DAILY 12/01/16 [History] Levothyroxine [Synthroid] 100 mcg PO 0630 12/01/16 [History] Losartan [Cozaar] 100 mg PO DAILY 12/01/16 [History] Multivitamin [Multivitamins] 1 each PO DAILY 12/01/16 [History] Potassium 10 meq PO TID 12/01/16 [History] Prasugrel [Effient] 10 mg PO DAILY 12/01/16 [History] Rivaroxaban [Xarelto] 15 mg PO 1700 12/01/16 [History] Zolpidem [Ambien] 5 mg PO HS 12/01/16 [History] Carvedilol 3.125 mg PO BID 12/02/16 [History] Ipratropium Neb [Atrovent Neb] 0.5 mg IH TID 12/23/16 [History] Levalbuterol Neb [Xopenex Neb] 0.63 mg IH TID 12/23/16 [History] Oxycodone HCl/Acetaminophen [Percocet 5-325 mg Tablet] 1 each PO Q6H PRN [History] Spironolactone [Aldactone] 25 mg PO BID 12/23/16 [History] RisperiDONE [Risperidone Odt] 1 mg PO DAILY 12/24/16 [History] Cefdinir [Omnicef] 300 mg PO BID #12 capsule 12/28/16 [Rx] Furosemide [Lasix] 40 mg PO BID #0 12/28/16 [Rx] Gabapentin [Neurontin] 200 mg PO TID #90 capsule 12/28/16 [Rx] Metaxalone [Skelaxin] 800 mg PO TID #90 tablet 12/28/16 [Rx] Sennosides/Docusate Sodium [Senna Plus] 1 each PO BID PRN tablet 12/28/16 [Rx] predniSONE [PredniSONE] 60 mg PO DAILY #60 tablet 12/28/16 [Rx] Allergies/Adverse Reactions: 3 Allergy/AdvReac Type Severity Reaction Status Date / Time olanzapine [From Zyprexa] Allergy See Verified 12/13/16 15:34 Comments ciprofloxacin [From Cipro] AdvReac Vomiting Verified 12/13/16 15:34 Erythromycin Base AdvReac Vomiting Verified 12/13/16 15:34 Sulfa (Sulfonamide AdvReac Vomiting Verified 12/13/16 15:34 Antibiotics) ivp DYE Allergy Hives Uncoded 12/13/16 15:34 Date of admission: 12/24/16 05:31 Primary care physician: Rina Kaba, Consults: 12/25/16 16:36 Consult to Pain Management [CONS] Routine Consulting Provider: Melquiades Slade Reason for Consult: Acute on chronic back pain Call Completed: Yes 12/27/16 10:06 Consult to Physical Therapy [CONS] Routine Comment: Evaluate, develop and implement POC Reason for Consult: checking to see the needs for patient. May need ECF for therapy 12/27/16 10:07 Consult to Occupational Therapy [CONS] Routine Comment: Evaluate, develop and implement POC Reason for Consult: the needs for patient, possible ECf for therapy 12/27/16 13:15 Consult to Traffic Engineer [CONS] Routine Reason for SW Consult: oxygen and home health set up - Patient Status Disposition: Home Health Service Condition: Fair Functional capacity at discharge: uses cane/walker Overall status at discharge: patient is progressing back to baseline - Discharge Instructions Instructions: Furosemide (By mouth), Prednisone (By mouth), Metaxalone (By mouth), Gabapentin (By mouth), Cefdinir (By mouth), Chronic Obstructive Pulmonary Disease (DC) Follow Up With: Rina Kaba MD [Primary Care Provider] - - Diet and Activity Activity: as per physical therapy, increase activity as tolerated, wear oxygen at all times Diet: low fat, low cholesterol, low salt diet Hospital course: Ms. Melendez is a 76 year old female with multiple medical comorbidities including hypertension, coronary artery disease, morbid obesity, MESERET, chronic back pain and degenerative joint disease presented to the hospital due to worsening shortness of breath. She was diagnosed with CHF exacerbation and acute hypoxic respiratory failure. She was admitted to the medical service and received treatment with IV steroids and inhaled bronchodilators. She responded well to this treatment however she started having increasingly severe lower back pain. Acute pain service was consulted and they recommended starting muscle relaxant, oral opiates and dosing gabapentin 3 times daily. I have updated titrated her pain medications and currently her back pain is tolerable. Her COPD is back to baseline and will she will be discharged on a prednisone taper. She was prescribed home oxygen due to chronic hypoxic respiratory failure with oxygen saturation below 88% on room air while at rest. - Time Spent with Patient Total time spent providing and/or coordinating discharge services: Greater than 30 minutes (I have spent 45 minutes coordinating this discharge.) - Constitutional Vitals: Temp Pulse Resp BP Pulse Ox 97.8 F 73 16 137/76 97 12/28/16 07:52 12/28/16 07:52 12/28/16 07:57 12/28/16 07:52 12/28/16 07:57 General appearance: Present: A&O X 3, morbidly obese - Respiratory Respiratory exam: Present: CTAB. Absent: accessory muscle use, rales, rhonchi, wheezes - Cardiovascular Cardiovascular exam: Present: RRR, +S1, +S2. Absent: diastolic murmur, gallop, rubs, systolic murmur - GI/Abdominal GI/Abdominal exam: Present: normal bowel sounds, soft, no peritoneal signs. Absent: distended, tenderness - Extremities Exam Extremities exam: Present: warm, radial pulses palpable and symmetrical. Absent : calf tenderness, cyanotic, pedal edema - Skin Skin exam: Present: dry, intact
--- NOTE | 2016-12-28 11:19 | Physician Discharge Referral ---
Home Health/Hosp Referral Info Transfer to: Home Health Provider in Charge Post Discharge: PCP - Diagnosis (1) Hypertension Status: Chronic (2) Hyperlipidemia Status: Chronic (3) CAD S/P percutaneous coronary angioplasty Status: Chronic (4) Morbid obesity with BMI of 45.0-49.9, adult Status: Chronic (5) Paroxysmal atrial fibrillation Status: Chronic (6) CKD (chronic kidney disease), stage III Status: Chronic (7) Acute respiratory failure with hypoxia Status: Acute (8) COPD exacerbation Status: Acute (9) CHF (congestive heart failure) Status: Acute (10) Lumbar radiculopathy Status: Chronic - Respiratory Orders Oxygen / L per min Smoking Cessation: Smoking cessation has been advised. For more information, call the [place] Tobacco Quit Line at 0-877-BAYM-NOW. - Diet/Nutrition Diet/Nutrition Orders: No Added Salt (EDWIN), Cardiac - Activity Activity Orders: Walker - Services Needed Following services are medically necessary services: Nursing, Home Health Aide, Physical Therapy, Occupational Therapy - Transfer Medications Prescriptions: Cefdinir [Omnicef] 300 mg PO BID #12 capsule Gabapentin [Neurontin] 200 mg PO TID #90 capsule Metaxalone [Skelaxin] 800 mg PO TID #90 tablet predniSONE [PredniSONE] 60 mg PO DAILY #60 tablet Home Medications: Amiodarone [Cordarone] 200 mg PO DAILY 12/01/16 [History] Ascorbic Acid [Vitamin C] 1,000 mg PO DAILY 12/01/16 [History] Calcium Carb,Cit/D3/Phytostrol [Citracal D + Heart Health Tab] 1 each PO DAILY 12/01/16 [History] Esomeprazole Magnesium [Nexium 24Hr] 20 mg PO BID 12/01/16 [History] Ezetimibe [Zetia] 10 mg PO DAILY 12/01/16 [History] FLUoxetine HCl [Fluoxetine HCl] 40 mg PO DAILY 12/01/16 [History] Levothyroxine [Synthroid] 100 mcg PO 0630 12/01/16 [History] Losartan [Cozaar] 100 mg PO DAILY 12/01/16 [History] Multivitamin [Multivitamins] 1 each PO DAILY 12/01/16 [History] Potassium 10 meq PO TID 12/01/16 [History] Prasugrel [Effient] 10 mg PO DAILY 12/01/16 [History] Rivaroxaban [Xarelto] 15 mg PO 1700 12/01/16 [History] Zolpidem [Ambien] 5 mg PO HS 12/01/16 [History] Carvedilol 3.125 mg PO BID 12/02/16 [History] Ipratropium Neb [Atrovent Neb] 0.5 mg IH TID 12/23/16 [History] Levalbuterol Neb [Xopenex Neb] 0.63 mg IH TID 12/23/16 [History] Oxycodone HCl/Acetaminophen [Percocet 5-325 mg Tablet] 1 each PO Q6H PRN [History] Spironolactone [Aldactone] 25 mg PO BID 12/23/16 [History] RisperiDONE [Risperidone Odt] 1 mg PO DAILY 12/24/16 [History] Cefdinir [Omnicef] 300 mg PO BID #12 capsule 12/28/16 [Rx] Furosemide [Lasix] 40 mg PO BID #0 12/28/16 [Rx] Gabapentin [Neurontin] 200 mg PO TID #90 capsule 12/28/16 [Rx] Metaxalone [Skelaxin] 800 mg PO TID #90 tablet 12/28/16 [Rx] Sennosides/Docusate Sodium [Senna Plus] 1 each PO BID PRN tablet 12/28/16 [Rx] predniSONE [PredniSONE] 60 mg PO DAILY #60 tablet 12/28/16 [Rx] Allergies/Adverse Reactions: 3 Allergy/AdvReac Type Severity Reaction Status Date / Time olanzapine [From Zyprexa] Allergy See Verified 12/13/16 15:34 Comments ciprofloxacin [From Cipro] AdvReac Vomiting Verified 12/13/16 15:34 Erythromycin Base AdvReac Vomiting Verified 12/13/16 15:34 Sulfa (Sulfonamide AdvReac Vomiting Verified 12/13/16 15:34 Antibiotics) ivp DYE Allergy Hives Uncoded 12/13/16 15:34 Certification: Further, I certify that my clinical findings support that this patient is homebound (i.e. absences from home require considerable and taxing effort and are for medical reasons or [facility] services or infrequently or short duration when for other reasons) because: Homebound Reason: Patient requires assistance of a person or device to safely leave home, Leaving home requires considerable and taxing effort due to condition, Severity of cardiac or pulmonary status limits activity tolerance Attestation: My signature below is to certify that this patient is under my care and that I, or nurse practitioner, or a physician's assistant case manager working with me, has a face-to -face encounter with this patient.
[2016-12-28 11:48] VITALS: BP 112/60
== END 2016-12-28 14:22 | disposition home health service (06) | DRG 190 ==
LOC: 3BNU 16:12 → EMEROO 16:12 → 3BNU 23:59 → SUATTDRO 12-24 05:31
PROVIDERS: ADMIT Internal Medicine; ATTEND Internal Medicine

== ENCOUNTER 2017-01-03 08:37 | Observation (INO) ==
--- NOTE | 2017-01-03 08:47 | Emergency Department Note ---
Disposition Clinical Impression: Confusion, Rectal bleeding, Generalized weakness Disposition: Admitted As Inpatient Condition: Fair Referrals: Rina Kaba MD [Primary Care Provider] - Forms: ED Satisfaction Letter Time of Disposition: 11:43 General Adult HPI - General Chief complaint: ED Altered Mental Status Stated complaint: Confusion Time Seen by Provider: 01/03/17 08:39 Source: patient, family, EMS Mode of arrival: EMS Limitations: altered mental status Nursing Notes Reviewed: Yes Vital Signs Reviewed: Yes - History of Present Illness HPI Narrative: 76-year-old who has a history renal insufficiency is had altered mental status and some lethargy last couple days with generalized weakness. It is not on dialysis. They do not report of fever. Patient is somnolent but does arouse to verbal stimuli. Pt Subjective Complaint: Generalized weakness Onset (ago): hour(s) Location: other Radiation: other Pain Severity: moderate Pain Scale: 0 Quality: aching Consistency: constant Improves with: nothing Worsens with: nothing Associated symptoms: Reports: confusion Treatments Prior to Arrival: other (IV fluids) - Related Data Home Medications Medication Instructions Recorded Confirmed Amiodarone [Cordarone] 200 mg PO DAILY 12/01/16 12/23/16 Ascorbic Acid [Vitamin C] 1,000 mg PO DAILY 12/01/16 12/23/16 Calcium Carb,Cit/D3/Phytostrol 1 each PO DAILY 12/01/16 12/23/16 [Citracal D + Heart Health Tab] Esomeprazole Magnesium [Nexium 20 mg PO BID 12/01/16 12/24/16 24Hr] Ezetimibe [Zetia] 10 mg PO DAILY 12/01/16 12/23/16 FLUoxetine HCl [Fluoxetine HCl] 40 mg PO DAILY 12/01/16 12/23/16 Levothyroxine [Synthroid] 100 mcg PO 0630 12/01/16 12/23/16 Losartan [Cozaar] 100 mg PO DAILY 12/01/16 12/23/16 Multivitamin [Multivitamins] 1 each PO DAILY 12/01/16 12/23/16 Potassium 10 meq PO TID 12/01/16 12/23/16 Prasugrel [Effient] 10 mg PO DAILY 12/01/16 12/23/16 Rivaroxaban [Xarelto] 15 mg PO 1700 12/01/16 12/23/16 Zolpidem [Ambien] 5 mg PO HS 12/01/16 12/23/16 Carvedilol 3.125 mg PO BID 12/02/16 12/23/16 Ipratropium Neb [Atrovent Neb] 0.5 mg IH TID 12/23/16 12/23/16 Levalbuterol Neb [Xopenex Neb] 0.63 mg IH TID 12/23/16 12/23/16 Oxycodone HCl/Acetaminophen 1 each PO Q6H PRN 12/23/16 12/23/16 [Percocet 5-325 mg Tablet] Spironolactone [Aldactone] 25 mg PO BID 12/23/16 12/24/16 RisperiDONE [Risperidone Odt] 1 mg PO DAILY 12/24/16 12/24/16 Previous Rx's Medication Instructions Recorded Cefdinir [Omnicef] 300 mg PO BID #12 capsule 12/28/16 Furosemide [Lasix] 40 mg PO BID #0 12/28/16 Gabapentin [Neurontin] 200 mg PO TID #90 capsule 12/28/16 Metaxalone [Skelaxin] 800 mg PO TID #90 tablet 12/28/16 Sennosides/Docusate Sodium [Senna 1 each PO BID PRN tablet 12/28/16 Plus] predniSONE [PredniSONE] 60 mg PO DAILY #60 tablet 12/28/16 Allergies Allergy/AdvReac Type Severity Reaction Status Date / Time olanzapine [From Zyprexa] Allergy See Verified 12/13/16 15:34 Comments ciprofloxacin [From Cipro] AdvReac Vomiting Verified 12/13/16 15:34 Erythromycin Base AdvReac Vomiting Verified 12/13/16 15:34 Sulfa (Sulfonamide AdvReac Vomiting Verified 12/13/16 15:34 Antibiotics) ivp DYE Allergy Hives Uncoded 12/13/16 15:34 All systems ED: reviewed and negative except as stated. Constitutional: Reports: weakness (Generalized). Denies: fever, chills, weight change Eyes: Denies: eye pain, eye discharge, vision change ENT ED: Denies: ear pain, throat pain, dental pain, hearing loss, epistaxis, congestion, dysphagia Cardiovascular: Denies: chest pain, palpitations, dyspnea on exertion, edema, syncope Respiratory: Denies: cough, dyspnea, wheezes, hemoptysis, stridor Gastrointestinal: Denies: abdominal pain, nausea, vomiting, diarrhea, constipation, hematemesis, melena, hematochezia Genitourinary: Denies: dysuria, frequency, hematuria, discharge Musculoskeletal: Reports: arthralgia. Denies: back pain, neck pain, myalgia Integumentary: Denies: rash, abrasion, lesions Neurological: Reports: confusion. Denies: headache, weakness, numbness, paresthesias, abnormal gait, vertigo Psychiatric: Denies: anxiety, depression, suicidal thoughts, homicidal thoughts , auditory hallucinations, visual hallucinations Endocrine: Denies: fatigue Hematological/Lymphatic: Denies: easy bleeding, easy bruising Allergic/Immunologic: Denies: facial swelling, urticaria Past Medical History - Past Medical History Medical history: Reports: atrial fibrillation (Paroxysmal, On Xarelto), COPD ( Oxygen dependent), coronary artery disease (History of stents), GERD, hypertension, myocardial infarction, renal disease (Chronic kidney disease stage III), thyroid disease (Hypothyroidism), other (Morbid obesity, polymyalgia rheumatica on 20 mg of prednisone, iron deficiency anemia, peripheral vascular disease, diverticulitis, gastric ulcer, multiple transfusions since 2012, mild aortic insufficiency, obstructive sleep apnea using CPAP, diastolic CHF) Surgical history: Reports: appendectomy, cataract, cholecystectomy, hysterectomy , other (Negative capsule study, partial thyroidectomy and laminectomy) Psychiatric history: Reports: no psych history TOOLMAKER HELPER history: Reports: no TOOLMAKER HELPER history - Social History Smoking Status: Former smoker Smokeless Tobacco Status: No Alcohol use: Reports: none Drug use: Reports: none Physical Exam - General Limitations: altered mental status (Patient is somnolent but does answer questions appropriately with verbal stimuli.) General appearance: lethargic - Head Head exam: atraumatic, normocephalic, normal inspection - Eye Eye exam: Present: normal appearance, PERRL, EOMI - ENT ENT exam: normal exam, normal oropharynx, mucous membranes moist - Neck Neck exam: Present: normal inspection, full ROM, trachea midline - Chest Chest inspection: Present: normal inspection, symmetric chest wall rise - Respiratory Respiratory exam: Present: normal lung sounds bilaterally - Cardiovascular Cardiovascular exam: Present: regular rate, normal rhythm, normal heart sounds - Abdominal Exam Abdominal exam: Present: soft, Non-Tender. Absent: tenderness, distention, guarding, rebound, rigidity - Extremities Exam Extremities exam: Present: normal inspection, full ROM. Absent: tenderness, pedal edema - Expanded Lower Extremity Exam Neurovascular/Tendon exam: Absent: motor deficit, sensory deficit, tendon deficit Gait: not tested/not observed - Back Exam Back exam: Present: normal inspection - Neurological Exam Neurological exam: Absent: motor sensory deficit - Psychiatric Psychiatric exam: Present: normal affect, normal mood - Skin Skin exam: Present: warm, dry, intact, normal color Course - Reevaluation(s) Reevaluation #1: Patient's blood pressure is marginal, her creatinine is elevated at 2.65 and gets up from 1.59. Echocardiogram done earlier this year shows EF 65% it appears patient is dry we'll give her fluids to see if her blood pressure doesn' t respond. Time: 09:47 - Consultations Consultation #1: Discussed with Dr. Campo, marlon. Time: 11:42 Vital Signs Temperature 98.9 F 01/03/17 08:39 Pulse Rate 93 01/03/17 08:39 Respiratory Rate 11 01/03/17 08:39 Blood Pressure 114/71 01/03/17 08:39 O2 Sat by Pulse Oximetry 92 01/03/17 08:39 Temperature 98.9 F 01/03/17 08:39 Pulse Rate 78 01/03/17 11:10 Respiratory Rate 12 01/03/17 11:10 Blood Pressure 109/34 01/03/17 11:10 O2 Sat by Pulse Oximetry 100 01/03/17 11:10 Oxygen Delivery Oxygen Delivery Nasal Cannula Medical Decision Making - Lab Data Result diagrams: 01/03/17 08:55 01/03/17 08:55 Lab Results 01/03/17 01/03/17 01/03/17 Range/Units 08:55 08:55 08:55 WBC 11.9 H (4.3-11.1) K/mcL RBC 3.30 L (3.82-4.97) M/mcL Hgb 8.5 L (11.5-15.4) g/dL Hct 28.5 L (35.3-44.9) % MCV 86.4 (83.0-100.0) fL MCH 25.8 L (28.0-33.3) pg MCHC 29.8 L (31.6-35.5) g/dL RDW 16.6 H (11.5-14.5) % Plt Count 243 (140-400) K/mcL MPV 10.4 (9.4-12.4) fL Immature Gran % 3.7 (0-4) % Seg Neutrophils % 68.0 % Lymphocytes % 18.1 % Monocytes % 9.4 % Eosinophils % 0.7 % Basophils % 0.1 % Neutrophils # 8.1 (1.6-8.9) K/mcL Lymphocytes # 2.2 (0.6-4.6) K/mcL Monocytes # 1.1 (0.0-1.3) K/mcL Eosinophils # 0.1 (0.0-0.6) K/mcL Basophils # 0.0 (0.0-0.2) K/mcL Nucleated RBCs/100 WBC 0.8 H (0) /100 WBC Immature Plt Fraction 3.9 (1.1-6.1) % PT 11.2 (9.4-12.1) Seconds INR 1.0 APTT 21.9 L (26.0-36.0) Seconds VBG pH (7.32-7.42) pH Units VBG pCO2 (41-51) mmHg VBG pO2 (25-50) mmHg VBG HCO3 (21-27) mEq/L Inspired O2 (1-15=lpm [id number]=%) Sodium 140 (136-145) mEq/L Potassium 4.3 (3.5-4.5) mEq/L Chloride 99 (98-109) mEq/L Carbon Dioxide 28 (19-29) mEq/L BUN 34 H (7-20) mg/dL Creatinine 2.65 H (0.57-1.11) mg/dL Est GFR ( Amer) 21 L (> 60) Est GFR (Non-Af Amer) 18 L (> 60) BUN/Creatinine Ratio 13 (6-26) Glucose 158 H (70-99) mg/dL Calculated Osmolality 301 H (280-300) Lactic Acid (0.5-2.2) mmol/L Calcium 10.1 (8.6-10.8) mg/dL Total Bilirubin 0.4 (0.2-1.2) mg/dL Direct Bilirubin 0.1 (0.0-0.5) mg/dL Indirect Bilirubin 0.3 (0.0-1.2) mg/dL AST 13 (5-34) Units/L ALT 28 (0-55) Units/L Alkaline Phosphatase 73 (38-126) Units/L Ammonia (18-72) mcmol/L Troponin I (0-0.03) ng/mL B-Natriuretic Peptide (0-100) pg/mL Serum Total Protein 5.3 L (6.0-8.3) g/dL Albumin 2.6 L (3.5-5.0) g/dL Globulin 2.7 (2.4-3.5) g/dL Albumin/Globulin Ratio 1.0 L (1.1-2.2) Urine Color (Yellow) Urine Clarity (Clear) Urine pH (5.0-8.0) pH Units Ur Specific [place] (1.010-1.025) Urine Protein (Neg-Trace) mg/dL Urine Glucose (UA) (Normal) mg/dL Urine Ketones (Negative) mg/dL Urine Blood (Negative) Urine Nitrite (Negative) Urine Bilirubin (Negative) Urine Urobilinogen (Normal) mg/dL Ur Leukocyte Esterase (Negative) Urine Microscopic RBC (0-3) per hpf Ur Squamous Epith Cells (None-Few) per lpf Ur Transition Epith Cell (None-Few) per hpf Calcium Oxalate Crystal Urine Bacteria (None-Few) per hpf Hyaline Casts (None-Few) per lpf Ur Culture Indicated? (NO) Urine Opiates Screen (Wzsoei=583) ng/mL Ur Barbiturates Screen (Eidgki=786) ng/mL Ur Phencyclidine Scrn (Cutoff=25) ng/mL Ur Amphetamines Screen (Ygskit=7140) ng/mL U Benzodiazepines Scrn (Tjyffq=570) ng/mL Urine Cocaine Screen (Cutoff= 300) ng/mL U Marijuana (THC) Screen (Cutoff = 50) ng/mL Ethyl Alcohol < 10 (0-10) mg/dL 01/03/17 01/03/17 01/03/17 Range/Units 08:55 08:55 08:55 WBC (4.3-11.1) K/mcL RBC (3.82-4.97) M/mcL Hgb (11.5-15.4) g/dL Hct (35.3-44.9) % MCV (83.0-100.0) fL MCH (28.0-33.3) pg MCHC (31.6-35.5) g/dL RDW (11.5-14.5) % Plt Count (140-400) K/mcL MPV (9.4-12.4) fL Immature Gran % (0-4) % Seg Neutrophils % % Lymphocytes % % Monocytes % % Eosinophils % % Basophils % % Neutrophils # (1.6-8.9) K/mcL Lymphocytes # (0.6-4.6) K/mcL Monocytes # (0.0-1.3) K/mcL Eosinophils # (0.0-0.6) K/mcL Basophils # (0.0-0.2) K/mcL Nucleated RBCs/100 WBC (0) /100 WBC Immature Plt Fraction (1.1-6.1) % PT (9.4-12.1) Seconds INR APTT (26.0-36.0) Seconds VBG pH (7.32-7.42) pH Units VBG pCO2 (41-51) mmHg VBG pO2 (25-50) mmHg VBG HCO3 (21-27) mEq/L Inspired O2 (1-15=lpm [id number]=%) Sodium (136-145) mEq/L Potassium (3.5-4.5) mEq/L Chloride (98-109) mEq/L Carbon Dioxide (19-29) mEq/L BUN (7-20) mg/dL Creatinine (0.57-1.11) mg/dL Est GFR ( Amer) (> 60) Est GFR (Non-Af Amer) (> 60) BUN/Creatinine Ratio (6-26) Glucose (70-99) mg/dL Calculated Osmolality (280-300) Lactic Acid (0.5-2.2) mmol/L Calcium (8.6-10.8) mg/dL Total Bilirubin (0.2-1.2) mg/dL Direct Bilirubin (0.0-0.5) mg/dL Indirect Bilirubin (0.0-1.2) mg/dL AST (5-34) Units/L ALT (0-55) Units/L Alkaline Phosphatase (38-126) Units/L Ammonia 25 (18-72) mcmol/L Troponin I 0.03 (0-0.03) ng/mL B-Natriuretic Peptide 40 (0-100) pg/mL Serum Total Protein (6.0-8.3) g/dL Albumin (3.5-5.0) g/dL Globulin (2.4-3.5) g/dL Albumin/Globulin Ratio (1.1-2.2) Urine Color (Yellow) Urine Clarity (Clear) Urine pH (5.0-8.0) pH Units Ur Specific [place] (1.010-1.025) Urine Protein (Neg-Trace) mg/dL Urine Glucose (UA) (Normal) mg/dL Urine Ketones (Negative) mg/dL Urine Blood (Negative) Urine Nitrite (Negative) Urine Bilirubin (Negative) Urine Urobilinogen (Normal) mg/dL Ur Leukocyte Esterase (Negative) Urine Microscopic RBC (0-3) per hpf Ur Squamous Epith Cells (None-Few) per lpf Ur Transition Epith Cell (None-Few) per hpf Calcium Oxalate Crystal Urine Bacteria (None-Few) per hpf Hyaline Casts (None-Few) per lpf Ur Culture Indicated? (NO) Urine Opiates Screen (Nxwzid=016) ng/mL Ur Barbiturates Screen (Bqivod=397) ng/mL Ur Phencyclidine Scrn (Cutoff=25) ng/mL Ur Amphetamines Screen (Ndpkqs=3163) ng/mL U Benzodiazepines Scrn (Aqpeph=709) ng/mL Urine Cocaine Screen (Cutoff= 300) ng/mL U Marijuana (THC) Screen (Cutoff = 50) ng/mL Ethyl Alcohol (0-10) mg/dL 01/03/17 01/03/17 01/03/17 Range/Units 08:56 08:58 08:58 WBC (4.3-11.1) K/mcL RBC (3.82-4.97) M/mcL Hgb (11.5-15.4) g/dL Hct (35.3-44.9) % MCV (83.0-100.0) fL MCH (28.0-33.3) pg MCHC (31.6-35.5) g/dL RDW (11.5-14.5) % Plt Count (140-400) K/mcL MPV (9.4-12.4) fL Immature Gran % (0-4) % Seg Neutrophils % % Lymphocytes % % Monocytes % % Eosinophils % % Basophils % % Neutrophils # (1.6-8.9) K/mcL Lymphocytes # (0.6-4.6) K/mcL Monocytes # (0.0-1.3) K/mcL Eosinophils # (0.0-0.6) K/mcL Basophils # (0.0-0.2) K/mcL Nucleated RBCs/100 WBC (0) /100 WBC Immature Plt Fraction (1.1-6.1) % PT (9.4-12.1) Seconds INR APTT (26.0-36.0) Seconds VBG pH 7.50 H (7.32-7.42) pH Units VBG pCO2 37 L (41-51) mmHg VBG pO2 64 H (25-50) mmHg VBG HCO3 28 H (21-27) mEq/L Inspired O2 4.0 (1-15=lpm [id number]=%) Sodium (136-145) mEq/L Potassium (3.5-4.5) mEq/L Chloride (98-109) mEq/L Carbon Dioxide (19-29) mEq/L BUN (7-20) mg/dL Creatinine (0.57-1.11) mg/dL Est GFR ( Amer) (> 60) Est GFR (Non-Af Amer) (> 60) BUN/Creatinine Ratio (6-26) Glucose (70-99) mg/dL Calculated Osmolality (280-300) Lactic Acid (0.5-2.2) mmol/L Calcium (8.6-10.8) mg/dL Total Bilirubin (0.2-1.2) mg/dL Direct Bilirubin (0.0-0.5) mg/dL Indirect Bilirubin (0.0-1.2) mg/dL AST (5-34) Units/L ALT (0-55) Units/L Alkaline Phosphatase (38-126) Units/L Ammonia (18-72) mcmol/L Troponin I (0-0.03) ng/mL B-Natriuretic Peptide (0-100) pg/mL Serum Total Protein (6.0-8.3) g/dL Albumin (3.5-5.0) g/dL Globulin (2.4-3.5) g/dL Albumin/Globulin Ratio (1.1-2.2) Urine Color Yellow (Yellow) Urine Clarity Clear (Clear) Urine pH 5.0 (5.0-8.0) pH Units Ur Specific [place] 1.025 (1.010-1.025) Urine Protein Negative (Neg-Trace) mg/dL Urine Glucose (UA) 250 H (Normal) mg/dL Urine Ketones Trace H (Negative) mg/dL Urine Blood Negative (Negative) Urine Nitrite Negative (Negative) Urine Bilirubin Small H (Negative) Urine Urobilinogen Normal (Normal) mg/dL Ur Leukocyte Esterase Negative (Negative) Urine Microscopic RBC 0-3 (0-3) per hpf Ur Squamous Epith Cells Many H (None-Few) per lpf Ur Transition Epith Cell Few (None-Few) per hpf Calcium Oxalate Crystal Present Urine Bacteria None Seen (None-Few) per hpf Hyaline Casts Many H (None-Few) per lpf Ur Culture Indicated? NO (NO) Urine Opiates Screen Negative (Vhsevc=615) ng/mL Ur Barbiturates Screen Negative (Gchehl=468) ng/mL Ur Phencyclidine Scrn Negative (Cutoff=25) ng/mL Ur Amphetamines Screen Negative (Mktlfe=1592) ng/mL U Benzodiazepines Scrn Negative (Leewls=748) ng/mL Urine Cocaine Screen Negative (Cutoff= 300) ng/mL U Marijuana (THC) Screen Negative (Cutoff = 50) ng/mL Ethyl Alcohol (0-10) mg/dL 01/03/17 Range/Units 09:54 WBC (4.3-11.1) K/mcL RBC (3.82-4.97) M/mcL Hgb (11.5-15.4) g/dL Hct (35.3-44.9) % MCV (83.0-100.0) fL MCH (28.0-33.3) pg MCHC (31.6-35.5) g/dL RDW (11.5-14.5) % Plt Count (140-400) K/mcL MPV (9.4-12.4) fL Immature Gran % (0-4) % Seg Neutrophils % % Lymphocytes % % Monocytes % % Eosinophils % % Basophils % % Neutrophils # (1.6-8.9) K/mcL Lymphocytes # (0.6-4.6) K/mcL Monocytes # (0.0-1.3) K/mcL Eosinophils # (0.0-0.6) K/mcL Basophils # (0.0-0.2) K/mcL Nucleated RBCs/100 WBC (0) /100 WBC Immature Plt Fraction (1.1-6.1) % PT (9.4-12.1) Seconds INR APTT (26.0-36.0) Seconds VBG pH (7.32-7.42) pH Units VBG pCO2 (41-51) mmHg VBG pO2 (25-50) mmHg VBG HCO3 (21-27) mEq/L Inspired O2 (1-15=lpm gp95-167=%) Sodium (136-145) mEq/L Potassium (3.5-4.5) mEq/L Chloride (98-109) mEq/L Carbon Dioxide (19-29) mEq/L BUN (7-20) mg/dL Creatinine (0.57-1.11) mg/dL Est GFR ( Amer) (> 60) Est GFR (Non-Af Amer) (> 60) BUN/Creatinine Ratio (6-26) Glucose (70-99) mg/dL Calculated Osmolality (280-300) Lactic Acid 3.5 H (0.5-2.2) mmol/L Calcium (8.6-10.8) mg/dL Total Bilirubin (0.2-1.2) mg/dL Direct Bilirubin (0.0-0.5) mg/dL Indirect Bilirubin (0.0-1.2) mg/dL AST (5-34) Units/L ALT (0-55) Units/L Alkaline Phosphatase (38-126) Units/L Ammonia (18-72) mcmol/L Troponin I (0-0.03) ng/mL B-Natriuretic Peptide (0-100) pg/mL Serum Total Protein (6.0-8.3) g/dL Albumin (3.5-5.0) g/dL Globulin (2.4-3.5) g/dL Albumin/Globulin Ratio (1.1-2.2) Urine Color (Yellow) Urine Clarity (Clear) Urine pH (5.0-8.0) pH Units Ur Specific [place] (1.010-1.025) Urine Protein (Neg-Trace) mg/dL Urine Glucose (UA) (Normal) mg/dL Urine Ketones (Negative) mg/dL Urine Blood (Negative) Urine Nitrite (Negative) Urine Bilirubin (Negative) Urine Urobilinogen (Normal) mg/dL Ur Leukocyte Esterase (Negative) Urine Microscopic RBC (0-3) per hpf Ur Squamous Epith Cells (None-Few) per lpf Ur Transition Epith Cell (None-Few) per hpf Calcium Oxalate Crystal Urine Bacteria (None-Few) per hpf Hyaline Casts (None-Few) per lpf Ur Culture Indicated? (NO) Urine Opiates Screen (Iqhhjl=674) ng/mL Ur Barbiturates Screen (Icshim=795) ng/mL Ur Phencyclidine Scrn (Cutoff=25) ng/mL Ur Amphetamines Screen (Wvmoih=5976) ng/mL U Benzodiazepines Scrn (Togapw=723) ng/mL Urine Cocaine Screen (Cutoff= 300) ng/mL U Marijuana (THC) Screen (Cutoff = 50) ng/mL Ethyl Alcohol (0-10) mg/dL - EKG Data EKG #1 EKG shows normal: sinus rhythm Rate: normal Rhythm: NSR [place]/QRS: RBBB ST segment depression in: v3, v4, v5, v6 (She did have previous ST depression in lead V3 and V4, currently has depression in V5 and 6 as well as V34) Critical Care Time Critical Care Time: Yes Total Critical Care Time: 30 Attestation: The high probability of a clinically significant, sudden or life threatening deterioration of the [cardiovascular] system(s) required my full and direct attention, intervention and personal management. The aggregate critical care time was [30] minutes. This time is in addition to time spent performing reported procedures but includes the following: [x] Data Review and interpretation [x] Patient assessment and monitoring of vital signs [x] Documentation [x] Medication orders and management
[2017-01-03 08:59] LABS: VBG HCO3 28 mEq/L (21-27); VBG PCO2 37 mmHg (41-51); VBG PO2 64 mmHg (25-50)
[2017-01-03] MEDS ORDERED: Ondansetron 4 MG/2 ML VIAL IVP ONE ×3 (09:00→10:28)
[2017-01-03 09:03] LABS: Basophils % 0.1 %; Eosinophils # 0.1 K/mcL (0.0-0.6); Eosinophils % 0.7 %; Hematocrit 28.5 % (35.3-44.9); Hemoglobin 8.5 g/dL (11.5-15.4); Immature Granulocytes % 3.7 % (0-4); Immature Platelets 3.9 % (1.1-6.1); Lymphocytes # 2.2 K/mcL (0.6-4.6); Lymphocytes % 18.1 %; Mean Corpuscular HGB Conc 29.8 g/dL (31.6-35.5); Mean Corpuscular Hemoglobin 25.8 pg (28.0-33.3); Mean Corpuscular Volume 86.4 fL (83.0-100.0); Mean Platelet Volume 10.4 fL (9.4-12.4); Monocytes # 1.1 K/mcL (0.0-1.3); Monocytes % 9.4 %; Neutrophils # 8.1 K/mcL (1.6-8.9); Nucleated Red Blood Cells 0.8 /100 WBC (0); Platelet Count 243 K/mcL (140-400); Red Cell Distribution Width 16.6 % (11.5-14.5)
[2017-01-03 09:07] LABS: Prothrombin Time 11.2 Seconds (9.4-12.1)
[2017-01-03 09:07] LABS: Bilirubin,Urine Small (Negative); Blood,Urine Negative (Negative); Color,Urine Yellow (Yellow); Glucose,Urine (UA) 250 mg/dL (Normal); Ketones,Urine Trace mg/dL (Negative); Leukocyte Esterase,Urine Negative (Negative); Nitrite,Urine Negative (Negative); Protein,Urine Negative (Neg-Trace); Specific Gravity,Urine 1.025 (1.010-1.025); Urobilinogen,Urine Normal (Normal)
[2017-01-03 09:09] LABS: Bacteria,Urine None Seen per hpf (None-Few); Squamous Epithelial Cell,Urine Many per lpf (None-Few)
[2017-01-03 09:10] LABS: Clarity,Urine Clear (Clear)
[2017-01-03 09:10] LABS: Activated Partial Thrombo Time 21.9 Seconds (26.0-36.0)
[2017-01-03 09:14] LABS: Amphetamine Screen,Urine Negative ng/mL (Cutoff=1000); Barbiturate Screen,Urine Negative ng/mL (Cutoff=200); Benzodiazepines Screen,Urine Negative ng/mL (Cutoff=200); Cannabinoid Screen,Urine Negative ng/mL (Cutoff = 50); Cocaine Screen,Urine Negative ng/mL (Cutoff= 300); Opiate Screen,Urine Negative ng/mL (Cutoff=300); Phencyclidine Screen,Urine Negative ng/mL (Cutoff=25)
[2017-01-03 09:16] LABS: Alanine Aminotransferase 28 Units/L (0-55); Albumin 2.6 g/dL (3.5-5.0); Alkaline Phosphatase 73 Units/L (38-126); Aspartate Amino Transferase 13 Units/L (5-34); BUN/Creatinine Ratio 13 (6-26); Bilirubin,Direct 0.1 mg/dL (0.0-0.5); Bilirubin,Indirect 0.3 mg/dL (0.0-1.2); Bilirubin,Total 0.4 mg/dL (0.2-1.2); Blood Urea Nitrogen 34 mg/dL (7-20); Calcium 10.1 mg/dL (8.6-10.8); Carbon Dioxide 28 mEq/L (19-29); Chloride 99 mEq/L (98-109); Globulin 2.7 g/dL (2.4-3.5); Glucose 158 mg/dL (70-99); Osmolality,Calculated 301 (280-300); Potassium 4.3 mEq/L (3.5-4.5); Sodium 140 mEq/L (136-145); Total Protein 5.3 g/dL (6.0-8.3); eGFR For African Americans 21 (> 60); eGFR For Non-African Americans 18 (> 60)
[2017-01-03 09:17] LABS: Ethanol < 10 mg/dL (0-10)
[2017-01-03 09:19] LABS: Hyaline Casts,Urine Many per lpf (None-Few)
[2017-01-03 09:20] LABS: Calcium Oxalate Crystals,Urine Present; RBC,Urine 0-3 per hpf (0-3); Transitional Epi Cells,Urine Few per hpf (None-Few)
[2017-01-03] MEDS ORDERED: 0.9 % Sodium Chloride 1,000 ML IVC ONE (09:39)
[2017-01-03] MEDS ORDERED: *HR* LORazepam 2 MG/ML VIAL IVP ONE ×2 (13:57→22:31)
[2017-01-03] MEDS ORDERED: Sennosides/Docusate Sodium TABLET PO PRN (14:07)
[2017-01-03] MEDS ORDERED: Ondansetron 4 MG/2 ML VIAL IVP PRN (14:35)
[2017-01-03] MEDS ORDERED: Naloxone 0.4 MG/ML INJ IVP PRN (14:35)
[2017-01-03] MEDS ORDERED: D5% in Water 1,000 ML IVC PRN (14:47)
[2017-01-03] MEDS ORDERED: *HR* Dextrose 50 % in Water (Syg) 50 ML SYRINGE IVP PRN (14:47)
[2017-01-03] MEDS ORDERED: Dextrose Gel 15 GM PO PRN ×2 (14:47)
[2017-01-03] MEDS ORDERED: Gabapentin 100 MG CAPSULE PO SCH (15:00)
--- NOTE | 2017-01-03 15:17 | Internal Med History&Physical ---
<Wendy Campo E - Last Filed: 01/03/17 16:07> Date of Encounter: 01/03/17 Internal Medicine - H&P: HPI History of present illness: Ms. Melendez is a 76 year old female Internal Medicine - H&P: Meds Amiodarone [Cordarone] 200 mg PO DAILY 12/01/16 [History] Ascorbic Acid [Vitamin C] 1,000 mg PO DAILY 12/01/16 [History] Calcium Carb,Cit/D3/Phytostrol [Citracal D + Heart Health Tab] 1 each PO DAILY 12/01/16 [History] Esomeprazole Magnesium [Nexium 24Hr] 20 mg PO BID 12/01/16 [History] Ezetimibe [Zetia] 10 mg PO DAILY 12/01/16 [History] FLUoxetine HCl [Fluoxetine HCl] 40 mg PO DAILY 12/01/16 [History] Levothyroxine [Synthroid] 100 mcg PO 0630 12/01/16 [History] Losartan [Cozaar] 100 mg PO DAILY 12/01/16 [History] Multivitamin [Multivitamins] 1 each PO DAILY 12/01/16 [History] Potassium 10 meq PO TID 12/01/16 [History] Prasugrel [Effient] 10 mg PO DAILY 12/01/16 [History] Rivaroxaban [Xarelto] 15 mg PO 1700 12/01/16 [History] Zolpidem [Ambien] 5 mg PO HS 12/01/16 [History] Carvedilol 3.125 mg PO BID 12/02/16 [History] Ipratropium Neb [Atrovent Neb] 0.5 mg IH TID 12/23/16 [History] Levalbuterol Neb [Xopenex Neb] 0.63 mg IH TID 12/23/16 [History] Oxycodone HCl/Acetaminophen [Percocet 5-325 mg Tablet] 1 each PO Q6H PRN [History] Spironolactone [Aldactone] 25 mg PO BID 12/23/16 [History] RisperiDONE [Risperidone Odt] 1 mg PO DAILY 12/24/16 [History] Cefdinir [Omnicef] 300 mg PO BID #12 capsule 12/28/16 [Rx] Furosemide [Lasix] 40 mg PO BID #0 12/28/16 [Rx] Gabapentin [Neurontin] 200 mg PO TID #90 capsule 12/28/16 [Rx] Metaxalone [Skelaxin] 800 mg PO TID #90 tablet 12/28/16 [Rx] Sennosides/Docusate Sodium [Senna Plus] 1 each PO BID PRN tablet 12/28/16 [Rx] predniSONE [PredniSONE] 60 mg PO DAILY #60 tablet 12/28/16 [Rx] 3 Allergy/AdvReac Type Severity Reaction Status Date / Time olanzapine [From Zyprexa] Allergy See Verified 12/13/16 15:34 Comments ciprofloxacin [From Cipro] AdvReac Vomiting Verified 12/13/16 15:34 Erythromycin Base AdvReac Vomiting Verified 12/13/16 15:34 Sulfa (Sulfonamide AdvReac Vomiting Verified 12/13/16 15:34 Antibiotics) ivp DYE Allergy Hives Uncoded 12/13/16 15:34 All Systems PM: A 10-system review of systems was performed and is negative for pertinent findings except as documented above in the HPI. - Constitutional Vitals: Temp Pulse Resp BP Pulse Ox 98.3 F 77 19 91/45 100 01/03/17 15:28 01/03/17 15:28 01/03/17 15:28 01/03/17 15:28 01/03/17 15:28 Internal Med - H&P Results - Labs CBC & Chem 7: 01/03/17 08:55 01/03/17 08:55 - Attending Attestation Patient seen and examined, agree with assessment and plan by Gregg Clarke. Patient with history of CHF and CKD who presents with altered mentation. According to family she has had significant improvement in her peripheral edema over the past week and then she developed nausea, vomiting and diarrhea over the past 24 hours. This morning she is somnolent and labs in ED showed WILY. Likely she developed WILY as result of dehydration from overdiuresis and then GI illness, which then led to accumulation of multiple sedating medications (benzos , opiates, neurontin, muscle relaxants, etc). Nephrology consulted, appreciate assistance. Received 2L IV NS in ED, will not give more pending evaluation by nephrology. Holding all sedating medications for now. Will treat for possible infectious etiology, however I feel this is likely all secondary to polypharmacy in a patient with WILY. <Gregg Clarke - Last Filed: 01/03/17 18:52> Date of Encounter: 01/03/17 Time of Encounter: 12:30 Assessment and Plan (1) Leukocytosis Current visit: Yes Status: Acute Acute leukocytosis with WBC of 11.9. Pts. family states that she has been on antibiotics (azithromycin and cefdinir) during the past several hospital admissions for bronchitis but reports the pt. has continued to decline. Pt. received Zosyn and azithromycin in the ED. Will continue azithromycin due to patient failing outpatient therapy previously. Continue Zosyn 3.375 gm Q8 for infection coverage. Pt. does not currently meet SIRS criteria but will monitor pt. and f/u labs for signs of increasing infection, cardiac, and/or respiratory distress. Pt. is at high risk for further morbidity based on current sx, failure of OP tx, and risk factors, Observation. Qualifiers: Leukocytosis type: unspecified Qualified Code(s): D72.829 - Elevated white blood cell count, unspecified (2) Confusion Current visit: Yes Status: Acute AMS and confusion for the past 24 hours most likely d/t combination of dehydration status, unresolved infection, and poly-pharmacy of sedating medications. Pts. family reports 5 prior hospital admissions w/abx that they state did not help. Pt. is also taking several sedating and muscle relaxant medications (gabapentin, Skelaxin, opiates, benzos) which we will hold for now until mentation improves. Falls/safety precautions. IVPB Zosyn for infection coverage. (3) Rectal bleeding Current visit: Yes Status: Acute Report of bright blood streak on formed stool today most likely d/t reported hemorrhoids. Will monitor pt. for signs of bleeding. Monitor H/H. Monitor I&O. (4) Weakness Current visit: Yes Status: Acute Acute weakness for the past 24 hours most likely d/t dehydration and unresolved infection. IV bolus in ED. Falls/safety precautions. IVPB Zosyn for infection coverage. PT/OT consults to assess for ambulation strength/stability. (5) Acute kidney injury superimposed on chronic kidney disease Current visit: Yes Status: Acute WILY on CKD. GFR today is 18 as compared to 48 on 12/25/16. Acute drop most likely d/t dehydration r/t vomiting, reduced intake for the past 24 hours, and over-diuresis. Pt. was given a 1 L bolus of fluids in ED. Nephrology consult ordered. Will continue IV fluids based on f/u labs and nephrology recommendations. Monitor follow-up labs, I&O, and daily weight. (6) HTN (hypertension) Current visit: Yes Status: Chronic Hx of chronic HTN. Monitor pt. and VS. Continue carvedilol, Cozaar, and Aldactone. Qualifiers: Hypertension type: essential hypertension Qualified Code(s): I10 - Essential (primary) hypertension (7) HLD (hyperlipidemia) Current visit: Yes Status: Chronic Hx of chronic HLD. Lipid panel in a.m. labs. Continue Zetia. Qualifiers: Hyperlipidemia type: pure hypercholesterolemia Qualified Code(s): E78.00 - Pure hypercholesterolemia, unspecified; E78.0 - Pure hypercholesterolemia (8) Anemia Current visit: Yes Status: Chronic Acute on chronic anemia. Hx of chronic anemia. Pts. family states that she has been transfused several x but Hgb and Hct have not improved. Hgb is 8.5 and Hgb is 28.5 today. Hgb was 8.6 and Hct was 29.0 on 09/30/16. Pts. family states she had streak of bright blood on formed stool today but she has hx of hemorrhoids. B12 IM and folic acid IVPB. Monitor H/H. Pt. is anticoagulated w/Xarelto. Monitor pt. for signs of bleeding. Qualifiers: Anemia type: iron deficiency Iron deficiency anemia type: chronic blood loss Qualified Code(s): D50.0 - Iron deficiency anemia secondary to blood loss (chronic) (9) Hypothyroidism (acquired) Current visit: Yes Status: Chronic Hx of chronic hypothyroidism. Continue Synthroid. (10) Atrial fibrillation Current visit: Yes Status: Chronic Hx of chronic paroxysmal atrial fibrillation. Continue amiodarone. Qualifiers: Atrial fibrillation type: paroxysmal Qualified Code(s): I48.0 - Paroxysmal atrial fibrillation (11) DVT prophylaxis Current visit: Yes Status: Acute Continue patient's Xarelto for DVT prophylaxis. Monitor patient for signs of bleeding. Internal Medicine - H&P: HPI Chief complaint: AMS/Weakness Admitted From: Emergency Dept Plans for Post Hospital Care: Home History of present illness: Ms. Melendez is a 76 year old female with medical history of atrial fibrillation , COPD, CAD, GERD, hypertension, previous HI, renal disease, thyroid disease, and chronic anemia presents from the ED with chief complaint of altered mental status, generalized weakness, nausea and vomiting since last night. Patient patient's family states she was able to use walker to ambulate last night but today was unable to walk. Family states mental status worsened since yesterday. Family also reports patient has been hospitalized approximately 5 times recently with similar symptoms and was placed on azithromycin and cefdinir for infection coverage for bronchitis which did not resolve. Family reports streak of bright blood on formed stool today and reports pt. has hemorrhoids. Patient and patient's family report generalized weakness, shortness of breath, confusion, nausea, and vomiting but deny chest pain, palpitations, fever, chills, abdominal pain, headache, changes in vision, unusual bleeding, numbness, tingling, cough, dizziness, lightheadedness, pre- syncope, or syncope. Past Med Surg Social Fam HX - Past Medical History Source: old records reviewed, obtained from family Medical history: atrial fibrillation (Paroxysmal, On Xarelto), COPD (Oxygen dependent), coronary artery disease (History of stents), GERD, hypertension, myocardial infarction, renal disease (Chronic kidney disease stage III), thyroid disease (Hypothyroidism), other (Morbid obesity, polymyalgia rheumatica on 20 mg of prednisone, iron deficiency anemia, peripheral vascular disease, diverticulitis, gastric ulcer, multiple transfusions since 2011, mild aortic insufficiency, obstructive sleep apnea using CPAP, diastolic CHF) Psychiatric history: no psych history - Past Surgical History Surgical History: appendectomy, cataract, cholecystectomy, hysterectomy, other ( Negative capsule study, partial thyroidectomy and laminectomy) - Social History Smoking Status: Former smoker Smokeless Tobacco Status: No Alcohol use: none Drug use: none Current living situation: Home, With Family Activity Level: Uses cane/walker Recent Out of Country Travel Within the Last 8 Weeks: No Exposure or Possible Exposure to Illness During Travel: No - Family History Father Adopted: No Race: Family Member Ethnicity: Non- Living Status: Age at : 57 Cause of : CHF Hx Family Cardiac Disorders: Yes (CHF) Hx Family Respiratory Disorders: Yes (COPD, Emphysema) Mother Adopted: No Race: Family Member Ethnicity: Non- Living Status: Age at : 66 Cause of : Colonc cancer Hx Family Cancer: Yes (Colon cancer) Brother Race: Family Member Ethnicity: Non- Living Status: Still Living Hx Family Cardiac Disorders: Yes (CAD, CHF) Hx Family Respiratory Disorders: Yes (COPD) Sister Race: Family Member Ethnicity: Non- Living Status: Age at : 72 Cause of : CHF Hx Family Cardiac Disorders: Yes (CHF) ROS unobtainable: due to mental status All Systems PM: A 10-system review of systems was performed and is negative for pertinent findings except as documented above in the HPI. - Constitutional Vitals: Temp Pulse Resp BP Pulse Ox 98.9 F 88 14 101/32 92 01/03/17 08:39 01/03/17 12:04 01/03/17 12:04 01/03/17 12:04 01/03/17 12:04 General appearance: Present: A&O X 0 - Head Head exam: Present: atraumatic, normocephalic - Eye Eye exam: Present: PERRL, conjuntiva pink, sclera anicteric Pupils: Present: PERRL - ENT ENT exam: Present: normal exam - Neck Neck exam general surgery: Present: normal inspection, supple, trachea midline - Respiratory Respiratory exam: Present: accessory muscle use, decreased breath sounds - Cardiovascular Cardiovascular exam: Present: RRR, +S1, +S2. Absent: diastolic murmur, gallop, rubs, systolic murmur - GI/Abdominal GI/Abdominal exam: Present: normal bowel sounds, soft, no peritoneal signs. Absent: distended, tenderness - Rectal Rectal exam: Present: deferred - Additional comments: exam deferred. - Extremities Exam Extremities exam: Present: warm, radial pulses palpable and symmetrical. Absent : calf tenderness, cyanotic, pedal edema - Neurological Exam Neurological exam: Present: altered - Skin Skin exam: Present: dry, intact Internal Med - H&P Results - Labs CBC & Chem 7: 01/03/17 08:55 01/03/17 08:55 - EKG Data EKG shows normal: sinus rhythm - EKG Data Prior EKG available for review: yes EKG comments: 01/03/17 17:53 EKG dated 12/23/16 shows sinus rhythm and right bundle branch block.. EKG dated 01/03/17 shows sinus rhythm with possible right ventricular conduction delay, moderate ST depression. - Diagnostic Studies Chest x-ray Additional comments: Impressions Chest X-Ray 01/03/17 08:39 IMPRESSION: No acute process. Mild bibasilar atelectasis. D/ / 01/03/2017 10:10:49 Prasanna Ding MD / [facility] Interpreting Provider: Prasanna Ding MD CT scan - head Additional comments: Impressions Head CT 01/03/17 08:40 IMPRESSION: 1. No acute intracranial abnormality. 2. Evidence of mild chronic sinusitis with near complete opacification of the right sphenoid sinus which may represent acute versus chronic sinusitis. 3. Stable hyperostosis frontalis interna. Stable 1.4 cm left anterior cranial fossa paramedian densely calcified mass which may represent a calcified meningioma. D/ / 01/03/2017 11:22:41 Blas Garner MD / [facility] Interpreting Provider: Blas Garner MD CT scan - abdomen Additional comments: Impressions Abdomen/Pelvis CT 01/03/17 10:28 IMPRESSION: 1. No acute abdominal or pelvic abnormality on this unenhanced study. 2. Trace bilateral pleural effusions with adjacent atelectasis. D/ / 01/03/2017 11:19:20 Dunia Llanes MD / [facility] Interpreting Provider: Dunia Llanes MD
[2017-01-03] MEDS: Ipratropium/Albuterol Neb 3 ML IH SCH ×2 (16:49→22:00)
[2017-01-03] MEDS: FLUoxetine 20 MG CAPSULE PO SCH (16:51)
[2017-01-03] MEDS: *HR* Amiodarone 200 MG TABLET PO SCH (16:51)
[2017-01-03] MEDS: Pantoprazole 40 MG VIAL IVP SCH (16:52)
[2017-01-03] MEDS: Ipratropium Neb 0.5 MG NEBULIZER IH SCH ×2 (16:52→22:00)
[2017-01-03] MEDS: predniSONE 20 MG TABLET PO SCH (16:52)
[2017-01-03] MEDS: Piperacillin/Tazobactam 3.375 GM in D5% in Water 50 ML IVPB SCH (16:54)
[2017-01-03] MEDS: Insulin LISPRO 300 UNITS/3 ML VIAL SQ SCH ×2 (16:59→21:36)
[2017-01-03] MEDS ORDERED: *HR* Rivaroxaban 15 MG TABLET PO SCH (17:00)
[2017-01-03] MEDS ORDERED: Cyanocobalamin (B-12) 1,000 MCG/ML VIAL IM ONE (18:18)
[2017-01-03] MEDS ORDERED: Folic Acid 1 MG in D5% in Water 50 ML IVPB ONE (18:18)
[2017-01-03] MEDS ORDERED: Spironolactone 25 MG TABLET PO SCH (21:00)
[2017-01-04] MEDS: Piperacillin/Tazobactam 3.375 GM in D5% in Water 50 ML IVPB SCH ×3 (00:03→16:28)
[2017-01-04 03:37] LABS: Basophils % 0.1 %; Hematocrit 25.5 % (35.3-44.9); Hemoglobin 7.5 g/dL (11.5-15.4); Immature Granulocytes % 2.2 % (0-4); Lymphocytes # 0.5 K/mcL (0.6-4.6); Lymphocytes % 4.6 %; Mean Corpuscular HGB Conc 29.4 g/dL (31.6-35.5); Mean Corpuscular Hemoglobin 25.3 pg (28.0-33.3); Mean Corpuscular Volume 85.9 fL (83.0-100.0); Mean Platelet Volume 11.2 fL (9.4-12.4); Monocytes # 0.4 K/mcL (0.0-1.3); Monocytes % 3.3 %; Neutrophils # 9.9 K/mcL (1.6-8.9); Nucleated Red Blood Cells 0.2 /100 WBC (0); Platelet Count 192 K/mcL (140-400); Red Blood Count 2.97 M/mcL (3.82-4.97); Red Cell Distribution Width 16.5 % (11.5-14.5); Segmented Neutrophils % 89.8 %
[2017-01-04 03:46] LABS: Hemoglobin A1C 6.5 %
[2017-01-04 03:51] LABS: Albumin 2.5 g/dL (3.5-5.0); Albumin/Globulin Ratio 0.9 (1.1-2.2); Bilirubin,Total 0.3 mg/dL (0.2-1.2); Calcium 9.1 mg/dL (8.6-10.8); Globulin 2.8 g/dL (2.4-3.5); Magnesium 2.5 mg/dL (1.6-2.6); Total Protein 5.3 g/dL (6.0-8.3)
[2017-01-04 03:52] LABS: Potassium 4.7 mEq/L (3.5-4.5)
[2017-01-04] MEDS: Ipratropium/Albuterol Neb 3 ML IH SCH ×3 (04:20→15:15)
[2017-01-04] MEDS: Ipratropium Neb 0.5 MG NEBULIZER IH SCH ×2 (07:36→15:15)
[2017-01-04 09:26] LABS: Hematocrit 25.7 % (35.3-44.9); Hemoglobin 7.8 g/dL (11.5-15.4)
--- NOTE | 2017-01-04 10:12 | Internal Med Progress Note ---
Date of Encounter: 01/04/17 Time of Encounter: 09:30 - Assessment and plan (1) Acute kidney injury superimposed on chronic kidney disease Current Visit: Yes Status: Acute Assessment and plan: Renal function improved from previous day nephrology consult appreciated holding gabapentin, lasix at this time avoid nephro toxic agents continue to monitor renal function closely (2) Atrial fibrillation with RVR Current Visit: No Status: Chronic Assessment and plan: rate controlled with BB and amiodarone holding anticoagulation given positive stool occult (3) Chronic pain Current Visit: Yes Status: Chronic Assessment and plan: holding gabapentin, benzos, muscle relaxants at this time given AMS mental status back to baseline-AAO x 3. restarted home dose of norco prn pain Qualifiers: Chronic pain type: other chronic pain Qualified Code(s): G89.29 - Other chronic pain (4) CAD S/P percutaneous coronary angioplasty Current Visit: No Status: Chronic Assessment and plan: no signs of angina present at this time continue home meds (5) CHF (congestive heart failure) Current Visit: No Status: Resolved Assessment and plan: not in acute exacerbation holding lasix at this time due to WILY will closely monitor Qualifiers: Congestive heart failure type: diastolic Congestive heart failure chronicity: acute on chronic Qualified Code(s): I50.33 - Acute on chronic diastolic (congestive) heart failure (6) Chronic anemia Current Visit: No Status: Acute Assessment and plan: Noted to have drop in H&H stool occult positive holding xarelto at this time will obtain GI evaluation for possible colonoscopy continue to monitor H&H at this time (7) COPD (chronic obstructive pulmonary disease) Current Visit: No Status: Chronic Assessment and plan: not in acute exacerbation continue home meds pt was recently discharged after being managed for Acute respiratory failure, continue home dose of prednisone Qualifiers: COPD type: unspecified COPD Qualified Code(s): J44.9 - Chronic obstructive pulmonary disease, unspecified (8) DVT prophylaxis Current Visit: Yes Status: Acute Assessment and plan: SCD (9) HLD (hyperlipidemia) Current Visit: Yes Status: Chronic Assessment and plan: continue home meds Qualifiers: Hyperlipidemia type: pure hypercholesterolemia Qualified Code(s): E78.00 - Pure hypercholesterolemia, unspecified; E78.0 - Pure hypercholesterolemia (10) HTN (hypertension) Current Visit: Yes Status: Chronic Assessment and plan: BP within acceptable range continue home meds Qualifiers: Hypertension type: essential hypertension Qualified Code(s): I10 - Essential (primary) hypertension (11) Morbid obesity with BMI of 45.0-49.9, adult Current Visit: No Status: Chronic (12) Leukocytosis Current Visit: Yes Status: Acute Assessment and plan: pt was currently finishing oral abx treatment for URI will continue empiric abx awaiting blood cultures will closely monitor Qualifiers: Leukocytosis type: unspecified Qualified Code(s): D72.829 - Elevated white blood cell count, unspecified (13) Confusion Current Visit: Yes Status: Resolved Assessment and plan: likely secondary to polypharmacy holding sedative agents at this time mental status improved, currently AAO x 3 - Subjective Interval history: Patient seen and examined with family present at bedside. Sitting in bed and reports of feeling weak. Currently AAO x 3 and as per family mental status improving from previous day. As per family, patient has history of chronic anemia requiring PRBC transfusions and iron infusions, she follows DR. Mcadams at the oncology center for her anemia Pt also has history of hemorrhoids and has had EGD and colonoscopies in the last few months. Last colonoscopy on 10/01/16 showed multiple polyps, internal hemorrhoids. Repeat colonoscopy in 3 years was recommended. - Constitutional Vitals: Temp Pulse Resp BP Pulse Ox 97.8 F 75 16 125/61 94 01/04/17 07:32 01/04/17 07:32 01/04/17 07:32 01/04/17 07:32 01/04/17 07:32 General appearance: Present: disheveled, A&O X 3 (fatigued), morbidly obese, no acute distress, answers questions appropriately - Head Head exam: Present: atraumatic, normocephalic - Eye Eye exam: Present: conjuntiva pink, sclera anicteric - Respiratory Respiratory exam: Present: CTAB. Absent: respiratory distress, wheezes - Cardiovascular Cardiovascular exam: Present: RRR, +S1, +S2. Absent: diastolic murmur, gallop, rubs, systolic murmur - GI/Abdominal GI/Abdominal exam: Present: normal bowel sounds, soft. Absent: distended, tenderness - Extremities Exam Extremities exam: Present: warm, radial pulses palpable and symmetrical. Absent : calf tenderness - Neurological Exam Neurological exam: Present: alert, oriented X3 Internal Medicine: Result - Labs CBC & Chem 7: 01/04/17 09:17 01/04/17 02:43 Labs: Short CBC 01/04/17 01/04/17 Range/Units 02:43 09:17 WBC 11.1 (4.3-11.1) K/mcL Hgb 7.5 L 7.8 L (11.5-15.4) g/dL Hct 25.5 L 25.7 L (35.3-44.9) % Plt Count 192 (140-400) K/mcL Neutrophils # 9.9 H (1.6-8.9) K/mcL BMP 01/04/17 02:43 Sodium 139 Potassium 4.7 H Chloride 103 Carbon Dioxide 28 BUN 34 H Creatinine 2.20 H Glucose 229 H Calcium 9.1 Liver Function 01/04/17 Range/Units 02:43 Total Bilirubin 0.3 (0.2-1.2) mg/dL AST 36 H (5-34) Units/L ALT 34 (0-55) Units/L Alkaline Phosphatase 71 (38-126) Units/L Albumin 2.5 L (3.5-5.0) g/dL - ABG Interpretation ABG results: PT/INR, D-dimer PT 11.2 Seconds (9.4-12.1) 01/03/17 08:55 - Impressions Impressions Brain MRI 01/03/17 13:57 IMPRESSION: 1. Motion degraded examination. 2. No acute intracranial abnormality. 3. Mild chronic white matter microvascular ischemic changes. D/ / Ramiro Crowell MD / Ramiro Crowell MD Interpreting Provider: Ramiro Crowell MD Consult Discharge Plan - Plan Referrals: Rina Kaba MD [Primary Care Provider] -
[2017-01-04] MEDS: FLUoxetine 20 MG CAPSULE PO SCH (10:18)
[2017-01-04] MEDS: RisperiDONE-M 1 MG TAB.RAPDIS PO SCH (10:18)
[2017-01-04] MEDS: *HR* HYDROcodone/Acet 5/325 mg TABLET PO PRN ×3 (10:18→22:16)
[2017-01-04] MEDS: predniSONE 20 MG TABLET PO SCH (10:19)
[2017-01-04] MEDS: *HR* Amiodarone 200 MG TABLET PO SCH (10:19)
[2017-01-04] MEDS: Pantoprazole 40 MG VIAL IVP SCH (10:21)
[2017-01-04] MEDS: Insulin LISPRO 300 UNITS/3 ML VIAL SQ SCH ×4 (10:22→21:23)
--- NOTE | 2017-01-04 10:49 | Nephrology Consult Note ---
Date of Encounter: 01/04/17 Time of Encounter: 10:07 Assessment and Plan (1) Acute kidney injury superimposed on chronic kidney disease Current Visit: Yes Status: Acute Patient with WILY on CKD that I suspect is secondary to dehydration from decreased oral intake. Patient admitted to decreased oral intake along with some nausea with emesis. This was in the face of ongoing diuresis. Her renal function improved with holding diuretics and intravenous hydration. Continue to hold nephrotoxins. Consider IV fluid if she does not have adequate oral intake. Adjust medications as needed. (2) Anemia Current Visit: Yes Status: Chronic Patient with anemia. Patient without new complaint. Monitor for bleeding. Patient with decreased hemoglobin overnight likely secondary to dilution. Patient with iron deficiency will need oral iron prior to discharge. Qualifiers: Anemia type: iron deficiency Iron deficiency anemia type: chronic blood loss Qualified Code(s): D50.0 - Iron deficiency anemia secondary to blood loss (chronic) (3) Chronic pain Current Visit: Yes Status: Chronic Patient with an odd pain syndrome with an extensive work-up. Etiology is not completely clear. Will defer to primary team. Qualifiers: Chronic pain type: other chronic pain Qualified Code(s): G89.29 - Other chronic pain (4) HTN (hypertension) Current Visit: Yes Status: Chronic Patient with hypotension upon admission likely related to volume depletion from nausea, vomiting and diarrhea. Improving after IV hydration and holding diuretics. Qualifiers: Hypertension type: essential hypertension Qualified Code(s): I10 - Essential (primary) hypertension (5) Confusion Current Visit: Yes Status: Resolved Patient presented with confusion that is likely secondary to polypharmacy. Agree with holding sedating medications and slowly folding them back in only as needed. Mental status improving. Per primary team. (6) Morbid obesity with BMI of 50.0-59.9, adult Current Visit: No Status: Acute Outpatient management. History of Present Illness - Reason for Consult Consult date: 01/04/17 Acute Kidney Injury, Chronic Kidney Disease - Chief Complaint WILY on CKD - History of Present Illness Ms. Melendez is a 74 yo woman with a history of CKD followed by Dr. Pope who presents with altered mental status. History is from the patient, her family and the electronic record. Patient was receiving diuretics from edema and over the past week has had nausea, vomiting and diarrhea. She became confused and was brought to the ER and found to have hypotension and WILY on CKD. Nephrology was consulted for management of WILY. At the time of evaluation she denied chest pain or shortness of breath. She has a chronic migratory pain that is currently in her legs. Past Med Surg Social Fam HX - Past Medical History Medical history: atrial fibrillation (Paroxysmal, On Xarelto), COPD (Oxygen dependent), coronary artery disease (History of stents), GERD, hypertension, myocardial infarction, renal disease (Chronic kidney disease stage III), thyroid disease (Hypothyroidism), other (Morbid obesity, polymyalgia rheumatica on 20 mg of prednisone, iron deficiency anemia, peripheral vascular disease, diverticulitis, gastric ulcer, multiple transfusions since 2011, mild aortic insufficiency, obstructive sleep apnea using CPAP, diastolic CHF) Psychiatric history: no psych history - Past Surgical History Surgical History: appendectomy, cataract, cholecystectomy, hysterectomy, other ( Negative capsule study, partial thyroidectomy and laminectomy) - Social History Smoking Status: Former smoker Smokeless Tobacco Status: No Alcohol use: none Drug use: none - Family History Father Adopted: No Race: Family Member Ethnicity: Non- Living Status: Age at : 57 Cause of : CHF Hx Family Cardiac Disorders: Yes (CHF) Hx Family Respiratory Disorders: Yes (COPD, Emphysema) Hx Family Endocrine Disorder: Yes (dm) Mother Adopted: No Race: Family Member Ethnicity: Non- Living Status: Age at : 66 Cause of : Colonc cancer Hx Family Cancer: Yes (Colon cancer) Hx Family Endocrine Disorder: Yes (dm) Brother Race: Family Member Ethnicity: Non- Living Status: Still Living Hx Family Cardiac Disorders: Yes (CAD, CHF) Hx Family Respiratory Disorders: Yes (COPD) Sister Race: Family Member Ethnicity: Non- Living Status: Age at : 72 Cause of : CHF Hx Family Cardiac Disorders: Yes (CHF) Medications and Allergies Amiodarone [Cordarone] 200 mg PO DAILY 12/01/16 [History] Ascorbic Acid [Vitamin C] 1,000 mg PO DAILY 12/01/16 [History] Calcium Carb,Cit/D3/Phytostrol [Citracal D + Heart Health Tab] 1 each PO DAILY 12/01/16 [History] Esomeprazole Magnesium [Nexium 24Hr] 20 mg PO BID 12/01/16 [History] Ezetimibe [Zetia] 10 mg PO DAILY 12/01/16 [History] FLUoxetine HCl [Fluoxetine HCl] 40 mg PO DAILY 12/01/16 [History] Levothyroxine [Synthroid] 100 mcg PO 0630 12/01/16 [History] Losartan [Cozaar] 100 mg PO DAILY 12/01/16 [History] Multivitamin [Multivitamins] 1 each PO DAILY 12/01/16 [History] Potassium 10 meq PO TID 12/01/16 [History] Prasugrel [Effient] 10 mg PO DAILY 12/01/16 [History] Rivaroxaban [Xarelto] 15 mg PO 1700 12/01/16 [History] Zolpidem [Ambien] 5 mg PO HS 12/01/16 [History] Carvedilol 3.125 mg PO BID 12/02/16 [History] Ipratropium Neb [Atrovent Neb] 0.5 mg IH TID 12/23/16 [History] Levalbuterol Neb [Xopenex Neb] 0.63 mg IH TID 12/23/16 [History] Oxycodone HCl/Acetaminophen [Percocet 5-325 mg Tablet] 1 each PO Q6H PRN [History] Spironolactone [Aldactone] 25 mg PO BID 12/23/16 [History] RisperiDONE [Risperidone Odt] 1 mg PO DAILY 12/24/16 [History] Cefdinir [Omnicef] 300 mg PO BID #12 capsule 12/28/16 [Rx] Furosemide [Lasix] 40 mg PO BID #0 12/28/16 [Rx] Gabapentin [Neurontin] 200 mg PO TID #90 capsule 12/28/16 [Rx] Metaxalone [Skelaxin] 800 mg PO TID #90 tablet 12/28/16 [Rx] Sennosides/Docusate Sodium [Senna Plus] 1 each PO BID PRN tablet 12/28/16 [Rx] predniSONE [PredniSONE] 60 mg PO DAILY #60 tablet 12/28/16 [Rx] LORazepam [Ativan] 0.5 mg PO BID PRN 01/04/17 [History] 3 Allergy/AdvReac Type Severity Reaction Status Date / Time olanzapine [From Zyprexa] Allergy See Verified 12/13/16 15:34 Comments ciprofloxacin [From Cipro] AdvReac Vomiting Verified 12/13/16 15:34 Erythromycin Base AdvReac Vomiting Verified 12/13/16 15:34 Sulfa (Sulfonamide AdvReac Vomiting Verified 12/13/16 15:34 Antibiotics) ivp DYE Allergy Hives Uncoded 12/13/16 15:34 Review of Systems All Systems: reviewed and no additional remarkable complaints except as stated ( as documented in the HPI) Exam - Vital Signs Vital signs: Initial Vital Signs Temp Pulse Resp BP Pulse Ox 98.9 F 93 11 114/71 92 01/03/17 08:39 01/03/17 08:39 01/03/17 08:39 01/03/17 08:39 01/03/17 08:39 Vital Signs - Last 8 Hours Temp Pulse Resp BP Pulse Ox 01/04/17 07:32 97.8 F 75 16 125/61 94 01/04/17 04:20 16 94 01/04/17 02:44 98.0 F 77 15 112/63 93 Intake and Output 01/03/17 01/04/17 01/04/17 23:59 07:59 15:59 Intake Total 50 / 50 0 / 0 Output Total 200 / 200 Balance -150 / -150 0 / 0 Intake: IV Fluids 50 / 50 Zosyn 3.375 GM In Dextrose 5% ( 50 / 50 ADD-[place]) 50 ML @ 12.5 mls/ hr IVPB Q8HR [facility] Rx#:[id number] Oral 0 / 0 Output: Catheter 200 / 200 Other: Blood Glucose* 190 186 - General Appearance General appearance: well-developed, well-nourished, obese EENT: ATNC Neck: supple Respiratory: clear Cardiology: no edema, regular rate, regular rhythm Gastrointestinal: obese Integumentary: warm and dry Neurologic: alert and oriented x3 Psychiatric: depressed Additional Comments: occasionally tearful Results - Lab Results 01/04/17 09:17 01/04/17 02:43 Most recent lab results Calcium 9.1 mg/dL (8.6-10.8) 01/04/17 02:43 Phosphorus 4.0 mg/dL (2.3-4.7) 01/04/17 02:43 Magnesium 2.5 mg/dL (1.6-2.6) 01/04/17 02:43 Consult Discharge Plan - Plan Referrals: Rina Kaba MD [Primary Care Provider] -
[2017-01-04] MEDS: Acetaminophen 325 MG TABLET PO PRN (19:23)
[2017-01-04] MEDS: Levalbuterol Neb 0.63 MG/3 ML IH SCH (20:44)
[2017-01-04] MEDS: *HR* LORazepam 0.5 MG TABLET PO PRN (21:22)
[2017-01-05] MEDS: Piperacillin/Tazobactam 3.375 GM in D5% in Water 50 ML IVPB SCH ×3 (00:10→17:01)
[2017-01-05] MEDS: Acetaminophen 325 MG TABLET PO PRN (01:30)
[2017-01-05 04:04] LABS: Basophils % 0.1 %; Eosinophils % 0.2 %; Hematocrit 22.6 % (35.3-44.9); Hemoglobin 6.8 g/dL (11.5-15.4); Lymphocytes # 0.9 K/mcL (0.6-4.6); Lymphocytes % 7.1 %; Mean Corpuscular HGB Conc 30.1 g/dL (31.6-35.5); Mean Corpuscular Hemoglobin 25.6 pg (28.0-33.3); Mean Platelet Volume 11.1 fL (9.4-12.4); Monocytes # 0.7 K/mcL (0.0-1.3); Monocytes % 5.8 %; Neutrophils # 10.5 K/mcL (1.6-8.9); Nucleated Red Blood Cells 0.3 /100 WBC (0); Platelet Count 182 K/mcL (140-400); Red Blood Count 2.66 M/mcL (3.82-4.97); Red Cell Distribution Width 16.1 % (11.5-14.5); Segmented Neutrophils % 83.8 %
[2017-01-05 04:17] LABS: Magnesium 2.5 mg/dL (1.6-2.6); Phosphorous 2.5 mg/dL (2.3-4.7)
[2017-01-05 04:21] LABS: Albumin 2.5 g/dL (3.5-5.0); Bilirubin,Total 0.3 mg/dL (0.2-1.2); Globulin 2.4 g/dL (2.4-3.5); Potassium 4.1 mEq/L (3.5-4.5); Total Protein 4.9 g/dL (6.0-8.3)
[2017-01-05] MEDS: *HR* HYDROcodone/Acet 5/325 mg TABLET PO PRN ×2 (04:21→13:35)
[2017-01-05] MEDS: *HR* LORazepam 0.5 MG TABLET PO PRN (06:35)
[2017-01-05] MEDS: Levalbuterol Neb 0.63 MG/3 ML IH SCH ×3 (08:12→20:50)
[2017-01-05] MEDS: FLUoxetine 20 MG CAPSULE PO SCH (08:59)
[2017-01-05] MEDS: RisperiDONE-M 1 MG TAB.RAPDIS PO SCH (08:59)
[2017-01-05] MEDS: predniSONE 10 MG TABLET PO SCH (08:59)
[2017-01-05] MEDS: Insulin LISPRO 300 UNITS/3 ML VIAL SQ SCH ×4 (09:00→21:02)
[2017-01-05] MEDS: *HR* Amiodarone 200 MG TABLET PO SCH (09:00)
--- NOTE | 2017-01-05 09:36 | Internal Med Progress Note ---
Date of Encounter: 01/05/17 Time of Encounter: 08:30 - Assessment and plan (1) Chronic anemia Current Visit: No Status: Acute Assessment and plan: Acute on chronic Noted to have drop in H&H stool occult positive holding xarelto at this time will obtain GI evaluation for possible colonoscopy will transfuse two units PRBC today will closely monitor for signs of volume overload and administer lasix between each unit if clinical signs of volume overload are present continue to monitor H&H (2) Acute kidney injury superimposed on chronic kidney disease Current Visit: Yes Status: Acute Assessment and plan: Renal function improved from previous day nephrology consult appreciated will continue to hold Lasix at this time restarting gabapentin-renally dosed avoid nephro toxic agents continue to monitor renal function closely (3) Atrial fibrillation with RVR Current Visit: No Status: Chronic Assessment and plan: rate controlled with BB and amiodarone holding anticoagulation given positive stool occult (4) Chronic pain Current Visit: Yes Status: Chronic Assessment and plan: mental status back to baseline-AAO x 3. restarting Gabapentin Lorazepam 0.5mg PO QHS prn anxiety continue norco prn pain extensive counseling provided to the patient and family in regards to patient's pain medications Qualifiers: Chronic pain type: other chronic pain Qualified Code(s): G89.29 - Other chronic pain (5) CAD S/P percutaneous coronary angioplasty Current Visit: No Status: Chronic Assessment and plan: no signs of angina present at this time continue home meds (6) CHF (congestive heart failure) Current Visit: No Status: Resolved Assessment and plan: not in acute exacerbation holding lasix at this time due to WILY will closely monitor for signs of volume overload Qualifiers: Congestive heart failure type: diastolic Congestive heart failure chronicity: acute on chronic Qualified Code(s): I50.33 - Acute on chronic diastolic (congestive) heart failure (7) COPD (chronic obstructive pulmonary disease) Current Visit: No Status: Chronic Assessment and plan: not in acute exacerbation continue home meds pt was recently discharged after being managed for Acute respiratory failure, continue home dose of prednisone Qualifiers: COPD type: unspecified COPD Qualified Code(s): J44.9 - Chronic obstructive pulmonary disease, unspecified (8) DVT prophylaxis Current Visit: Yes Status: Acute Assessment and plan: SCD (9) HLD (hyperlipidemia) Current Visit: Yes Status: Chronic Assessment and plan: continue home meds Qualifiers: Hyperlipidemia type: pure hypercholesterolemia Qualified Code(s): E78.00 - Pure hypercholesterolemia, unspecified; E78.0 - Pure hypercholesterolemia (10) HTN (hypertension) Current Visit: Yes Status: Chronic Assessment and plan: BP within acceptable range continue home meds Qualifiers: Hypertension type: essential hypertension Qualified Code(s): I10 - Essential (primary) hypertension (11) Morbid obesity with BMI of 45.0-49.9, adult Current Visit: No Status: Chronic (12) Leukocytosis Current Visit: Yes Status: Acute Assessment and plan: pt was currently finishing oral abx treatment for URI will continue empiric abx awaiting blood cultures will closely monitor Qualifiers: Leukocytosis type: unspecified Qualified Code(s): D72.829 - Elevated white blood cell count, unspecified (13) Confusion Current Visit: Yes Status: Resolved Assessment and plan: likely secondary to polypharmacy mental status back to baseline, currently AAO x 3 - Subjective Interval history: Patient seen and examined with family present at bedside. Resting in bed and reports of feeling better compared to previous day. Alert oriented x 3, calm, and communicating comfortably at this time. Reports of persistent generalized pain that is controlled with pain medications. Noted to have a drop in H&H. Will transfuse 2units PRBC Awaiting GI evaluation, patient had a colonoscopy in September which showed multiple polyps, internal hemorrhoids. Repeat colonoscopy in 3 years was recommended. continue to hold xarelto - Constitutional Vitals: Temp Pulse Resp BP Pulse Ox 97.9 F 103 16 111/70 98 01/05/17 07:28 01/05/17 07:28 01/05/17 08:12 01/05/17 07:28 01/05/17 08:12 General appearance: Present: A&O X 3, morbidly obese, no acute distress, answers questions appropriately - Head Head exam: Present: atraumatic, normocephalic - Eye Eye exam: Present: conjuntiva pink, sclera anicteric - Respiratory Respiratory exam: Present: CTAB. Absent: respiratory distress, wheezes - Cardiovascular Cardiovascular exam: Present: RRR, +S1, +S2. Absent: diastolic murmur, gallop, rubs, systolic murmur - GI/Abdominal GI/Abdominal exam: Present: distended (obese), normal bowel sounds, soft, no peritoneal signs. Absent: tenderness - Extremities Exam Extremities exam: Present: warm, radial pulses palpable and symmetrical. Absent : calf tenderness, pedal edema - Neurological Exam Neurological exam: Present: alert, oriented X3 - Psychiatric Psychiatric exam: Present: normal affect, normal mood Internal Medicine: Result - Labs CBC & Chem 7: 01/05/17 03:00 01/05/17 03:00 Labs: Short CBC 01/05/17 Range/Units 03:00 WBC 12.5 H (4.3-11.1) K/mcL Hgb 6.8 L (11.5-15.4) g/dL Hct 22.6 L (35.3-44.9) % Plt Count 182 (140-400) K/mcL Neutrophils # 10.5 H (1.6-8.9) K/mcL BMP 01/05/17 03:00 Sodium 137 Potassium 4.1 Chloride 100 Carbon Dioxide 31 H BUN 31 H Creatinine 1.91 H Glucose 176 H Calcium 9.0 Liver Function 01/05/17 Range/Units 03:00 Total Bilirubin 0.3 (0.2-1.2) mg/dL AST 27 (5-34) Units/L ALT 34 (0-55) Units/L Alkaline Phosphatase 65 (38-126) Units/L Albumin 2.5 L (3.5-5.0) g/dL - ABG Interpretation ABG results: PT/INR, D-dimer PT 11.2 Seconds (9.4-12.1) 01/03/17 08:55 Consult Discharge Plan - Plan Referrals: Rina Kaba MD [Primary Care Provider] -
--- NOTE | 2017-01-05 09:55 | Nephrology Progress Note ---
Date of Encounter: 01/05/17 Time of Encounter: 09:53 - Assessment and Plan (1) Acute kidney injury superimposed on chronic kidney disease Current Visit: Yes Status: Acute Patient with WILY/CKD secondary to nausea and vomiting with ongoing diuresis. Improved with holding nephrotoxins and IV fluids given in ER. Continue to hold nephrotoxins. Adjust medications as needed for renal function. Anticipate recovery to baseline renal function. (2) Anemia Current Visit: Yes Status: Chronic Progressive anemia of unclear etiology. Discussed with Dr. Nina. Agree with transfusion. Qualifiers: Anemia type: iron deficiency Iron deficiency anemia type: chronic blood loss Qualified Code(s): D50.0 - Iron deficiency anemia secondary to blood loss (chronic) (3) Chronic pain Current Visit: Yes Status: Chronic Will defer management to primary team. Qualifiers: Chronic pain type: other chronic pain Qualified Code(s): G89.29 - Other chronic pain (4) HTN (hypertension) Current Visit: Yes Status: Chronic Blood pressure elevated diuretics and ARB being held. Will likley need alternative antihypertensives vs adding back losartan if renal function continues to improve. Qualifiers: Hypertension type: essential hypertension Qualified Code(s): I10 - Essential (primary) hypertension (5) Confusion Current Visit: Yes Status: Resolved Improved. Per primary team. (6) Morbid obesity with BMI of 50.0-59.9, adult Current Visit: No Status: Acute Outpatient management. Subjective Principal diagnosis: WILY on CKD. Interval history: Patient seen and evaluated. She has no new complaint. She feels better. She is lying in bed. Objective - Vital Signs Vital signs: Vital Signs Temp Pulse Resp BP Pulse Ox 01/05/17 08:12 16 98 01/05/17 07:28 97.9 F 103 18 111/70 95 01/05/17 02:47 97.6 F 74 19 105/60 99 01/04/17 22:59 97.9 F 75 16 144/66 95 01/04/17 18:57 98.0 F 80 18 144/73 96 01/04/17 16:27 97.6 F 78 17 162/85 98 01/04/17 15:15 16 98 01/04/17 12:23 97.6 F 71 18 114/70 96 01/04/17 10:56 18 96 Intake and Output 01/04/17 01/05/17 01/05/17 23:59 07:59 15:59 Intake Total 290 / 290 50 / 50 320 / 320 Output Total 1400 / 1400 300 / 300 Balance -1110 / -1110 -250 / -250 320 / 320 Intake: IV Fluids 50 / 50 50 / 50 Zosyn 3.375 GM In Dextrose 5% ( 50 / 50 50 / 50 ADD-[place]) 50 ML @ 12.5 mls/ hr IVPB Q8HR [facility] Rx#:[id number] Oral 240 / 240 320 / 320 Output: Urine 550 / 550 300 / 300 Catheter 850 / 850 Other: Meal Dinner Breakfast Percent of Meal Consumed 50% 80% Weight 140.704 kg Blood Glucose* 301 182 Patient Weight 01/05/17 23:59 Weight 140.704 kg - General Appearance General appearance: Present: well-developed, well-nourished, obese EENT: Present: ATNC Neck: Present: supple Respiratory: Present: course breath sounds Additional Comments: A few scattered crackles in the bases left greater than right. Improves with repeat inspiration. Cardiology: Present: no edema, regular rate, regular rhythm Gastrointestinal: Present: normoactive bowel sounds, no tenderness Integumentary: Present: warm and dry Neurologic: Present: alert and oriented x3 Musculoskeletal: Present: no cyanosis Psychiatric: Present: mood/affect appropriate - Lab 01/05/17 03:00 01/05/17 03:00 Most recent lab results Calcium 9.0 mg/dL (8.6-10.8) 01/05/17 03:00 Phosphorus 2.5 mg/dL (2.3-4.7) 01/05/17 03:00 Magnesium 2.5 mg/dL (1.6-2.6) 01/05/17 03:00 Consult Discharge Plan - Plan Referrals: Rina Kaba MD [Primary Care Provider] -
[2017-01-05] MEDS ORDERED: 0.9 % Sodium Chloride 250 ML ONE ×2 (10:39→13:53)
--- NOTE | 2017-01-05 13:28 | Electrocardiograph Report ---
[facility] Test Date: 2017-01-03 Pat Name: Giuliana Melendez Department: 104 Room: 3B45 Gender: F [employer] Tutor: : 1940 Requested By: Hari Bowman Order Number: [id number] Reading MD: Mauri Fortune MD Measurements Intervals [place] Rate: 93 P: 32 ME: 158 QRS: 21 QRSD: 106 T: 33 QT: 355 QTc: 406 Interpretive Statements SINUS RHYTHM POSSIBLE RIGHT VENTRICULAR CONDUCTION DELAY MODERATE ST DEPRESSION [0.05+ mV ST DEPRESSION] Electronically Signed On 01-05-2017 13:27:15 EST by Mauri Fortune MD
[2017-01-05] MEDS: Gabapentin 100 MG CAPSULE PO SCH ×2 (13:35→20:58)
[2017-01-05] MEDS ORDERED: *HR* Metoprolol 5 MG/5 ML VIAL IVP PRN (15:00)
[2017-01-05] MEDS ORDERED: *HR* LORazepam 0.5 MG TABLET PO ONE (15:02)
[2017-01-05] MEDS ORDERED: *HR* LORazepam 0.5 MG TABLET PO SCH (21:00)
[2017-01-06] MEDS: Piperacillin/Tazobactam 3.375 GM in D5% in Water 50 ML IVPB SCH ×2 (00:01→08:50)
[2017-01-06 04:59] LABS: Basophils % 0.2 %; Eosinophils % 0.3 %; Hematocrit 28.1 % (35.3-44.9); Immature Granulocytes % 3.8 % (0-4); Lymphocytes # 0.8 K/mcL (0.6-4.6); Lymphocytes % 7.1 %; Mean Corpuscular Volume 84.1 fL (83.0-100.0); Mean Platelet Volume 10.4 fL (9.4-12.4); Monocytes # 0.6 K/mcL (0.0-1.3); Monocytes % 5.5 %; Neutrophils # 9.6 K/mcL (1.6-8.9); Nucleated Red Blood Cells 0.5 /100 WBC (0); Platelet Count 154 K/mcL (140-400); Red Blood Count 3.34 M/mcL (3.82-4.97); Red Cell Distribution Width 15.7 % (11.5-14.5); Segmented Neutrophils % 83.1 %
[2017-01-06 05:01] LABS: Hemoglobin 8.7 g/dL (11.5-15.4)
[2017-01-06 05:10] LABS: Magnesium 2.4 mg/dL (1.6-2.6); Phosphorous 2.4 mg/dL (2.3-4.7)
[2017-01-06 05:13] LABS: Albumin 2.4 g/dL (3.5-5.0); Bilirubin,Total 0.5 mg/dL (0.2-1.2); Calcium 8.6 mg/dL (8.6-10.8); Globulin 2.5 g/dL (2.4-3.5); Potassium 3.8 mEq/L (3.5-4.5); Total Protein 4.9 g/dL (6.0-8.3)
[2017-01-06] MEDS: Levalbuterol Neb 0.63 MG/3 ML IH SCH ×2 (07:38→16:04)
[2017-01-06] MEDS: Insulin LISPRO 300 UNITS/3 ML VIAL SQ SCH ×2 (08:15→12:30)
[2017-01-06] MEDS: *HR* Amiodarone 200 MG TABLET PO SCH (08:53)
[2017-01-06] MEDS: RisperiDONE-M 1 MG TAB.RAPDIS PO SCH (08:53)
[2017-01-06] MEDS: predniSONE 10 MG TABLET PO SCH (08:54)
[2017-01-06] MEDS: FLUoxetine 20 MG CAPSULE PO SCH (08:54)
[2017-01-06] MEDS: Gabapentin 100 MG CAPSULE PO SCH (08:56)
--- NOTE | 2017-01-06 10:36 | Gastroenterology Consult Note ---
Date of Encounter: 01/06/17 Time of Encounter: 10:23 - Assessment and plan (1) BRBPR (bright red blood per rectum) Current Visit: Yes Status: Acute Assessment and plan: Patient's hemoglobin dropped from 7.8-6.8. Noted to have packed red blood coating the stool. Received 2 units of packed red blood cells. Hemoglobin on 8.7. Patient has history of hemorrhoids. Recent colonoscopy and EGD in September did not show any evidence of active bleeding and there are findings of polyps which were resected and negative for malignancy. Previous procedures: Procedures: EGD 04/20/2014 Dr. Thurman: Normal, empiric dilation of the entire esophagus. EGD 12/01/2013 Dr. Thurman: Gastritis, hyperplastic polyp. Capsule endoscopy 11/04/2013: Finding of a small amount of dark blood in the duodenal lumen with no identifiable source of bleeding. Colonoscopy 03/18/2012 Dr. Monet: 3 mm tubular adenoma at splenic flexure, recommended repeat in 3 years. EGD 03/18/2012 Dr. Monet: Gastric ulcers, chemical gastritis. NSAIDs: None Anticoagulation: Xarelto and Effient Plan: Patient refused colonoscopy today. (2) Paroxysmal atrial fibrillation Current Visit: Yes Status: Chronic Assessment and plan: History of atrial fibrillation. On amiodarone and xeralto Anticoagulation discontinued due to bleeding per rectum. (3) Acute kidney injury Current Visit: Yes Status: Acute Assessment and plan: Likely secondary to dehydration. Improved with IV fluids. Resolved. (4) Chronic anemia Current Visit: Yes Status: Acute Assessment and plan: Patient has a history of chronic anemia, iron deficiency anemia. Patient has had multiple procedures in the past for evaluation of anemia. In 2012 she had findings of gastric ulcers. Endoscopy in 2013 Showed Small Amount of Dark Blood in the Duodenal Lumen with No Source of Bleeding Identified. Currently patient receives IV iron and rectal cell transfusions at [facility]. Follow by Dr. Mcadams According to oncology note there is a plan for bone marrow biopsy. - Time Spent With Patient Total time spent is greater than 50% in coordination of care (as documented) at patient's floor/unit and/or counseling patient: GI History of Present Illness - Data of Consult Patient: known to practice within the last 3 years Consult date: 01/06/17 Requesting Physician: Jaelyn Nina MD - Consult Narrative Reason for consult: BRB per rectum History of present illness: Ms. Trosky is a 76 year old female presented after having an episode of syncope. Patient's daughter states that last Friday patient got up from her bed and after taking her first step passed out. Patient daughter denies any trauma. Patient fell onto a chair. Patient regained consciousness after 1 minute but remained confused, weak. One day before episode of syncope patient had multiple episodes of vomiting, denied hematemesis and also loose stools. Upon arrival patient was found to be in WILY. She was treated with fluids and started on antibiotics for bronchitis. Patient's daughter states that since September she has required multiple transfusions: Total of 5 and IV iron infusions. Patient is followed by Dr. Mcadams and has a workup for her chronic anemia secondary to iron deficiency anemia. There is a plan for outpatient bone marrow biopsy. Patient had recent colonoscopy and EGD in September which was negative for bleeding. There were findings of gastric polyp and colon polyps which are negative for malignancy. Overnight patient required to units of PRBC. It was noticed that she had bright red blood coating her stool. Patient has a history of hemorrhoids and according to her daughter states this is not abnormal for her. Patient is on xeralto for afib and effient for CAD. She is not on aspirin. Past Med Surg Social Fam HX - Past Medical History Medical history: atrial fibrillation (Paroxysmal, On Xarelto), COPD (Oxygen dependent), coronary artery disease (History of stents), GERD, hypertension, myocardial infarction, renal disease (Chronic kidney disease stage III), thyroid disease (Hypothyroidism), other (Morbid obesity, polymyalgia rheumatica on 20 mg of prednisone, iron deficiency anemia, peripheral vascular disease, diverticulitis, gastric ulcer, multiple transfusions since 2011, mild aortic insufficiency, obstructive sleep apnea using CPAP, diastolic CHF) Psychiatric history: no psych history - Past Surgical History Surgical History: appendectomy, cataract, cholecystectomy, hysterectomy, other ( Negative capsule study, partial thyroidectomy and laminectomy) - Social History Smoking Status: Former smoker Smokeless Tobacco Status: No Alcohol use: none Drug use: none - Family History Father Adopted: No Race: Family Member Ethnicity: Non- Living Status: Age at : 57 Cause of : CHF Hx Family Cardiac Disorders: Yes (CHF) Hx Family Respiratory Disorders: Yes (COPD, Emphysema) Hx Family Endocrine Disorder: Yes (dm) Mother Adopted: No Race: Family Member Ethnicity: Non- Living Status: Age at : 66 Cause of : Colonc cancer Hx Family Cancer: Yes (Colon cancer) Hx Family Endocrine Disorder: Yes (dm) Brother Race: Family Member Ethnicity: Non- Living Status: Still Living Hx Family Cardiac Disorders: Yes (CAD, CHF) Hx Family Respiratory Disorders: Yes (COPD) Sister Race: Family Member Ethnicity: Non- Living Status: Age at : 72 Cause of : CHF Hx Family Cardiac Disorders: Yes (CHF) Review of Systems: Constitutional: Denies fever, chills HEENT: Denies headache, vision changes, neck pain, sore throat, rhinorrhea Heart: Denies chest pain palpitations Lungs: Poor shortness of breath and cough Abdomen: Denies abdominal pain. Reports nausea vomiting and loose stools Back: Denies back pain Kidney: Denies hematuria, reports cloudy urine. Skin: warm and dry Extremities: Denies swelling, pain Neuro: Denies numbness, and tingling - Constitutional Vitals: Temp Pulse Resp BP Pulse Ox 98.3 F 75 16 161/87 97 01/06/17 07:23 01/06/17 07:23 01/06/17 07:39 01/06/17 07:23 01/06/17 08:50 - Other Additional findings: General: Pleasant without distress HEENT: Head atraumatic, normocephalic, EOMI, PERRL, neck nontender to palpation , Moist Mucous Membranes, Heart: Regular rate and rhythm with no murmur Lungs: wheezing bilateral anteriorly Abdomen: Soft nontender, nondistended positive bowel sounds Skin: warm and dry Extremities: Absent pedal edema, Neuro: alert and oriented 3 Vascular: Pedal and radial pulses 2 out of 4 Results - Labs CBC & Chem 7: 01/06/17 04:35 01/06/17 04:35 Labs: Last Result Calcium 8.6 mg/dL (8.6-10.8) 01/06/17 04:35 Troponin I 0.03 ng/mL (0-0.03) 01/03/17 08:55 Triglycerides 312 mg/dL (< 150) H 01/04/17 02:43 Stool Occult Blood Positive (Negative) A 01/04/17 09:44 Urine Opiates Screen Negative ng/mL (Epxvmh=052) 01/03/17 08:58 Entire Visit Hgb 8.7 g/dL (11.5-15.4) L D 01/06/17 04:35 Hct 28.1 % (35.3-44.9) L 01/06/17 04:35 PT 11.2 Seconds (9.4-12.1) 01/03/17 08:55 Total Bilirubin 0.5 mg/dL (0.2-1.2) 01/06/17 04:35 AST 22 Units/L (5-34) 01/06/17 04:35 ALT 35 Units/L (0-55) 01/06/17 04:35 Ammonia 25 mcmol/L (18-72) 01/03/17 08:55 - ABG ABG results: PT/INR, D-dimer PT 11.2 Seconds (9.4-12.1) 01/03/17 08:55 Consult Discharge Plan - Plan Instructions: Iron Rich Diet (DC), Syncope (DC), Iron Deficiency Anemia (DC), Altered Mental Status (GEN) Additional Instructions: Please call your PCP within 24 hours or the next business day to schedule a follow-up appointment. Please keep your appointment with your infant toddler lead teacher as previously planned on Please call your primary cold food packer to schedule a follow-up appointment within 24 hours for the next business day. Return to the ER if he noticed bright red stool, any blood your urine or any abnormal bleeding. Referrals: Valeria Cook MD [Partnered Physician] - 01/22/17 9:30 am Jesus Reinoso MD [Partnered Physician] - 01/29/17 10:00 am Jareth Pope DO [Partnered Physician] - 03/07/17 3:10 pm Catalino Langston DO [Partnered Physician] - 01/14/17 8:00 am Rina Kaba MD [Primary Care Provider] - 01/08/17 11:20 am
[2017-01-06 12:04] VITALS: BP 155/84
--- NOTE | 2017-01-06 13:33 | Discharge Summary ---
Date of Encounter: 01/06/17 Time of Encounter: 13:31 - Discharge Diagnosis (1) Syncope and collapse Priority: Primary Status: Resolved Comments: Giuliana Melendez is a 76 y/o female with PMH CAD, A. fib, hypertension, chronic kidney disease, polymyalgia rheumatica and hypothyroidism who presented to [facility] on 01/04/17 after a near-syncopal episode home. She was found to be anemic with Hgb 6.6 and hypotensive. She was admitted for further workup and treatment. 1. Near syncope: Daughter's report an episode of slumping over with near collapse day of admission. Head CT with stable anterior cranial fossa calcified mass. Brain MRI negative. Most likely secondary to dehydration, low hemoglobin and polypharmacy with sedating medications. Mentation improved back to baseline treating underlying causes. No recurrent near-syncopal episodes. 2. Iron deficiency anemia: hx PO iron failure. Has received IV iron in the past and follows with Dr. Mcadams. Hgb dropped to 6.8, occult stool positive. Received 2 units PRBC. Patient reported one episode of bright red blood per rectum. Daughter's suspect bleeding was from multiple loose stools and hemorrhoids. Evaluated by GI who recommended repeating colonoscopy, EGD however patient refused. Patient remained hemodynamically stable, no bleeding recurrence. Baseline Hgb 8-9 while on Xarelto per chart review. Will resume Xarelto. Follow-up with Dr. Mcadams on 01/13/2017 as previously planned. 4. Atrial fibrillation: per hx. Rate controlled. Cont home BB, amiodarone, Xarelto 3. Acute on chronic kidney disease: Cr 2.6 on admission which is worse than baseline. Evaluated by nephrology who suspected secondary to nausea vomiting and diuresis. Creatinine improved with holding nephrotoxic agents and IV fluids. Follow-up with nephrology outpatient 5. CAD: per hx. Asymptomatic. Denies chest pain. Continue home BB, zetia. ASA previously stopped with anemia and on Xarelto. 6. Sinusitis: Head CT with with near complete opacification of right sphenoid sinus which may represent acute sinusitis. Continue outpatient ATB for URI. Can follow up with PCP. 7. Polypharmacy: Patient on multiple sedating medications. Discussed at length with patient and daughters. Recommend stopping Ambien, muscle relaxant. Continue Ativan, pain medicine with caution. Daughter's advised to hold for lethargy. (2) Acute kidney injury Priority: Primary Status: Acute (3) CAD S/P percutaneous coronary angioplasty Priority: Primary Status: Chronic (4) HTN (hypertension) Priority: Primary Status: Chronic Qualifiers: Hypertension type: essential hypertension Qualified Code(s): I10 - Essential (primary) hypertension (5) Iron deficiency anemia Priority: Primary Status: Chronic Qualifiers: Iron deficiency anemia type: unspecified iron deficiency Qualified Code(s) : D50.9 - Iron deficiency anemia, unspecified - Discharge Medications Home Medications: Amiodarone [Cordarone] 200 mg PO DAILY 12/01/16 [History] Ascorbic Acid [Vitamin C] 1,000 mg PO DAILY 12/01/16 [History] Calcium Carb,Cit/D3/Phytostrol [Citracal D + Heart Health Tab] 1 each PO DAILY 12/01/16 [History] Esomeprazole Magnesium [Nexium 24Hr] 20 mg PO BID 12/01/16 [History] Ezetimibe [Zetia] 10 mg PO DAILY 12/01/16 [History] FLUoxetine HCl [Fluoxetine HCl] 40 mg PO DAILY 12/01/16 [History] Levothyroxine [Synthroid] 100 mcg PO 0630 12/01/16 [History] Losartan [Cozaar] 100 mg PO DAILY 12/01/16 [History] Multivitamin [Multivitamins] 1 each PO DAILY 12/01/16 [History] Potassium 10 meq PO TID 12/01/16 [History] Prasugrel [Effient] 10 mg PO DAILY 12/01/16 [History] Rivaroxaban [Xarelto] 15 mg PO 1700 12/01/16 [History] Carvedilol 3.125 mg PO BID 12/02/16 [History] Ipratropium Neb [Atrovent Neb] 0.5 mg IH TID 12/23/16 [History] Levalbuterol Neb [Xopenex Neb] 0.63 mg IH TID 12/23/16 [History] Oxycodone HCl/Acetaminophen [Percocet 5-325 mg Tablet] 1 each PO Q6H PRN [History] Spironolactone [Aldactone] 25 mg PO BID 12/23/16 [History] RisperiDONE [Risperidone Odt] 1 mg PO DAILY 12/24/16 [History] Cefdinir [Omnicef] 300 mg PO BID #12 capsule 12/28/16 [Rx] Furosemide [Lasix] 40 mg PO BID #0 12/28/16 [Rx] Gabapentin [Neurontin] 200 mg PO TID #90 capsule 12/28/16 [Rx] Sennosides/Docusate Sodium [Senna Plus] 1 each PO BID PRN tablet 12/28/16 [Rx] predniSONE [PredniSONE] 60 mg PO DAILY #60 tablet 12/28/16 [Rx] LORazepam [Ativan] 0.5 mg PO BID PRN 01/04/17 [History] Allergies/Adverse Reactions: 3 Allergy/AdvReac Type Severity Reaction Status Date / Time olanzapine [From Zyprexa] Allergy See Verified 12/13/16 15:34 Comments ciprofloxacin [From Cipro] AdvReac Vomiting Verified 12/13/16 15:34 Erythromycin Base AdvReac Vomiting Verified 12/13/16 15:34 Sulfa (Sulfonamide AdvReac Vomiting Verified 12/13/16 15:34 Antibiotics) ivp DYE Allergy Hives Uncoded 12/13/16 15:34 Procedures/tests Complete & Pending: Procedures Performed prior 72 hours Category Date Time Status MR head/brain wo con [MR] Routine MRI 01/03/17 13:57 Completed Date of admission: 01/03/17 12:00 Primary care physician: Rina Kaba, Consults: 01/03/17 14:40 Consult to Hydrocrane Operator [CONS] Routine Reason for SW Consult: Please assess patient for possible home needs for post -discharge planning. 01/03/17 14:41 Consult to Occupational Therapy [CONS] Routine Comment: Evaluate, develop and implement POC Reason for Consult: Patient and family report that the patient has weakness in BLEs and normally uses a walker for ambulation but has had more difficulty with ambulation over the past two days. Please assess for strength, stability, safety, ambulation, and possible assistive needs for post-discharge planning. 01/03/17 14:46 Consult to Physical Therapy [CONS] Routine Comment: Evaluate, develop and implement POC Reason for Consult: Patient and family report that the patient has weakness in BLEs and normally uses a walker for ambulation but has had more difficulty with ambulation over the past two days. Please assess for strength, stability, safety, ambulation, and possible assistive needs for post-discharge planning. 01/03/17 14:58 Consult to Nephrology [CONS] Routine Consulting Provider: Kidney Yany/OLU/PETERSON/JAREK Reason for Consult: Patient is 76 year-old Female who has been experiencing worsening weakness and GFR is 18 today, down from 48 on 12/25. Creatinine is 2.65 today. Pt. is chronically anemic since 10/03 when Hgb was 8.6 and Hct was 29.0. Today Hgb is 8.5 and Hct 28.5. Call Completed: Yes 01/04/17 16:33 Consult to Gastroenterology [CONS] Routine Consulting Provider: Gastroenterology Yany Reason for Consult: positive occult stool Call Completed: No Discharging clinician: Jessica Malhotra Anticipated date of discharge: 01/06/17 - Patient Status Disposition: Home, Self-Care Condition: Fair Functional capacity at discharge: uses cane/walker Overall status at discharge: patient is back to baseline - Discharge Instructions Instructions: Iron Rich Diet (DC), Iron Deficiency Anemia (DC) Follow Up With: Rina Kaba MD [Primary Care Provider] - Additional Instructions: Please call your PCP within 24 hours or the next business day to schedule a follow-up appointment. Please keep your appointment with your hot worker as previously planned on Please call your primary clinical laboratory manager to schedule a follow-up appointment within 24 hours for the next business day. Return to the ER if he noticed bright red stool, any blood your urine or any abnormal bleeding. - Diet and Activity Activity: increase activity as tolerated Diet: advance to your usual diet Interval History: Seen and examined at bedside. Patient is new to me, information obtained from chart review and patient report. Patient says she feels better and would like to go home. Daughter is at bedside and feel patient is back to her baseline. No further bleeding recurrence. Daughter is requesting another unit of blood be administered. I spoke with Dr. Balbuena nurse and no further blood transfusion indicated at this time per Dr. Mcadams. Patient has follow-up appointment in 1 week. Discussed resuming Xarelto with GI and it was deferred to hospitalist. I discussed with Dr. Lee and given that patient's baseline hemoglobin is between 8 and 9 while on Xarelto in the past, it is reasonable to resume Xarelto at this time as there is no evidence of bleeding. Spoke to patient and daughters at length regarding polypharmacy especially sedating medications. They are agreeable to hold on Ambien. Hospital course: See assessment and plan for hospital course - Time Spent with Patient Total time spent providing and/or coordinating discharge services: Greater than 30 minutes (48 minutes spent on discharge) - Constitutional Vitals: Temp Pulse Resp BP Pulse Ox 97.3 F L 76 17 155/84 97 01/06/17 12:04 01/06/17 12:04 01/06/17 12:04 01/06/17 12:04 01/06/17 12:04 General appearance: Present: A&O X 3, morbidly obese, no acute distress, answers questions appropriately - Head Head exam: Present: atraumatic, normocephalic - Eye Eye exam: Present: PERRL, conjuntiva pink, sclera anicteric Pupils: Present: PERRL - Neck Neck exam general surgery: Present: supple, trachea midline. Absent: lymphadenopathy - Respiratory Respiratory exam: Present: CTAB. Absent: accessory muscle use, rales, rhonchi, wheezes - Cardiovascular Cardiovascular exam: Present: RRR, +S1, +S2. Absent: diastolic murmur, gallop, rubs, systolic murmur - GI/Abdominal GI/Abdominal exam: Present: normal bowel sounds, soft, no peritoneal signs. Absent: distended, tenderness - Extremities Exam Extremities exam: Present: warm, radial pulses palpable and symmetrical. Absent : calf tenderness, cyanotic, pedal edema - Neurological Exam Neurological exam: Present: CN II-XII intact, oriented X3, no focal deficits. Absent: pronater drift, facial droop, speech deficit - Skin Skin exam: Present: dry, intact
--- NOTE | 2017-01-06 15:32 | Nephrology Progress Note ---
Date of Encounter: 01/06/17 Subjective Principal diagnosis: WILY on CKD. Objective - Vital Signs Vital signs: Vital Signs Temp Pulse Resp BP Pulse Ox 01/06/17 12:04 97.3 F L 76 17 155/84 97 01/06/17 08:50 97 01/06/17 07:39 16 97 01/06/17 07:23 98.3 F 75 17 161/87 99 01/06/17 05:01 97.9 F 71 16 117/64 95 01/05/17 20:50 94 01/05/17 18:42 97.6 F 90 17 122/67 95 01/05/17 16:49 98.2 F 88 18 153/83 97 01/05/17 16:06 97.5 F L 83 18 163/83 97 Intake and Output 01/05/17 01/06/17 01/06/17 23:59 07:59 15:59 Intake Total 1250 / 1250 50 / 50 Output Total 1200 / 1200 600 / 600 Balance 50 / 50 -550 / -550 Intake: IV Fluids 50 / 50 50 / 50 Zosyn 3.375 GM In Dextrose 5% ( 50 / 50 50 / 50 ADD-[place]) 50 ML @ 12.5 mls/ hr IVPB Q8HR [facility] Rx#:[id number] Oral 700 / 700 Blood Product 500 / 500 Rbcs Leuko Poor As-1 Unit 500 / 500 [id number] Output: Urine 600 / 600 Catheter 1200 / 1200 Other: Meal Dinner Lunch Percent of Meal Consumed 0% 0% Blood Glucose* 234 121 263 - Lab 01/06/17 04:35 01/06/17 04:35 Most recent lab results Calcium 8.6 mg/dL (8.6-10.8) 01/06/17 04:35 Phosphorus 2.4 mg/dL (2.3-4.7) 01/06/17 04:35 Magnesium 2.4 mg/dL (1.6-2.6) 01/06/17 04:35 Consult Discharge Plan - Plan Referrals: Rina Kaba MD [Primary Care Provider] -
--- NOTE | 2017-01-06 16:40 | Physician Discharge Referral ---
Home Health/Hosp Referral Info Transfer to: Home Health Attending Provider: Jessica Malhotra CNP Provider in Charge Post Discharge: PCP - Diagnosis (1) Iron deficiency anemia Status: Chronic (2) Syncope and collapse Status: Resolved (3) Acute kidney injury Status: Acute (4) CAD S/P percutaneous coronary angioplasty Status: Chronic (5) HTN (hypertension) Status: Chronic - Respiratory Orders Oxygen / L per min (2) Smoking Cessation: Smoking cessation has been advised. For more information, call the [place] Tobacco Quit Line at 2-199-HPRK-NOW. - Diet/Nutrition Diet/Nutrition Orders: Renal, Cardiac, No Concentrated Sweets - Activity Activity Orders: Walker - Services Needed Following services are medically necessary services: Nursing, Physical Therapy - Transfer Medications Home Medications: Amiodarone [Cordarone] 200 mg PO DAILY 12/01/16 [History] Ascorbic Acid [Vitamin C] 1,000 mg PO DAILY 12/01/16 [History] Calcium Carb,Cit/D3/Phytostrol [Citracal D + Heart Health Tab] 1 each PO DAILY 12/01/16 [History] Esomeprazole Magnesium [Nexium 24Hr] 20 mg PO BID 12/01/16 [History] Ezetimibe [Zetia] 10 mg PO DAILY 12/01/16 [History] FLUoxetine HCl [Fluoxetine HCl] 40 mg PO DAILY 12/01/16 [History] Levothyroxine [Synthroid] 100 mcg PO 0630 12/01/16 [History] Losartan [Cozaar] 100 mg PO DAILY 12/01/16 [History] Multivitamin [Multivitamins] 1 each PO DAILY 12/01/16 [History] Potassium 10 meq PO TID 12/01/16 [History] Prasugrel [Effient] 10 mg PO DAILY 12/01/16 [History] Rivaroxaban [Xarelto] 15 mg PO 1700 12/01/16 [History] Carvedilol 3.125 mg PO BID 12/02/16 [History] Ipratropium Neb [Atrovent Neb] 0.5 mg IH TID 12/23/16 [History] Levalbuterol Neb [Xopenex Neb] 0.63 mg IH TID 12/23/16 [History] Oxycodone HCl/Acetaminophen [Percocet 5-325 mg Tablet] 1 each PO Q6H PRN [History] Spironolactone [Aldactone] 25 mg PO BID 12/23/16 [History] RisperiDONE [Risperidone Odt] 1 mg PO DAILY 12/24/16 [History] Cefdinir [Omnicef] 300 mg PO BID #12 capsule 12/28/16 [Rx] Furosemide [Lasix] 40 mg PO BID #0 12/28/16 [Rx] Gabapentin [Neurontin] 200 mg PO TID #90 capsule 12/28/16 [Rx] Sennosides/Docusate Sodium [Senna Plus] 1 each PO BID PRN tablet 12/28/16 [Rx] predniSONE [PredniSONE] 60 mg PO DAILY #60 tablet 12/28/16 [Rx] LORazepam [Ativan] 0.5 mg PO BID PRN 01/04/17 [History] Allergies/Adverse Reactions: 3 Allergy/AdvReac Type Severity Reaction Status Date / Time olanzapine [From Zyprexa] Allergy See Verified 12/13/16 15:34 Comments ciprofloxacin [From Cipro] AdvReac Vomiting Verified 12/13/16 15:34 Erythromycin Base AdvReac Vomiting Verified 12/13/16 15:34 Sulfa (Sulfonamide AdvReac Vomiting Verified 12/13/16 15:34 Antibiotics) ivp DYE Allergy Hives Uncoded 12/13/16 15:34 Certification: Further, I certify that my clinical findings support that this patient is homebound (i.e. absences from home require considerable and taxing effort and are for medical reasons or buddhism services or infrequently or short duration when for other reasons) because: Homebound Reason: Patient requires assistance of a person or device to safely leave home Attestation: My signature below is to certify that this patient is under my care and that I, or nurse practitioner, or a physician's daycare assistant working with me, has a face-to -face encounter with this patient.
== END 2017-01-06 18:05 | disposition home or self-care (01) ==
LOC: 3BNU 08:37 → EMEROO 08:37 → SUATTDRO 12:00 → 3BNU 12:52
PROVIDERS: ADMIT Internal Medicine; ATTEND Internal Medicine

== ENCOUNTER 2017-02-05 10:11 | Inpatient (IN) ==
--- NOTE | 2017-02-05 10:46 | Emergency Department Note ---
Disposition Clinical Impression: Anemia Qualifiers: Anemia type: due to chronic kidney disease Chronic kidney disease stage: stage 3 (moderate) Qualified Code(s): N18.3 - Chronic kidney disease, stage 3 ( moderate); D63.1 - Anemia in chronic kidney disease; D63.1 - Anemia in chronic kidney disease Dyspnea Qualifiers: Dyspnea type: shortness of breath Qualified Code(s): R06.02 - Shortness of breath; R06.00 - Dyspnea, unspecified; R06.01 - Orthopnea Disposition: Admitted As Inpatient Condition: Fair Referrals: Rina Kaba MD [Primary Care Provider] - Forms: ED Satisfaction Letter Time of Disposition: 12:49 General Adult HPI - General Chief complaint: ED Recheck/Abnormal Lab/Rx Stated complaint: abnormal labs Time Seen by Provider: 02/05/17 10:29 Source: patient, family Mode of arrival: ambulatory Limitations: no limitations Nursing Notes Reviewed: Yes Vital Signs Reviewed: Yes - History of Present Illness HPI Narrative: Ms. 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 She has been having increased fatigue, shortness of breath and chest discomfort over the past three days, and she has also experienced increased edema throughout her body. Her daughter is present at time of exam, and she says that the patient has required multiple admissions in the past several months due to symptomatic anemia which have required up to 5 units of blood in total. Apparently, she has had EGD and colonoscopy to rule out GI bleed as a source of anemia, and her care transport nurse believes that it is anemia of chronic disease. Her daughter says that she has been having labile BP and she has restricted her use of lasix and BP meds as a result. She denies any fevers, chills, sweats or syncope. Pt Subjective Complaint: Weakness/SOB Onset (ago): day(s) Pain Scale: 6 Improves with: movement Worsens with: rest Associated symptoms: Reports: shortness of breath. Denies: cough, diaphoresis, fever/chills, headaches, nausea/vomiting, syncope Treatments Prior to Arrival: none - Related Data Home Medications Medication Instructions Recorded Confirmed Amiodarone [Cordarone] 200 mg PO DAILY 12/01/16 01/13/17 Esomeprazole Magnesium [Nexium 20 mg PO DAILY 12/01/16 01/13/17 24Hr] FLUoxetine HCl [Fluoxetine HCl] 40 mg PO DAILY 12/01/16 01/13/17 Levothyroxine [Synthroid] 100 mcg PO 0630 12/01/16 01/13/17 Losartan [Cozaar] 100 mg PO DAILY 12/01/16 01/13/17 Potassium 10 meq PO TID 12/01/16 01/13/17 Prasugrel [Effient] 10 mg PO DAILY 12/01/16 01/13/17 Rivaroxaban [Xarelto] 15 mg PO 1700 12/01/16 01/13/17 Oxycodone HCl/Acetaminophen 1 each PO Q6H PRN 12/23/16 01/03/17 [Percocet 5-325 mg Tablet] RisperiDONE [Risperidone Odt] 0.5 mg PO DAILY 12/24/16 01/13/17 Furosemide [Lasix] 40 mg PO TID PRN 01/13/17 01/13/17 predniSONE [PredniSONE] 30 mg PO DAILY 01/13/17 01/13/17 Previous Rx's Medication Instructions Recorded Sennosides/Docusate Sodium [Senna 1 each PO BID PRN tablet 12/28/16 Plus] Allergies Allergy/AdvReac Type Severity Reaction Status Date / Time Cyclobenzaprine Allergy Hallucinati Verified 01/13/17 14:20 [From Flexeril] ng fluocinonide [From Lidex] Allergy Hives Verified 01/13/17 14:26 olanzapine [From Zyprexa] Allergy See Verified 01/13/17 14:19 Comments ciprofloxacin [From Cipro] AdvReac Vomiting Verified 01/13/17 14:19 Erythromycin Base AdvReac Vomiting Verified 01/13/17 14:19 Sulfa (Sulfonamide AdvReac Vomiting Verified 01/13/17 14:19 Antibiotics) ivp DYE Allergy Hives Uncoded 01/13/17 14:19 Review of Systems: CONSTITUTIONAL: No weight loss, fever, chills. Positive weakness and fatigue HEENT: Eyes: No visual loss, blurred vision, double vision or yellow sclerae. Ears, Nose, Throat: No hearing loss, sneezing, congestion, runny nose or sore throat. SKIN: No rash or itching. CARDIOVASCULAR: Mild chest discomfort with exertion, edema present. No palpitations RESPIRATORY: No cough or sputum, Positive Shortness of breath GASTROINTESTINAL: No anorexia, nausea, vomiting or diarrhea. No abdominal pain or blood. NEUROLOGICAL: No headache, dizziness, syncope, paralysis, ataxia, numbness or tingling in the extremities. No change in bowel or bladder control. MUSCULOSKELETAL: No muscle, back pain, joint pain or stiffness. HEMATOLOGIC: No bleeding or bruising. Chronic anemia requiring multiple transfusions LYMPHATICS: No enlarged nodes. No history of splenectomy. PSYCHIATRIC: No history of depression or anxiety. ENDOCRINOLOGIC: No reports of sweating, cold or heat intolerance. No polyuria or polydipsia. ALLERGIES: No history of asthma, hives, eczema or rhinitis. Past Medical History - Past Medical History Medical history: Reports: atrial fibrillation, COPD, coronary artery disease, GERD, hypertension, myocardial infarction, renal disease, thyroid disease, other Surgical history: Reports: appendectomy, cataract, cholecystectomy, hysterectomy , other (Negative capsule study, partial thyroidectomy and laminectomy) Psychiatric history: Reports: no psych history VICE PRESIDENT OF INSTRUCTION history: Reports: no VICE PRESIDENT OF INSTRUCTION history - Social History Smoking Status: Former smoker Smokeless Tobacco Status: No Alcohol use: Reports: none Drug use: Reports: none Physical Exam Gen.: Vitals noted. No acute distress. AAOx3 HEENT: PERRL/EOMI, oropharynx dry but clear, Normocephalic, atraumatic Neck: Supple. No adenopathy. Cardiac: RRR, 2/6 systolic murmur, +S1/S2 Pulmonary: mild bibasilar rales present on auscultation with mild wheezes throughout Abdomen: soft, nontender, BS noted, no guarding Back: Nontender throughout. MSK: ROM intact, no joint swelling noted Extremities: BLE edema 2+ , nontender calf, no cyanosis or clubbing Neuro: A&Ox3, moves all extremities, no focal deficits Psych: Appropriate mood and behavior - General Limitations: no limitations General appearance: alert, in no apparent distress Course - Reevaluation(s) Reevaluation #1: The patient has been wheezy. We will give her a breathing treatment. Time: 12:20 Vital Signs Temperature 97.6 F 02/05/17 10:12 Pulse Rate 107 02/05/17 10:12 Respiratory Rate 20 02/05/17 10:12 Blood Pressure 143/80 02/05/17 10:12 O2 Sat by Pulse Oximetry 93 02/05/17 10:12 Temperature 97.6 F 02/05/17 10:12 Pulse Rate 107 02/05/17 10:12 Respiratory Rate 20 02/05/17 10:12 Blood Pressure 143/80 02/05/17 10:12 O2 Sat by Pulse Oximetry 93 02/05/17 10:12 Oxygen Delivery Oxygen Delivery Nasal Cannula Medical Decision Making - MDM Narrative Medical decision making narrative: Ms. Melendez is a 77yo female with history of chronic anemia, CKD3-4, CHFpEF who presented to the ED with low HgB (5.8) on lab testing yesterday, and 3 day history of increasing fatigue, dyspnea, chest discomfort and extremity edema. She has apparently been worked up numerous times for bleeds with no real evidence present. She has been treated by nephrology for CKD that has been classified as stage 3 or 4, and has gotten iron infusions and epogen from heme/ onc. At this time, the patient is in no acute distress but has edema present in b/l LEs with bibasilar crackles present on exam. CXR showed bibasilar atelectasis. Repeat CBC shows HgB 6.1. Spoke with Heme/Onc who agrees with plan to transfuse patient, admit, and consult GI. The patient will be admitted to [facility] with tele, accepted by Dr. Parkinson. - Medical Records Medical records reviewed: Yes I reviewed the patient's medical records. - Lab Data Lab results reviewed: Yes I reviewed the patient's lab results. Result diagrams: 02/05/17 10:36 02/05/17 10:36 Lab Results 02/05/17 02/05/17 02/05/17 Range/Units 10:36 10:36 10:36 WBC 10.2 D (4.3-11.1) K/mcL RBC 2.43 L (3.82-4.97) M/mcL Hgb 6.1 L (11.5-15.4) g/dL Hct 20.7 L (35.3-44.9) % MCV 85.2 (83.0-100.0) fL MCH 25.1 L (28.0-33.3) pg MCHC 29.5 L (31.6-35.5) g/dL RDW 17.2 H (11.5-14.5) % Plt Count 269 (140-400) K/mcL MPV 10.1 (9.4-12.4) fL Immature Gran % 1.5 (0-4) % Seg Neutrophils % 87.3 % Lymphocytes % 5.1 % Monocytes % 5.5 % Eosinophils % 0.4 % Basophils % 0.2 % Neutrophils # 8.9 (1.6-8.9) K/mcL Lymphocytes # 0.5 L (0.6-4.6) K/mcL Monocytes # 0.6 (0.0-1.3) K/mcL Eosinophils # 0.0 (0.0-0.6) K/mcL Basophils # 0.0 (0.0-0.2) K/mcL Nucleated RBCs/100 WBC 0.7 H (0) /100 WBC Sodium 140 (136-145) mEq/L Potassium 2.9 L (3.5-5.1) mEq/L Chloride 101 (98-107) mEq/L Carbon Dioxide 31 H (23-29) mEq/L BUN 19 (8-23) mg/dL Creatinine 1.11 (0.60-1.20) mg/dL Est GFR ( Amer) 58 L (> 60) Est GFR (Non-Af Amer) 48 L (> 60) BUN/Creatinine Ratio 17 (6-26) Glucose 186 H (70-105) mg/dL Calculated Osmolality 297 (280-300) Calcium 8.8 (8.6-10.3) mg/dL Troponin I < 0.03 (< 0.04) ng/mL - Radiology Data Radiology results reviewed: Yes I reviewed the patient's radiology results.
[2017-02-05 10:47] LABS: Basophils % 0.2 %; Eosinophils % 0.4 %; Hematocrit 20.7 % (35.3-44.9); Immature Granulocytes % 1.5 % (0-4); Lymphocytes # 0.5 K/mcL (0.6-4.6); Lymphocytes % 5.1 %; Mean Corpuscular HGB Conc 29.5 g/dL (31.6-35.5); Mean Corpuscular Hemoglobin 25.1 pg (28.0-33.3); Mean Corpuscular Volume 85.2 fL (83.0-100.0); Mean Platelet Volume 10.1 fL (9.4-12.4); Monocytes # 0.6 K/mcL (0.0-1.3); Monocytes % 5.5 %; Neutrophils # 8.9 K/mcL (1.6-8.9); Nucleated Red Blood Cells 0.7 /100 WBC (0); Platelet Count 269 K/mcL (140-400); Red Blood Count 2.43 M/mcL (3.82-4.97); Red Cell Distribution Width 17.2 % (11.5-14.5); Segmented Neutrophils % 87.3 %
[2017-02-05 10:48] LABS: Hemoglobin 6.1 g/dL (11.5-15.4)
[2017-02-05 11:02] LABS: Calcium 8.8 mg/dL (8.6-10.3); Potassium 2.9 mEq/L (3.5-5.1)
--- NOTE | 2017-02-05 11:25 | Emergency Department Note ---
START Narrative - START START: I examined this patient and my medical decision-making was reviewed with the Resident Physician. I agree with the documented findings, disposition and treatment plan as described except to the extent set forth below. 77-year-old female presented with shortness of breath and weakness. Patient is being worked up for anemia. Her hemoglobin had dropped down to 5.8. Today she is 6.1. She is very weak and short of breath. 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 will supplement her K admit vss
[2017-02-05] MEDS ORDERED: ALPRAZolam 0.5 MG TABLET PO ONE (11:50)
[2017-02-05] MEDS ORDERED: Ipratropium/Albuterol Neb 3 ML IH SCH (12:30)
[2017-02-05] MEDS ORDERED: Ipratropium/Albuterol Neb 3 ML IH ONE (13:42)
[2017-02-05] MEDS ORDERED: Ipratropium/Albuterol Neb 3 ML ONE (13:43)
[2017-02-05] MEDS ORDERED: 0.9 % Sodium Chloride 250 ML ONE (14:04)
[2017-02-05] MEDS ORDERED: Acetaminophen 325 MG TABLET PO PRN (15:19)
[2017-02-05] MEDS ORDERED: Naloxone 0.4 MG/ML INJ IVP PRN (15:19)
[2017-02-05] MEDS ORDERED: diazePAM 5 MG TABLET PO PRN (15:30)
[2017-02-05] MEDS ORDERED: Furosemide 20 MG/2 ML VIAL IVP ONE (16:20)
--- NOTE | 2017-02-05 16:27 | Internal Med History&Physical ---
Date of Encounter: 02/05/17 Time of Encounter: 16:24 Assessment and Plan (1) Symptomatic anemia Current visit: Yes Status: Acute 1 Patient has been experiencing fatigue and dyspnea on exertion. Hgb was down 6.1 from 8.0 Type and screen given 1unit of PRBC will give 20 mg of IV lasix continue to monitor H/H- No S/SX of active bleeding. Patient has had Previous GI work up: Procedures: EGD 04/20/2014 Dr. Thurman: Normal, empiric dilation of the entire esophagus. EGD 12/01/2013 Dr. Thurman: Gastritis, hyperplastic polyp. Capsule endoscopy 11/04/2013: Finding of a small amount of dark blood in the duodenal lumen with no identifiable source of bleeding. Colonoscopy 03/18/2012 Dr. Monet: 3 mm tubular adenoma at splenic flexure, recommended repeat in 3 years. EGD 03/18/2012 Dr. Monet: Gastric ulcers, chemical gastritis. GI has been consulted per ER physician Will have patient follow up with Hem/onc as outpt and consult as needed (2) Paroxysmal atrial fibrillation Current visit: No Status: Chronic presently sinus rhythm will continue with amiodarone she is not any anticoags dt bleeeding she was on xarelto (3) CKD (chronic kidney disease), stage III Current visit: No Status: Chronic Presently stable with creatinine 1.11 will continue to monitor monitor I/O daily weight monitor electrolytes avoid nephrotoxins (4) CAD (coronary artery disease) Current visit: No Status: Chronic continue with BB statin not on ASA dt bleeding, nitro as needed for CP Qualifiers: Coronary Disease-Associated Artery/Lesion type: [place] artery [place] vs. transplanted heart: [place] heart Associated angina: without angina Qualified Code(s): I25.10 - Atherosclerotic heart disease of [place] coronary artery without angina pectoris (5) DVT prophylaxis Current visit: No Status: Acute SCD (6) Hypokalemia Current visit: Yes Status: Acute potassium 2.9 on presentation replace and recheck will check mag Internal Medicine - H&P: HPI Chief complaint: low hgb Admitted From: Emergency Dept Plans for Post Hospital Care: Home History of present illness: Ms. eMlendez is a 77 year old female PMH of CKD 3 with chronic anemaia afib on xerlto and diastolic HF. She had lab work completed yesterday by her hem/onc physician. She was notified today to go report to ED dt low HGB. Over the past week she has been experieicning Dyspnea on exertion and fatigue. She denies any CP abd pain or syncope HGB 5.8 02/04 down from previous 8.0. She has had admissions in the past for sx anemia. She denies any melena hematochezia or hematemesis She has had EGD and colonoscopy in September of this year which did not reveal any source of bleeding. In the ED lab work did reveal Hgb 6.1 and potassium of 2.9 She was type and crossed for PRBC and given K rider she has been admitted for further work up and evaluation. She is presently hemodynamically stable Past Med Surg Social Fam HX - Past Medical History Medical history: atrial fibrillation, COPD, coronary artery disease, GERD, hypertension, myocardial infarction, renal disease, thyroid disease, other Psychiatric history: no psych history - Past Surgical History Surgical History: appendectomy, cataract, cholecystectomy, hysterectomy, other - Social History Smoking Status: Former smoker Smokeless Tobacco Status: No Alcohol use: none Drug use: none - Family History Father Adopted: No Family Member Ethnicity: Non- Living Status: Hx Family Cardiac Disorders: Yes (CHF) Hx Family Respiratory Disorders: Yes (COPD, Emphysema) Hx Family Endocrine Disorder: Yes (dm) Mother Adopted: No Family Member Ethnicity: Non- Living Status: Hx Family Cancer: Yes (Colon cancer) Hx Family Endocrine Disorder: Yes (dm) Brother Family Member Ethnicity: Non- Living Status: Still Living Hx Family Cardiac Disorders: Yes (CAD, CHF) Hx Family Respiratory Disorders: Yes (COPD) Sister Family Member Ethnicity: Non- Living Status: Hx Family Cardiac Disorders: Yes (CHF) Internal Medicine - H&P: Meds Amiodarone [Cordarone] 100 mg PO DAILY 12/01/16 [History] Esomeprazole Magnesium [Nexium 24Hr] 20 mg PO DAILY 12/01/16 [History] FLUoxetine HCl [Fluoxetine HCl] 40 mg PO DAILY 12/01/16 [History] Levothyroxine [Synthroid] 100 mcg PO 0630 12/01/16 [History] Losartan [Cozaar] 100 mg PO DAILY 12/01/16 [History] Prasugrel [Effient] 10 mg PO DAILY 12/01/16 [History] Rivaroxaban [Xarelto] 15 mg PO 1700 12/01/16 [History] Sennosides/Docusate Sodium [Senna Plus] 1 each PO BID PRN tablet 12/28/16 [Rx] Furosemide [Lasix] 40 mg PO TID PRN 01/13/17 [History] predniSONE [PredniSONE] 20 mg PO DAILY 01/13/17 [History] Albuterol Sulfate [Proair Hfa] 2 puff IH Q6H PRN 02/05/17 [History] Ezetimibe [Zetia] 10 mg PO QPM 02/05/17 [History] Polyethylene Glycol 3350 [MiraLAX Powder Bulk 17.9 Oz] 1 scoop PO DAILY [History] Potassium Chloride [Klor-Con 10] 10 meq PO DAILY 02/05/17 [History] Spironolactone [Aldactone] 25 mg PO BID 02/05/17 [History] Zolpidem Tartrate 5 mg PO HS 02/05/17 [History] diazePAM [Valium] 5 mg PO BID PRN 02/05/17 [History] risperiDONE [Risperidone] 1 mg PO HS 02/05/17 [History] 3 Allergy/AdvReac Type Severity Reaction Status Date / Time Cyclobenzaprine Allergy Hallucinati Verified 01/13/17 14:20 [From Flexeril] ng fluocinonide [From Lidex] Allergy Hives Verified 01/13/17 14:26 olanzapine [From Zyprexa] Allergy See Verified 01/13/17 14:19 Comments ciprofloxacin [From Cipro] AdvReac Vomiting Verified 01/13/17 14:19 Erythromycin Base AdvReac Vomiting Verified 01/13/17 14:19 Sulfa (Sulfonamide AdvReac Vomiting Verified 01/13/17 14:19 Antibiotics) ivp DYE Allergy Hives Uncoded 01/13/17 14:19 All Systems PM: A 10-system review of systems was performed and is negative for pertinent findings except as documented above in the HPI. - Constitutional Constitutional: fatigue, weakness, no chills, no fever(s), no night sweats - EENT Eyes: no change in vision, no discharge, no pain, no photophobia Ears: no ear discharge, no ear pain, no tinnitus Nose, mouth and throat: no dysphagia, no nasal discharge, no neck pain, no sore throat - Cardiovascular Cardiovascular ROS IM: dyspnea on exertion, edema, no chest pain, no diaphoresis , no dyspnea, no lightheadedness, no palpitations, no syncope - Respiratory Respiratory: no cough, no dyspnea, no wheezing, no excessive phlegm production - Gastrointestinal Gastrointestinal: no abdominal pain, no diarrhea, no hematemesis, no hematochezia, no melena, no nausea, no vomiting - Genitourinary Genitourinary: no change in urinary stream, no dysuria, no flank pain, no hematuria - Musculoskeletal Musculoskeletal ROS IM: no numbness, no tingling - Integumentary Integumentary IM: no rash, no unusual bruising - Neurological Neurological ROS: no confusion, no convulsions, no focal weakness, no numbness, no tingling, no tremor(s) - Hematologic/Lymphatic Hematologic/Lymphatic: no easy bruising - Constitutional Vitals: Temp Pulse Resp BP Pulse Ox 97.7 F 91 16 158/64 96 02/05/17 14:57 02/05/17 14:57 02/05/17 14:57 02/05/17 14:57 02/05/17 14:57 General appearance: Present: A&O X 3 - Head Head exam: Present: atraumatic, normocephalic - Eye Eye exam: Present: PERRL, conjuntiva pink, sclera anicteric Pupils: Present: PERRL - Neck Neck exam general surgery: Present: supple, trachea midline. Absent: lymphadenopathy - Respiratory Respiratory exam: Present: rales. Absent: accessory muscle use, rhonchi, wheezes - Cardiovascular Cardiovascular exam: Present: RRR, +S1, +S2. Absent: diastolic murmur, gallop, rubs, systolic murmur - GI/Abdominal GI/Abdominal exam: Present: normal bowel sounds, soft, no peritoneal signs. Absent: distended, tenderness - Extremities Exam Extremities exam: Present: pedal edema, warm, radial pulses palpable and symmetrical. Absent: calf tenderness, cyanotic - Neurological Exam Neurological exam: Present: CN II-XII intact, oriented X3, no focal deficits. Absent: pronater drift, facial droop, speech deficit - Skin Skin exam: Present: dry, intact Internal Med - H&P Results - Labs CBC & Chem 7: 02/05/17 10:36 02/05/17 10:36
[2017-02-05] MEDS ORDERED: (Ezetimibe [Zetia] 10 MG) PO SCH (18:00)
--- NOTE | 2017-02-05 20:25 | Electrocardiograph Report ---
[address] [address] Test Date: 2017-02-05 Pat Name: Giuliana Melendez Department: 103 Room: 2NE23 Gender: F Drainlayer: MELODY : 1940 Requested By: Catalino La Order Number: [id number] Reading MD: Faustino Duncan MD Measurements Intervals [place] Rate: 106 P: 8 OK: 143 QRS: 26 QRSD: 110 T: 40 QT: 361 QTc: 423 Interpretive Statements BASELINE ARTIFACT COMPLICATES ACCURATE INTERPRETATION SINUS TACHYCARDIA W PACS INCOMPLETE RBBB Electronically Signed On 02-05-2017 20:24:04 EST by Faustino Duncan MD
[2017-02-05] MEDS ORDERED: ALPRAZolam 0.5 MG TABLET PO PRN (22:52)
[2017-02-06 03:40] LABS: Basophils % 0.3 %; Eosinophils # 0.1 K/mcL (0.0-0.6); Eosinophils % 1.3 %; Hematocrit 21.4 % (35.3-44.9); Hemoglobin 6.4 g/dL (11.5-15.4); Immature Granulocytes % 3.1 % (0-4); Lymphocytes # 0.9 K/mcL (0.6-4.6); Lymphocytes % 14.5 %; Mean Corpuscular HGB Conc 29.9 g/dL (31.6-35.5); Mean Corpuscular Hemoglobin 25.6 pg (28.0-33.3); Mean Corpuscular Volume 85.6 fL (83.0-100.0); Mean Platelet Volume 9.9 fL (9.4-12.4); Monocytes # 0.4 K/mcL (0.0-1.3); Monocytes % 7.1 %; Neutrophils # 4.5 K/mcL (1.6-8.9); Nucleated Red Blood Cells 1.3 /100 WBC (0); Platelet Count 235 K/mcL (140-400); Red Cell Distribution Width 17.2 % (11.5-14.5); Segmented Neutrophils % 73.7 %
[2017-02-06 04:06] LABS: BUN/Creatinine Ratio 16 (6-26); Blood Urea Nitrogen 16 mg/dL (8-23); Calcium 8.4 mg/dL (8.6-10.3); Carbon Dioxide 32 mEq/L (23-29); Chloride 103 mEq/L (98-107); Glucose 112 mg/dL (70-105); Magnesium 2.2 mg/dL (1.6-2.6); Osmolality,Calculated 302 (280-300); Sodium 145 mEq/L (136-145); eGFR For African Americans > 60 (> 60); eGFR For Non-African Americans 53 (> 60)
--- NOTE | 2017-02-06 11:46 | Anesthesia Evaluation PreOp ---
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: Denies Any Significant HX Other Medical History: Renal (CRD stage III), Thyroid (Hypothyroid), GERD Anesthesia History: No Prior Anesthetic Complications, Past Anesthesia (Appy, cataract, GB, GERI) : No Alcohol Use: none Drug use: none Medications and Allergies Amiodarone [Cordarone] 100 mg PO DAILY 12/01/16 [History] Esomeprazole Magnesium [Nexium 24Hr] 20 mg PO DAILY 12/01/16 [History] FLUoxetine HCl [Fluoxetine HCl] 40 mg PO DAILY 12/01/16 [History] Levothyroxine [Synthroid] 100 mcg PO 0630 12/01/16 [History] Losartan [Cozaar] 100 mg PO DAILY 12/01/16 [History] Prasugrel [Effient] 10 mg PO DAILY 12/01/16 [History] Rivaroxaban [Xarelto] 15 mg PO 1700 12/01/16 [History] Sennosides/Docusate Sodium [Senna Plus] 1 each PO BID PRN tablet 12/28/16 [Rx] Furosemide [Lasix] 40 mg PO TID PRN 01/13/17 [History] predniSONE [PredniSONE] 20 mg PO DAILY 01/13/17 [History] Albuterol Sulfate [Proair Hfa] 2 puff IH Q6H PRN 02/05/17 [History] Ezetimibe [Zetia] 10 mg PO QPM 02/05/17 [History] Polyethylene Glycol 3350 [MiraLAX Powder Bulk 17.9 Oz] 1 scoop PO DAILY [History] Potassium Chloride [Klor-Con 10] 10 meq PO DAILY 02/05/17 [History] Spironolactone [Aldactone] 25 mg PO BID 02/05/17 [History] Zolpidem Tartrate 5 mg PO HS 02/05/17 [History] diazePAM [Valium] 5 mg PO BID PRN 02/05/17 [History] risperiDONE [Risperidone] 1 mg PO HS 02/05/17 [History] 3 Allergy/AdvReac Type Severity Reaction Status Date / Time Cyclobenzaprine Allergy Hallucinati Verified 01/13/17 14:20 [From Flexeril] ng fluocinonide [From Lidex] Allergy Hives Verified 01/13/17 14:26 olanzapine [From Zyprexa] Allergy See Verified 01/13/17 14:19 Comments ciprofloxacin [From Cipro] AdvReac Vomiting Verified 01/13/17 14:19 Erythromycin Base AdvReac Vomiting Verified 01/13/17 14:19 Sulfa (Sulfonamide AdvReac Vomiting Verified 01/13/17 14:19 Antibiotics) ivp DYE Allergy Hives Uncoded 01/13/17 14:19 - Meds/Allergy Pre-op Review Medications Reviewed: Yes Allergies Reviewed: Yes Beta Blockers on Current Med List: No Anesthesia Results - Labs 02/06/17 03:09 02/06/17 03:09 Date of Study: 10/01/2016 Impressions: LVEF 65%. Definity echo contrast was used. Pseudonormal LV diastolic dysfunction. RV is not well evaluated. No significant valvular dysfunction. Lack of adequate TR signal to estimate RVSP. IVC is not dilated. Date of Study: 09/28/2015 LEFT HEART CATH Indications: Unstable Angina Impressions: Coronary arteries have mild disease Stent placed from a prior procedure in the Proximal LAD is patent. The left ventricle is normal and has normal contractility EF 65%. Recommendations: Optimal medical therapy of patient's disease. Aggressive risk factor modification. - Imaging EKG: report reviewed (SINUS TACHYCARDIA W PACS INCOMPLETE RBBB) Anesthesia Exam O2 Sat Weight 126.7 kg O2 Sat by Pulse Oximetry 97 O2 Sat by Pulse Oximetry 97 O2 Sat by Pulse Oximetry 94 O2 Sat by Pulse Oximetry 95 O2 Sat by Pulse Oximetry 98 O2 Sat by Pulse Oximetry 98 O2 Sat by Pulse Oximetry 96 O2 Sat by Pulse Oximetry 96 O2 Sat by Pulse Oximetry 97 O2 Sat by Pulse Oximetry 95 Vital Signs Temp Pulse Resp BP Pulse Ox 97.6 F 107 20 143/80 93 02/05/17 10:12 02/05/17 10:12 02/05/17 10:12 02/05/17 10:12 02/05/17 10:12 Vital Signs/O2 Sat, Most Current Temp Pulse Resp BP Pulse Ox 97.7 F 97 18 132/58 97 02/06/17 07:00 02/06/17 11:42 02/06/17 11:42 02/06/17 11:42 02/06/17 11:42 Height: 5'7'' Weight: 279# NPO (# of Hours): > 8 hrs Pain Scale: 0 Pain Scale Used: Numeric (1 - 10) - HEENT Pupil (Motor): Pupils equal, EOMI Mallampati: III Teeth: Edentulous Oral Opening: Greater than 3 - SHEET METAL PATTERN CUTTER LOC: Oriented SHEET METAL PATTERN CUTTER Motor: Normal RUE, Normal LUE, Normal RLE, Normal LLE, Normal Face SHEET METAL PATTERN CUTTER Sensory: Normal: RUE, LUE, RLE, LLE, Face - Cardiac Rhythm: Regular Murmur: None JVD: No Carotid Bruit: No - Pulmonary Breath Sounds: bilateral Clear Respiratory Effort: Symmetrical Anesthesia Assess/Plan ASA Score: 4 Modified Weston Scale for Level of Consciousness: Cooperative, oriented, and tranquil Anesthetic Plan: MAC Autologous Blood: Yes Monitoring Plan: Standard Monitors Recovery Plan: PACU
--- NOTE | 2017-02-06 12:12 | Gastroenterology Consult Note ---
<Corazon Rubio - Last Filed: 02/06/17 12:07> Date of Encounter: 02/06/17 Time of Encounter: 10:20 - Assessment and plan (1) Iron deficiency anemia Current Visit: No Status: Chronic Assessment and plan: Pt has longstanding anemia. She had EGD/Colon 10/03 which did not show bleeding. Will proceed with push enteroscopy today. May need capsule endoscopy if negative. She remains anemic will transfuse again for Hgb < 7. she is followed by oncology as outpatient. She has multiple comorbid conditions, prognosis is guarded. Qualifiers: Iron deficiency anemia type: unspecified iron deficiency Qualified Code(s) : D50.9 - Iron deficiency anemia, unspecified - Time Spent With Patient Total time spent is greater than 50% in coordination of care (as documented) at patient's floor/unit and/or counseling patient: GI History of Present Illness - Data of Consult Patient: known to practice within the last 3 years Consult date: 02/06/17 Requesting Physician: Denzel Hoang - Consult Narrative Reason for consult: anemia History of present illness: Ms. Melendez is a 77 year old female with a pmhx of CKD 3, chronic anemia, afib, COPD, CAD, HTN, GERD, hypothyroidism, and CHF. Pt has a longstanding history of J LUIS since 2011. She has been hospitalized 6 times since 10/04 and had multiple blood transfusions and iron infusions. Recent lab work done by hematology showed a hgb 5.8 and she was instructed to go to ER. She does admit to dyspnea on exertion and fatigue. She denies any CP abd pain or syncope. She denies any nausea/vomiting, hematemesis, bloody or tarry stools. She does have dark stools but is on iron supplementation. She denies diarrhea, she has occasional constipation and takes stool softeners and miralax as needed. She has had EGD and colonoscopy in September of this year which did not reveal any source of bleeding. She has had capsule endoscopy in the past last was 2013 and did not show source of bleeding.She was transfused 1 unit PRBCs and hgb is 6.4. Colonoscopy: 10/03colon polyps which are negative for malignancy EGD: 10/03 gastric polyp NSAIDS/ASA: Anticoagulants: effient, xarelto Past Med Surg Social Fam HX - Past Medical History Medical history: atrial fibrillation, COPD, coronary artery disease, GERD, hypertension, myocardial infarction, renal disease, thyroid disease, other Psychiatric history: no psych history - Past Surgical History Surgical History: appendectomy, cataract, cholecystectomy, hysterectomy, other - Social History Smoking Status: Former smoker Smokeless Tobacco Status: No Alcohol use: none Drug use: none - Family History Father Adopted: No Family Member Ethnicity: Non- Living Status: Hx Family Cardiac Disorders: Yes (CHF) Hx Family Respiratory Disorders: Yes (COPD, Emphysema) Hx Family Endocrine Disorder: Yes (dm) Mother Adopted: No Family Member Ethnicity: Non- Living Status: Hx Family Cancer: Yes (Colon cancer) Hx Family Endocrine Disorder: Yes (dm) Brother Family Member Ethnicity: Non- Living Status: Still Living Hx Family Cardiac Disorders: Yes (CAD, CHF) Hx Family Respiratory Disorders: Yes (COPD) Sister Family Member Ethnicity: Non- Living Status: Hx Family Cardiac Disorders: Yes (CHF) Review of Systems: GI: as per [facility]: denies fever, has some chills EYES: denies yellow discoloration ENT: denies pain with swallowing or difficulty swallowing CARDIO: denies chest pain, palpitations RESP: Shortness of breath with exertion : denies change in color of urine NEURO: weakness HEME: Denies any bruising MS: chronic joint and back pain DERM: denies rash or itching PSYCH: Denies history of anxiety or depression - Constitutional Vitals: Temp Pulse Resp BP Pulse Ox 97.7 F 97 18 132/58 97 02/06/17 07:00 02/06/17 11:42 02/06/17 11:42 02/06/17 11:42 02/06/17 11:42 Exam: CONSTITUTIONAL:~alert, no acute distress.~HEAD:~normocephalic.~EYES:~no jaundice.~NECK:~no obvious swelling.~HEART:~regular rate and rhythm, no murmurs. ~LUNGS:~bilateral good air entry.~ABDOMEN:~non distended, soft, non tender, no masses palpable, no organomegaly, obesity, palpation difficult due to body habitus.~RECTAL EXAM:~Deferred.~EXTREMITIES:~no clubbing, cyanosis, 2+ BLE edema ~SKIN:~pallor noted~NEUROLOGIC:~no obvious focal defect.~~~~ Results - Labs CBC & Chem 7: 02/06/17 03:09 02/06/17 03:09 Labs: Last Result Calcium 8.4 mg/dL (8.6-10.3) L 02/06/17 03:09 Troponin I < 0.03 ng/mL (< 0.04) 02/05/17 22:04 Stool Occult Blood Positive (Negative) A 02/06/17 10:30 Entire Visit Hgb 6.4 g/dL (11.5-15.4) L 02/06/17 03:09 Hct 21.4 % (35.3-44.9) L 02/06/17 03:09 Consult Discharge Plan - Plan Referrals: Rina Kaba MD [Primary Care Provider] - <Leora Thurman - Last Filed: 02/06/17 17:58> Date of Encounter: 02/06/17 Time of Encounter: 13:00 - Time Spent With Patient Total time spent is greater than 50% in coordination of care (as documented) at patient's floor/unit and/or counseling patient: GI History of Present Illness - Data of Consult Requesting Physician: Denzel Hoang - Consult Narrative History of present illness: Ms. Melendez is a 77 year old female - Constitutional Vitals: Temp Pulse Resp BP Pulse Ox 97.9 F 97 16 144/73 96 02/06/17 15:19 02/06/17 16:08 02/06/17 15:19 02/06/17 16:08 02/06/17 15:19 Results - Labs CBC & Chem 7: 02/06/17 03:09 02/06/17 03:09 Labs: Last Result Calcium 8.4 mg/dL (8.6-10.3) L 02/06/17 03:09 Troponin I < 0.03 ng/mL (< 0.04) 02/05/17 22:04 Stool Occult Blood Positive (Negative) A 02/06/17 10:30 Entire Visit Hgb 6.4 g/dL (11.5-15.4) L 02/06/17 03:09 Hct 21.4 % (35.3-44.9) L 02/06/17 03:09 - Attending Attestation I examined this patient and my medical decision-making was reviewed with the Resident Physician. I agree with the documented findings, disposition and treatment plan as described except to the extent set forth below. Patient with chronic iron deficiency anemia previous GI workup has been negative denies any black stool or blood in the stool. Recommendation enteroscopy today and if negative then she will have a capsule endoscopy as an outpatient EGD and colonoscopy in September were unremarkable
[2017-02-06] MEDS ORDERED: Lidocaine -MPF 2% 2 ML VIAL ONE (13:31)
[2017-02-06] MEDS ORDERED: Propofol 500 MG/50 ML INFUS..BTL ONE (13:31)
--- NOTE | 2017-02-06 13:39 | Anesthesia Evaluation Post Op ---
Date of Encounter: 02/06/17 Time of Encounter: 13:45 - Vital Signs Vital Signs: Vital Signs/O2 Sat, Most Current Temp Pulse Resp BP Pulse Ox 97.7 F 96 20 155/71 96 02/06/17 07:00 02/06/17 13:05 02/06/17 13:05 02/06/17 13:05 02/06/17 13:05 - Lungs Lungs: Clear Ascult./Percussion - Airway Airway: Non-obstructed - Cardiovascular Regular Rate - Mental Status Mental Status: Alert & Oriented, Answers Appropriately - Pain Pain Scale: 0 Pain Scale used: Numeric (1 - 10) - Nausea Vomiting Nausea Vomiting: Not Present - Hydration Hydration: NPO - Discharge PostOp Status: Transfer Patient to floor (slightly sedated, responding, spont resp VSS, no anesthetic complications)
[2017-02-06] MEDS ORDERED: Furosemide 40 MG/4 ML VIAL IVP ONE ×2 (13:48→17:00)
[2017-02-06] MEDS: Furosemide 40 MG TABLET PO SCH ×2 (14:14→14:15)
[2017-02-06] MEDS ORDERED: 0.9 % Sodium Chloride 250 ML ONE (14:19)
[2017-02-06] MEDS ORDERED: Sennosides/Docusate Sodium TABLET PO PRN (14:48)
[2017-02-06] MEDS ORDERED: diazePAM 5 MG TABLET PO PRN (14:50)
[2017-02-06] MEDS ORDERED: Potassium Chloride 40 MEQ, Lidocaine 1% 2 ML in D5% in Water 500 ML IVPB ONE (14:51)
[2017-02-06] MEDS ORDERED: Iron Sucrose Complex 400 MG in 0.9 % Sodium Chloride 250 ML IVPB ONE (15:11)
[2017-02-06] MEDS: FLUoxetine 20 MG CAPSULE PO SCH (16:00)
[2017-02-06] MEDS: predniSONE 5 MG TABLET PO SCH (16:01)
[2017-02-06] MEDS: predniSONE 1 MG TABLET PO SCH (16:01)
[2017-02-06] MEDS: *HR* Amiodarone 200 MG TABLET PO SCH (16:01)
--- NOTE | 2017-02-06 16:03 | Oncology Inp Consult Note ---
<Karuna Sharp L - Last Filed: 02/06/17 17:09> Date of Encounter: 02/06/17 Time of Encounter: 14:30 Assessment and Plan (1) Iron deficiency anemia Status: Chronic Assessment and plan: Ms. Melendez has a history of chronic iron deficiency anemia. She is intolerant to oral iron and has required multiple IV iron infusions and PRBC transfusions. Most recent GI procedures discussed below. Most recent iron profile in November revealed Iron level 39 with 9% saturation. Most recently received Feraheme in October. EGD today revealed no active bleeding, gastric polyps with superficial ulcers. Stool occult blood sample positive. She received 1 unit PRBC and has further PRBC already ordered for today. Hgb today 6.4 Will plan to transfuse to keep Hgb >7, watch closely for s/s fluid overload and administer lasix with PRBC. In addition to PRBC already ordered, I have ordered Venofer 400 mg today, will likely follow with another 400 mg Venofer tomorrow as well. Benadryl to be administered with Venofer. She reports she is intolerant to Injectafer with experiencing side effects of edema and fluid shifts causing weeping edema. Plan to treat iron deficiency prior to considering further treatment such as aranesp or need for bone marrow biopsy. Plan discussed with patient and patients daughters who understand and agree with plan of care. Please refer to Dr. Garrett's attestation for further details related to plan of care. - Data of Consult Patient: known to practice within the last 3 years Requesting Physician: Denzel Hoang Primary Care Provider: Rina Kaba, - Consult Narrative History of present illness: Ms. Melendez is a 77 year old female with a past medical history significant for his CKD, chronic iron deficient anemia, A. fib on Xarelto/amiodarone and diastolic CHF. Ms. Melendez has been a patient of Dr. Irizarry'leo since 2012 when she was diagnosed with iron deficient anemia. Since that time she has received multiple transfusions with numerous hospital admissions and has undergone multiple GI endoscopy, colonoscopy as well as capsule endoscopy procedures. Most recent EGD/colonoscopy with polypectomy in September 2016 revealed no bleeding, due again in 3 years. Capsule endoscopy for heartburn, history of ulcers, located bleeding or the esophagus. The patient most recently was admitted after she was notified by cancer Center to present to the ED for a hemoglobin of 5.8 found on routine lab work. She is symptomatic with shortness of breath and fatigue. She denies any signs or symptoms of recent bleeding such as melena, hematochezia or hematemesis. Past Med Surg Social Fam HX - Past Medical History Medical history: atrial fibrillation, COPD, coronary artery disease, GERD, hypertension, myocardial infarction, renal disease, thyroid disease, other Psychiatric history: no psych history - Past Surgical History Surgical History: appendectomy, cataract, cholecystectomy, hysterectomy, other - Social History Smoking Status: Former smoker Smokeless Tobacco Status: No Alcohol use: none Drug use: none - Family History Father Adopted: No Family Member Ethnicity: Non- Living Status: Hx Family Cardiac Disorders: Yes (CHF) Hx Family Respiratory Disorders: Yes (COPD, Emphysema) Hx Family Endocrine Disorder: Yes (dm) Mother Adopted: No Family Member Ethnicity: Non- Living Status: Hx Family Cancer: Yes (Colon cancer) Hx Family Endocrine Disorder: Yes (dm) Brother Family Member Ethnicity: Non- Living Status: Still Living Hx Family Cardiac Disorders: Yes (CAD, CHF) Hx Family Respiratory Disorders: Yes (COPD) Sister Family Member Ethnicity: Non- Living Status: Hx Family Cardiac Disorders: Yes (CHF) Medications and Allergies Amiodarone [Cordarone] 100 mg PO DAILY 12/01/16 [History] Esomeprazole Magnesium [Nexium 24Hr] 20 mg PO DAILY 12/01/16 [History] FLUoxetine HCl [Fluoxetine HCl] 40 mg PO DAILY 12/01/16 [History] Levothyroxine [Synthroid] 100 mcg PO 0630 12/01/16 [History] Losartan [Cozaar] 100 mg PO DAILY 12/01/16 [History] Prasugrel [Effient] 10 mg PO DAILY 12/01/16 [History] Rivaroxaban [Xarelto] 15 mg PO 1700 12/01/16 [History] Sennosides/Docusate Sodium [Senna Plus] 1 each PO BID PRN tablet 12/28/16 [Rx] Furosemide [Lasix] 40 mg PO TID PRN 01/13/17 [History] predniSONE [PredniSONE] 18 mg PO DAILY 01/13/17 [History] Albuterol Sulfate [Proair Hfa] 2 puff IH Q6H PRN 02/05/17 [History] Ezetimibe [Zetia] 10 mg PO QPM 02/05/17 [History] Polyethylene Glycol 3350 [MiraLAX Powder Bulk 17.9 Oz] 1 scoop PO DAILY [History] Potassium Chloride [Klor-Con 10] 10 meq PO DAILY 02/05/17 [History] Spironolactone [Aldactone] 25 mg PO BID PRN 02/05/17 [History] Zolpidem Tartrate 5 mg PO HS 02/05/17 [History] diazePAM [Valium] 5 mg PO BID PRN 02/05/17 [History] risperiDONE [Risperidone] 1 mg PO HS 02/05/17 [History] 3 Allergy/AdvReac Type Severity Reaction Status Date / Time Cyclobenzaprine Allergy Hallucinati Verified 01/13/17 14:20 [From Flexeril] ng fluocinonide [From Lidex] Allergy Hives Verified 01/13/17 14:26 olanzapine [From Zyprexa] Allergy See Verified 01/13/17 14:19 Comments ciprofloxacin [From Cipro] AdvReac Vomiting Verified 01/13/17 14:19 Erythromycin Base AdvReac Vomiting Verified 01/13/17 14:19 Sulfa (Sulfonamide AdvReac Vomiting Verified 01/13/17 14:19 Antibiotics) ivp DYE Allergy Hives Uncoded 01/13/17 14:19 Constitutional: Present: fatigue, malaise, weakness. Absent: fever(s), frequent falls Eyes: Absent: blurry vision, change in vision Nose, mouth and throat: Absent: abnormal hearing, headache(s) Cardiovascular: Present: edema, irregular heart rhythm. Absent: chest pain, palpitations Respiratory: Present: dyspnea. Absent: cough Gastrointestinal: Absent: abdominal pain, change in bowel habits, hematemesis, hematochezia, melena, nausea Genitourinary: Absent: difficulty urinating, dysuria Musculoskeletal: Present: limited range of motion, muscle weakness Integumentary: Present: swelling. Absent: wounds Neurological: Present: vertigo, weakness. Absent: syncope Psychiatric: Present: anxiety Endocrine: Absent: change in body appearance Hematologic/Lymphatic: Present: easy bruising. Absent: lymphadenopathy Oncology - Exam - Constitutional Vitals: Temp Pulse Resp BP Pulse Ox 97.9 F 93 16 131/67 96 02/06/17 15:19 02/06/17 15:19 02/06/17 15:19 02/06/17 15:19 02/06/17 15:19 General appearance: cooperative, no febrile, no no acute distress - Head Head exam: Present: normal inspection - Eye Eye exam: Present: PERRL - ENT ENT exam: Present: mucous membranes dry - Neck Neck exam: Absent: lymphadenopathy, tenderness - Respiratory Respiratory exam: Present: CTAB - Cardiovascular Cardiovascular exam: Present: irregular rhythm - GI/Abdominal GI/Abdominal exam: Present: normal bowel sounds, soft. Absent: tenderness Additional comments: limited palpation due to obesity - Extremities Exam Extremities exam: Present: pedal edema - Expanded Lower Extremity Exam Lower Leg exam: Present: swelling - Neurological Exam Neurological exam: Present: alert, strengths equal and symetr throughout - Psychiatric Psychiatric exam: Present: normal mood - Skin Skin exam: Present: pallor Additional comments: thin/fragile skin, bruises easily with multiple scattered bruises Oncology - Results Labs: Short CBC 02/06/17 Range/Units 03:09 WBC 6.1 (4.3-11.1) K/mcL Hgb 6.4 L (11.5-15.4) g/dL Hct 21.4 L (35.3-44.9) % Plt Count 235 (140-400) K/mcL Neutrophils # 4.5 (1.6-8.9) K/mcL BMP 02/06/17 03:09 Sodium 145 Potassium 3.0 L Chloride 103 Carbon Dioxide 32 H BUN 16 Creatinine 1.01 Glucose 112 H Calcium 8.4 L Cardiac Enzymes 02/05/17 02/05/17 Range/Units 17:41 22:04 Troponin I < 0.03 < 0.03 (< 0.04) ng/mL Consult Discharge Plan - Plan Referrals: Rina Kaba MD [Primary Care Provider] - <Hieu Garrett - Last Filed: 02/06/17 17:54> Date of Encounter: 02/06/17 - Data of Consult Requesting Physician: Denzel Hoang Primary Care Provider: Rina Kaba, - Consult Narrative History of present illness: Ms. Melendez is a 77 year old female Oncology - Exam - Constitutional Vitals: Temp Pulse Resp BP Pulse Ox 97.9 F 97 16 144/73 96 02/06/17 15:19 02/06/17 16:08 02/06/17 15:19 02/06/17 16:08 02/06/17 15:19 Oncology - Results Labs: Short CBC 02/06/17 Range/Units 03:09 WBC 6.1 (4.3-11.1) K/mcL Hgb 6.4 L (11.5-15.4) g/dL Hct 21.4 L (35.3-44.9) % Plt Count 235 (140-400) K/mcL Neutrophils # 4.5 (1.6-8.9) K/mcL BMP 02/06/17 03:09 Sodium 145 Potassium 3.0 L Chloride 103 Carbon Dioxide 32 H BUN 16 Creatinine 1.01 Glucose 112 H Calcium 8.4 L Cardiac Enzymes 02/05/17 02/05/17 Range/Units 17:41 22:04 Troponin I < 0.03 < 0.03 (< 0.04) ng/mL - Attending Attestation I examined this patient and my medical decision-making was reviewed with the Advanced Practice Nurse. I agree with the documented findings, disposition and treatment plan as described except to the extent set forth below. Ms. Melendez has acute on chronic anemia. Clinically, this fits with iron deficiency anemia likely from an occult gastrointestinal hemorrhage. Other contributing factors may include early stage III chronic kidney disease as well as possibly hypoproliferative bone marrow disorder such as MDS. However, upon review of her prior history, there are times when her iron stores are replete in her hemoglobin is normal or near-normal. As such, I recommend repletion of iron stores to a transferrin saturation of greater than 20% and a ferritin greater than 200 before I would consider her to have an underlying bone marrow disorder. If we have obtained adequate iron stores and she remains anemic, a bone marrow biopsy indicated. I have placed her on Venofer 400 mg 2 during his hospital stay and have also recommended transfusion of one unit packed red blood cells today.
--- NOTE | 2017-02-06 16:59 | Internal Med Progress Note ---
Date of Encounter: 02/06/17 Time of Encounter: 11:00 - Assessment and plan (1) Acute blood loss anemia Current Visit: Yes Status: Acute Assessment and plan: -Patient with hemoglobin of 6.4 this morning status post 1 unit of packed red blood cells. -We will transfuse an additional unit (2) Iron deficiency anemia Current Visit: No Status: Chronic Assessment and plan: -Hematology/oncology consulted with recommendations for iron infusion. Qualifiers: Iron deficiency anemia type: unspecified iron deficiency Qualified Code(s) : D50.9 - Iron deficiency anemia, unspecified (3) Hypertension Current Visit: No Status: Chronic Assessment and plan: -Stable; continue current management Qualifiers: Hypertension type: essential hypertension Qualified Code(s): I10 - Essential (primary) hypertension (4) CAD S/P percutaneous coronary angioplasty Current Visit: No Status: Chronic Assessment and plan: -Stable; continue home medications (5) Hypothyroidism (acquired) Current Visit: No Status: Chronic Assessment and plan: -Continue levothyroxin (6) Paroxysmal atrial fibrillation Current Visit: No Status: Chronic Assessment and plan: -Rate controlled; continue current management. (7) Hypokalemia Current Visit: No Status: Acute Assessment and plan: -Continue potassium replacement (8) CKD (chronic kidney disease), stage III Current Visit: No Status: Chronic Assessment and plan: -Stable; continue to monitor (9) Morbid obesity with BMI of 45.0-49.9, adult Current Visit: No Status: Chronic Assessment and plan: -Lifestyle modifications - Subjective Interval history: Patient's hemoglobin with some improvement status post 1 unit of packed red blood cells. Patient also with hypokalemia this morning Patient to go for EGD per GI today - Constitutional Vitals: Temp Pulse Resp BP Pulse Ox 97.9 F 97 16 144/73 96 02/06/17 15:19 02/06/17 16:08 02/06/17 15:19 02/06/17 16:08 02/06/17 15:19 General appearance: Present: A&O X 3 - Respiratory Respiratory exam: Present: CTAB. Absent: accessory muscle use, rales, rhonchi, wheezes - Cardiovascular Cardiovascular exam: Present: RRR, +S1, +S2. Absent: diastolic murmur, gallop, rubs, systolic murmur Internal Medicine: Result - Labs CBC & Chem 7: 02/06/17 03:09 02/06/17 03:09 Labs: Short CBC 02/06/17 Range/Units 03:09 WBC 6.1 (4.3-11.1) K/mcL Hgb 6.4 L (11.5-15.4) g/dL Hct 21.4 L (35.3-44.9) % Plt Count 235 (140-400) K/mcL Neutrophils # 4.5 (1.6-8.9) K/mcL BMP 02/06/17 03:09 Sodium 145 Potassium 3.0 L Chloride 103 Carbon Dioxide 32 H BUN 16 Creatinine 1.01 Glucose 112 H Calcium 8.4 L Cardiac Enzymes 02/05/17 02/05/17 Range/Units 17:41 22:04 Troponin I < 0.03 < 0.03 (< 0.04) ng/mL Consult Discharge Plan - Plan Referrals: Rina Kaba MD [Primary Care Provider] -
[2017-02-06] MEDS ORDERED: Spironolactone 25 MG TABLET PO SCH (21:00)
[2017-02-06] MEDS: risperiDONE 1 MG TABLET PO SCH (21:12)
[2017-02-07 08:57] LABS: Basophils % 0.3 %; Eosinophils # 0.1 K/mcL (0.0-0.6); Eosinophils % 0.8 %; Hematocrit 24.8 % (35.3-44.9); Hemoglobin 7.7 g/dL (11.5-15.4); Immature Granulocytes % 3.8 % (0-4); Immature Platelets 2.4 % (1.1-6.1); Lymphocytes # 0.9 K/mcL (0.6-4.6); Lymphocytes % 11.5 %; Mean Corpuscular Volume 83.8 fL (83.0-100.0); Mean Platelet Volume 10.1 fL (9.4-12.4); Monocytes # 0.6 K/mcL (0.0-1.3); Monocytes % 7.8 %; Neutrophils # 5.8 K/mcL (1.6-8.9); Nucleated Red Blood Cells 1.8 /100 WBC (0); Platelet Count 271 K/mcL (140-400); Red Blood Count 2.96 M/mcL (3.82-4.97); Red Cell Distribution Width 17.1 % (11.5-14.5); Segmented Neutrophils % 75.8 %
[2017-02-07] MEDS: FLUoxetine 20 MG CAPSULE PO SCH (08:58)
[2017-02-07] MEDS: *HR* Amiodarone 200 MG TABLET PO SCH (08:59)
[2017-02-07] MEDS: predniSONE 1 MG TABLET PO SCH (09:00)
[2017-02-07] MEDS ORDERED: predniSONE 10 MG TABLET PO SCH (09:00)
[2017-02-07] MEDS: predniSONE 5 MG TABLET PO SCH (09:01)
[2017-02-07 11:46] LABS: Calcium 8.5 mg/dL (8.6-10.3); Potassium 3.1 mEq/L (3.5-5.1)
[2017-02-07] MEDS: Furosemide 40 MG TABLET PO SCH ×2 (12:51→17:47)
--- NOTE | 2017-02-07 14:48 | Oncology Inp Progress Note ---
Date of Encounter: 02/07/17 Time of Encounter: 11:45 (1) Iron deficiency anemia Current Visit: No Status: Chronic Assessment and plan: Ms. Melendez has a history of acute on chronic iron deficiency anemia. She is intolerant to oral iron and has required multiple IV iron infusions and PRBC transfusions. Most recent iron profile in November revealed Iron level 39 with 9 % saturation. Most recently received Feraheme in October. EGD performed 02/06/17 revealed no active bleeding, gastric polyps with superficial ulcers. Stool occult blood sample positive. She received 2 units PRBC since admission. She also received Venofer 400 mg yesterday and will receive a second dose of venofer today. Will plan to transfuse to keep Hgb >7, watch closely for s/s fluid overload and administer lasix with PRBC if needed. She reports she is intolerant to Injectafer with experiencing side effects of edema and fluid shifts causing weeping edema. We will plan to correct iron deficiency prior to exploring further testing to assess for bone marrow malignancy. As such, oncology recommends repletion of iron stores to a transferrin saturation of greater than 20% and a ferritin greater than 200 before I would consider her to have an underlying bone marrow disorder. Oncology will plan to check iron stores on outpatient basis as this will need to be 3-4 weeks following iron administration. If we have obtained adequate iron stores and she remains anemic, a bone marrow biopsy may be indicated. Plan discussed with patient and patients daughters who understand and agree with plan of care. Patient hgb improving today to 7.7 She will receive her second dose of venofer with benadryl tonight. Patient is now asymptomatic of s/s related to anemia.If blood counts continue to stabilize or improve patient is stable from a hematology standpoint. Will arrange for outpatient follow up with lab work at time of appointment. Qualifiers: Iron deficiency anemia type: unspecified iron deficiency Qualified Code(s) : D50.9 - Iron deficiency anemia, unspecified Oncology: Subj Interval history: Ms. Melendez reports feeling much better today. She is sitting up in bed and is more conversational today. She denies chest pain, SOB or vertigo. Fatigue and weakness improving. - Constitutional Vitals: Vital Signs Temp Pulse Resp BP Pulse Ox 02/07/17 11:00 92 18 123/67 98 02/07/17 07:00 97.8 F 81 19 117/62 95 02/07/17 04:43 78 18 129/61 95 02/06/17 22:12 96 02/06/17 19:21 98.5 F 100 17 138/60 96 02/06/17 18:22 98.5 F 94 16 146/72 97 02/06/17 16:08 97 144/73 02/06/17 15:19 97.9 F 93 16 131/67 96 02/06/17 15:04 98.1 F 96 16 120/71 95 Intake and Output 02/06/17 02/07/17 02/07/17 23:59 07:59 15:59 Intake Total 600 / 600 1340 / 1340 Output Total 1550 / 1550 900 / 900 150 / 150 Balance -950 / -950 -900 / -900 1190 / 1190 Intake: Oral 740 / 740 Blood Product 600 / 600 Rbcs Leuko Poor As-1 Unit 600 / 600 [id number] Free Water 600 / 600 Output: Catheter 1550 / 1550 900 / 900 150 / 150 Other: Meal Breakfast Percent of Meal Consumed 100% Stool Size Smear Moderate Stool Consistency loose soft formed Stool Color Brown # Bowel Movements 1 General appearance: cooperative, no acute distress, obese, no febrile - Head Head exam: Present: normal inspection - Eye Eye exam: Present: PERRL - ENT ENT exam: Present: mucous membranes moist - Neck Neck exam: Absent: lymphadenopathy - Respiratory Respiratory exam: Present: CTAB - Cardiovascular Cardiovascular exam: Present: RRR - GI/Abdominal GI/Abdominal exam: Present: normal bowel sounds, soft. Absent: tenderness - Extremities Exam Extremities exam: Present: pedal edema - Expanded Lower Extremity Exam Lower leg exam: Present: swelling - Neurological Exam Neurological exam: Present: alert, oriented X3, strengths equal and symetr throughout. Absent: facial droop - Psychiatric Psychiatric exam: Present: normal affect - Skin Skin exam: Present: pallor Oncology: Obj Data - Labs CBC & Chem 7: 02/07/17 08:23 02/07/17 10:08 Labs: Laboratory Results - last 24 hr 02/07/17 02/07/17 02/07/17 08:23 08:23 10:08 WBC 7.7 RBC 2.96 L Hgb 7.7 L Hct 24.8 L MCV 83.8 MCH 26.0 L MCHC 31.0 L RDW 17.1 H Plt Count 271 MPV 10.1 Immature Gran % 3.8 Seg Neutrophils % 75.8 Lymphocytes % 11.5 Monocytes % 7.8 Eosinophils % 0.8 Basophils % 0.3 Neutrophils # 5.8 Lymphocytes # 0.9 Monocytes # 0.6 Eosinophils # 0.1 Basophils # 0.0 Nucleated RBCs/100 WBC 1.8 H Immature Plt Fraction 2.4 Sodium 142 Potassium 3.1 L Chloride 102 Carbon Dioxide 29 BUN 13 Creatinine 1.16 Est GFR ( Amer) 55 L Est GFR (Non-Af Amer) 45 L BUN/Creatinine Ratio 11 Glucose 144 H Calculated Osmolality 297 Calcium 8.5 L Specimen Rejected Hemolyzed Consult Discharge Plan - Plan Referrals: Rina Kaba MD [Primary Care Provider] -
--- NOTE | 2017-02-07 17:55 | Internal Med Progress Note ---
Date of Encounter: 02/07/17 Time of Encounter: 11:00 - Assessment and plan (1) Acute blood loss anemia Current Visit: Yes Status: Acute Assessment and plan: -Patient with hemoglobin now 7.7 status post 2 unit of packed red blood cells. -EGD on 02/06/17 showed no evidence of active bleeding; recommendations by GI for capsule endoscopy as an outpatient. -Recommendations to transfuse to keep Hgb >7; hemoglobin now 7.7 status post 2 units packed red blood cells. -We will continue to monitor (2) Iron deficiency anemia Current Visit: No Status: Chronic Assessment and plan: -Hematology oncology with recommendations for 2 treatments with Venofer 400 mg including 02/06/17 and 02/07/17. Qualifiers: Iron deficiency anemia type: unspecified iron deficiency Qualified Code(s) : D50.9 - Iron deficiency anemia, unspecified (3) Hypertension Current Visit: No Status: Chronic Assessment and plan: -Stable; continue current management Qualifiers: Hypertension type: essential hypertension Qualified Code(s): I10 - Essential (primary) hypertension (4) CAD S/P percutaneous coronary angioplasty Current Visit: No Status: Chronic Assessment and plan: -Stable; continue home medications (5) Hypothyroidism (acquired) Current Visit: No Status: Chronic Assessment and plan: -Continue levothyroxin (6) Paroxysmal atrial fibrillation Current Visit: No Status: Chronic Assessment and plan: -Rate controlled; continue current management. (7) Hypokalemia Current Visit: No Status: Acute Assessment and plan: -Continue potassium replacement (8) CKD (chronic kidney disease), stage III Current Visit: No Status: Chronic Assessment and plan: -Stable; continue to monitor (9) Morbid obesity with BMI of 45.0-49.9, adult Current Visit: No Status: Chronic Assessment and plan: -Lifestyle modifications - Subjective Interval history: Patient's hemoglobin with some improvement status post 2 unit of packed red blood cells. Patient continues to have hypokalemia this morning EGD showed no acute bleeding - Constitutional Vitals: Temp Pulse Resp BP Pulse Ox 98.1 F 92 3 170/75 94 02/07/17 15:00 02/07/17 15:00 02/07/17 16:17 02/07/17 15:00 02/07/17 15:00 General appearance: Present: A&O X 3 - Respiratory Respiratory exam: Present: CTAB. Absent: accessory muscle use, rales, rhonchi, wheezes - Cardiovascular Cardiovascular exam: Present: RRR, +S1, +S2. Absent: diastolic murmur, gallop, rubs, systolic murmur Internal Medicine: Result - Labs CBC & Chem 7: 02/07/17 08:23 02/07/17 10:08 Labs: Short CBC 02/07/17 Range/Units 08:23 WBC 7.7 (4.3-11.1) K/mcL Hgb 7.7 L (11.5-15.4) g/dL Hct 24.8 L (35.3-44.9) % Plt Count 271 (140-400) K/mcL Neutrophils # 5.8 (1.6-8.9) K/mcL BMP 02/07/17 10:08 Sodium 142 Potassium 3.1 L Chloride 102 Carbon Dioxide 29 BUN 13 Creatinine 1.16 Glucose 144 H Calcium 8.5 L Consult Discharge Plan - Plan Referrals: Rina Kaba MD [Primary Care Provider] -
[2017-02-07] MEDS ORDERED: Iron Sucrose Complex 400 MG in 0.9 % Sodium Chloride 250 ML IVPB ONE (19:00)
[2017-02-07] MEDS: risperiDONE 1 MG TABLET PO SCH (21:00)
[2017-02-08 04:09] LABS: Basophils % 0.4 %; Eosinophils # 0.1 K/mcL (0.0-0.6); Eosinophils % 0.8 %; Hematocrit 22.8 % (35.3-44.9); Immature Granulocytes % 5.3 % (0-4); Lymphocytes # 0.9 K/mcL (0.6-4.6); Lymphocytes % 11.2 %; Mean Corpuscular HGB Conc 30.7 g/dL (31.6-35.5); Mean Corpuscular Hemoglobin 26.3 pg (28.0-33.3); Mean Corpuscular Volume 85.7 fL (83.0-100.0); Mean Platelet Volume 10.5 fL (9.4-12.4); Monocytes # 0.6 K/mcL (0.0-1.3); Monocytes % 8.1 %; Neutrophils # 5.6 K/mcL (1.6-8.9); Nucleated Red Blood Cells 2.1 /100 WBC (0); Platelet Count 259 K/mcL (140-400); Red Blood Count 2.66 M/mcL (3.82-4.97); Red Cell Distribution Width 17.2 % (11.5-14.5); Segmented Neutrophils % 74.2 %
[2017-02-08 04:22] LABS: Calcium 8.5 mg/dL (8.6-10.3); Potassium 3.6 mEq/L (3.5-5.1)
[2017-02-08 05:07] LABS: Anisocytosis 1+ (Not Present); Platelet Estimate Normal (Normal); Polychromasia 1+ (Not Present)
[2017-02-08] MEDS: FLUoxetine 20 MG CAPSULE PO SCH (08:26)
[2017-02-08] MEDS: *HR* Amiodarone 200 MG TABLET PO SCH (08:26)
[2017-02-08] MEDS: predniSONE 5 MG TABLET PO SCH (08:26)
[2017-02-08] MEDS: Furosemide 40 MG TABLET PO SCH ×2 (08:26→18:27)
[2017-02-08] MEDS: predniSONE 1 MG TABLET PO SCH (08:27)
--- NOTE | 2017-02-08 13:47 | Discharge Summary ---
Date of Encounter: 02/08/17 Time of Encounter: 11:00 - Discharge Diagnosis (1) Acute blood loss anemia Priority: Primary Status: Acute (2) Iron deficiency anemia Priority: Primary Status: Chronic Qualifiers: Iron deficiency anemia type: unspecified iron deficiency Qualified Code(s) : D50.9 - Iron deficiency anemia, unspecified (3) Hypertension Priority: Secondary Status: Chronic Qualifiers: Hypertension type: essential hypertension Qualified Code(s): I10 - Essential (primary) hypertension (4) CAD S/P percutaneous coronary angioplasty Priority: Secondary Status: Chronic (5) Hypothyroidism (acquired) Priority: Secondary Status: Chronic (6) Paroxysmal atrial fibrillation Priority: Secondary Status: Chronic (7) Hypokalemia Priority: Secondary Status: Acute (8) CKD (chronic kidney disease), stage III Priority: Secondary Status: Chronic (9) Morbid obesity with BMI of 45.0-49.9, adult Priority: Secondary Status: Chronic - Discharge Medications Home Medications: Amiodarone [Cordarone] 100 mg PO DAILY 12/01/16 [History] Esomeprazole Magnesium [Nexium 24Hr] 20 mg PO DAILY 12/01/16 [History] FLUoxetine HCl [Fluoxetine HCl] 40 mg PO DAILY 12/01/16 [History] Levothyroxine [Synthroid] 100 mcg PO 0630 12/01/16 [History] Losartan [Cozaar] 100 mg PO DAILY 12/01/16 [History] Prasugrel [Effient] 10 mg PO DAILY 12/01/16 [History] Rivaroxaban [Xarelto] 15 mg PO 1700 12/01/16 [History] Sennosides/Docusate Sodium [Senna Plus] 1 each PO BID PRN tablet 12/28/16 [Rx] Furosemide [Lasix] 40 mg PO TID PRN 01/13/17 [History] predniSONE [PredniSONE] 18 mg PO DAILY 01/13/17 [History] Albuterol Sulfate [Proair Hfa] 2 puff IH Q6H PRN 02/05/17 [History] Ezetimibe [Zetia] 10 mg PO QPM 02/05/17 [History] Polyethylene Glycol 3350 [MiraLAX Powder Bulk 17.9 Oz] 1 scoop PO DAILY [History] Potassium Chloride [Klor-Con 10] 10 meq PO DAILY 02/05/17 [History] Spironolactone [Aldactone] 25 mg PO BID PRN 02/05/17 [History] Zolpidem Tartrate 5 mg PO HS 02/05/17 [History] diazePAM [Valium] 5 mg PO BID PRN 02/05/17 [History] risperiDONE [Risperidone] 1 mg PO HS 02/05/17 [History] Allergies/Adverse Reactions: 3 Allergy/AdvReac Type Severity Reaction Status Date / Time Cyclobenzaprine Allergy Hallucinati Verified 01/13/17 14:20 [From Flexeril] ng fluocinonide [From Lidex] Allergy Hives Verified 01/13/17 14:26 olanzapine [From Zyprexa] Allergy See Verified 01/13/17 14:19 Comments ciprofloxacin [From Cipro] AdvReac Vomiting Verified 01/13/17 14:19 Erythromycin Base AdvReac Vomiting Verified 01/13/17 14:19 Sulfa (Sulfonamide AdvReac Vomiting Verified 01/13/17 14:19 Antibiotics) ivp DYE Allergy Hives Uncoded 01/13/17 14:19 Date of admission: 02/05/17 13:32 Primary care physician: Rina Kaba, Consults: 02/06/17 16:53 Consult to Oncology Hematology [CONS] Routine Consulting Provider: Lindsay Aguilar Reason for Consult: known to patient Time Notified: 11:00 Call Completed: Yes - Patient Status Disposition: Home Health Service Condition: Fair - Discharge Instructions Instructions: Atrial Fibrillation (DC), Chest Pain (DC), Sleep Apnea Syndrome ( DC), Sleep Apnea Syndrome (GEN), Acute Kidney Injury (DC), Acute Kidney Injury ( GEN), Urinary Tract Infection in Women (DC), Hypothyroidism (DC), Diabetes Mellitus Type 2 in Adults (DC), Chronic Obstructive Pulmonary Disease (DC), Chronic Hypertension (DC), Anemia (GEN), Acute Kidney Injury, 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 Patient had lab work completed by culinary arts instructor oncologist and was notified that she was anemic and to go to the ER for evaluation. Patient did endorse symptoms of dyspnea on exertion and fatigue. In the ER patient was found to have a hemoglobin of 5.5 in addition to occult positive stool. She was admitted to the medical surgical floor for further medical management. During patients hospital stay, hematology oncology was consulted with recommendations for 2 units of packed red blood cells which did improve hemoglobin to 7.0. Additional recommendations were made for 2 treatments with Venofer 400 mg on 02/06/17 and 02/07/17. GI was also consulted due to acute on chronic anemia with Hemoccult positive stool with recommendations for EGD on 02/06/17 which showed no evidence of active bleeding; recommendations by GI for capsule endoscopy as an outpatient. Patient also developed hypokalemia during hospital stay which was corrected with replacements. Patients hemoglobin is now stable and will follow up with GI in addition to hematology oncology as an outpatient. - Time Spent with Patient Total time spent providing and/or coordinating discharge services: Less than 30 minutes - Constitutional Vitals: Temp Pulse Resp BP Pulse Ox 98.0 F 94 17 122/56 96 02/08/17 12:00 02/08/17 12:00 02/08/17 12:00 02/08/17 12:00 02/08/17 12:00 General appearance: Present: A&O X 3 - Cardiovascular Cardiovascular exam: Present: RRR, +S1, +S2. Absent: diastolic murmur, gallop, rubs, systolic murmur
--- NOTE | 2017-02-08 13:49 | Physician Discharge Referral ---
Home Health/Hosp Referral Info Transfer to: Home Health - Diagnosis (1) Acute blood loss anemia Priority: Primary Status: Acute (2) Iron deficiency anemia Priority: Primary Status: Chronic (3) Hypertension Priority: Secondary Status: Chronic (4) CAD S/P percutaneous coronary angioplasty Priority: Secondary Status: Chronic (5) Hypothyroidism (acquired) Priority: Secondary Status: Chronic (6) Paroxysmal atrial fibrillation Priority: Secondary Status: Chronic (7) Hypokalemia Priority: Primary Status: Acute (8) CKD (chronic kidney disease), stage III Priority: Secondary Status: Chronic (9) Morbid obesity with BMI of 45.0-49.9, adult Priority: Secondary Status: Chronic - Respiratory Orders Smoking Cessation: Smoking cessation has been advised. For more information, call the [place] Tobacco Quit Line at 9-281-PTSZ-NOW. - Services Needed Following services are medically necessary services: Nursing (CBC and BMP on ) - Transfer Medications Home Medications: Amiodarone [Cordarone] 100 mg PO DAILY 12/01/16 [History] Esomeprazole Magnesium [Nexium 24Hr] 20 mg PO DAILY 12/01/16 [History] FLUoxetine HCl [Fluoxetine HCl] 40 mg PO DAILY 12/01/16 [History] Levothyroxine [Synthroid] 100 mcg PO 0630 12/01/16 [History] Losartan [Cozaar] 100 mg PO DAILY 12/01/16 [History] Prasugrel [Effient] 10 mg PO DAILY 12/01/16 [History] Rivaroxaban [Xarelto] 15 mg PO 1700 12/01/16 [History] Sennosides/Docusate Sodium [Senna Plus] 1 each PO BID PRN tablet 12/28/16 [Rx] Furosemide [Lasix] 40 mg PO TID PRN 01/13/17 [History] predniSONE [PredniSONE] 18 mg PO DAILY 01/13/17 [History] Albuterol Sulfate [Proair Hfa] 2 puff IH Q6H PRN 02/05/17 [History] Ezetimibe [Zetia] 10 mg PO QPM 02/05/17 [History] Polyethylene Glycol 3350 [MiraLAX Powder Bulk 17.9 Oz] 1 scoop PO DAILY [History] Potassium Chloride [Klor-Con 10] 10 meq PO DAILY 12/20/17 [History] Spironolactone [Aldactone] 25 mg PO BID PRN 02/05/17 [History] Zolpidem Tartrate 5 mg PO HS 02/05/17 [History] diazePAM [Valium] 5 mg PO BID PRN 02/05/17 [History] risperiDONE [Risperidone] 1 mg PO HS 02/05/17 [History] Allergies/Adverse Reactions: 3 Allergy/AdvReac Type Severity Reaction Status Date / Time Cyclobenzaprine Allergy Hallucinati Verified 01/13/17 14:20 [From Flexeril] ng fluocinonide [From Lidex] Allergy Hives Verified 01/13/17 14:26 olanzapine [From Zyprexa] Allergy See Verified 01/13/17 14:19 Comments ciprofloxacin [From Cipro] AdvReac Vomiting Verified 01/13/17 14:19 Erythromycin Base AdvReac Vomiting Verified 01/13/17 14:19 Sulfa (Sulfonamide AdvReac Vomiting Verified 01/13/17 14:19 Antibiotics) ivp DYE Allergy Hives Uncoded 01/13/17 14:19 Certification: Further, I certify that my clinical findings support that this patient is homebound (i.e. absences from home require considerable and taxing effort and are for medical reasons or zoroastrian services or infrequently or short duration when for other reasons) because: Homebound Reason: Leaving home requires considerable and taxing effort due to condition Attestation: My signature below is to certify that this patient is under my care and that I, or nurse practitioner, or a physician's farm assistant working with me, has a face-to -face encounter with this patient.
--- NOTE | 2017-02-08 16:04 | Event Note ---
Date of Encounter: 02/08/17 Time of Encounter: 16:00 After discharge orders were placed, nurse calls to report that patient is short of breath/weak daughter now has concerns about taking patient home. Patients left great oxygen saturation on 4 L of nasal cannula and vital signs stable. Patients hemoglobin was 7.0 this morning from 5.8 on admission status post 2 units of packed red blood cells. Discussed with tripe cooker oncologist with recommendations for 2 more units of packed red blood cells and reevaluate on 02/09/17.
[2017-02-08] MEDS ORDERED: diazePAM 5 MG TABLET PO PRN (18:25)
[2017-02-08] MEDS ORDERED: Furosemide 20 MG/2 ML VIAL IVP ONE (19:03)
[2017-02-08] MEDS: risperiDONE 1 MG TABLET PO SCH (20:21)
[2017-02-08] MEDS ORDERED: 0.9 % Sodium Chloride 250 ML ONE (21:04)
[2017-02-09] MEDS ORDERED: 0.9 % Sodium Chloride 250 ML ONE (01:02)
[2017-02-09 04:47] LABS: Eosinophils # 0.1 K/mcL (0.0-0.6); Hematocrit 32.1 % (35.3-44.9); Mean Corpuscular HGB Conc 31.2 g/dL (31.6-35.5); Mean Corpuscular Hemoglobin 27.2 pg (28.0-33.3); Mean Corpuscular Volume 87.2 fL (83.0-100.0); Mean Platelet Volume 9.5 fL (9.4-12.4); Nucleated Red Blood Cells 2.1 /100 WBC (0); Platelet Count 244 K/mcL (140-400); Red Blood Count 3.68 M/mcL (3.82-4.97); Red Cell Distribution Width 16.2 % (11.5-14.5)
[2017-02-09 04:59] LABS: BUN/Creatinine Ratio 18 (6-26); Blood Urea Nitrogen 17 mg/dL (8-23); Calcium 8.7 mg/dL (8.6-10.3); Carbon Dioxide 35 mEq/L (23-29); Chloride 103 mEq/L (98-107); Glucose 117 mg/dL (70-105); Osmolality,Calculated 299 (280-300); Potassium 3.2 mEq/L (3.5-5.1); Sodium 143 mEq/L (136-145); eGFR For African Americans > 60 (> 60); eGFR For Non-African Americans 56 (> 60)
[2017-02-09 10:23] LABS: Lymphocytes # 1.7 K/mcL (0.6-4.6); Monocytes # 0.4 K/mcL (0.0-1.3); Neutrophils # 6.4 K/mcL (1.6-8.9)
[2017-02-09 10:24] LABS: Anisocytosis 1+ (Not Present); Platelet Estimate Normal (Normal); Polychromasia 2+ (Not Present)
[2017-02-09 10:27] VITALS: BP 126/65
--- NOTE | 2017-02-09 11:07 | Event Note ---
Date of Encounter: 02/09/17 Time of Encounter: 09:00 Patient was kept overnight due to symptomatic acute on chronic anemia. Patient was transfused an additional 2 units for a total of 4 units of packed red blood cells since admission and hemoglobin is now 10. Patient reports of improvement in symptoms and is ready for discharge. She will be discharged to follow up with the clinical staff pharmacist oncologist and GI specialist.
[2017-02-09 23:20] LABS: Urine Collection Duration RANDOM hr; Urine Collection Volume RANDOM mL
[2017-02-18] MEDS ORDERED: predniSONE 10 MG TABLET PO SCH (09:00)
== END 2017-02-09 12:52 | disposition home health service (06) | DRG 812 ==
LOC: EMEROO 10:11 → 2NENU 13:32 → SUATTDRO 13:32 → 2NENU 14:00
PROVIDERS: ADMIT Internal Medicine; ATTEND Hospitalist

== ENCOUNTER 2017-08-04 14:13 | Observation (INO) ==
[2017-08-04 15:05] LABS: Basophils % 0.4 %; Eosinophils # 0.2 K/mcL (0.0-0.6); Eosinophils % 2.1 %; Hematocrit 29.5 % (35.3-44.9); Immature Granulocytes % 1.4 % (0-4); Lymphocytes # 1.3 K/mcL (0.6-4.6); Lymphocytes % 15.5 %; Mean Corpuscular HGB Conc 30.5 g/dL (31.6-35.5); Mean Corpuscular Hemoglobin 27.5 pg (28.0-33.3); Mean Corpuscular Volume 90.2 fL (83.0-100.0); Mean Platelet Volume 10.3 fL (9.4-12.4); Monocytes # 0.9 K/mcL (0.0-1.3); Monocytes % 11.3 %; Neutrophils # 5.6 K/mcL (1.6-8.9); Platelet Count 230 K/mcL (140-400); Red Blood Count 3.27 M/mcL (3.82-4.97); Red Cell Distribution Width 15.8 % (11.5-14.5); Segmented Neutrophils % 69.3 %
--- NOTE | 2017-08-04 15:07 | Emergency Department Note ---
Disposition Clinical Impression: Atypical chest pain Disposition: Admitted As Inpatient Condition: Fair Forms: ED Satisfaction Letter Time of Disposition: 16:34 SOB HPI - General Chief Complaint: ED Chest Pain Stated Complaint: Chest Pain Time Seen by Provider: 08/04/17 14:27 Source: patient, EMS Mode of arrival: ambulatory Limitations: no limitations Nursing Notes Reviewed: Yes Vital Signs Reviewed: Yes - History of Present Illness 77yo female with past medical history of CADx2 stents 2010 & 2011, a fib, hypertension, Parkinson's presented to [facility] complaining of chest pain that she woke up with at 9 AM and has had ever since. The pain is in the center for chest and goes to her back. Describes it as sharp in constant however fluctuates in intensity. Exerting herself worsens it and nothing improves the pain. She took 2 nitroglycerin at home and one nitroglycerin in the ambulance all of which did not relieved the chest pain. Additionally she has had shortness of breath. She denies wheezing, lightheadedness, nausea, vomiting, abdominal pain, melena, hematechezia. She used to take Xarelto for her a fib however due to decreasing hemoglobin her product manager financial services Dr. Garrett at the cancer center stopped her from taking the Xarelto a month ago. She has also had an EGD /colonoscopy by Dr. Thurman that did not show any source of bleeding. Her line closer was Dr. Llanes but since he is retiring she will be seen Dr. Lopez. Since her stent placement in 2011 she has had 2 more LHC that did not require stenting and that was 2 years ago. TTE 09/2016 EF 65%. Nuclear stress test 08/2016 negative for ischemia. - Related Data Home Medications Medication Instructions Recorded Confirmed Amiodarone [Cordarone] 100 mg PO DAILY 12/01/16 07/18/17 Esomeprazole Magnesium [Nexium 20 mg PO DAILY 12/01/16 07/18/17 24Hr] FLUoxetine HCl [Fluoxetine HCl] 40 mg PO DAILY 12/01/16 07/18/17 Levothyroxine [Synthroid] 100 mcg PO 0630 12/01/16 07/18/17 Losartan [Cozaar] 100 mg PO DAILY 12/01/16 07/18/17 Prasugrel [Effient] 10 mg PO DAILY 12/01/16 07/18/17 Furosemide [Lasix] 40 mg PO TID PRN 01/13/17 07/18/17 predniSONE [PredniSONE] 10 mg PO DAILY 01/13/17 07/18/17 Albuterol Sulfate [Proair Hfa] 2 puff IH Q6H PRN 02/05/17 07/18/17 Ezetimibe [Zetia] 10 mg PO QPM 02/05/17 07/18/17 Polyethylene Glycol 3350 [MiraLAX 1 scoop PO DAILY 02/05/17 07/18/17 Powder Bulk 17.9 Oz] Potassium Chloride [Klor-Con 10] 10 meq PO DAILY 02/05/17 07/18/17 Spironolactone [Aldactone] 25 mg PO BID PRN 02/05/17 07/18/17 Alprazolam [Alprazolam Xr] 0.5 mg PO HS 04/17/17 07/18/17 Carbidopa/Levodopa ER 50/200 0.5 tab PO BID 06/13/17 07/18/17 [Sinemet ER 50-200 TAB] Previous Rx's Medication Instructions Recorded Sennosides/Docusate Sodium [Senna 1 each PO BID PRN tablet 12/28/16 Plus] Allergies Allergy/AdvReac Type Severity Reaction Status Date / Time Cyclobenzaprine Allergy Hallucinati Verified 05/14/17 10:58 [From Flexeril] ng fluocinonide [From Lidex] Allergy Hives Verified 05/14/17 10:58 olanzapine [From Zyprexa] Allergy See Verified 05/14/17 10:58 Comments ciprofloxacin [From Cipro] AdvReac Vomiting Verified 05/14/17 10:58 Erythromycin Base AdvReac Vomiting Verified 05/14/17 10:58 Sulfa (Sulfonamide AdvReac Vomiting Verified 05/14/17 10:58 Antibiotics) ivp DYE Allergy Hives Uncoded 05/14/17 10:58 All systems ED: reviewed and negative except as stated. Review of Systems: As Per HPI Constitutional: Denies: fever, chills Eyes: Denies: vision change Cardiovascular: Reports: chest pain Respiratory: Reports: dyspnea. Denies: cough, wheezes Gastrointestinal: Denies: abdominal pain, nausea, vomiting Integumentary: Denies: rash Neurological: Reports: headache. Denies: weakness Allergic/Immunologic: Denies: facial swelling Past Medical History - Past Medical History Attestation: Yes The following information was validated with the patient. Source: patient Medical history: Reports: atrial fibrillation, COPD, coronary artery disease, GERD, hypertension, myocardial infarction, renal disease, thyroid disease, other Surgical history: Reports: appendectomy, cataract, cholecystectomy, hysterectomy , other Psychiatric history: Reports: no psych history AUTOMOTIVE FLEET SUPERVISOR history: Reports: no AUTOMOTIVE FLEET SUPERVISOR history - Social History Smoking Status: Former smoker Smokeless Tobacco Status: No Alcohol use: Reports: none Drug use: Reports: none Physical Exam - General Limitations: no limitations General appearance: alert, in distress - Head Head exam: atraumatic, normocephalic - Eye Eye exam: Present: normal appearance - Neck Neck exam: Present: normal inspection - Respiratory Respiratory exam: Present: normal lung sounds bilaterally. Absent: wheezes - Cardiovascular Cardiovascular exam: Present: regular rate, normal rhythm - Abdominal Exam Abdominal exam: Present: soft, Non-Tender, normal bowel sounds - Extremities Exam Extremities exam: Present: normal inspection. Absent: tenderness - Back Exam Back exam: Present: normal inspection - Neurological Exam Neurological exam: Present: alert, oriented X3 - Psychiatric Psychiatric exam: Present: normal affect, normal mood - Skin Skin exam: Present: dry, intact Course Course Narrative: 77yo female with past medical history of CADx2 stents, a fib, hypertension presented to [facility] complaining of chest pain that she woke up with at 9 AM and has had ever since. The pain is in the center for chest and goes to her back. Describes it as sharp in constant however fluctuates in intensity. Exerting herself worsens it and nothing improves the pain. She took 2nitroglycerin which did not relieved the chest pain. Additionally she has had shortness of breath. She denies wheezing, lightheadedness, nausea, vomiting, abdominal pain , melena, hematechezia. She used to take Xarelto for her a fib however due to decreasing hemoglobin her product manager financial services Dr. Garrett at the cancer center stopped her from taking the Xarelto a month ago. She has also had an EGD/colonoscopy by Dr. Thurman that did not show any source of bleeding. Differential includes ACS , atypical chest pain, unstable angina, aortic dissection, anemia. Will order a CBC, BMP, troponin, chest x-ray, EKG, coags. - Reevaluation(s) Reevaluation #1: Fentanyl given did not improve the chest pain. She reported radiation chest pain to her left arm. Time: 16:12 Vital Signs Temperature 98 F 08/04/17 14:20 Pulse Rate 84 08/04/17 14:20 Respiratory Rate 20 08/04/17 14:20 Blood Pressure 162/68 08/04/17 14:20 O2 Sat by Pulse Oximetry 100 08/04/17 14:20 Temperature 98 F 08/04/17 14:20 Pulse Rate 84 08/04/17 14:20 Respiratory Rate 20 08/04/17 14:20 Blood Pressure 162/68 08/04/17 14:20 O2 Sat by Pulse Oximetry 100 08/04/17 14:20 Oxygen Delivery Oxygen Delivery Nasal Cannula Shortness of Breath/Dyspnea - MDM Narrative Medical decision making narrative: 77yo female with past medical history of CADx2 stents, a fib, hypertension presented to [facility] complaining of chest pain that she woke up with at 9 AM and has had ever since. The pain is in the center for chest and goes to her back. Describes it as sharp in constant however fluctuates in intensity. Exerting herself worsens it and nothing improves the pain. She took 2nitroglycerin which did not relieved the chest pain. Additionally she has had shortness of breath. She denies wheezing, lightheadedness, nausea, vomiting, abdominal pain , melena, hematechezia. She used to take Xarelto for her a fib however due to decreasing hemoglobin her product manager financial services Dr. Garrett at the cancer center stopped her from taking the Xarelto a month ago. She has also had an EGD/colonoscopy by Dr. Thurman that did not show any source of bleeding. BMP, troponin, EKG unremarkable. CBC demonstrates hemoglobin 9.0. Chest x-ray demonstrated no acute cardiopulmonary process. The difficulty breathing may be due to the anemia. She also has atypical chest pain. Will admit patient to Dr. Hi for further cardiac evaluation pain rule out. - Medical Records Medical records reviewed: Yes I reviewed the patient's medical records. - Lab Data Lab results reviewed: Yes I reviewed the patient's lab results. Result diagrams: 08/04/17 14:36 08/04/17 14:36 Lab Results 08/04/17 08/04/17 08/04/17 Range/Units 14:36 14:36 14:36 WBC 8.1 (4.3-11.1) K/mcL RBC 3.27 L (3.82-4.97) M/mcL Hgb 9.0 L (11.5-15.4) g/dL Hct 29.5 L (35.3-44.9) % MCV 90.2 (83.0-100.0) fL MCH 27.5 L (28.0-33.3) pg MCHC 30.5 L (31.6-35.5) g/dL RDW 15.8 H (11.5-14.5) % Plt Count 230 (140-400) K/mcL MPV 10.3 (9.4-12.4) fL Immature Gran % 1.4 (0-4) % Seg Neutrophils % 69.3 % Lymphocytes % 15.5 % Monocytes % 11.3 % Eosinophils % 2.1 % Basophils % 0.4 % Neutrophils # 5.6 (1.6-8.9) K/mcL Lymphocytes # 1.3 (0.6-4.6) K/mcL Monocytes # 0.9 (0.0-1.3) K/mcL Eosinophils # 0.2 (0.0-0.6) K/mcL Basophils # 0.0 (0.0-0.2) K/mcL PT 11.3 (9.4-12.1) Seconds INR 1.1 APTT 27.9 (26.0-36.0) Seconds Sodium 143 (136-145) mEq/L Potassium 3.8 (3.5-5.1) mEq/L Chloride 112 H (98-107) mEq/L Carbon Dioxide 23 (23-29) mEq/L BUN 17 (8-23) mg/dL Creatinine 1.01 (0.60-1.20) mg/dL Est GFR ( Amer) > 60 (> 60) Est GFR (Non-Af Amer) 53 L (> 60) BUN/Creatinine Ratio 17 (6-26) Glucose 97 (70-105) mg/dL Calculated Osmolality 297 (280-300) Calcium 8.7 (8.6-10.3) mg/dL Troponin I < 0.03 (< 0.04) ng/mL - Radiology Data Radiology results reviewed: Yes I reviewed the patient's radiology results. Chest X-Ray 08/04/17 14:30 IMPRESSION: No acute process. D/ / Alvin Liu MD / Alvin Liu MD Interpreting Provider: Alvin Liu MD - EKG Data EKG attestation: Yes I reviewed and interpreted this EKG. EKG results narrative: EKG HR 84, normal sinus rhythm, normal axis, no ST or T wave changes. EKG is similar to prior EKG ID 152, QRS 110, QT/QTC 388/429 EKG shows normal: Reports: sinus rhythm Rate: Reports: normal Rhythm: Reports: NSR [place]/QRS: Reports: normal Critical Care Time Critical Care Time: No
[2017-08-04 15:11] LABS: INR 1.1; Prothrombin Time 11.3 Seconds (9.4-12.1)
[2017-08-04 15:13] LABS: Activated Partial Thrombo Time 27.9 Seconds (26.0-36.0)
[2017-08-04 15:16] LABS: BUN/Creatinine Ratio 17 (6-26); Blood Urea Nitrogen 17 mg/dL (8-23); Calcium 8.7 mg/dL (8.6-10.3); Carbon Dioxide 23 mEq/L (23-29); Chloride 112 mEq/L (98-107); Glucose 97 mg/dL (70-105); Osmolality,Calculated 297 (280-300); Potassium 3.8 mEq/L (3.5-5.1); Sodium 143 mEq/L (136-145); Troponin I < 0.03 ng/mL (< 0.04); eGFR For African Americans > 60 (> 60); eGFR For Non-African Americans 53 (> 60)
[2017-08-04] MEDS ORDERED: *HR* FentaNYL (PF) 100 MCG/2 ML VIAL IVP ONE (15:32)
[2017-08-04] MEDS ORDERED: *HR* Labetalol 100 MG/20 ML MDV IVP ONE (16:41)
--- NOTE | 2017-08-04 16:48 | Emergency Department Note ---
START Narrative - START START: I examined this patient and my medical decision-making was reviewed with the Resident Physician. I agree with the documented findings, disposition and treatment plan as described except to the extent set forth below. 77 showed female presents emergency of for chest pain. Radiates to the left arm. History of 2 stents. Has no cardiac catheter in the last 5+ years. We have A. fib. Multiple risk factors. Patient needs to be admitted for ACS evaluation.
[2017-08-04] MEDS ORDERED: Nitroglycerin 0.4 MG TAB.SUBL SL PRN (19:25)
[2017-08-04] MEDS ORDERED: Naloxone 0.4 MG/ML INJ IVP PRN (19:39)
[2017-08-04] MEDS ORDERED: Acetaminophen 325 MG TABLET PO PRN (19:44)
[2017-08-04] MEDS ORDERED: Ondansetron 4 MG/2 ML VIAL IVP PRN (19:44)
[2017-08-04] MEDS ORDERED: Nitroglycerin 25 MG/250 ML INFUS..BTL IVC SCH (19:45)
[2017-08-04] MEDS ORDERED: Sennosides/Docusate Sodium TABLET PO PRN (19:54)
[2017-08-04] MEDS ORDERED: Furosemide 40 MG TABLET PO PRN (19:54)
--- NOTE | 2017-08-04 20:20 | Internal Med History&Physical ---
Date of Encounter: 08/04/17 Time of Encounter: 19:46 Internal Medicine - H&P: HPI Admitted From: Emergency Dept Plans for Post Hospital Care: Home History of present illness: Ms. Melendez is a 77 year old female with pact medical history of maker, CAD s/p stent x 2, HTN, HLD, pulmonary HTN, MESERET BiPAP. Pt states she was woken up about 9am this morning with chest pain. States she got up and sat in her rcliner and pain subsided. An hour later she got up to get dressed and pain developed again. Pain described as radiating down her left arm. Reports associated SOB but denies diaphoresis. She is not on oxygen at home. During my assessment she rates CP as 8/10 and sharp in nature. Pt states prior MT chest pain radiated to her RUE and at that time she was told her [facility] revealed maker with 95% occlusion. States she had another MT and it was noted that her stent had occluded. She states she used to be on Xarelto for Afib, however due to recurrent GI bleed of unknown origin, Xarelto was discontinued about one month ago. Prior to that, she had been Xarelto since 2011. Daughter, reports that sometime in past 1 -2 weeks ago, pt had missed 3 days of Effient and then 4 days due to insurance related issues. Daughter states patient is back on her scheduled dosing. Daughter also reports that due to WILY/CKD/worsening renal function, pt was switched from Lasix to Spironolactone. Daughter and pt requesting holding pt's Spironolactone dose as they are concerned may be contributing to her current symptoms. CODE STATUS: DNR-CCA no CPR no intubation. Daughters at bedside confirmed this. Pt states she may be open to [facility] if condition amendable to that, however, if her heart stops or is failing, not to attempt aggressive measures such as CPR or intubation. In ED WBC 8.1, Hgb 9.0, hct 29.5, plt 230. Troponin <0.03. PT 11.3, INR 1.1. NA 143, 3.8, CL 112, BUN 17, Cr 1.01. Chest x ray IMPRESSION: No acute process. [facility] 09/28/2015 Impressions: Coronary arteries have mild disease Stent placed from a prior procedure in the Proximal LAD is patent. The left ventricle is normal and has normal contractility EF 65%. Echo 10/01/16 Impressions: LVEF 65%. Definity echo contrast was used. Pseudonormal LV diastolic dysfunction. RV is not well evaluated. No significant valvular dysfunction. Lack of adequate TR signal to estimate RVSP. IVC is not dilated. Left Ventricular Wall Motion: Rest Echo Findings The mid inferior lateral and basal inferior lateral kitchen were not visualized. All other wall segments showed normal motion. Past Med Surg Social Fam HX - Past Medical History Medical history: atrial fibrillation, COPD, coronary artery disease, GERD, hypertension, myocardial infarction, renal disease, thyroid disease, other Additional medical history: Parkinsons Psychiatric history: no psych history - Past Surgical History Surgical History: appendectomy, cataract, cholecystectomy, hysterectomy, other Additional surgical history: cardiac stents - Social History Smoking Status: Former smoker Smokeless Tobacco Status: No Alcohol use: none Drug use: none - Family History Father Adopted: No Family Member Ethnicity: Non- Living Status: Hx Family Cardiac Disorders: Yes (CHF) Hx Family Respiratory Disorders: Yes (COPD, Emphysema) Hx Family Endocrine Disorder: Yes (dm) Mother Adopted: No Family Member Ethnicity: Non- Living Status: Hx Family Cancer: Yes (Colon cancer) Hx Family Endocrine Disorder: Yes (dm) Brother Family Member Ethnicity: Non- Living Status: Still Living Hx Family Cardiac Disorders: Yes (CAD, CHF) Hx Family Respiratory Disorders: Yes (COPD) Sister Family Member Ethnicity: Non- Living Status: Hx Family Cardiac Disorders: Yes (CHF) Internal Medicine - H&P: Meds Amiodarone [Cordarone] 100 mg PO DAILY 12/01/16 [History] Esomeprazole Magnesium [Nexium 24Hr] 20 mg PO DAILY 12/01/16 [History] FLUoxetine HCl [Fluoxetine HCl] 40 mg PO DAILY 12/01/16 [History] Levothyroxine [Synthroid] 100 mcg PO 0630 12/01/16 [History] Losartan [Cozaar] 100 mg PO DAILY 12/01/16 [History] Prasugrel [Effient] 10 mg PO DAILY 12/01/16 [History] Sennosides/Docusate Sodium [Senna Plus] 1 each PO BID PRN tablet 12/28/16 [Rx] Furosemide [Lasix] 40 mg PO TID PRN 01/13/17 [History] predniSONE [PredniSONE] 10 mg PO DAILY 01/13/17 [History] Albuterol Sulfate [Proair Hfa] 2 puff IH Q6H PRN 02/05/17 [History] Ezetimibe [Zetia] 10 mg PO QPM 02/05/17 [History] Spironolactone [Aldactone] 25 mg PO BID 02/05/17 [History] Carbidopa/Levodopa ER 50/200 [Sinemet ER 50-200 TAB] 0.5 tab PO BID 06/13/17 [ History] Buspirone HCl [Buspar] 22.5 mg PO BID 08/04/17 [History] Nitroglycerin [Nitrostat] 0.4 mg SL Q5M PRN 08/04/17 [History] Potassium Chloride [K-Tab ER] 20 meq PO BID 08/04/17 [History] 3 Allergy/AdvReac Type Severity Reaction Status Date / Time Cyclobenzaprine Allergy Hallucinati Verified 05/14/17 10:58 [From Flexeril] ng fluocinonide [From Lidex] Allergy Hives Verified 05/14/17 10:58 olanzapine [From Zyprexa] Allergy See Verified 05/14/17 10:58 Comments ciprofloxacin [From Cipro] AdvReac Vomiting Verified 05/14/17 10:58 Erythromycin Base AdvReac Vomiting Verified 05/14/17 10:58 Sulfa (Sulfonamide AdvReac Vomiting Verified 05/14/17 10:58 Antibiotics) ivp DYE Allergy Hives Uncoded 05/14/17 10:58 All Systems PM: A 10-system review of systems was performed and is negative for pertinent findings except as documented above in the HPI. - Constitutional Vitals: Temp Pulse Resp BP Pulse Ox 97.8 F 75 17 145/82 99 08/04/17 18:38 08/04/17 18:38 08/04/17 18:38 08/04/17 18:38 08/04/17 18:38 General appearance: Present: A&O X 3, morbidly obese - Head Head exam: Present: atraumatic, normocephalic - Eye Eye exam: Present: PERRL, conjuntiva pink, sclera anicteric Pupils: Present: PERRL - Neck Neck exam general surgery: Present: supple, trachea midline. Absent: lymphadenopathy - Respiratory Respiratory exam: Present: decreased breath sounds, CTAB. Absent: accessory muscle use, rales, rhonchi, wheezes - Cardiovascular Cardiovascular exam: Present: RRR, +S1, +S2. Absent: diastolic murmur, gallop, rubs, systolic murmur - GI/Abdominal GI/Abdominal exam: Present: normal bowel sounds, soft, no peritoneal signs. Absent: distended, tenderness - Extremities Exam Extremities exam: Present: pedal edema, warm, radial pulses palpable and symmetrical. Absent: calf tenderness, cyanotic - Neurological Exam Neurological exam: Present: CN II-XII intact, oriented X3, no focal deficits. Absent: pronater drift, facial droop, speech deficit - Skin Skin exam: Present: dry, intact Internal Med - H&P Results - Labs CBC & Chem 7: 08/04/17 14:36 08/04/17 14:36 - Assessment and plan (1) Angina pectoris Current Visit: Yes Status: Acute Assessment and plan: Will cycle troponin. ASA daily and nitro gtt due to 8/10 constant CP. If troponin elevated, will initiate heparin gtt. (2) Paroxysmal atrial fibrillation Current Visit: No Status: Chronic Assessment and plan: On ASA and Amiodarone (3) CKD (chronic kidney disease), stage III Current Visit: No Status: Chronic Assessment and plan: Daughter states after pt's Lasix was discontinued, business banking representative informed them that renal function had improved to CKD II and probably even CKD I. (4) Diabetic renal disease Current Visit: No Status: Chronic Assessment and plan: Will resume home medication. Qualifiers: Diabetes mellitus type: type 2 Qualified Code(s): E11.21 - Type 2 diabetes mellitus with diabetic nephropathy (5) HTN (hypertension) Current Visit: No Status: Chronic Assessment and plan: Losartan and spironolactone. Family requesting holding spironolcatone. Pt had her dose today. May need resumed tomorrow. Qualifiers: Hypertension type: essential hypertension Qualified Code(s): I10 - Essential (primary) hypertension (6) HLD (hyperlipidemia) Current Visit: No Status: Chronic Assessment and plan: Pt on Zetia Qualifiers: Hyperlipidemia type: pure hypercholesterolemia Qualified Code(s): E78.00 - Pure hypercholesterolemia, unspecified; E78.0 - Pure hypercholesterolemia (7) CAD S/P percutaneous coronary angioplasty Current Visit: No Status: Chronic (8) CAD (coronary artery disease) Current Visit: No Status: Chronic Assessment and plan: Will continue home dose Effient and ASA. On Zetia. Qualifiers: Coronary Disease-Associated Artery/Lesion type: [place] artery [place] vs. transplanted heart: [place] heart Associated angina: without angina Qualified Code(s): I25.10 - Atherosclerotic heart disease of [place] coronary artery without angina pectoris - Time Spent With Patient Total time spent is greater than 50% in coordination of care (as documented) at patient's floor/unit and/or counseling patient: 25 - 35 minutes
[2017-08-04] MEDS ORDERED: Ringers Solution, Lactated 1,000 ML ONE (20:26)
[2017-08-04] MEDS ORDERED: Ringers Solution, Lactated 1,000 ML IVC SCH (20:30)
[2017-08-04] MEDS: Carbidopa/Levodopa ER 50/200 TABLET PO SCH (20:36)
[2017-08-04] MEDS ORDERED: *HR* Morphine 2 MG/ML SYRINGE IVP PRN (22:23)
[2017-08-05 06:16] LABS: Basophils # 0.1 K/mcL (0.0-0.2); Basophils % 0.6 %; Eosinophils # 0.2 K/mcL (0.0-0.6); Hemoglobin 8.8 g/dL (11.5-15.4); Immature Granulocytes % 1.1 % (0-4); Lymphocytes # 1.5 K/mcL (0.6-4.6); Lymphocytes % 16.7 %; Mean Corpuscular HGB Conc 30.3 g/dL (31.6-35.5); Mean Corpuscular Hemoglobin 27.3 pg (28.0-33.3); Mean Corpuscular Volume 90.1 fL (83.0-100.0); Mean Platelet Volume 10.5 fL (9.4-12.4); Monocytes # 0.8 K/mcL (0.0-1.3); Monocytes % 8.4 %; Neutrophils # 6.4 K/mcL (1.6-8.9); Platelet Count 215 K/mcL (140-400); Red Blood Count 3.22 M/mcL (3.82-4.97); Red Cell Distribution Width 16.3 % (11.5-14.5); Segmented Neutrophils % 71.2 %
[2017-08-05 06:25] LABS: INR 1.1; Prothrombin Time 12.2 Seconds (9.4-12.1)
[2017-08-05 06:38] LABS: Alanine Aminotransferase 9 Units/L (7-52); Albumin 3.3 g/dL (3.5-5.7); Albumin/Globulin Ratio 1.6 (1.1-2.2); Alkaline Phosphatase 91 Units/L (34-104); Aspartate Amino Transferase 14 Units/L (13-39); BUN/Creatinine Ratio 16 (6-26); Bilirubin,Total 0.4 mg/dL (0.3-1.0); Blood Urea Nitrogen 16 mg/dL (8-23); Calcium 8.7 mg/dL (8.6-10.3); Carbon Dioxide 22 mEq/L (23-29); Chloride 113 mEq/L (98-107); Globulin 2.1 g/dL (2.4-3.5); Glucose 106 mg/dL (70-105); Magnesium 2.2 mg/dL (1.6-2.6); Osmolality,Calculated 302 (280-300); Potassium 3.4 mEq/L (3.5-5.1); Sodium 145 mEq/L (136-145); Total Protein 5.4 g/dL (6.4-8.9); eGFR For African Americans > 60 (> 60); eGFR For Non-African Americans 56 (> 60)
--- NOTE | 2017-08-05 06:43 | Electrocardiograph Report ---
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
[2017-08-05] MEDS: *HR* Amiodarone 200 MG TABLET PO SCH (09:18)
[2017-08-05] MEDS: predniSONE 10 MG TABLET PO SCH (09:18)
[2017-08-05] MEDS: Carbidopa/Levodopa ER 50/200 TABLET PO SCH ×2 (09:18→16:32)
[2017-08-05] MEDS: FLUoxetine 20 MG CAPSULE PO SCH (09:19)
[2017-08-05] MEDS: Aspirin 81 MG TAB.CHEW PO SCH (09:19)
--- NOTE | 2017-08-05 11:32 | Cardiology Consult Note ---
<Prasanth Garcia - Last Filed: 08/05/17 12:07> Date of Encounter: 08/05/17 Time of Encounter: 11:20 Assessment and Plan (1) Atypical chest pain Current Visit: Yes Status: Acute Atypical chest pain symptoms. Chest pain is not relieved with NTG. Reports sharp constant pain at rest. Troponin negative x2. EKG shows NSR with no acute ST changes. Telemetry review shows NSR. No afib seen. D-dimer elevated. Agree with work-up to evaluate for PE. VQ scan pending. CXR 08/04 showed left lung base atelectasis vs PNA- WBC normal and no fever noted. Hospitalist following. Okay to wean of NTG gtt as b/p allows. Discussed proceeding with stress test in am for further evaluation if VQ scan is negative. Patient daughter hesitant due to past experience of CO after stress test in past. Current work-up negative. Okay to continue medical management for now. If chest pain despite medical management recommend stress test. (2) CAD S/P percutaneous coronary angioplasty Current Visit: No Status: Chronic H/p PCI to the LAD in 2010 and 2011. Preserved EF on most recent TTE 09/2016. Continue asa and effient. On zetia. No betablocker due to HR control for afib with amiodarone. Avg HR 78 bpm. Elevated b/p noted. Will add low dose beta- alton. (3) Paroxysmal atrial fibrillation Current Visit: No Status: Chronic H/o PAF on amiodarone. Currently NSR. AVg HR was 78 bpm. No afib seen. Recently stopped xarelto due to recurrent anemia requiring blood transfusion. Follows with hematology for chronic anemia. Reports undergoing two capsule endoscopy and upper and lower endoscopy in the past few years that showed no acute bleeding. CHADS VASc=4 for HTN, gender, age, CAD. Ideally computer terminal operator AC would be recommended. Due to hematology recommendations and concern for bleeding causing recurrent anemia continue asa and effient for now. (4) Hypertension Current Visit: No Status: Chronic Uncontrolled blood pressure. B/p 162/68 on admit. Daughter reports elevated b/p at home. WIll wean off NTG gtt. Will add low dose bb. Increase as needed. Qualifiers: Hypertension type: essential hypertension Qualified Code(s): I10 - Essential (primary) hypertension Discussion w patient/family: The assessment and plan as outlined above was discussed with the patient and/or family members who expressed understanding and agreement. All questions were answered. Thank you for involving us in the care of your patient. Please call with any questions. History of Present Illness Consult date: 08/05/17 Requesting physician: Emily Rich Consult reason: Chest pain Chief complaint: Chest pain History of present illness: Ms. Melendez is a 77 year old female with past medical history significant for CAD s/p PCI to the LAD in 2010 and 2011, atrial fibrillation on amiodarone, possible GI bleed, HTN, HLD, PAH, MESERET. She presented to the hospital with the c/ o chest pain radiating to her left arm. The pain started while she was lying in bed. Her pain improved when she walked to her chair and sat down. Later her pain returned and has been constant since that time. She describes the pain as a sharp stabbing pain. The pain did radiate to her left arm earlier this morning. She associates it with SOB. Symptoms were not like previous CO. She reports having right shoulder and arm pain with her previous CO. She received NTG paste and is on NTG gtt with out improvement in her symptoms. Reports mild improvement with morphine. Noted to have elevated blood pressure on admit. She was taken off xarelto recently due to anemia from GI bleed. She also missed a few days of effeint due to cost issues. Work-up so far includes troponin that was negative x3. EKG shows NSR with no acute changes. Telemetry shows no evidence of afib. VQ scan was ordered to r/o PE. Cardiology consulted for further recommendation. Recent cardiac testing: TTE 10/01/16- EF 65%, no significant valvular disease. Stress test 09/12/16- Negative for ischemia. LHC 09/28/15- patent LAD stent. Mild CAD remaining. LVEF 65%. Past Med Surg Social Fam HX - Past Medical History Medical history: atrial fibrillation, COPD, coronary artery disease, GERD, hypertension, myocardial infarction, renal disease, thyroid disease, other Additional medical history: Parkinsons Psychiatric history: no psych history - Past Surgical History Surgical History: appendectomy, cataract, cholecystectomy, hysterectomy, other Additional surgical history: cardiac stents - Social History Smoking Status: Former smoker Smokeless Tobacco Status: No Alcohol use: none Drug use: none - Family History Father Adopted: No Family Member Ethnicity: Non- Living Status: Hx Family Cardiac Disorders: Yes (CHF) Hx Family Respiratory Disorders: Yes (COPD, Emphysema) Hx Family Endocrine Disorder: Yes (dm) Mother Adopted: No Family Member Ethnicity: Non- Living Status: Hx Family Cancer: Yes (Colon cancer) Hx Family Endocrine Disorder: Yes (dm) Brother Family Member Ethnicity: Non- Living Status: Still Living Hx Family Cardiac Disorders: Yes (CAD, CHF) Hx Family Respiratory Disorders: Yes (COPD) Sister Family Member Ethnicity: Non- Living Status: Hx Family Cardiac Disorders: Yes (CHF) Medications and Allergies Amiodarone [Cordarone] 100 mg PO DAILY 12/01/16 [History] Esomeprazole Magnesium [Nexium 24Hr] 20 mg PO DAILY 12/01/16 [History] FLUoxetine HCl [Fluoxetine HCl] 40 mg PO DAILY 12/01/16 [History] Levothyroxine [Synthroid] 100 mcg PO 0630 12/01/16 [History] Losartan [Cozaar] 100 mg PO DAILY 12/01/16 [History] Prasugrel [Effient] 10 mg PO DAILY 12/01/16 [History] Sennosides/Docusate Sodium [Senna Plus] 1 each PO BID PRN tablet 12/28/16 [Rx] Furosemide [Lasix] 40 mg PO TID PRN 01/13/17 [History] predniSONE [PredniSONE] 10 mg PO DAILY 01/13/17 [History] Albuterol Sulfate [Proair Hfa] 2 puff IH Q6H PRN 02/05/17 [History] Ezetimibe [Zetia] 10 mg PO QPM 02/05/17 [History] Spironolactone [Aldactone] 25 mg PO BID 02/05/17 [History] Carbidopa/Levodopa ER 50/200 [Sinemet ER 50-200 TAB] 0.5 tab PO BID 06/13/17 [ History] Buspirone HCl [Buspar] 22.5 mg PO BID 08/04/17 [History] Nitroglycerin [Nitrostat] 0.4 mg SL Q5M PRN 08/04/17 [History] Potassium Chloride [K-Tab ER] 20 meq PO BID 08/04/17 [History] 3 Allergy/AdvReac Type Severity Reaction Status Date / Time Cyclobenzaprine Allergy Hallucinati Verified 05/14/17 10:58 [From Flexeril] ng fluocinonide [From Lidex] Allergy Hives Verified 05/14/17 10:58 olanzapine [From Zyprexa] Allergy See Verified 05/14/17 10:58 Comments ciprofloxacin [From Cipro] AdvReac Vomiting Verified 05/14/17 10:58 Erythromycin Base AdvReac Vomiting Verified 05/14/17 10:58 Sulfa (Sulfonamide AdvReac Vomiting Verified 05/14/17 10:58 Antibiotics) ivp DYE Allergy Hives Uncoded 05/14/17 10:58 All Systems Review: The remainder of the systems were reviewed and are negative Physical Examination Vital Signs, Last 4 Hours Pulse Resp BP Pulse Ox 08/05/17 09:20 82 19 121/62 100 General: Conversant, Other (Respirations mildly labored at rest) HEENT: Atraumatic, Normocephaly, Mucus Membranes Moist Neck: No JVD, Normal carotid pulses Cardiac: Reg Rate and Rhythm, Normal S1 and S2, No Murmur Lungs: Normal Breath Sounds, No Wheeze, Rales, Rhonchi Neuro: Alert and responsive, No focal deficits noted Abdomen: Soft, Non-Tender Skin: No rashes noted on visualized skin Musculoskeletal: No Chest Wall Tenderness Extremities: No Clubbing, No Cyanosis, No Edema, Normal Pulses Results 08/05/17 05:31 08/05/17 05:31 Lab Results 08/04/17 08/04/17 08/05/17 19:55 22:38 05:31 WBC 9.0 Hgb 8.8 L Hct 29.0 L Plt Count 215 INR D-Dimer 930 H Sodium Potassium Chloride Carbon Dioxide BUN Creatinine Glucose Calcium Magnesium Total Bilirubin AST ALT Alkaline Phosphatase Troponin I < 0.03 08/05/17 08/05/17 05:31 05:31 WBC Hgb Hct Plt Count INR 1.1 D-Dimer Sodium 145 Potassium 3.4 L Chloride 113 H Carbon Dioxide 22 L BUN 16 Creatinine 0.97 Glucose 106 H Calcium 8.7 Magnesium 2.2 Total Bilirubin 0.4 AST 14 ALT 9 Alkaline Phosphatase 91 Troponin I - Imaging and Cardiology Stress Test: report reviewed Echo: report reviewed Cardiac cath: report reviewed - EKG Interpretation EKG results cardiology: personally reviewed Consult Discharge Plan - Plan Referrals: Rina Kaba MD [Primary Care Provider] - 08/25/17 8:40 am <Terri Beltran - Last Filed: 08/05/17 16:24> Date of Encounter: 08/05/17 - Attending Attestation I examined this patient and my medical decision-making was reviewed with the EXCAVATION LABORER. I agree with the documented findings, disposition and treatment plan as described. Ms. Melendez presents with atypical chest pain symptoms. Troponin negative, no acute ECG changes. She underwent V/Q scan demonstrating low probability. At the bedside, she appears comfortable but endorses 7/10 chest pain. She is not hemodynamically unstable. Etiology of chest pain is unclear. I discussed consideration of pursuing a CT chest to look at her aorta (describes chest pain substernal/midepigastric radiating to the back) although this would require premedication (reported allergy to IVP dye) and potential for [place]LIN and does not appear to be a high probability - patient's discomfort is not new. I discussed this also with the Hospitalist (Giuliana Stewart CNP) and mutually agreed to hold off on this. Medical history apparently significant for gastric ulcers and GIB. We will give her a GI cocktail, increase her PPI and check fecal occult for blood. We also offered stress testing but the patient declined. Recommend continuing asa/effient for now. She was taken off of xarelto by [employer] Subcontractor due to GIB. She is at elevated risk for CVA (CHADSVASC 5) and let patient/family know that. She also complains of SOB although she appears comfortable at the bedside. Recommend an echo for evaluation of structure/function. Murmur present on exam. Assessment and Plan Discussion w patient/family: The assessment and plan as outlined above was discussed with the patient and/or family members who expressed understanding and agreement. All questions were answered. Thank you for involving us in the care of your patient. Please call with any questions. History of Present Illness History of present illness: Ms. Melendez is a 77 year old female All Systems Review: The remainder of the systems were reviewed and are negative Physical Examination Vital Signs, Last 4 Hours Temp Pulse Resp BP Pulse Ox 08/05/17 16:02 98.1 F 82 16 117/61 97 08/05/17 15:43 101/55 08/05/17 14:57 82 92/56 08/05/17 14:20 84 102/61 08/05/17 14:05 83 110/63 08/05/17 13:51 87 94/55 08/05/17 13:45 86 16 95/55 08/05/17 13:15 82 17 111/54 100 Results 08/05/17 05:31 08/05/17 05:31 Lab Results 08/04/17 08/04/17 08/05/17 19:55 22:38 05:31 WBC 9.0 Hgb 8.8 L Hct 29.0 L Plt Count 215 INR D-Dimer 930 H Sodium Potassium Chloride Carbon Dioxide BUN Creatinine Glucose Calcium Magnesium Total Bilirubin AST ALT Alkaline Phosphatase Troponin I < 0.03 08/05/17 08/05/17 05:31 05:31 WBC Hgb Hct Plt Count INR 1.1 D-Dimer Sodium 145 Potassium 3.4 L Chloride 113 H Carbon Dioxide 22 L BUN 16 Creatinine 0.97 Glucose 106 H Calcium 8.7 Magnesium 2.2 Total Bilirubin 0.4 AST 14 ALT 9 Alkaline Phosphatase 91 Troponin I
[2017-08-05] MEDS ORDERED: GI Cocktail 40 ML EACH PO ONE (15:46)
--- NOTE | 2017-08-05 17:25 | Electrocardiograph Report ---
[address] [address] Test Date: 2017-08-04 Pat Name: Giuliana Melendez Department: 104 Room: 3B16 Gender: F Finish Specialist: RUIZ : 1940 Requested By: Emily Rich Order Number: [id number] Reading MD: Marlyn Reinoso Measurements Intervals [place] Rate: 84 P: 48 OK: 152 QRS: 44 QRSD: 110 T: 47 QT: 388 QTc: 429 Interpretive Statements SINUS RHYTHM INCOMPLETE RIGHT BUNDLE BRANCH BLOCK [90+ ms QRS DURATION, TERMINAL R IN V1/V2, 40+ ms S IN I/aVL/V4/V5/V6] Electronically Signed On 08-05-2017 17:23:21 EDT by Marlyn Reinoso
--- NOTE | 2017-08-05 17:30 | Internal Med Progress Note ---
Date of Encounter: 08/05/17 Time of Encounter: 09:20 - Assessment and plan (1) Angina pectoris Current Visit: Yes Status: Acute Assessment and plan: Chest pain. Recurrent. Patient reports history of chest pain that radiates to left arm with associated shortness of breath, no diaphoresis. On admission she reported that was sharp with 8/10. During exam today, chest pain was rated 5-6/ 10, and she described it as sharp, stabbing upper chest pain with radiation to the left chest and left arm. The pain is not reproducible and patient appears to be obviously short of breath, though not in distress, during exam. Patient has stress test August, that was negative, echo in September, showed an LVEF of 65% with no significant valvular dysfunction. Currently, troponins are negative, EKG shows sinus rhythm with a rate of 73, IN interval 160, QRS 106, QTC 464. No notable ST changes. Patient had an elevated d-dimer on admission, BQ scan completed showed low probability for PE. Patient has allergy to IVP dye. Patient was on a nitro drip and was having continued chest pain. Consulted cardiology, echocardiogram is ordered, also suggest to wean nitro drip. They recommended continue medical management for now. Patient has missed a few doses of Effient due to insurance issues. Patient also stopped Xarelto recently due to recurrent GI bleed and anemia. We will give patient's GI cocktail, increase PPI to assess if pain is epigastric in nature. Patient has prior history of gastric ulcers. Echocardiogram ordered and pending Cardiology is following, thank you for the consultation recommendation Continue telemetry Continue to monitor labs and patient condition. (2) CAD (coronary artery disease) Current Visit: Yes Status: Chronic Assessment and plan: PLAN as above. Continue aspirin, Effient, Zetia. Patient has no beta alton due to heart rate control for A. fib with amiodarone. Cardiology has ordered low-dose beta alton due to hypertension. Qualifiers: Coronary Disease-Associated Artery/Lesion type: [place] artery [place] vs. transplanted heart: [place] heart Associated angina: without angina Qualified Code(s): I25.10 - Atherosclerotic heart disease of [place] coronary artery without angina pectoris (3) CKD (chronic kidney disease), stage III Current Visit: Yes Status: Chronic Assessment and plan: Within normal limits. Serum creatinine 0.97, GFR 56. Renal function has improved over baseline. Avoid nephrotoxins. (4) COPD (chronic obstructive pulmonary disease) Current Visit: Yes Status: Chronic Assessment and plan: Chronic. Patient does not appear to be in acute exacerbation. Continue albuterol inhaler, duo nebs when necessary O2 as needed to maintain sats greater than 92% Lungs are clear and diminished throughout, patient is tachypneic though not in distress. Qualifiers: COPD type: unspecified COPD Qualified Code(s): J44.9 - Chronic obstructive pulmonary disease, unspecified (5) Diabetic renal disease Current Visit: Yes Status: Chronic Assessment and plan: Plan as above. Qualifiers: Diabetes mellitus type: type 2 Qualified Code(s): E11.21 - Type 2 diabetes mellitus with diabetic nephropathy (6) HTN (hypertension) Current Visit: Yes Status: Chronic Assessment and plan: Chronic. Well controlled. Continue current medications. Qualifiers: Hypertension type: essential hypertension Qualified Code(s): I10 - Essential (primary) hypertension (7) Hyperlipidemia Current Visit: Yes Status: Chronic Assessment and plan: Chronic. Continue home medication. Qualifiers: Hyperlipidemia type: unspecified Qualified Code(s): E78.5 - Hyperlipidemia , unspecified (8) Paroxysmal atrial fibrillation Current Visit: Yes Status: Chronic Assessment and plan: Rate controlled with amiodarone. Per cardiology note there is no A. fib seen. Recently Xarelto was stopped due to recurrent GI bleeds and anemia. Patient also on Effient to missed several doses recently due to insurance difficulties. Continue amiodarone, Effient and aspirin. Continue telemetry (9) Gastric ulcer Current Visit: Yes Status: Acute Assessment and plan: Patient with prior history of gastric ulcer noted in GI notes. Patient has had GI bleed in the past, chronic anemia, also reports to capsule endoscopy upper and lower endoscopy with no acute bleeding. Suspect that chest pain is actually related to gastric ulcer or GERD symptoms. There is no tenderness to palpation in the epigastric area, no nausea or vomiting. I have increased Omeprazole to 40 mg daily and will give a GI cocktail. Qualifiers: Gastric ulcer chronicity: chronic Gastric ulcer complication status: unspecified whether hemorrhage or perforation present Qualified Code(s): K25.7 - Chronic gastric ulcer without hemorrhage or perforation (10) DVT prophylaxis Current Visit: Yes Status: Acute Assessment and plan: SCDs. No pharmacologic intervention due to anemia and history of GI bleed. - Time Spent With Patient Total time spent is greater than 50% in coordination of care (as documented) at patient's floor/unit and/or counseling patient: - Subjective Interval history: Patient was seen and assessed at bedside at 9:20 AM. She is resting quietly comfortably, reports that she is having constant5-6/10 sharp, stabbing upper chest pain that radiates in her left chest, left arm to left elbow. She reports shortness of breath, does appear to be mildly short of breath at rest. There are no relieving or aggravating factors. Pain is not reproducible. Daughter is at bedside, all questions answered. Patient denies any headache, blurred vision, neck pain, abdominal pain, nausea, vomiting, diarrhea. She denies any diaphoresis. - Constitutional Vitals: Temp Pulse Resp BP Pulse Ox 98.1 F 82 16 117/61 97 08/05/17 16:02 08/05/17 16:02 08/05/17 16:02 08/05/17 16:02 08/05/17 16:02 General appearance: Present: cooperative, mild distress, A&O X 3, morbidly obese , pleasant, answers questions appropriately - Head Head exam: Present: atraumatic, normal inspection, normocephalic - Eye Eye exam: Present: normal appearance, conjuntiva pink, sclera anicteric - Neck Neck exam general surgery: Present: supple, trachea midline. Absent: lymphadenopathy, tenderness - Respiratory Respiratory exam: Present: decreased breath sounds, CTAB. Absent: accessory muscle use, chest wall tenderness, rales, respiratory distress, rhonchi, wheezes - Cardiovascular Cardiovascular exam: Present: RRR, +S1, +S2. Absent: diastolic murmur, gallop, rubs, systolic murmur - GI/Abdominal GI/Abdominal exam: Present: normal bowel sounds, soft. Absent: distended, hepatomegaly, tenderness - Extremities Exam Extremities exam: Present: normal capillary refill, normal inspection, warm, radial pulses palpable and symmetrical. Absent: calf tenderness, cyanotic, pedal edema, tenderness - Neurological Exam Neurological exam: Present: alert, oriented X3, no focal deficits. Absent: facial droop, speech deficit - Skin Skin exam: Present: dry, intact, normal color, warm. Absent: rash Internal Medicine: Result - Labs CBC & Chem 7: 08/05/17 05:31 08/05/17 05:31 Labs: Short CBC 08/05/17 Range/Units 05:31 WBC 9.0 (4.3-11.1) K/mcL Hgb 8.8 L (11.5-15.4) g/dL Hct 29.0 L (35.3-44.9) % Plt Count 215 (140-400) K/mcL Neutrophils # 6.4 (1.6-8.9) K/mcL BMP 08/05/17 05:31 Sodium 145 Potassium 3.4 L Chloride 113 H Carbon Dioxide 22 L BUN 16 Creatinine 0.97 Glucose 106 H Calcium 8.7 Cardiac Enzymes 08/04/17 Range/Units 19:55 Troponin I < 0.03 (< 0.04) ng/mL Liver Function 08/05/17 Range/Units 05:31 Total Bilirubin 0.4 (0.3-1.0) mg/dL AST 14 (13-39) Units/L ALT 9 (7-52) Units/L Alkaline Phosphatase 91 (34-104) Units/L Albumin 3.3 L (3.5-5.7) g/dL - ABG Interpretation ABG results: PT/INR, D-dimer PT 12.2 Seconds (9.4-12.1) H 08/05/17 05:31 D-Dimer 930 ng/mLFEU (0-500) H 08/04/17 22:38 - Impressions Impressions Chest X-Ray 08/04/17 22:24 IMPRESSION: Focal airspace disease in the left lateral lung base, atelectasis versus pneumonia. D/ / Efrain Sanchez / Efrain Sanchez Interpreting Provider: Efrain Sanchez Pulmonary Perfusion Imaging 08/05/17 09:22 IMPRESSION: Low probability for pulmonary embolus. D/ / Isaiah Lackey MD / Isaiah Lackey MD Interpreting Provider: Isaiah Lackey MD Consult Discharge Plan - Plan Referrals: Rina Kaba MD [Primary Care Provider] - 08/25/17 8:40 am
[2017-08-05] MEDS ORDERED: Ipratropium/Albuterol Neb 3 ML IH PRN (17:47)
[2017-08-05] MEDS ORDERED: (Ezetimibe [Zetia] 10 MG) PO SCH (18:00)
[2017-08-05] MEDS ORDERED: Perflutren Lipid Microsphere 1.3 ML in 0.9 % Sodium Chloride 8.7 ML IVP ONE (19:53)
[2017-08-06 05:31] LABS: Basophils % 0.4 %; Eosinophils # 0.3 K/mcL (0.0-0.6); Eosinophils % 3.4 %; Hematocrit 31.1 % (35.3-44.9); Hemoglobin 9.3 g/dL (11.5-15.4); Immature Granulocytes % 1.4 % (0-4); Immature Platelets 2.3 % (1.1-6.1); Lymphocytes # 1.5 K/mcL (0.6-4.6); Mean Corpuscular HGB Conc 29.9 g/dL (31.6-35.5); Mean Corpuscular Hemoglobin 27.8 pg (28.0-33.3); Mean Corpuscular Volume 92.8 fL (83.0-100.0); Mean Platelet Volume 10.3 fL (9.4-12.4); Monocytes # 0.7 K/mcL (0.0-1.3); Monocytes % 9.2 %; Neutrophils # 4.9 K/mcL (1.6-8.9); Platelet Count 207 K/mcL (140-400); Red Blood Count 3.35 M/mcL (3.82-4.97); Segmented Neutrophils % 65.6 %
[2017-08-06 05:44] LABS: BUN/Creatinine Ratio 18 (6-26); Blood Urea Nitrogen 18 mg/dL (8-23); Calcium 8.8 mg/dL (8.6-10.3); Carbon Dioxide 24 mEq/L (23-29); Chloride 113 mEq/L (98-107); Glucose 112 mg/dL (70-105); Osmolality,Calculated 301 (280-300); Potassium 3.9 mEq/L (3.5-5.1); Sodium 144 mEq/L (136-145); eGFR For African Americans > 60 (> 60); eGFR For Non-African Americans 55 (> 60)
[2017-08-06] MEDS: Aspirin 81 MG TAB.CHEW PO SCH (08:50)
[2017-08-06] MEDS: *HR* Amiodarone 200 MG TABLET PO SCH (08:51)
[2017-08-06] MEDS: predniSONE 10 MG TABLET PO SCH (08:53)
[2017-08-06] MEDS: FLUoxetine 20 MG CAPSULE PO SCH (08:53)
[2017-08-06] MEDS: Carbidopa/Levodopa ER 50/200 TABLET PO SCH (08:54)
[2017-08-06 11:24] VITALS: BP 132/62
--- NOTE | 2017-08-06 12:42 | Cardiology Progress Note ---
Date of Encounter: 08/06/17 Time of Encounter: 12:43 Assessment and Plan (1) Atypical chest pain Current Visit: Yes Status: Acute Atypical chest pain symptoms. Chest pain is not relieved with NTG. Reported sharp constant pain at rest. Troponin negative x2. EKG shows NSR with no acute ST changes. Telemetry review shows NSR. No afib seen. D-dimer elevated. VQ scan low probability for PE. CXR 08/04 showed left lung base atelectasis vs PNA- WBC normal and no fever noted. Hospitalist following. NTG weaned off yesterday and carvedilol added for blood pressure control and history of CAD. GI cocktail given. Reports pain significantly improved. Recommend ambulating in hallway to assess symptoms. TTE completed and report pending. If no significant change we will sign off and schedule out-pt f/u. (2) CAD S/P percutaneous coronary angioplasty Current Visit: No Status: Chronic H/p PCI to the LAD in 2010 and 2011. Preserved EF on most recent TTE 09/2016. Last [facility] 2015 showed patent stent and mild cAD remaining. Continue asa and effient. On zetia and no statin due to myalgias. Carvedilol added and she is tolerating well. (3) Paroxysmal atrial fibrillation Current Visit: Yes Status: Chronic H/o PAF on amiodarone. Currently NSR. AVg HR was 78 bpm. No afib seen. Recently stopped xarelto and started asa due to recurrent anemia requiring blood transfusion. Follows with hematology for chronic anemia. Reports undergoing two capsule endoscopy and upper and lower endoscopy in the past few years that showed no acute bleeding. CHADS VASc=4 for HTN, gender, age, CAD. Ideally retirement AC would be recommended. Due to hematology recommendations and concern for bleeding causing recurrent anemia requiring blood transfusion continue asa and effient. Patient and daughter aware of increased CVA risk. (4) Hypertension Current Visit: No Status: Chronic Uncontrolled blood pressure. B/p 162/68 on admit. B/p improved with NTG gtt. Carvedilol added. Qualifiers: Hypertension type: essential hypertension Qualified Code(s): I10 - Essential (primary) hypertension Discussion w patient/family: The assessment and plan as outlined above was discussed with the patient and/or family members who expressed understanding and agreement. All questions were answered. Thank you for involving us in the care of your patient. Please call with any questions. Subjective Principal diagnosis: atypical chest pain Interval history: Ms. Melendez reports chest pain has improved since taking beta-alton and GI cocktail. B/p also improved. Objective Vital Signs, Last 4 Hours Temp Pulse Resp BP Pulse Ox 08/06/17 11:22 98.3 F 78 15 132/62 98 General: Conversant, No Apparent Distress, Other (color looks better today) HEENT: Atraumatic, Normocephaly, Mucus Membranes Moist Neck: No JVD, Normal carotid pulses Cardiac: Reg Rate and Rhythm, Normal S1 and S2, No Murmur Lungs: Normal Breath Sounds, No Wheeze, Rales, Rhonchi Neuro: Alert and responsive, No focal deficits noted Abdomen: Soft, Non-Tender Skin: No rashes noted on visualized skin Musculoskeletal: No Chest Wall Tenderness Extremities: No Clubbing, No Cyanosis, No Edema, Normal Pulses Results 08/06/17 03:26 08/06/17 03:26 Lab Results 08/06/17 08/06/17 03:26 03:26 WBC 7.4 Hgb 9.3 L Hct 31.1 L Plt Count 207 Sodium 144 Potassium 3.9 Chloride 113 H Carbon Dioxide 24 BUN 18 Creatinine 0.98 Glucose 112 H Calcium 8.8 - Imaging and Cardiology Echo: pending - EKG Interpretation EKG results cardiology: personally reviewed Consult Discharge Plan - Plan Referrals: Rina Kaba MD [Primary Care Provider] - 08/25/17 8:40 am
--- NOTE | 2017-08-06 14:26 | Discharge Summary ---
- NOTES TO OUTPATIENT PROVIDER Notes to Outpatient Provider: Patient is admitted again for chest pain. She has had continued chest pain throughout visit. Patient with some tenderness in epigastric area and reports significant improvement with addition of Omeprazole 40mg and GI cocktail. Recommend follow up with GI for scope as pt has had previous gastric ulcers. Pt also appeared to get relief from chest pain when HTN resolved, low dose BB has been added. Overall, pt states that she is better and is ready to go home. Again, recommend close follow up after discharge. Orders not resulted at time of discharge: Pending orders 08/05/17 15:59 Occult Blood,Stool [BF] Stat 08/07/17 04:00 Basic Metabolic Panel AM 0400 Complete Blood Count [HEME] AM 040 Date of Encounter: 08/06/17 Time of Encounter: 09:50 - Discharge Diagnosis (1) Angina pectoris Priority: Primary Status: Acute Assessment and Plan: Chest pain. Recurrent. Today pt appears more comfortable and states that she is feeling better. She reports improvement with GI cocktail and increase in Omeprazole. Pain is somewhat reproducible with palpation in epigastric area. Patient has stress test August, that was negative, echo in September, showed an LVEF of 65% with no significant valvular dysfunction. troponins are negative, EKG shows sinus rhythm with a rate of 73, SD interval 160, QRS 106, QTC 464. No notable ST changes. TTE shows LVEF 65%, mild LV DD, no significant valvular dysfunction. Patient had an elevated d-dimer on admission, VQ scan completed, showed low probability for PE. Patient has allergy to IVP dye. Patient has been evaluated by cardiology, they have signed off and recommend outpatient follow-up in the clinic. (2) CAD (coronary artery disease) Priority: Secondary Status: Chronic Assessment and Plan: PLAN as above. Continue aspirin, Effient, Zetia. Cardiology has ordered low-dose beta alton due to hypertension. Qualifiers: Coronary Disease-Associated Artery/Lesion type: [place] artery [place] vs. transplanted heart: [place] heart Associated angina: without angina Qualified Code(s): I25.10 - Atherosclerotic heart disease of [place] coronary artery without angina pectoris (3) CKD (chronic kidney disease), stage III Priority: Secondary Status: Chronic Assessment and Plan: Within normal limits. Serum creatinine 0.98, GFR 55. Renal function has improved over baseline. Avoid nephrotoxins. (4) COPD (chronic obstructive pulmonary disease) Priority: Secondary Status: Chronic Assessment and Plan: Chronic. No acute exacerbation Continue home meds. Lungs are clear and diminished throughout. Qualifiers: COPD type: unspecified COPD Qualified Code(s): J44.9 - Chronic obstructive pulmonary disease, unspecified (5) Diabetic renal disease Priority: Secondary Status: Chronic Assessment and Plan: Plan as above. Qualifiers: Diabetes mellitus type: type 2 Qualified Code(s): E11.21 - Type 2 diabetes mellitus with diabetic nephropathy (6) HTN (hypertension) Priority: Secondary Status: Chronic Assessment and Plan: Chronic. Well controlled. Continue current medications. Family has requested that Spironolactone be stopped. Daughter believes that "it has caused her problems every time she has taken it." Cardiology has added low dose BB, will continue after discharge. Qualifiers: Hypertension type: essential hypertension Qualified Code(s): I10 - Essential (primary) hypertension (7) Hyperlipidemia Priority: Secondary Status: Chronic Assessment and Plan: Chronic. Continue home medication. Qualifiers: Hyperlipidemia type: unspecified Qualified Code(s): E78.5 - Hyperlipidemia , unspecified (8) Paroxysmal atrial fibrillation Priority: Secondary Status: Chronic Assessment and Plan: Rate controlled with amiodarone. Monitor NSR. Recently Xarelto was stopped due to recurrent GI bleeds and anemia. Patient also on Effient to missed several doses recently due to insurance difficulties. Continue amiodarone, Effient and aspirin. (9) Gastric ulcer Priority: Secondary Status: Acute Assessment and Plan: Patient with prior history of gastric ulcer noted in GI notes. Patient has had GI bleed in the past, chronic anemia, also reports to capsule endoscopy upper and lower endoscopy with no acute bleeding. Suspect that chest pain is actually related to gastric ulcer or GERD symptoms. There is mild tenderness to palpation in the epigastric area today, no nausea or vomiting. Pt reports significant improvement of chest pain with GI cocktail and addition of increased dose of Omeprazole, will continue after discharge. Qualifiers: Gastric ulcer chronicity: chronic Gastric ulcer complication status: unspecified whether hemorrhage or perforation present Qualified Code(s): K25.7 - Chronic gastric ulcer without hemorrhage or perforation (10) DVT prophylaxis Priority: Secondary Status: Acute Assessment and Plan: SCDs. No pharmacologic intervention due to anemia and history of GI bleed. (11) Anemia of chronic disease Priority: Secondary Status: Chronic Assessment and Plan: Per pt history. Hgb stable, 9.3 today. Recommend continued monitoring by PCP> (12) Morbid obesity Priority: Secondary Status: Chronic Assessment and Plan: Chronic. Lifestyle modifications. Hospital course: Ms. Melendez is a 77 year old female with past medical history of gastric ulcers , morbid obesity, refractory cytopenia with multilineage dysplasia, iron deficiency anemia, lumbar stenosis, lumbar radiculopathy, hypertension, hyperlipidemia, coronary artery disease status post percutaneous coronary angioplasty, hypothyroidism, paroxysmal A. fib, osteoarthritis, chronic bilateral lower extremity edema, A. fib RVR, stage III chronic kidney disease, COPD, MESERET. Patient presented to the emergency department on 08/04/17 with complaint of chest pain, intermittent with radiation down left arm with reported shortness of breath no diaphoresis, nausea, vomiting. Patient's chest x-ray showed focal airspace disease and left lateral lung base atelectasis versus pneumonia. Patient has no leukocytosis, fever, chills, no signs of infection. Echocardiogram shows an LVEF of 65% with mild LV DD and no significant valvular dysfunction. Patient with elevated d-dimer on admission, VQ scan showed low probability for PE. Patient was evaluated by cardiology, this pain is likely GI in nature. Patient has prior history of gastric ulcers, today she has mild tenderness with palpation in epigastric area. She has then noted significant relief of symptoms with GI cocktail and increase in omeprazole to 40 mg by mouth daily. Patient has a history of paroxysmal A. fib and is on amiodarone normal sinus rhythm, patient had recently missed several doses of Effient due to insurance complications. Patient also reports having stopped Xarelto recently due to recurrent anemia and GI bleeds. After discharge , patient will continue amiodarone, aspirin, and Effient. Per patient's family request, spironolactone has been stopped, they believe that this is the source of her problems as she has had difficulties taking in the past. Has been stopped, will be held and the reinitiation of and will be deferred to primary care. Patient has been started on low-dose beta alton by cardiology, this will be continued at home after discharge. Patient states that she is feeling significantly better today and is ready to go home. She is stable and appropriate for discharge. Discharge discussed with: patient, family, nurse, social work - Time Spent with Patient Total time spent providing and/or coordinating discharge services: Less than 30 minutes - Discharge Medications Prescriptions: Carvedilol [Coreg] 3.125 mg PO BIDWM #15 tablet Omeprazole [PriLOSEC] 40 mg PO DAILY@0630 #60 capsule.[address] Stephens Medications: Amiodarone [Cordarone] 100 mg PO DAILY 12/01/16 [History] FLUoxetine HCl [Fluoxetine HCl] 40 mg PO DAILY 12/01/16 [History] Levothyroxine [Synthroid] 100 mcg PO 0630 12/01/16 [History] Losartan [Cozaar] 100 mg PO DAILY 12/01/16 [History] Prasugrel [Effient] 10 mg PO DAILY 12/01/16 [History] Sennosides/Docusate Sodium [Senna Plus] 1 each PO BID PRN tablet 12/28/16 [Rx] Furosemide [Lasix] 40 mg PO TID PRN 01/13/17 [History] predniSONE [PredniSONE] 10 mg PO DAILY 01/13/17 [History] Albuterol Sulfate [Proair Hfa] 2 puff IH Q6H PRN 02/05/17 [History] Ezetimibe [Zetia] 10 mg PO QPM 02/05/17 [History] Carbidopa/Levodopa ER 50/200 [Sinemet ER 50-200 Tab] 0.5 tab PO BID 06/13/17 [ History] Buspirone HCl [Buspar] 22.5 mg PO BID 08/04/17 [History] Nitroglycerin [Nitrostat] 0.4 mg SL Q5M PRN 08/04/17 [History] Potassium Chloride [K-Tab ER] 20 meq PO BID 08/04/17 [History] Carvedilol [Coreg] 3.125 mg PO BIDWM #15 tablet 08/06/17 [Rx] Omeprazole [PriLOSEC] 40 mg PO DAILY@0630 #60 capsule. 08/06/17 [Rx] Allergies/Adverse Reactions: 3 Allergy/AdvReac Type Severity Reaction Status Date / Time Cyclobenzaprine Allergy Hallucinati Verified 05/14/17 10:58 [From Flexeril] ng fluocinonide [From Lidex] Allergy Hives Verified 05/14/17 10:58 olanzapine [From Zyprexa] Allergy See Verified 05/14/17 10:58 Comments ciprofloxacin [From Cipro] AdvReac Vomiting Verified 05/14/17 10:58 Erythromycin Base AdvReac Vomiting Verified 05/14/17 10:58 Sulfa (Sulfonamide AdvReac Vomiting Verified 05/14/17 10:58 Antibiotics) ivp DYE Allergy Hives Uncoded 05/14/17 10:58 Date of admission: 08/04/17 16:59 Primary care physician: Rina Kaba, Consults: 08/04/17 18:16 Consult to Labeler [CONS] Routine Reason for SW Consult: Home health 08/05/17 08:55 Consult to Cardiology [CONS] Routine Comment: Consulting Provider: Cardiology Yany Reason for Consult: Extensive cardiac history, stress negative 09/02 and echo with pEF 10/03. Uncontrolled chest pain with ntg gtt and MSO4. Xarelto stopped within last month due to recurrent GI bleed, missed doses of Effient recently due to insurance issues. Recommendations, please. Time Notified: 08:57 Call Completed: Yes Consult to Cardiology [CONS] Routine Comment: Consulting Provider: Leo Slade Reason for Consult: chest pain Call Completed: No Discharging clinician: Giuliana Kumar Anticipated date of discharge: 08/06/17 - Constitutional Vitals: Temp Pulse Resp BP Pulse Ox 98.3 F 78 15 132/62 98 08/06/17 11:22 08/06/17 11:22 08/06/17 11:22 08/06/17 11:22 08/06/17 11:22 General appearance: Present: cooperative, A&O X 3, morbidly obese, pleasant, no acute distress, answers questions appropriately - Head Head exam: Present: atraumatic, normal inspection, normocephalic - Eye Eye exam: Present: normal appearance, conjuntiva pink, sclera anicteric - Neck Neck exam general surgery: Present: supple, trachea midline. Absent: lymphadenopathy, tenderness - Respiratory Respiratory exam: Present: CTAB. Absent: accessory muscle use, chest wall tenderness, decreased breath sounds, rales, rhonchi, stridor, wheezes - Cardiovascular Cardiovascular exam: Present: RRR, +S1, +S2. Absent: diastolic murmur, gallop, rubs, systolic murmur - GI/Abdominal GI/Abdominal exam: Present: normal bowel sounds, soft. Absent: distended, hepatomegaly, tenderness - Extremities Exam Extremities exam: Present: warm, radial pulses palpable and symmetrical. Absent : calf tenderness, cyanotic, pedal edema - Neurological Exam Neurological exam: Present: alert, oriented X3, no focal deficits. Absent: facial droop, speech deficit - Skin Skin exam: Present: dry, intact, normal color, warm. Absent: rash - Patient Status Disposition: Home, Self-Care Condition: Good Functional capacity at discharge: uses cane/walker Overall status at discharge: patient is progressing back to baseline - Discharge Instructions Follow Up With: Rina Kaba MD [Primary Care Provider] - 08/25/17 8:40 am Additional Instructions: Please follow up with your PCP in the next 5-7 days for a recheck. Recommend referral to GI for scope and evaluation of GERD/gastric ulcer. Your new prescriptions are at your pharmacy. Please return to the ER immediately if your symptoms return or worsen, or for any other problems or concerns. Take your medications as directed, stop taking the Spironolactone Return to your normal diet and activities as tolerated. - Diet and Activity Activity: increase activity as tolerated, resume usual activities as tolerated Diet: diabetic diet, low fat, low cholesterol
--- NOTE | 2017-08-06 15:03 | Physician Discharge Referral ---
Home Health/Hosp Referral Info Transfer to: Home Health Provider in Charge Post Discharge: PCP - Diagnosis (1) Angina pectoris Priority: Primary Status: Acute (2) CAD (coronary artery disease) Priority: Secondary Status: Chronic (3) CKD (chronic kidney disease), stage III Priority: Secondary Status: Chronic (4) COPD (chronic obstructive pulmonary disease) Priority: Secondary Status: Chronic (5) Diabetic renal disease Priority: Secondary Status: Chronic (6) HTN (hypertension) Priority: Secondary Status: Chronic (7) Hyperlipidemia Priority: Secondary Status: Chronic (8) Paroxysmal atrial fibrillation Priority: Secondary Status: Chronic (9) Gastric ulcer Priority: Secondary Status: Acute (10) DVT prophylaxis Priority: Secondary Status: Acute (11) Anemia of chronic disease Priority: Secondary Status: Chronic (12) Morbid obesity Priority: Secondary Status: Chronic - Respiratory Orders Oxygen / L per min (2 liters/nasal canula, titrate as needed to maintain sats > 92%.) Smoking Cessation: Smoking cessation has been advised. For more information, call the [place] Tobacco Quit Line at 6-999-DMQL-NOW. - Diet/Nutrition Diet/Nutrition Orders: No Added Salt (EDWIN), Cardiac, No Concentrated Sweets - Activity Activity Orders: Up ad juanita, Walker - Services Needed Following services are medically necessary services: Nursing, Home Health Aide, Physical Therapy, Occupational Therapy - Transfer Medications Prescriptions: Carvedilol [Coreg] 3.125 mg PO BIDWM #15 tablet Omeprazole [PriLOSEC] 40 mg PO DAILY@0630 #60 capsule.dr Home Medications: Amiodarone [Cordarone] 100 mg PO DAILY 12/01/16 [History] FLUoxetine HCl [Fluoxetine HCl] 40 mg PO DAILY 12/01/16 [History] Levothyroxine [Synthroid] 100 mcg PO 0630 12/01/16 [History] Losartan [Cozaar] 100 mg PO DAILY 12/01/16 [History] Prasugrel [Effient] 10 mg PO DAILY 12/01/16 [History] Sennosides/Docusate Sodium [Senna Plus] 1 each PO BID PRN tablet 12/28/16 [Rx] Furosemide [Lasix] 40 mg PO TID PRN 01/13/17 [History] predniSONE [PredniSONE] 10 mg PO DAILY 01/13/17 [History] Albuterol Sulfate [Proair Hfa] 2 puff IH Q6H PRN 02/05/17 [History] Ezetimibe [Zetia] 10 mg PO QPM 02/05/17 [History] Carbidopa/Levodopa ER 50/200 [Sinemet ER 50-200 Tab] 0.5 tab PO BID 06/13/17 [ History] Buspirone HCl [Buspar] 22.5 mg PO BID 08/04/17 [History] Nitroglycerin [Nitrostat] 0.4 mg SL Q5M PRN 08/04/17 [History] Potassium Chloride [K-Tab ER] 20 meq PO BID 08/04/17 [History] Carvedilol [Coreg] 3.125 mg PO BIDWM #15 tablet 08/06/17 [Rx] Omeprazole [PriLOSEC] 40 mg PO DAILY@0630 #60 capsule. 08/06/17 [Rx] Allergies/Adverse Reactions: 3 Allergy/AdvReac Type Severity Reaction Status Date / Time Cyclobenzaprine Allergy Hallucinati Verified 05/14/17 10:58 [From Flexeril] ng fluocinonide [From Lidex] Allergy Hives Verified 05/14/17 10:58 olanzapine [From Zyprexa] Allergy See Verified 05/14/17 10:58 Comments ciprofloxacin [From Cipro] AdvReac Vomiting Verified 05/14/17 10:58 Erythromycin Base AdvReac Vomiting Verified 05/14/17 10:58 Sulfa (Sulfonamide AdvReac Vomiting Verified 05/14/17 10:58 Antibiotics) ivp DYE Allergy Hives Uncoded 05/14/17 10:58 Certification: Further, I certify that my clinical findings support that this patient is homebound (i.e. absences from home require considerable and taxing effort and are for medical reasons or gnosticist services or infrequently or short duration when for other reasons) because: Homebound Reason: Patient requires assistance of a person or device to safely leave home, Leaving home requires considerable and taxing effort due to condition Attestation: My signature below is to certify that this patient is under my care and that I, or nurse practitioner, or a physician's graduate research assistant working with me, has a face-to -face encounter with this patient.
== END 2017-08-06 16:03 | disposition home or self-care (01) ==
LOC: 3BNU 14:13 → EMEROO 14:13 → 3BNU 17:35
PROVIDERS: ADMIT Internal Medicine; ATTEND Family Medicine

== ENCOUNTER 2018-12-26 11:01 | Inpatient (IN) ==
[2018-12-26 11:30] LABS: Basophils % 0.6 %; Eosinophils # 0.2 K/mcL (0.0-0.6); Eosinophils % 2.3 %; Hematocrit 36.4 % (35.3-44.9); Hemoglobin 11.8 g/dL (11.5-15.4); Immature Granulocytes % 0.3 % (0-4); Lymphocytes # 1.5 K/mcL (0.6-4.6); Mean Corpuscular HGB Conc 32.4 g/dL (31.6-35.5); Mean Corpuscular Hemoglobin 29.6 pg (28.0-33.3); Mean Corpuscular Volume 91.5 fL (83.0-100.0); Mean Platelet Volume 10.3 fL (9.4-12.4); Monocytes # 0.7 K/mcL (0.0-1.3); Monocytes % 10.3 %; Neutrophils # 4.5 K/mcL (1.6-8.9); Platelet Count 200 K/mcL (140-400); Red Blood Count 3.98 M/mcL (3.82-4.97); Red Cell Distribution Width 16.4 % (11.5-14.5); Segmented Neutrophils % 64.5 %
[2018-12-26 11:37] LABS: INR 1.1; Prothrombin Time 12.3 Seconds (9.4-12.1)
[2018-12-26 11:39] LABS: Activated Partial Thrombo Time 30.9 Seconds (26.0-36.0)
[2018-12-26 11:55] LABS: BUN/Creatinine Ratio 23 (6-26); Blood Urea Nitrogen 20 mg/dL (8-23); Calcium 8.6 mg/dL (8.6-10.3); Carbon Dioxide 27 mEq/L (23-29); Chloride 106 mEq/L (98-107); Glucose 116 mg/dL (70-105); Lipase 21 Units/L (11-82); Osmolality,Calculated 298 (280-300); Potassium 3.7 mEq/L (3.5-5.1); Sodium 142 mEq/L (136-145); Troponin I < 0.03 ng/mL (< 0.04); eGFR For African Americans > 60 (> 60); eGFR For Non-African Americans > 60 (> 60)
[2018-12-26 11:58] LABS: VBG HCO3 28 mEq/L (21-27); VBG PCO2 47 mmHg (41-51); VBG PH 7.39 pH Units (7.32-7.42); VBG PO2 61 mmHg (25-50)
[2018-12-26] MEDS ORDERED: Isovue-370 500 ML BOTTLE IVP ONE (12:20)
[2018-12-26] MEDS ORDERED: *HR* HYDROmorphone (PF) 1 MG/ML SYRINGE IVP ONE (12:23)
[2018-12-26] MEDS ORDERED: GI Cocktail 40 ML EACH PO ONE (15:49)
[2018-12-26] MEDS ORDERED: Naloxone 0.4 MG/ML INJ IVP PRN (16:21)
[2018-12-26] MEDS ORDERED: Acetaminophen 325 MG TABLET PO PRN (16:27)
[2018-12-26] MEDS ORDERED: Ondansetron ODT 4 MG TAB.RAPDIS SL PRN (16:27)
[2018-12-26] MEDS ORDERED: Spironolactone 25 MG TABLET PO PRN (16:31)
[2018-12-26] MEDS ORDERED: Albuterol 2.5 MG/3 ML NEBULIZER IH PRN (16:31)
[2018-12-26] MEDS ORDERED: Nitroglycerin 0.4 MG TAB.SUBL SL PRN (16:31)
[2018-12-26] MEDS ORDERED: Sennosides/Docusate Sodium TABLET PO PRN (16:31)
[2018-12-26] MEDS ORDERED: NON-FORMULARY MEDICATION 1 EACH EACH (Ibandronate Sodium [Boniva] 150 MG) PO SCH (16:45)
[2018-12-26] MEDS: *HR* Heparin 5,000 UNIT/ML VIAL SQ SCH (19:36)
[2018-12-26] MEDS: Carbidopa/Levodopa ER 50/200 TABLET PO SCH (20:34)
[2018-12-27 01:12] LABS: Hematocrit 36.3 % (35.3-44.9); Hemoglobin 11.5 g/dL (11.5-15.4); Mean Corpuscular HGB Conc 31.7 g/dL (31.6-35.5); Mean Corpuscular Hemoglobin 29.4 pg (28.0-33.3); Mean Corpuscular Volume 92.8 fL (83.0-100.0); Mean Platelet Volume 10.8 fL (9.4-12.4); Platelet Count 189 K/mcL (140-400); Red Blood Count 3.91 M/mcL (3.82-4.97); Red Cell Distribution Width 16.7 % (11.5-14.5); White Blood Count 7.2 K/mcL (4.3-11.1)
[2018-12-27 01:35] LABS: BUN/Creatinine Ratio 24 (6-26); Blood Urea Nitrogen 22 mg/dL (8-23); Calcium 8.2 mg/dL (8.6-10.3); Carbon Dioxide 25 mEq/L (23-29); Chloride 107 mEq/L (98-107); Chol/HDL Ratio 3.9 (0-4.9); Cholesterol 140 mg/dL (< 200); Glucose 119 mg/dL (70-105); HDL Cholesterol 36 mg/dL (40-59); LDL Cholesterol,Calculated 75 mg/dL (0-99); Osmolality,Calculated 290 (280-300); Potassium 3.9 mEq/L (3.5-5.1); Sodium 138 mEq/L (136-145); Triglycerides 146 mg/dL (< 150); eGFR For African Americans > 60 (> 60); eGFR For Non-African Americans 59 (> 60)
[2018-12-27] MEDS: *HR* Heparin 5,000 UNIT/ML VIAL SQ SCH ×2 (05:02→17:52)
[2018-12-27] MEDS ORDERED: Perflutren Lipid Microsphere 1.3 ML in 0.9 % Sodium Chloride 8.7 ML IVP ONE (07:08)
[2018-12-27] MEDS ORDERED: Regadenoson 0.4 MG/5 ML SYRINGE IVP ONE (07:43)
[2018-12-27] MEDS: (Mirabegron [Myrbetriq] 50 MG) PO SCH (11:55)
[2018-12-27] MEDS: FLUoxetine 20 MG CAPSULE PO SCH (11:55)
[2018-12-27] MEDS: predniSONE 10 MG TABLET PO SCH (11:57)
[2018-12-27] MEDS: Pantoprazole 40 MG VIAL IVP SCH (11:57)
[2018-12-27] MEDS: Carbidopa/Levodopa ER 50/200 TABLET PO SCH ×2 (11:57→17:38)
[2018-12-27] MEDS: Aspirin Enteric Coated 81 MG Tablet PO SCH (12:18)
[2018-12-27 14:07] LABS: Bilirubin,Urine Negative (Negative); Blood,Urine Small (Negative); Clarity,Urine Cloudy (Clear); Color,Urine Yellow (Yellow); Glucose,Urine (UA) Normal (Normal); Ketones,Urine Negative (Negative); Leukocyte Esterase,Urine Moderate (Negative); Nitrite,Urine Negative (Negative); PH,Urine 6.5 pH Units (5.0-8.0); Protein,Urine Negative (Neg-Trace); Specific Gravity,Urine 1.012 (1.010-1.025); Urobilinogen,Urine Normal (Normal)
[2018-12-27 14:09] LABS: Bacteria,Urine None Seen per hpf (None-Few); Hyaline Casts,Urine None Seen per lpf (None-Few); Squamous Epithelial Cell,Urine Many per lpf (None-Few); WBC,Urine 15-30 per hpf (0-3)
[2018-12-27] MEDS ORDERED: *HR* LORazepam 0.5 MG TABLET PO PRN (15:43)
[2018-12-28 03:19] LABS: Hematocrit 33.6 % (35.3-44.9); Hemoglobin 10.8 g/dL (11.5-15.4); Mean Corpuscular HGB Conc 32.1 g/dL (31.6-35.5); Mean Corpuscular Hemoglobin 29.8 pg (28.0-33.3); Mean Corpuscular Volume 92.8 fL (83.0-100.0); Mean Platelet Volume 10.3 fL (9.4-12.4); Platelet Count 176 K/mcL (140-400); Red Blood Count 3.62 M/mcL (3.82-4.97); White Blood Count 5.7 K/mcL (4.3-11.1)
[2018-12-28] MEDS: *HR* Heparin 5,000 UNIT/ML VIAL SQ SCH (08:02)
[2018-12-28] MEDS: FLUoxetine 20 MG CAPSULE PO SCH (08:03)
[2018-12-28] MEDS: predniSONE 10 MG TABLET PO SCH (08:03)
[2018-12-28] MEDS: Aspirin Enteric Coated 81 MG Tablet PO SCH (08:03)
[2018-12-28] MEDS: Pantoprazole 40 MG VIAL IVP SCH (08:05)
[2018-12-28] MEDS: Carbidopa/Levodopa ER 50/200 TABLET PO SCH (08:05)
[2018-12-28] MEDS: (Mirabegron [Myrbetriq] 50 MG) PO SCH (08:11)
[2018-12-28 11:41] VITALS: BP 136/68
[2018-12-28] MEDS ORDERED: Isosorbide MONOnitrate (24 HR) 30 MG TAB.ER.24H PO SCH (12:47)
== END 2018-12-28 14:02 | disposition home or self-care (01) | DRG 303 ==
LOC: EMEROOARM 11:01 → 3BNU 11:01 → SUATTDRO 15:59 → 3BNU 17:11
PROVIDERS: ADMIT Internal Medicine; ATTEND Internal Medicine

== ENCOUNTER 2020-06-11 20:21 | Inpatient (IN) ==
[2020-06-11 20:47] LABS: Basophils % 0.4 %; Eosinophils # 0.3 K/mcL (0.0-0.6); Hematocrit 32.3 % (35.3-44.9); Immature Granulocytes % 1.2 % (0-4); Lymphocytes # 1.3 K/mcL (0.6-4.6); Lymphocytes % 17.8 %; Mean Platelet Volume 10.6 fL (9.4-12.4); Monocytes # 0.8 K/mcL (0.0-1.3); Monocytes % 10.5 %; Neutrophils # 4.8 K/mcL (1.6-8.9); Platelet Count 205 K/mcL (140-400); Red Blood Count 3.33 M/mcL (3.82-4.97); Red Cell Distribution Width 17.3 % (11.5-14.5); Segmented Neutrophils % 66.1 %; White Blood Count 7.3 K/mcL (4.3-11.1)
[2020-06-11] MEDS ORDERED: Morphine Sulfate 2 MG/ML SYRINGE IVP ONE (20:49)
[2020-06-11 21:11] LABS: BUN/Creatinine Ratio 18 (6-26); Blood Urea Nitrogen 15 mg/dL (8-23); Calcium 8.8 mg/dL (8.6-10.3); Carbon Dioxide 28 mEq/L (23-29); Chloride 107 mEq/L (98-107); Glucose 149 mg/dL (70-105); Osmolality,Calculated 296 (280-300); Potassium 3.9 mEq/L (3.5-5.1); Sodium 141 mEq/L (136-145); eGFR For African Americans > 60 (> 60); eGFR For Non-African Americans > 60 (> 60)
[2020-06-11 21:12] LABS: Troponin I < 0.03 ng/mL (< 0.04)
[2020-06-11] MEDS ORDERED: *HR* LORazepam 2 MG/ML VIAL IVP ONE (22:29)
[2020-06-12] MEDS ORDERED: Naloxone 0.4 MG/ML INJ IVP PRN (00:54)
[2020-06-12] MEDS ORDERED: Prochlorperazine 10 MG/2 ML VIAL IVP PRN (00:56)
[2020-06-12] MEDS: 0.9 % Sodium Chloride 500 ML IVC SCH (01:49)
[2020-06-12 03:01] LABS: Hematocrit 33.6 % (35.3-44.9); Hemoglobin 10.1 g/dL (11.5-15.4); Mean Corpuscular HGB Conc 30.1 g/dL (31.6-35.5); Mean Corpuscular Hemoglobin 29.1 pg (28.0-33.3); Mean Corpuscular Volume 96.8 fL (83.0-100.0); Mean Platelet Volume 10.6 fL (9.4-12.4); Platelet Count 217 K/mcL (140-400); Red Blood Count 3.47 M/mcL (3.82-4.97); Red Cell Distribution Width 17.4 % (11.5-14.5); White Blood Count 7.3 K/mcL (4.3-11.1)
[2020-06-12 03:21] LABS: % Iron Saturation 15 % (15-50); BUN/Creatinine Ratio 17 (6-26); Blood Urea Nitrogen 15 mg/dL (8-23); Calcium 8.7 mg/dL (8.6-10.3); Carbon Dioxide 28 mEq/L (23-29); Chloride 108 mEq/L (98-107); Chol/HDL Ratio 3.6 (0-4.9); Cholesterol 161 mg/dL (< 200); Glucose 114 mg/dL (70-105); HDL Cholesterol 45 mg/dL (40-59); Iron 54 mcg/dL (50-170); LDL Cholesterol,Calculated 95 mg/dL (< 100); Magnesium 2.5 mg/dL (1.6-2.6); Osmolality,Calculated 296 (280-300); Potassium 4.1 mEq/L (3.5-5.1); Sodium 142 mEq/L (136-145); Transferrin 265 mg/dL (203-362); Triglycerides 107 mg/dL (< 150); eGFR For African Americans > 60 (> 60); eGFR For Non-African Americans > 60 (> 60)
[2020-06-12 03:33] LABS: Thyroid Stimulating Hormone 5.913 mcIU/mL (0.340-5.600)
[2020-06-12 03:39] LABS: Ferritin 49 ng/mL (10-120)
[2020-06-12 03:45] LABS: Folate 9.1 ng/mL (3.0-16.0)
[2020-06-12] MEDS: Morphine Sulfate 2 MG/ML SYRINGE IVP PRN (05:29)
[2020-06-12] MEDS: *HR* Heparin 5,000 UNIT/ML VIAL SQ SCH ×3 (05:30→22:03)
[2020-06-12] MEDS ORDERED: Regadenoson 0.4 MG/5 ML SYRINGE IVP ONE (06:14)
[2020-06-12] MEDS ORDERED: Aspirin Enteric Coated 81 MG Tablet PO SCH (09:00)
[2020-06-12] MEDS ORDERED: Ranolazine 500 MG TAB.ER.12H PO SCH (13:45)
[2020-06-12] MEDS ORDERED: Perflutren Lipid Microsphere 1.3 ML in 0.9 % Sodium Chloride 8.7 ML IVP PRN (13:51)
[2020-06-12] MEDS ORDERED: Ipratropium/Albuterol Neb 3 ML IH PRN (15:17)
[2020-06-12] MEDS: Carbidopa/Levodopa 25/100 TABLET PO SCH ×2 (15:21→22:03)
[2020-06-12] MEDS: Isosorbide MONOnitrate (24 HR) 60 MG TAB.ER.24H PO SCH (15:21)
[2020-06-12] MEDS: carvediloL 6.25 MG TABLET PO SCH (17:43)
[2020-06-12] MEDS: Pantoprazole 40 MG VIAL IVP SCH (17:44)
[2020-06-12] MEDS: Ranolazine 500 MG TAB.ER.12H PO SCH ×2 (18:00→21:57)
[2020-06-13 04:02] LABS: Basophils % 0.6 %; Eosinophils # 0.5 K/mcL (0.0-0.6); Eosinophils % 6.8 %; Hematocrit 30.9 % (35.3-44.9); Hemoglobin 9.4 g/dL (11.5-15.4); Lymphocytes # 1.5 K/mcL (0.6-4.6); Lymphocytes % 20.6 %; Mean Corpuscular HGB Conc 30.4 g/dL (31.6-35.5); Mean Corpuscular Hemoglobin 29.7 pg (28.0-33.3); Mean Corpuscular Volume 97.5 fL (83.0-100.0); Mean Platelet Volume 10.8 fL (9.4-12.4); Monocytes # 0.8 K/mcL (0.0-1.3); Monocytes % 11.6 %; Neutrophils # 4.3 K/mcL (1.6-8.9); Platelet Count 206 K/mcL (140-400); Red Blood Count 3.17 M/mcL (3.82-4.97); Red Cell Distribution Width 17.6 % (11.5-14.5); Segmented Neutrophils % 59.4 %; White Blood Count 7.2 K/mcL (4.3-11.1)
[2020-06-13 04:20] LABS: Calcium 8.5 mg/dL (8.6-10.3); Potassium 4.1 mEq/L (3.5-5.1)
[2020-06-13] MEDS: *HR* Heparin 5,000 UNIT/ML VIAL SQ SCH ×3 (06:20→22:55)
[2020-06-13] MEDS: Pantoprazole 40 MG VIAL IVP SCH ×2 (06:20→17:01)
[2020-06-13] MEDS: 0.9 % Sodium Chloride 500 ML IVC SCH (07:48)
[2020-06-13] MEDS ORDERED: (Pimavanserin Tartrate [Nuplazid] 34 MG Capsule) PO SCH (09:00)
[2020-06-13] MEDS: Aspirin 81 MG TAB.CHEW PO SCH (09:14)
[2020-06-13] MEDS: Ranolazine 500 MG TAB.ER.12H PO SCH ×2 (09:17→19:39)
[2020-06-13] MEDS: carvediloL 6.25 MG TABLET PO SCH ×2 (09:17→17:01)
[2020-06-13] MEDS: Isosorbide MONOnitrate (24 HR) 60 MG TAB.ER.24H PO SCH (09:18)
[2020-06-13] MEDS: Carbidopa/Levodopa 25/100 TABLET PO SCH ×3 (09:18→19:39)
[2020-06-13] MEDS ORDERED: Isosorbide MONOnitrate (24 HR) 30 MG TAB.ER.24H PO ONE (12:04)
[2020-06-13] MEDS: QUEtiapine Fumarate 25 MG TABLET PO SCH (19:40)
[2020-06-14 01:26] LABS: Basophils % 0.4 %; Eosinophils # 0.4 K/mcL (0.0-0.6); Eosinophils % 5.4 %; Hematocrit 28.7 % (35.3-44.9); Hemoglobin 8.7 g/dL (11.5-15.4); Immature Granulocytes % 0.9 % (0-4); Lymphocytes # 1.2 K/mcL (0.6-4.6); Lymphocytes % 17.6 %; Mean Corpuscular HGB Conc 30.3 g/dL (31.6-35.5); Mean Corpuscular Hemoglobin 29.8 pg (28.0-33.3); Mean Corpuscular Volume 98.3 fL (83.0-100.0); Mean Platelet Volume 10.5 fL (9.4-12.4); Monocytes # 0.9 K/mcL (0.0-1.3); Monocytes % 13.1 %; Neutrophils # 4.2 K/mcL (1.6-8.9); Platelet Count 169 K/mcL (140-400); Red Blood Count 2.92 M/mcL (3.82-4.97); Red Cell Distribution Width 17.3 % (11.5-14.5); Segmented Neutrophils % 62.6 %; White Blood Count 6.7 K/mcL (4.3-11.1)
[2020-06-14 01:46] LABS: Calcium 8.8 mg/dL (8.6-10.3); Potassium 4.3 mEq/L (3.5-5.1)
[2020-06-14] MEDS: 0.9 % Sodium Chloride 500 ML IVC SCH (02:06)
[2020-06-14] MEDS: Morphine Sulfate 2 MG/ML SYRINGE IVP PRN (02:51)
[2020-06-14] MEDS: *HR* Heparin 5,000 UNIT/ML VIAL SQ SCH ×3 (06:51→23:03)
[2020-06-14] MEDS: Pantoprazole 40 MG VIAL IVP SCH ×2 (06:51→18:17)
[2020-06-14] MEDS: Isosorbide MONOnitrate (24 HR) 30 MG TAB.ER.24H PO SCH (08:17)
[2020-06-14] MEDS: Ranolazine 500 MG TAB.ER.12H PO SCH ×2 (08:17→19:51)
[2020-06-14] MEDS: Aspirin 81 MG TAB.CHEW PO SCH (08:18)
[2020-06-14] MEDS: carvediloL 6.25 MG TABLET PO SCH ×2 (08:18→16:04)
[2020-06-14] MEDS: Carbidopa/Levodopa 25/100 TABLET PO SCH ×3 (08:18→19:51)
[2020-06-14] MEDS ORDERED: GI Cocktail 40 ML EACH PO ONE (09:41)
[2020-06-14 14:20] LABS: Adenovirus Not Detected (Not Detect); Bordetella Pertussis Not Detected (Not Detect); Chlamydophila pneumoniae Not Detected (Not Detect); Coronavirus 229E Not Detected (Not Detect); Coronavirus HKU1 Not Detected (Not Detect); Coronavirus NL63 Not Detected (Not Detect); Coronavirus OC43 Not Detected (Not Detect); Human Metapneumovirus Not Detected (Not Detect); Human Rhinovirus/Enterovirus Not Detected (Not Detect); Influenza A Subtype 2009 H1 Not Detected (Not Detect); Influenza B Not Detected (Not Detect); Mycoplasma pneumoniae Not Detected (Not Detect); Parainfluenza Virus 1 Not Detected (Not Detect); Parainfluenza Virus 2 Not Detected (Not Detect); Parainfluenza Virus 3 Not Detected (Not Detect); Parainfluenza Virus 4 Not Detected (Not Detect); Respiratory Syncytial Virus Not Detected (Not Detect); SARS-CoV-2 Not Detected (Not Detect)
[2020-06-14] MEDS: QUEtiapine Fumarate 25 MG TABLET PO SCH (19:50)
[2020-06-15 05:32] LABS: Basophils % 0.3 %; Eosinophils # 0.4 K/mcL (0.0-0.6); Eosinophils % 5.4 %; Hematocrit 29.7 % (35.3-44.9); Hemoglobin 9.1 g/dL (11.5-15.4); Immature Granulocytes % 0.8 % (0-4); Lymphocytes # 1.1 K/mcL (0.6-4.6); Lymphocytes % 16.9 %; Mean Corpuscular HGB Conc 30.6 g/dL (31.6-35.5); Mean Platelet Volume 10.6 fL (9.4-12.4); Monocytes # 0.8 K/mcL (0.0-1.3); Monocytes % 12.4 %; Neutrophils # 4.2 K/mcL (1.6-8.9); Platelet Count 180 K/mcL (140-400); Red Blood Count 3.03 M/mcL (3.82-4.97); Red Cell Distribution Width 17.5 % (11.5-14.5); Segmented Neutrophils % 64.2 %; White Blood Count 6.5 K/mcL (4.3-11.1)
[2020-06-15 05:44] LABS: Calcium 9.2 mg/dL (8.6-10.3); Potassium 4.2 mEq/L (3.5-5.1)
[2020-06-15] MEDS: Pantoprazole 40 MG VIAL IVP SCH ×2 (06:14→16:26)
[2020-06-15] MEDS: *HR* Heparin 5,000 UNIT/ML VIAL SQ SCH ×3 (06:14→22:14)
[2020-06-15] MEDS: Aspirin 81 MG TAB.CHEW PO SCH (08:59)
[2020-06-15] MEDS: carvediloL 6.25 MG TABLET PO SCH ×2 (08:59→16:00)
[2020-06-15] MEDS: Isosorbide MONOnitrate (24 HR) 30 MG TAB.ER.24H PO SCH (09:00)
[2020-06-15] MEDS: Carbidopa/Levodopa 25/100 TABLET PO SCH ×3 (09:00→22:13)
[2020-06-15] MEDS: Ranolazine 500 MG TAB.ER.12H PO SCH ×2 (09:01→22:13)
[2020-06-15] MEDS ORDERED: Ondansetron 4 MG/2 ML VIAL IVP ONE (12:27)
[2020-06-15] MEDS ORDERED: *HR* LORazepam 2 MG/ML VIAL IVP PRN (12:45)
[2020-06-15 12:59] LABS: ABG Base Excess 2 mEq/L (-2 to 3); ABG HCO3 28 mEq/L (21-27); ABG Oxygen Saturation 96 % (95-98); ABG PCO2 55 mmHg (35-45); ABG PH 7.32 pH Units (7.32-7.45); ABG PO2 88 mmHg (85-104); ABG TCO2 30 mEq/L (20-26)
[2020-06-15 13:05] LABS: Basophils % 0.4 %; Eosinophils # 0.5 K/mcL (0.0-0.6); Hematocrit 33.7 % (35.3-44.9); Hemoglobin 10.2 g/dL (11.5-15.4); Lymphocytes # 2.5 K/mcL (0.6-4.6); Lymphocytes % 26.7 %; Mean Corpuscular HGB Conc 30.3 g/dL (31.6-35.5); Mean Corpuscular Hemoglobin 29.9 pg (28.0-33.3); Mean Corpuscular Volume 98.8 fL (83.0-100.0); Mean Platelet Volume 10.3 fL (9.4-12.4); Monocytes # 1.2 K/mcL (0.0-1.3); Monocytes % 12.8 %; Neutrophils # 5.1 K/mcL (1.6-8.9); Platelet Count 186 K/mcL (140-400); Red Blood Count 3.41 M/mcL (3.82-4.97); Red Cell Distribution Width 17.6 % (11.5-14.5); Segmented Neutrophils % 54.1 %; White Blood Count 9.4 K/mcL (4.3-11.1)
[2020-06-15 13:30] LABS: Calcium 9.5 mg/dL (8.6-10.3); Magnesium 2.1 mg/dL (1.6-2.6); Phosphorous 3.4 mg/dL (2.7-4.5); Potassium 4.1 mEq/L (3.5-5.1)
[2020-06-15 13:45] LABS: Prolactin 50.47 ng/mL (3.80-23.20)
[2020-06-15] MEDS ORDERED: Metoclopramide 10 MG/2 ML VIAL IVP ONE (14:04)
[2020-06-15] MEDS: Ipratropium/Albuterol Neb 3 ML IH SCH ×3 (15:43→16:44)
[2020-06-15] MEDS: 0.9 % Sodium Chloride 500 ML IVC SCH (15:53)
[2020-06-15 18:40] LABS: Bilirubin,Urine Negative (Negative); Blood,Urine Negative (Negative); Clarity,Urine Clear (Clear); Color,Urine Yellow (Yellow); Glucose,Urine (UA) Normal (Normal); Hyaline Casts,Urine Few per lpf (None Seen); Ketones,Urine 10 mg/dL (Negative); Leukocyte Esterase,Urine Small (Negative); Mucus,Urine Few per lpf (None-Few); Nitrite,Urine Negative (Negative); PH,Urine 5.5 pH Units (5.0-8.0); Protein,Urine Trace mg/dL (Neg-Trace); RBC,Urine 0-3 per hpf (0-3); Specific Gravity,Urine 1.024 (1.010-1.025); Squamous Epithelial Cell,Urine Few per hpf (None-Few); Urobilinogen,Urine Normal (Normal); WBC,Urine 15-30 per hpf (0-3)
[2020-06-15] MEDS: Budesonide Neb 0.5 MG/2 ML IH SCH (22:48)
[2020-06-15] MEDS: Levalbuterol Neb 1.25 MG/3 ML IH PRN (22:49)
[2020-06-16 00:35] LABS: Basophils % 0.5 %; Eosinophils # 0.4 K/mcL (0.0-0.6); Eosinophils % 7.2 %; Hematocrit 30.7 % (35.3-44.9); Hemoglobin 9.2 g/dL (11.5-15.4); Immature Granulocytes % 0.9 % (0-4); Lymphocytes % 17.8 %; Mean Corpuscular Hemoglobin 29.5 pg (28.0-33.3); Mean Corpuscular Volume 98.4 fL (83.0-100.0); Mean Platelet Volume 10.5 fL (9.4-12.4); Monocytes # 0.7 K/mcL (0.0-1.3); Monocytes % 12.5 %; Neutrophils # 3.5 K/mcL (1.6-8.9); Platelet Count 173 K/mcL (140-400); Red Blood Count 3.12 M/mcL (3.82-4.97); Red Cell Distribution Width 17.5 % (11.5-14.5); Segmented Neutrophils % 61.1 %; White Blood Count 5.7 K/mcL (4.3-11.1)
[2020-06-16 00:54] LABS: BUN/Creatinine Ratio 22 (6-26); Blood Urea Nitrogen 21 mg/dL (8-23); Calcium 8.7 mg/dL (8.6-10.3); Carbon Dioxide 29 mEq/L (23-29); Chloride 105 mEq/L (98-107); Glucose 114 mg/dL (70-105); Osmolality,Calculated 294 (280-300); Potassium 3.9 mEq/L (3.5-5.1); Sodium 140 mEq/L (136-145); eGFR For African Americans > 60 (> 60); eGFR For Non-African Americans 55 (> 60)
[2020-06-16] MEDS: *HR* Heparin 5,000 UNIT/ML VIAL SQ SCH (06:53)
[2020-06-16] MEDS: Pantoprazole 40 MG VIAL IVP SCH (07:32)
[2020-06-16] MEDS: Aspirin 81 MG TAB.CHEW PO SCH (08:29)
[2020-06-16] MEDS: Carbidopa/Levodopa 25/100 TABLET PO SCH (08:30)
[2020-06-16] MEDS: Ranolazine 500 MG TAB.ER.12H PO SCH (08:30)
[2020-06-16] MEDS: carvediloL 6.25 MG TABLET PO SCH (08:30)
[2020-06-16] MEDS ORDERED: Isosorbide MONOnitrate (24 HR) 30 MG TAB.ER.24H PO SCH (09:00)
[2020-06-16] MEDS: Budesonide Neb 0.5 MG/2 ML IH SCH (10:45)
[2020-06-16] MEDS: Levalbuterol Neb 1.25 MG/3 ML IH PRN (10:45)
[2020-06-16 12:33] VITALS: BP 144/83
== END 2020-06-16 11:35 | disposition home health service (06) | DRG 302 ==
LOC: 3NENU 20:21 → EMEROOARM 20:21 → SUATTDRO 22:59 → 3NENU 23:49 → SUATTDRO 06-13 15:35
PROVIDERS: ADMIT Internal Medicine; ATTEND Internal Medicine

== ENCOUNTER 2021-01-08 14:22 | Inpatient (IN) ==
[2021-01-08 14:56] LABS: Basophils # 0.1 K/mcL (0.0-0.2); Basophils % 0.6 %; Eosinophils % 0.2 %; Hematocrit 36.9 % (35.3-44.9); Hemoglobin 11.6 g/dL (11.5-15.4); Immature Granulocytes % 3.6 % (0-4); Lymphocytes # 0.8 K/mcL (0.6-4.6); Lymphocytes % 6.3 %; Mean Corpuscular HGB Conc 31.4 g/dL (31.6-35.5); Mean Corpuscular Hemoglobin 29.1 pg (28.0-33.3); Mean Corpuscular Volume 92.5 fL (83.0-100.0); Mean Platelet Volume 10.3 fL (9.4-12.4); Monocytes # 0.7 K/mcL (0.0-1.3); Monocytes % 5.5 %; Neutrophils # 10.5 K/mcL (1.6-8.9); Platelet Count 211 K/mcL (140-400); Red Blood Count 3.99 M/mcL (3.82-4.97); Red Cell Distribution Width 15.2 % (11.5-14.5); Segmented Neutrophils % 83.8 %; White Blood Count 12.5 K/mcL (4.3-11.1)
[2021-01-08 15:08] LABS: INR 1.1; Prothrombin Time 12.8 Seconds (9.4-12.1)
[2021-01-08 15:11] LABS: Activated Partial Thrombo Time 26.5 Seconds (26.0-36.0)
[2021-01-08 15:16] LABS: Alanine Aminotransferase 4 Units/L (7-52); Albumin 3.9 g/dL (3.5-5.7); Albumin/Globulin Ratio 1.8 (1.1-2.2); Alkaline Phosphatase 50 Units/L (34-104); Aspartate Amino Transferase 11 Units/L (13-39); BUN/Creatinine Ratio 31 (6-26); Bilirubin,Direct 0.1 mg/dL (0.0-0.2); Bilirubin,Indirect 0.5 mg/dL (0.0-1.0); Bilirubin,Total 0.6 mg/dL (0.3-1.0); Blood Urea Nitrogen 35 mg/dL (8-23); Calcium 9.1 mg/dL (8.6-10.3); Carbon Dioxide 27 mEq/L (23-29); Chloride 103 mEq/L (98-107); Globulin 2.2 g/dL (2.4-3.5); Glucose 171 mg/dL (70-105); Osmolality,Calculated 302 (280-300); Potassium 4.4 mEq/L (3.5-5.1); Sodium 140 mEq/L (136-145); Total Protein 6.1 g/dL (6.4-8.9); Troponin I < 0.03 ng/mL (< 0.04); eGFR For African Americans 57 (> 60); eGFR For Non-African Americans 47 (> 60)
[2021-01-08 15:19] LABS: ABG Base Excess 5 mEq/L (-2 to 3); ABG HCO3 29 mEq/L (21-27); ABG Oxygen Saturation 99 % (95-98); ABG PCO2 38 mmHg (35-45); ABG PH 7.49 pH Units (7.32-7.45); ABG PO2 131 mmHg (85-104); ABG TCO2 30 mEq/L (20-26)
[2021-01-08] MEDS ORDERED: Isovue-370 500 ML BOTTLE IVP ONE (15:22)
[2021-01-08] MEDS ORDERED: Hydrocortisone Sodium Succ 100 MG/2 ML VIAL IVP ONE (15:28)
[2021-01-08 15:29] LABS: Thyroid Stimulating Hormone 0.133 mcIU/mL (0.340-5.600)
[2021-01-08 15:48] LABS: Influenza A PCR Negative (Negative); Influenza B PCR Negative (Negative); Resp. Syncytial Virus PCR Negative (Negative)
[2021-01-08 15:54] LABS: SARS-CoV-2 by PCR (In House) Negative (Negative)
[2021-01-08] MEDS ORDERED: *HR* Heparin 5,000 UNIT/ML VIAL IVP ONE (18:12)
[2021-01-08] MEDS ORDERED: *HR* Heparin 5,000 UNIT/ML VIAL IVP PRN ×2 (18:12)
[2021-01-08] MEDS ORDERED: Heparin 25,000UNIT/250ML 1/2NS 25,000 UNIT/250 ML IV.SOLN IVC SCH (18:15)
[2021-01-08] MEDS ORDERED: Acetaminophen 325 MG TABLET PO PRN (20:48)
[2021-01-08] MEDS ORDERED: Ondansetron 4 MG/2 ML VIAL IVP PRN (20:48)
[2021-01-08] MEDS ORDERED: Naloxone 0.4 MG/ML INJ IVP PRN (20:48)
[2021-01-08] MEDS ORDERED: Perflutren Lipid Microsphere 1.3 ML in 0.9 % Sodium Chloride 8.7 ML IVP PRN (21:53)
[2021-01-08] MEDS ORDERED: Furosemide 20 MG TABLET PO PRN (21:55)
[2021-01-08] MEDS ORDERED: NON-FORMULARY MEDICATION 1 EACH EACH (Ibandronate Sodium [Boniva] 150 MG Tablet) PO SCH (22:00)
[2021-01-08 22:29] LABS: Hematocrit 34.9 % (35.3-44.9); Mean Corpuscular HGB Conc 31.5 g/dL (31.6-35.5); Mean Corpuscular Hemoglobin 28.9 pg (28.0-33.3); Mean Corpuscular Volume 91.6 fL (83.0-100.0); Mean Platelet Volume 10.7 fL (9.4-12.4); Platelet Count 183 K/mcL (140-400); Red Blood Count 3.81 M/mcL (3.82-4.97); Red Cell Distribution Width 15.2 % (11.5-14.5)
[2021-01-08 22:37] LABS: INR 1.4; Prothrombin Time 15.6 Seconds (9.4-12.1)
[2021-01-08 22:39] LABS: Heparin anti-factor XA UFH > 2.00 IU/mL (0.30-0.70)
[2021-01-08] MEDS: QUEtiapine Fumarate 100 MG TABLET PO SCH (22:55)
[2021-01-09 00:35] LABS: Basophils % 0.4 %; Hematocrit 33.5 % (35.3-44.9); Hemoglobin 10.8 g/dL (11.5-15.4); Immature Granulocytes % 4.2 % (0-4); Lymphocytes # 0.8 K/mcL (0.6-4.6); Lymphocytes % 8.8 %; Mean Corpuscular HGB Conc 32.2 g/dL (31.6-35.5); Mean Corpuscular Hemoglobin 29.7 pg (28.0-33.3); Mean Platelet Volume 10.2 fL (9.4-12.4); Monocytes # 0.7 K/mcL (0.0-1.3); Monocytes % 7.4 %; Neutrophils # 7.6 K/mcL (1.6-8.9); Platelet Count 168 K/mcL (140-400); Red Blood Count 3.64 M/mcL (3.82-4.97); Segmented Neutrophils % 79.2 %; White Blood Count 9.6 K/mcL (4.3-11.1)
[2021-01-09 01:25] LABS: BUN/Creatinine Ratio 30 (6-26); Blood Urea Nitrogen 27 mg/dL (8-23); Calcium 8.4 mg/dL (8.6-10.3); Carbon Dioxide 28 mEq/L (23-29); Chloride 102 mEq/L (98-107); Glucose 157 mg/dL (70-105); Magnesium 2.4 mg/dL (1.6-2.6); Osmolality,Calculated 298 (280-300); Potassium 3.4 mEq/L (3.5-5.1); Sodium 140 mEq/L (136-145); eGFR For African Americans > 60 (> 60); eGFR For Non-African Americans > 60 (> 60)
[2021-01-09 01:32] LABS: Bilirubin,Urine Negative (Negative); Blood,Urine Trace (Negative); Clarity,Urine Clear (Clear); Color,Urine Light-Yellow (Yellow); Glucose,Urine (UA) Normal (Normal); Ketones,Urine 20 mg/dL (Negative); Leukocyte Esterase,Urine Negative (Negative); Nitrite,Urine Negative (Negative); Protein,Urine Negative (Neg-Trace); RBC,Urine 0-3 per hpf (0-3); Specific Gravity,Urine > 1.030 (1.010-1.025); Squamous Epithelial Cell,Urine Few per hpf (None-Few); Urobilinogen,Urine Normal (Normal); WBC,Urine 0-3 per hpf (0-3)
[2021-01-09] MEDS: Isosorbide MONOnitrate (24 HR) 30 MG TAB.ER.24H PO SCH (08:54)
[2021-01-09] MEDS: carvediloL 6.25 MG TABLET PO SCH ×2 (08:54→16:26)
[2021-01-09] MEDS: Ranolazine 500 MG TAB.ER.12H PO SCH ×2 (08:54→19:43)
[2021-01-09] MEDS: Aspirin Enteric Coated 81 MG Tablet PO SCH (08:55)
[2021-01-09] MEDS ORDERED: (Pimavanserin Tartrate [Nuplazid] 34 MG Capsule) PO SCH (09:00)
[2021-01-09] MEDS ORDERED: predniSONE 10 MG TABLET PO SCH (09:00)
[2021-01-09] MEDS: Carbidopa/Levodopa 25/100 TABLET PO SCH ×3 (09:02→16:26)
[2021-01-09] MEDS ORDERED: *HR* Rivaroxaban 15 MG TABLET PO SCH (11:00)
[2021-01-09] MEDS ORDERED: *HR* Heparin 5,000 UNIT/ML VIAL IVP ONE (12:43)
[2021-01-09] MEDS ORDERED: *HR* Heparin 5,000 UNIT/ML VIAL IVP PRN ×2 (12:43)
[2021-01-09] MEDS ORDERED: Heparin 25,000UNIT/250ML 1/2NS 25,000 UNIT/250 ML IV.SOLN IVC SCH (12:45)
[2021-01-09] MEDS: (Ezetimibe [Zetia] 10 MG Tablet) PO SCH (12:59)
[2021-01-09] MEDS: (Pimavanserin Tartrate [Nuplazid] 34 MG Capsule) PO SCH (12:59)
[2021-01-09 14:34] LABS: Hematocrit 36.3 % (35.3-44.9); Hemoglobin 11.6 g/dL (11.5-15.4); Mean Corpuscular Hemoglobin 29.4 pg (28.0-33.3); Mean Corpuscular Volume 92.1 fL (83.0-100.0); Mean Platelet Volume 10.7 fL (9.4-12.4); Platelet Count 214 K/mcL (140-400); Red Blood Count 3.94 M/mcL (3.82-4.97); Red Cell Distribution Width 15.2 % (11.5-14.5); White Blood Count 13.2 K/mcL (4.3-11.1)
[2021-01-09] MEDS: QUEtiapine Fumarate 100 MG TABLET PO SCH (19:42)
[2021-01-09] MEDS ORDERED: QUEtiapine Fumarate 25 MG TABLET PO SCH (21:00)
[2021-01-10 04:59] LABS: Basophils % 0.3 %; Eosinophils # 0.1 K/mcL (0.0-0.6); Hematocrit 34.9 % (35.3-44.9); Hemoglobin 10.8 g/dL (11.5-15.4); Immature Granulocytes % 2.5 % (0-4); Lymphocytes % 10.3 %; Mean Corpuscular HGB Conc 30.9 g/dL (31.6-35.5); Mean Corpuscular Hemoglobin 28.6 pg (28.0-33.3); Mean Corpuscular Volume 92.3 fL (83.0-100.0); Mean Platelet Volume 10.2 fL (9.4-12.4); Monocytes # 0.9 K/mcL (0.0-1.3); Monocytes % 9.5 %; Neutrophils # 7.4 K/mcL (1.6-8.9); Nucleated Red Blood Cells 0.2 /100 WBC (0); Platelet Count 188 K/mcL (140-400); Red Blood Count 3.78 M/mcL (3.82-4.97); Red Cell Distribution Width 15.4 % (11.5-14.5); Segmented Neutrophils % 76.4 %; White Blood Count 9.6 K/mcL (4.3-11.1)
[2021-01-10 05:18] LABS: Calcium 8.3 mg/dL (8.6-10.3); Magnesium 2.4 mg/dL (1.6-2.6); Phosphorous 3.5 mg/dL (2.7-4.5); Potassium 3.6 mEq/L (3.5-5.1)
[2021-01-10] MEDS ORDERED: Furosemide 40 MG/4 ML VIAL IVP ONE (08:50)
[2021-01-10] MEDS: Isosorbide MONOnitrate (24 HR) 30 MG TAB.ER.24H PO SCH (09:12)
[2021-01-10] MEDS: Ranolazine 500 MG TAB.ER.12H PO SCH ×2 (09:13→20:54)
[2021-01-10] MEDS: Aspirin Enteric Coated 81 MG Tablet PO SCH (09:13)
[2021-01-10] MEDS: carvediloL 6.25 MG TABLET PO SCH ×2 (09:14→17:33)
[2021-01-10] MEDS: (Pimavanserin Tartrate [Nuplazid] 34 MG Capsule) PO SCH (09:15)
[2021-01-10] MEDS: Carbidopa/Levodopa 25/100 TABLET PO SCH ×3 (10:31→17:33)
[2021-01-10] MEDS: MethylPREDNISolone 40 MG/ML VIAL IVP SCH ×2 (10:31→17:32)
[2021-01-10] MEDS: (Ezetimibe [Zetia] 10 MG Tablet) PO SCH (10:32)
[2021-01-10 14:05] LABS: Hematocrit 35.1 % (35.3-44.9); Hemoglobin 11.2 g/dL (11.5-15.4)
[2021-01-10] MEDS: Heparin 25,000 UNIT/250 ML 25,000 UNIT/250 ML IV.SOLN IVC SCH (20:55)
[2021-01-10] MEDS: QUEtiapine Fumarate 100 MG TABLET PO SCH (20:55)
[2021-01-11 01:37] LABS: Basophils # 0.1 K/mcL (0.0-0.2); Basophils % 0.5 %; Hematocrit 35.5 % (35.3-44.9); Hemoglobin 11.1 g/dL (11.5-15.4); Immature Granulocytes % 3.2 % (0-4); Lymphocytes # 0.7 K/mcL (0.6-4.6); Lymphocytes % 6.9 %; Mean Corpuscular HGB Conc 31.3 g/dL (31.6-35.5); Mean Corpuscular Volume 92.7 fL (83.0-100.0); Mean Platelet Volume 10.5 fL (9.4-12.4); Monocytes # 0.4 K/mcL (0.0-1.3); Monocytes % 3.3 %; Neutrophils # 9.3 K/mcL (1.6-8.9); Platelet Count 183 K/mcL (140-400); Red Blood Count 3.83 M/mcL (3.82-4.97); Red Cell Distribution Width 15.2 % (11.5-14.5); Segmented Neutrophils % 86.1 %; White Blood Count 10.8 K/mcL (4.3-11.1)
[2021-01-11 01:57] LABS: Calcium 8.8 mg/dL (8.6-10.3); Magnesium 2.5 mg/dL (1.6-2.6); Phosphorous 3.4 mg/dL (2.7-4.5); Potassium 4.3 mEq/L (3.5-5.1)
[2021-01-11] MEDS: MethylPREDNISolone 40 MG/ML VIAL IVP SCH ×2 (06:23→16:29)
[2021-01-11] MEDS: Aspirin Enteric Coated 81 MG Tablet PO SCH (07:41)
[2021-01-11] MEDS: carvediloL 6.25 MG TABLET PO SCH ×2 (07:42→16:29)
[2021-01-11] MEDS: Ranolazine 500 MG TAB.ER.12H PO SCH ×2 (07:42→22:16)
[2021-01-11] MEDS: Carbidopa/Levodopa 25/100 TABLET PO SCH ×3 (07:44→16:28)
[2021-01-11] MEDS: Isosorbide MONOnitrate (24 HR) 30 MG TAB.ER.24H PO SCH (07:45)
[2021-01-11] MEDS: (Ezetimibe [Zetia] 10 MG Tablet) PO SCH (07:46)
[2021-01-11] MEDS: (Pimavanserin Tartrate [Nuplazid] 34 MG Capsule) PO SCH (07:46)
[2021-01-11] MEDS ORDERED: Furosemide 40 MG/4 ML VIAL IVP ONE (12:17)
[2021-01-11] MEDS: QUEtiapine Fumarate 100 MG TABLET PO SCH (22:15)
[2021-01-12 02:18] LABS: Basophils # 0.1 K/mcL (0.0-0.2); Basophils % 0.5 %; Hematocrit 32.7 % (35.3-44.9); Immature Granulocytes % 4.6 % (0-4); Lymphocytes # 0.7 K/mcL (0.6-4.6); Lymphocytes % 5.4 %; Mean Corpuscular HGB Conc 30.6 g/dL (31.6-35.5); Mean Corpuscular Hemoglobin 28.4 pg (28.0-33.3); Mean Corpuscular Volume 92.9 fL (83.0-100.0); Mean Platelet Volume 10.4 fL (9.4-12.4); Monocytes # 0.9 K/mcL (0.0-1.3); Monocytes % 6.4 %; Neutrophils # 11.5 K/mcL (1.6-8.9); Nucleated Red Blood Cells 0.1 /100 WBC (0); Platelet Count 185 K/mcL (140-400); Red Blood Count 3.52 M/mcL (3.82-4.97); Red Cell Distribution Width 15.1 % (11.5-14.5); Segmented Neutrophils % 83.1 %; White Blood Count 13.8 K/mcL (4.3-11.1)
[2021-01-12 02:33] LABS: Calcium 8.8 mg/dL (8.6-10.3); Magnesium 2.5 mg/dL (1.6-2.6); Phosphorous 3.7 mg/dL (2.7-4.5); Potassium 4.1 mEq/L (3.5-5.1)
[2021-01-12] MEDS: MethylPREDNISolone 40 MG/ML VIAL IVP SCH ×2 (06:35→17:09)
[2021-01-12] MEDS: carvediloL 6.25 MG TABLET PO SCH ×2 (08:55→17:08)
[2021-01-12] MEDS: Isosorbide MONOnitrate (24 HR) 30 MG TAB.ER.24H PO SCH (08:55)
[2021-01-12] MEDS: Ranolazine 500 MG TAB.ER.12H PO SCH ×2 (08:56→21:27)
[2021-01-12] MEDS: Aspirin Enteric Coated 81 MG Tablet PO SCH (08:56)
[2021-01-12] MEDS: (Pimavanserin Tartrate [Nuplazid] 34 MG Capsule) PO SCH (08:57)
[2021-01-12] MEDS ORDERED: Furosemide 40 MG/4 ML VIAL IVP SCH (09:00)
[2021-01-12] MEDS: (Ezetimibe [Zetia] 10 MG Tablet) PO SCH (09:03)
[2021-01-12] MEDS: Carbidopa/Levodopa 25/100 TABLET PO SCH ×3 (09:04→17:08)
[2021-01-12] MEDS: Heparin 25,000 UNIT/250 ML 25,000 UNIT/250 ML IV.SOLN IVC SCH ×2 (09:04→09:05)
[2021-01-12 12:51] LABS: Iron 45 mcg/dL (50-170)
[2021-01-12] MEDS ORDERED: 0.9 % Sodium Chloride 1,000 ML IVC SCH (14:30)
[2021-01-12] MEDS: QUEtiapine Fumarate 100 MG TABLET PO SCH (21:28)
[2021-01-12] MEDS ORDERED: *HR* OxyCODONE/APAP 7.5/325 TABLET PO ONE (22:03)
[2021-01-13 02:41] LABS: Basophils % 0.3 %; Hematocrit 30.8 % (35.3-44.9); Hemoglobin 9.4 g/dL (11.5-15.4); Immature Granulocytes % 4.9 % (0-4); Lymphocytes # 0.6 K/mcL (0.6-4.6); Lymphocytes % 4.8 %; Mean Corpuscular HGB Conc 30.5 g/dL (31.6-35.5); Mean Corpuscular Hemoglobin 28.6 pg (28.0-33.3); Mean Corpuscular Volume 93.6 fL (83.0-100.0); Mean Platelet Volume 10.7 fL (9.4-12.4); Monocytes # 0.9 K/mcL (0.0-1.3); Monocytes % 7.1 %; Neutrophils # 10.6 K/mcL (1.6-8.9); Platelet Count 173 K/mcL (140-400); Red Blood Count 3.29 M/mcL (3.82-4.97); Red Cell Distribution Width 15.1 % (11.5-14.5); Segmented Neutrophils % 82.9 %; White Blood Count 12.8 K/mcL (4.3-11.1)
[2021-01-13 02:48] LABS: Calcium 8.5 mg/dL (8.6-10.3); Magnesium 2.6 mg/dL (1.6-2.6); Phosphorous 3.1 mg/dL (2.7-4.5); Potassium 4.3 mEq/L (3.5-5.1)
[2021-01-13] MEDS: MethylPREDNISolone 40 MG/ML VIAL IVP SCH ×2 (06:27→18:34)
[2021-01-13] MEDS: carvediloL 6.25 MG TABLET PO SCH ×2 (08:32→16:18)
[2021-01-13] MEDS: Aspirin Enteric Coated 81 MG Tablet PO SCH (08:33)
[2021-01-13] MEDS: (Pimavanserin Tartrate [Nuplazid] 34 MG Capsule) PO SCH (08:34)
[2021-01-13] MEDS: (Ezetimibe [Zetia] 10 MG Tablet) PO SCH (08:35)
[2021-01-13] MEDS: Carbidopa/Levodopa 25/100 TABLET PO SCH ×3 (08:38→16:18)
[2021-01-13] MEDS: Isosorbide MONOnitrate (24 HR) 30 MG TAB.ER.24H PO SCH (08:38)
[2021-01-13] MEDS: Ranolazine 500 MG TAB.ER.12H PO SCH ×2 (08:43→20:25)
[2021-01-13] MEDS: Furosemide 20 MG TABLET PO SCH (11:30)
[2021-01-13] MEDS: Heparin 25,000 UNIT/250 ML 25,000 UNIT/250 ML IV.SOLN IVC SCH ×2 (12:46→18:33)
[2021-01-13] MEDS ORDERED: Lidocaine Jelly 6ml 1 APPL/6 ML JEL.PF.APP MM STA (13:01)
[2021-01-13] MEDS: AMINOCAPROIC ACID IR SCH ×3 (13:46→23:45)
[2021-01-13] MEDS: SODIUM CHLORIDE 0.9% IR SCH ×3 (13:46→23:45)
[2021-01-13] MEDS ORDERED: ceFAZolin 3,000 MG in Water for inj. (sterile) 30 ML IVP STA (14:10)
[2021-01-13] MEDS: QUEtiapine Fumarate 100 MG TABLET PO SCH (20:26)
[2021-01-14 02:31] LABS: Basophils # 0.1 K/mcL (0.0-0.2); Basophils % 0.5 %; Hematocrit 30.6 % (35.3-44.9); Hemoglobin 9.4 g/dL (11.5-15.4); Immature Granulocytes % 5.6 % (0-4); Lymphocytes # 0.5 K/mcL (0.6-4.6); Lymphocytes % 4.3 %; Mean Corpuscular HGB Conc 30.7 g/dL (31.6-35.5); Mean Corpuscular Hemoglobin 28.7 pg (28.0-33.3); Mean Corpuscular Volume 93.3 fL (83.0-100.0); Mean Platelet Volume 10.7 fL (9.4-12.4); Monocytes # 0.7 K/mcL (0.0-1.3); Monocytes % 5.9 %; Neutrophils # 9.9 K/mcL (1.6-8.9); Platelet Count 160 K/mcL (140-400); Red Blood Count 3.28 M/mcL (3.82-4.97); Red Cell Distribution Width 14.8 % (11.5-14.5); Segmented Neutrophils % 83.7 %; White Blood Count 11.8 K/mcL (4.3-11.1)
[2021-01-14 02:46] LABS: BUN/Creatinine Ratio 45 (6-26); Blood Urea Nitrogen 42 mg/dL (8-23); Carbon Dioxide 26 mEq/L (23-29); Chloride 103 mEq/L (98-107); Glucose 335 mg/dL (70-105); Magnesium 2.6 mg/dL (1.6-2.6); Osmolality,Calculated 308 (280-300); Phosphorous 2.8 mg/dL (2.7-4.5); Potassium 4.5 mEq/L (3.5-5.1); Sodium 137 mEq/L (136-145); eGFR For African Americans > 60 (> 60); eGFR For Non-African Americans 58 (> 60)
[2021-01-14] MEDS: AMINOCAPROIC ACID IR SCH ×12 (05:39→22:00)
[2021-01-14] MEDS: SODIUM CHLORIDE 0.9% IR SCH ×12 (05:39→22:00)
[2021-01-14] MEDS: MethylPREDNISolone 40 MG/ML VIAL IVP SCH (05:40)
[2021-01-14] MEDS: Isosorbide MONOnitrate (24 HR) 30 MG TAB.ER.24H PO SCH (08:34)
[2021-01-14] MEDS: Aspirin Enteric Coated 81 MG Tablet PO SCH (08:34)
[2021-01-14] MEDS: Ranolazine 500 MG TAB.ER.12H PO SCH ×2 (08:34→20:19)
[2021-01-14] MEDS: Furosemide 20 MG TABLET PO SCH (08:34)
[2021-01-14] MEDS: (Pimavanserin Tartrate [Nuplazid] 34 MG Capsule) PO SCH (08:35)
[2021-01-14] MEDS: (Ezetimibe [Zetia] 10 MG Tablet) PO SCH (08:36)
[2021-01-14] MEDS: Carbidopa/Levodopa 25/100 TABLET PO SCH ×3 (08:36→16:52)
[2021-01-14] MEDS: carvediloL 6.25 MG TABLET PO SCH ×2 (08:36→16:52)
[2021-01-14] MEDS ORDERED: AMINOCAPROIC ACID IVC SCH (10:30)
[2021-01-14] MEDS ORDERED: SODIUM CHLORIDE 0.9% IVC SCH (10:30)
[2021-01-14] MEDS ORDERED: AMINOCAPROIC ACID IVPB ONE (17:58)
[2021-01-14] MEDS ORDERED: SODIUM CHLORIDE 0.9% IVPB ONE (17:58)
[2021-01-14] MEDS: QUEtiapine Fumarate 100 MG TABLET PO SCH (20:19)
[2021-01-15 02:51] LABS: Basophils # 0.1 K/mcL (0.0-0.2); Basophils % 0.8 %; Hematocrit 29.9 % (35.3-44.9); Hemoglobin 9.4 g/dL (11.5-15.4); Immature Granulocytes % 7.6 % (0-4); Lymphocytes # 0.6 K/mcL (0.6-4.6); Lymphocytes % 5.1 %; Mean Corpuscular HGB Conc 31.4 g/dL (31.6-35.5); Mean Corpuscular Hemoglobin 29.5 pg (28.0-33.3); Mean Corpuscular Volume 93.7 fL (83.0-100.0); Mean Platelet Volume 10.8 fL (9.4-12.4); Monocytes # 1.2 K/mcL (0.0-1.3); Neutrophils # 9.2 K/mcL (1.6-8.9); Nucleated Red Blood Cells 0.2 /100 WBC (0); Platelet Count 170 K/mcL (140-400); Red Blood Count 3.19 M/mcL (3.82-4.97); Red Cell Distribution Width 14.9 % (11.5-14.5); Segmented Neutrophils % 76.5 %
[2021-01-15 03:11] LABS: BUN/Creatinine Ratio 38 (6-26); Blood Urea Nitrogen 40 mg/dL (8-23); Calcium 8.4 mg/dL (8.6-10.3); Carbon Dioxide 29 mEq/L (23-29); Chloride 104 mEq/L (98-107); Glucose 347 mg/dL (70-105); Magnesium 2.8 mg/dL (1.6-2.6); Osmolality,Calculated 314 (280-300); Potassium 4.4 mEq/L (3.5-5.1); Sodium 140 mEq/L (136-145); eGFR For African Americans > 60 (> 60); eGFR For Non-African Americans 51 (> 60)
[2021-01-15 03:19] LABS: Platelet Estimate Normal (Normal)
[2021-01-15] MEDS: AMINOCAPROIC ACID IR SCH ×2 (03:22→12:02)
[2021-01-15] MEDS: SODIUM CHLORIDE 0.9% IR SCH ×2 (03:22→12:02)
[2021-01-15] MEDS: Heparin 25,000 UNIT/250 ML 25,000 UNIT/250 ML IV.SOLN IVC SCH ×2 (04:47→08:15)
[2021-01-15] MEDS: Furosemide 20 MG TABLET PO SCH (08:09)
[2021-01-15] MEDS: Isosorbide MONOnitrate (24 HR) 30 MG TAB.ER.24H PO SCH (08:10)
[2021-01-15] MEDS: Ranolazine 500 MG TAB.ER.12H PO SCH ×2 (08:10→22:22)
[2021-01-15] MEDS: predniSONE 20 MG TABLET PO SCH (08:11)
[2021-01-15] MEDS: Aspirin Enteric Coated 81 MG Tablet PO SCH (08:11)
[2021-01-15] MEDS: (Pimavanserin Tartrate [Nuplazid] 34 MG Capsule) PO SCH (08:12)
[2021-01-15 09:56] LABS: % Iron Saturation 12 % (15-50); Transferrin 265 mg/dL (200-400)
[2021-01-15] MEDS: Carbidopa/Levodopa 25/100 TABLET PO SCH ×2 (18:18→18:22)
[2021-01-15] MEDS: carvediloL 6.25 MG TABLET PO SCH ×2 (18:18→18:22)
[2021-01-15] MEDS: (Ezetimibe [Zetia] 10 MG Tablet) PO SCH (18:18)
[2021-01-15] MEDS: QUEtiapine Fumarate 100 MG TABLET PO SCH (22:21)
[2021-01-16 05:54] LABS: Basophils % 0.2 %; Eosinophils % 0.3 %; Hematocrit 29.9 % (35.3-44.9); Hemoglobin 9.3 g/dL (11.5-15.4); Immature Granulocytes % 8.2 % (0-4); Lymphocytes # 0.8 K/mcL (0.6-4.6); Lymphocytes % 6.9 %; Mean Corpuscular HGB Conc 31.1 g/dL (31.6-35.5); Mean Corpuscular Hemoglobin 28.9 pg (28.0-33.3); Mean Corpuscular Volume 92.9 fL (83.0-100.0); Mean Platelet Volume 10.8 fL (9.4-12.4); Monocytes # 0.9 K/mcL (0.0-1.3); Monocytes % 8.4 %; Neutrophils # 8.3 K/mcL (1.6-8.9); Nucleated Red Blood Cells 0.4 /100 WBC (0); Platelet Count 142 K/mcL (140-400); Red Blood Count 3.22 M/mcL (3.82-4.97); Red Cell Distribution Width 15.4 % (11.5-14.5); White Blood Count 10.9 K/mcL (4.3-11.1)
[2021-01-16 06:13] LABS: BUN/Creatinine Ratio 37 (6-26); Blood Urea Nitrogen 36 mg/dL (8-23); Calcium 8.3 mg/dL (8.6-10.3); Carbon Dioxide 29 mEq/L (23-29); Chloride 105 mEq/L (98-107); Glucose 237 mg/dL (70-105); Osmolality,Calculated 304 (280-300); Potassium 4.1 mEq/L (3.5-5.1); Sodium 139 mEq/L (136-145); eGFR For African Americans > 60 (> 60); eGFR For Non-African Americans 55 (> 60)
[2021-01-16] MEDS: Isosorbide MONOnitrate (24 HR) 30 MG TAB.ER.24H PO SCH (08:14)
[2021-01-16] MEDS: Furosemide 20 MG TABLET PO SCH (08:14)
[2021-01-16] MEDS: predniSONE 20 MG TABLET PO SCH (08:15)
[2021-01-16] MEDS: carvediloL 6.25 MG TABLET PO SCH ×2 (08:15→16:45)
[2021-01-16] MEDS: Ranolazine 500 MG TAB.ER.12H PO SCH ×2 (08:16→21:10)
[2021-01-16] MEDS: Aspirin Enteric Coated 81 MG Tablet PO SCH (08:16)
[2021-01-16] MEDS: (Pimavanserin Tartrate [Nuplazid] 34 MG Capsule) PO SCH (08:17)
[2021-01-16] MEDS: (Ezetimibe [Zetia] 10 MG Tablet) PO SCH (08:18)
[2021-01-16] MEDS: Carbidopa/Levodopa 25/100 TABLET PO SCH ×3 (08:22→16:45)
[2021-01-16] MEDS: QUEtiapine Fumarate 100 MG TABLET PO SCH (21:11)
[2021-01-16] MEDS: *HR* Rivaroxaban 15 MG TABLET PO SCH (21:11)
[2021-01-17 03:15] LABS: Hemoglobin 8.7 g/dL (11.5-15.4); Mean Corpuscular HGB Conc 32.2 g/dL (31.6-35.5); Mean Corpuscular Hemoglobin 29.6 pg (28.0-33.3); Mean Corpuscular Volume 91.8 fL (83.0-100.0); Mean Platelet Volume 10.8 fL (9.4-12.4); Nucleated Red Blood Cells 0.4 /100 WBC (0); Platelet Count 139 K/mcL (140-400); Red Blood Count 2.94 M/mcL (3.82-4.97); Red Cell Distribution Width 15.2 % (11.5-14.5); White Blood Count 9.8 K/mcL (4.3-11.1)
[2021-01-17 03:34] LABS: BUN/Creatinine Ratio 35 (6-26); Blood Urea Nitrogen 28 mg/dL (8-23); Calcium 8.2 mg/dL (8.6-10.3); Carbon Dioxide 29 mEq/L (23-29); Chloride 104 mEq/L (98-107); Glucose 212 mg/dL (70-105); Osmolality,Calculated 296 (280-300); Potassium 4.4 mEq/L (3.5-5.1); Sodium 137 mEq/L (136-145); eGFR For African Americans > 60 (> 60); eGFR For Non-African Americans > 60 (> 60)
[2021-01-17 03:49] LABS: Lymphocytes # 0.4 K/mcL (0.6-4.6); Monocytes # 0.8 K/mcL (0.0-1.3); Neutrophils # 8.2 K/mcL (1.6-8.9); Platelet Estimate Normal (Normal)
[2021-01-17] MEDS: *HR* Rivaroxaban 15 MG TABLET PO SCH ×2 (07:46→20:26)
[2021-01-17] MEDS: predniSONE 20 MG TABLET PO SCH (07:46)
[2021-01-17] MEDS: Aspirin Enteric Coated 81 MG Tablet PO SCH (07:46)
[2021-01-17] MEDS: Carbidopa/Levodopa 25/100 TABLET PO SCH ×3 (07:47→17:23)
[2021-01-17] MEDS: Isosorbide MONOnitrate (24 HR) 30 MG TAB.ER.24H PO SCH (07:47)
[2021-01-17] MEDS: Ranolazine 500 MG TAB.ER.12H PO SCH ×2 (07:47→20:26)
[2021-01-17] MEDS: carvediloL 6.25 MG TABLET PO SCH ×2 (07:47→17:23)
[2021-01-17] MEDS: Furosemide 20 MG TABLET PO SCH (07:47)
[2021-01-17] MEDS: (Pimavanserin Tartrate [Nuplazid] 34 MG Capsule) PO SCH (07:48)
[2021-01-17] MEDS ORDERED: polyethylene glycoL 3350 17 GM POWD.PACK PO PRN (15:31)
[2021-01-17] MEDS: QUEtiapine Fumarate 100 MG TABLET PO SCH (20:25)
[2021-01-17] MEDS: Sennosides/Docusate Sodium TABLET PO SCH (20:26)
[2021-01-18 03:05] LABS: Basophils # 0.1 K/mcL (0.0-0.2); Basophils % 0.8 %; Eosinophils % 0.4 %; Hematocrit 27.1 % (35.3-44.9); Hemoglobin 8.4 g/dL (11.5-15.4); Immature Granulocytes % 9.6 % (0-4); Lymphocytes # 0.8 K/mcL (0.6-4.6); Mean Corpuscular Hemoglobin 28.5 pg (28.0-33.3); Mean Corpuscular Volume 91.9 fL (83.0-100.0); Mean Platelet Volume 10.7 fL (9.4-12.4); Monocytes # 0.8 K/mcL (0.0-1.3); Monocytes % 8.4 %; Nucleated Red Blood Cells 0.4 /100 WBC (0); Platelet Count 142 K/mcL (140-400); Red Blood Count 2.95 M/mcL (3.82-4.97); Red Cell Distribution Width 15.4 % (11.5-14.5); Segmented Neutrophils % 72.8 %; White Blood Count 9.6 K/mcL (4.3-11.1)
[2021-01-18 03:23] LABS: BUN/Creatinine Ratio 36 (6-26); Blood Urea Nitrogen 29 mg/dL (8-23); Carbon Dioxide 27 mEq/L (23-29); Chloride 104 mEq/L (98-107); Glucose 250 mg/dL (70-105); Osmolality,Calculated 298 (280-300); Potassium 4.5 mEq/L (3.5-5.1); Sodium 137 mEq/L (136-145); eGFR For African Americans > 60 (> 60); eGFR For Non-African Americans > 60 (> 60)
[2021-01-18 03:33] LABS: Platelet Estimate Normal (Normal)
[2021-01-18 03:34] LABS: Anisocytosis 1+ (Not Present); Polychromasia 1+ (Not Present)
[2021-01-18] MEDS: Ranolazine 500 MG TAB.ER.12H PO SCH (08:53)
[2021-01-18] MEDS: Isosorbide MONOnitrate (24 HR) 30 MG TAB.ER.24H PO SCH (08:54)
[2021-01-18] MEDS: *HR* Rivaroxaban 15 MG TABLET PO SCH (08:54)
[2021-01-18] MEDS: Aspirin Enteric Coated 81 MG Tablet PO SCH (08:54)
[2021-01-18] MEDS: Sennosides/Docusate Sodium TABLET PO SCH (08:54)
[2021-01-18] MEDS: carvediloL 6.25 MG TABLET PO SCH (08:54)
[2021-01-18] MEDS: (Pimavanserin Tartrate [Nuplazid] 34 MG Capsule) PO SCH (08:55)
[2021-01-18] MEDS: Carbidopa/Levodopa 25/100 TABLET PO SCH ×2 (08:57→11:43)
[2021-01-18] MEDS ORDERED: predniSONE 20 MG TABLET PO SCH (09:00)
[2021-01-18] MEDS ORDERED: Furosemide 20 MG TABLET PO SCH (09:00)
[2021-01-18 10:24] VITALS: O2SAT 96
[2021-01-18] MEDS ORDERED: Iron Sucrose Complex 400 MG in 0.9 % Sodium Chloride 250 ML IVPB ONE (13:03)
[2021-01-18 16:13] VITALS: BP 121/68; PULSE 93; TEMP 99.2
[2021-01-18 16:30] LABS: Adenovirus Not Detected (Not Detect); Bordetella Pertussis Not Detected (Not Detect); Chlamydophila pneumoniae Not Detected (Not Detect); Coronavirus 229E Not Detected (Not Detect); Coronavirus HKU1 Not Detected (Not Detect); Coronavirus NL63 Not Detected (Not Detect); Coronavirus OC43 Not Detected (Not Detect); Human Metapneumovirus Not Detected (Not Detect); Human Rhinovirus/Enterovirus Not Detected (Not Detect); Influenza A Subtype 2009 H1 Not Detected (Not Detect); Influenza B Not Detected (Not Detect); Mycoplasma pneumoniae Not Detected (Not Detect); Parainfluenza Virus 1 Not Detected (Not Detect); Parainfluenza Virus 2 Not Detected (Not Detect); Parainfluenza Virus 3 Not Detected (Not Detect); Parainfluenza Virus 4 Not Detected (Not Detect); Respiratory Syncytial Virus Not Detected (Not Detect); SARS-CoV-2 Not Detected (Not Detect)
== END 2021-01-18 17:57 | disposition other institution (70) | DRG 175 ==
LOC: 3NENU 14:22 → EMEROOARM 14:22 → SUATTDRO 18:43 → OBSVTOIN 18:43 → 3NENU 20:02 → 3ANU 01-16 16:33
PROVIDERS: ADMIT Internal Medicine; ATTEND Family Medicine

== ENCOUNTER 2021-01-20 13:09 | Inpatient (IN) ==
[2021-01-20] MEDS ORDERED: Melatonin 3 MG TABLET PO PRN (23:09)
[2021-01-20] MEDS ORDERED: Naloxone 0.4 MG/ML INJ IVP PRN (23:09)
[2021-01-21] MEDS ORDERED: *HR* Heparin 5,000 UNIT/ML VIAL IVP PRN ×2 (00:15)
[2021-01-21] MEDS ORDERED: Heparin 25,000UNIT/250ML 1/2NS 25,000 UNIT/250 ML IV.SOLN IVC SCH (00:15)
[2021-01-21] MEDS ORDERED: *HR* Heparin 5,000 UNIT/ML VIAL IVP ONE (00:15)
[2021-01-21] MEDS ORDERED: Heparin 25,000 UNIT/250 ML 25,000 UNIT/250 ML IV.SOLN IVC SCH (00:45)
[2021-01-21 01:17] LABS: Hematocrit 20.4 % (35.3-44.9); Mean Corpuscular HGB Conc 31.4 g/dL (31.6-35.5); Mean Corpuscular Hemoglobin 29.6 pg (28.0-33.3); Mean Corpuscular Volume 94.4 fL (83.0-100.0); Mean Platelet Volume 10.9 fL (9.4-12.4); Platelet Count 185 K/mcL (140-400); Red Blood Count 2.16 M/mcL (3.82-4.97); White Blood Count 8.8 K/mcL (4.3-11.1)
[2021-01-21 01:18] LABS: Hemoglobin 6.4 g/dL (11.5-15.4)
[2021-01-21 01:25] LABS: Heparin anti-factor XA UFH 0.45 IU/mL (0.30-0.70)
[2021-01-21 01:26] LABS: INR 1.2; Prothrombin Time 13.8 Seconds (9.4-12.1)
[2021-01-21 01:34] LABS: BUN/Creatinine Ratio 34 (6-26); Blood Urea Nitrogen 32 mg/dL (8-23); Calcium 8.9 mg/dL (8.6-10.3); Carbon Dioxide 28 mEq/L (23-29); Chloride 102 mEq/L (98-107); Glucose 292 mg/dL (70-105); Magnesium 2.3 mg/dL (1.6-2.6); Osmolality,Calculated 300 (280-300); Potassium 5.3 mEq/L (3.5-5.1); Sodium 136 mEq/L (136-145); eGFR For African Americans > 60 (> 60); eGFR For Non-African Americans 57 (> 60)
[2021-01-21 04:43] LABS: Hematocrit 20.8 % (35.3-44.9); Hemoglobin 6.4 g/dL (11.5-15.4); Mean Corpuscular HGB Conc 30.8 g/dL (31.6-35.5); Mean Corpuscular Hemoglobin 29.1 pg (28.0-33.3); Mean Corpuscular Volume 94.5 fL (83.0-100.0); Mean Platelet Volume 10.7 fL (9.4-12.4); Platelet Count 187 K/mcL (140-400); Red Cell Distribution Width 15.9 % (11.5-14.5); White Blood Count 9.1 K/mcL (4.3-11.1)
[2021-01-21 04:56] LABS: INR 1.2; Prothrombin Time 13.5 Seconds (9.4-12.1)
[2021-01-21] MEDS ORDERED: *HR* Heparin 5,000 UNIT/ML VIAL SQ ONE (05:18)
[2021-01-21] MEDS ORDERED: *HR* HYDROmorphone PF 0.5 MG/0.5 ML SYRINGE IVP PRN (07:24)
[2021-01-21] MEDS ORDERED: *HR* OxyCODONE Immed Rel 5 MG TABLET PO PRN (07:24)
[2021-01-21] MEDS ORDERED: Ondansetron 4 MG/2 ML VIAL IVP PRN (07:24)
[2021-01-21] MEDS ORDERED: Promethazine 6.25 MG in Water for inj. (sterile) 20 ML IVPB PRN (07:24)
[2021-01-21] MEDS ORDERED: 0.9 % Sodium Chloride 250 ML ONE (07:54)
[2021-01-21] MEDS ORDERED: carvediloL 6.25 MG TABLET PO SCH (08:00)
[2021-01-21] MEDS: Carbidopa/Levodopa 25/100 TABLET PO SCH ×3 (08:14→17:15)
[2021-01-21] MEDS ORDERED: *HR* Propofol 200 MG/20 ML VIAL IVP ONE (08:17)
[2021-01-21] MEDS ORDERED: *HR* Succinylcholine 200 MG/10 ML VIAL IVP ONE (08:18)
[2021-01-21] MEDS ORDERED: Lidocaine -MPF 2% 5 ML VIAL ONE (08:18)
[2021-01-21] MEDS ORDERED: *HR* Dextrose 50 % in Water (Syg) 50 ML SYRINGE IVP ONE (08:20)
[2021-01-21] MEDS ORDERED: Insulin Human Regular 10 UNIT in 0.9 % Sodium Chloride 10 ML IV ONE (08:20)
[2021-01-21] MEDS ORDERED: ceFAZolin 2,000 MG in Water for inj. (sterile) 20 ML IVP ONE (08:44)
[2021-01-21] MEDS ORDERED: Acetaminophen IV 1,000 MG/100 ML BAG IVPB ONE (08:51)
[2021-01-21] MEDS ORDERED: ceFAZolin 3,000 MG in Water for inj. (sterile) 30 ML IVP ONE (08:59)
[2021-01-21] MEDS ORDERED: Aspirin Enteric Coated 81 MG Tablet PO SCH (09:00)
[2021-01-21] MEDS: NUPLAZID 34 MG PO SCH (13:06)
[2021-01-21] MEDS ORDERED: Melatonin 3 MG TABLET PO PRN (13:24)
[2021-01-21] MEDS ORDERED: Naloxone 0.4 MG/ML INJ IVP PRN (13:24)
[2021-01-21 14:18] LABS: Hematocrit 33.4 % (35.3-44.9)
[2021-01-21 14:19] LABS: Hemoglobin 10.5 g/dL (11.5-15.4)
[2021-01-21] MEDS: carvediloL 6.25 MG TABLET PO SCH (17:16)
[2021-01-21 17:53] LABS: Hematocrit 36.4 % (35.3-44.9); Hemoglobin 10.9 g/dL (11.5-15.4)
[2021-01-21] MEDS: QUEtiapine Fumarate 25 MG TABLET PO SCH (19:49)
[2021-01-21] MEDS: *HR* Rivaroxaban 15 MG TABLET PO SCH (19:49)
[2021-01-21] MEDS ORDERED: QUEtiapine Fumarate 25 MG TABLET PO SCH (21:00)
[2021-01-22 02:39] LABS: Hematocrit 29.7 % (35.3-44.9); Hemoglobin 9.6 g/dL (11.5-15.4)
[2021-01-22] MEDS ORDERED: EZETIMIBE PO SCH (09:00)
[2021-01-22 09:43] LABS: Eosinophils # 0.1 K/mcL (0.0-0.6); Hematocrit 30.6 % (35.3-44.9); Hemoglobin 9.6 g/dL (11.5-15.4); Mean Corpuscular HGB Conc 31.4 g/dL (31.6-35.5); Mean Corpuscular Hemoglobin 30.1 pg (28.0-33.3); Mean Corpuscular Volume 95.9 fL (83.0-100.0); Mean Platelet Volume 10.3 fL (9.4-12.4); Nucleated Red Blood Cells 1.2 /100 WBC (0); Platelet Count 189 K/mcL (140-400); Red Blood Count 3.19 M/mcL (3.82-4.97); Red Cell Distribution Width 16.9 % (11.5-14.5); White Blood Count 8.4 K/mcL (4.3-11.1)
[2021-01-22] MEDS: *HR* Rivaroxaban 15 MG TABLET PO SCH ×2 (09:50→20:44)
[2021-01-22] MEDS: Aspirin Enteric Coated 81 MG Tablet PO SCH (09:51)
[2021-01-22] MEDS: NUPLAZID 34 MG PO SCH (09:52)
[2021-01-22] MEDS: cefTRIAXone 1,000 MG in 0.9 % Sodium Chloride Mini Bag 100 ML IVP SCH (09:55)
[2021-01-22 10:01] LABS: Alanine Aminotransferase 13 Units/L (7-52); Albumin 2.8 g/dL (3.5-5.7); Albumin/Globulin Ratio 1.3 (1.1-2.2); Alkaline Phosphatase 60 Units/L (34-104); Aspartate Amino Transferase 9 Units/L (13-39); BUN/Creatinine Ratio 25 (6-26); Bilirubin,Total 0.6 mg/dL (0.3-1.0); Blood Urea Nitrogen 26 mg/dL (8-23); Calcium 8.5 mg/dL (8.6-10.3); Carbon Dioxide 28 mEq/L (23-29); Chloride 103 mEq/L (98-107); Globulin 2.1 g/dL (2.4-3.5); Glucose 220 mg/dL (70-105); Osmolality,Calculated 294 (280-300); Potassium 4.1 mEq/L (3.5-5.1); Sodium 136 mEq/L (136-145); Total Protein 4.9 g/dL (6.4-8.9); eGFR For African Americans > 60 (> 60); eGFR For Non-African Americans 52 (> 60)
[2021-01-22] MEDS: Carbidopa/Levodopa 25/100 TABLET PO SCH ×3 (10:06→17:36)
[2021-01-22] MEDS: carvediloL 6.25 MG TABLET PO SCH ×2 (10:06→17:33)
[2021-01-22 12:29] LABS: Lymphocytes # 0.7 K/mcL (0.6-4.6); Monocytes # 0.3 K/mcL (0.0-1.3)
[2021-01-22 12:30] LABS: Anisocytosis 1+ (Not Present); Platelet Estimate Normal (Normal); Toxic Granulation Present (Not Present)
[2021-01-22 13:32] LABS: Hematocrit 29.3 % (35.3-44.9); Hemoglobin 9.4 g/dL (11.5-15.4)
[2021-01-22] MEDS: QUEtiapine Fumarate 25 MG TABLET PO SCH (20:44)
[2021-01-23 06:49] LABS: Hematocrit 31.4 % (35.3-44.9); Hemoglobin 9.8 g/dL (11.5-15.4); Mean Corpuscular HGB Conc 31.2 g/dL (31.6-35.5); Mean Corpuscular Hemoglobin 29.9 pg (28.0-33.3); Mean Corpuscular Volume 95.7 fL (83.0-100.0); Mean Platelet Volume 10.1 fL (9.4-12.4); Nucleated Red Blood Cells 1.4 /100 WBC (0); Platelet Count 191 K/mcL (140-400); Red Blood Count 3.28 M/mcL (3.82-4.97); Red Cell Distribution Width 17.2 % (11.5-14.5)
[2021-01-23 07:05] LABS: Alanine Aminotransferase 13 Units/L (7-52); Albumin 2.9 g/dL (3.5-5.7); Albumin/Globulin Ratio 1.4 (1.1-2.2); Alkaline Phosphatase 64 Units/L (34-104); Aspartate Amino Transferase 14 Units/L (13-39); BUN/Creatinine Ratio 25 (6-26); Bilirubin,Total 0.5 mg/dL (0.3-1.0); Blood Urea Nitrogen 24 mg/dL (8-23); Calcium 8.6 mg/dL (8.6-10.3); Carbon Dioxide 29 mEq/L (23-29); Chloride 101 mEq/L (98-107); Globulin 2.1 g/dL (2.4-3.5); Glucose 190 mg/dL (70-105); Osmolality,Calculated 291 (280-300); Potassium 4.1 mEq/L (3.5-5.1); Sodium 136 mEq/L (136-145); eGFR For African Americans > 60 (> 60); eGFR For Non-African Americans 56 (> 60)
[2021-01-23 07:17] LABS: Anisocytosis 1+ (Not Present); Lymphocytes # 0.4 K/mcL (0.6-4.6); Monocytes # 0.6 K/mcL (0.0-1.3); Neutrophils # 5.6 K/mcL (1.6-8.9); Platelet Estimate Normal (Normal); Polychromasia 1+ (Not Present)
[2021-01-23] MEDS: Aspirin Enteric Coated 81 MG Tablet PO SCH (07:47)
[2021-01-23] MEDS: carvediloL 6.25 MG TABLET PO SCH ×2 (07:47→16:52)
[2021-01-23] MEDS: *HR* Rivaroxaban 15 MG TABLET PO SCH ×2 (07:47→19:38)
[2021-01-23] MEDS: cefTRIAXone 1,000 MG in 0.9 % Sodium Chloride Mini Bag 100 ML IVP SCH (07:47)
[2021-01-23] MEDS: Carbidopa/Levodopa 25/100 TABLET PO SCH ×3 (07:49→17:41)
[2021-01-23] MEDS: Pimavanserin Tartrate [Nuplazid] 34 MG Capsule PO SCH (13:43)
[2021-01-23] MEDS: QUEtiapine Fumarate 25 MG TABLET PO SCH (19:39)
[2021-01-24 04:49] LABS: Hematocrit 28.1 % (35.3-44.9); Hemoglobin 9.1 g/dL (11.5-15.4); Mean Corpuscular HGB Conc 32.4 g/dL (31.6-35.5); Mean Corpuscular Volume 95.6 fL (83.0-100.0); Mean Platelet Volume 10.1 fL (9.4-12.4); Nucleated Red Blood Cells 0.8 /100 WBC (0); Platelet Count 181 K/mcL (140-400); Red Blood Count 2.94 M/mcL (3.82-4.97); Red Cell Distribution Width 17.5 % (11.5-14.5); White Blood Count 6.3 K/mcL (4.3-11.1)
[2021-01-24 05:08] LABS: Alanine Aminotransferase 7 Units/L (7-52); Albumin 2.8 g/dL (3.5-5.7); Albumin/Globulin Ratio 1.4 (1.1-2.2); Alkaline Phosphatase 64 Units/L (34-104); Aspartate Amino Transferase 9 Units/L (13-39); BUN/Creatinine Ratio 21 (6-26); Bilirubin,Total 0.5 mg/dL (0.3-1.0); Blood Urea Nitrogen 20 mg/dL (8-23); Calcium 8.4 mg/dL (8.6-10.3); Carbon Dioxide 28 mEq/L (23-29); Chloride 102 mEq/L (98-107); Glucose 220 mg/dL (70-105); Osmolality,Calculated 291 (280-300); Potassium 3.6 mEq/L (3.5-5.1); Sodium 136 mEq/L (136-145); Total Protein 4.8 g/dL (6.4-8.9); eGFR For African Americans > 60 (> 60); eGFR For Non-African Americans 57 (> 60)
[2021-01-24 05:23] LABS: Anisocytosis 1+ (Not Present); Lymphocytes # 1.1 K/mcL (0.6-4.6); Monocytes # 0.6 K/mcL (0.0-1.3); Platelet Estimate Normal (Normal); Polychromasia 1+ (Not Present); Reactive Lymphocytes Present (Not Present)
[2021-01-24] MEDS: carvediloL 6.25 MG TABLET PO SCH ×2 (08:11→16:29)
[2021-01-24] MEDS: cefTRIAXone 1,000 MG in 0.9 % Sodium Chloride Mini Bag 100 ML IVP SCH (08:13)
[2021-01-24] MEDS: Furosemide 40 MG/4 ML VIAL IVP SCH (08:13)
[2021-01-24] MEDS: Pimavanserin Tartrate [Nuplazid] 34 MG Capsule PO SCH (08:14)
[2021-01-24] MEDS: Carbidopa/Levodopa 25/100 TABLET PO SCH ×3 (08:17→16:30)
[2021-01-24] MEDS ORDERED: Furosemide 20 MG TABLET PO PRN (09:00)
[2021-01-24] MEDS: Aspirin Enteric Coated 81 MG Tablet PO SCH (10:26)
[2021-01-24] MEDS: *HR* Rivaroxaban 15 MG TABLET PO SCH ×2 (10:27→20:00)
[2021-01-24] MEDS ORDERED: D5% in Water 1,000 ML IVC PRN (17:16)
[2021-01-24] MEDS ORDERED: *HR* Dextrose 50 % in Water (Syg) 50 ML SYRINGE IVP PRN (17:16)
[2021-01-24] MEDS ORDERED: Dextrose Gel 15 GM/37.5 ML TUBE PO PRN ×2 (17:16)
[2021-01-24] MEDS: Insulin LISPRO 300 UNITS/3 ML VIAL SUBQ SCH (17:46)
[2021-01-24] MEDS: Ranolazine 500 MG TAB.ER.12H PO SCH (19:59)
[2021-01-24] MEDS: QUEtiapine Fumarate 25 MG TABLET PO SCH (19:59)
[2021-01-24 20:56] LABS: Bilirubin,Urine Negative (Negative); Blood,Urine Large (Negative); Clarity,Urine Turbid (Clear); Color,Urine Yellow (Yellow); Glucose,Urine (UA) 200 mg/dL (Normal); Ketones,Urine Trace mg/dL (Negative); Leukocyte Esterase,Urine Small (Negative); Mucus,Urine Few per lpf (None-Few); Nitrite,Urine Negative (Negative); Protein,Urine 70 mg/dL (Neg-Trace); RBC,Urine TNTC per hpf (0-3); Specific Gravity,Urine 1.025 (1.010-1.025); Urobilinogen,Urine Normal (Normal); WBC,Urine 50-100 per hpf (0-3)
[2021-01-24] MEDS ORDERED: Insulin LISPRO 300 UNITS/3 ML VIAL SUBQ SCH (21:00)
[2021-01-24] MEDS ORDERED: QUEtiapine Fumarate 100 MG TABLET PO SCH (21:00)
[2021-01-24 21:04] LABS: Iron 43 mcg/dL (50-170)
[2021-01-24 22:09] LABS: Estimated Average Glucose 151 mg/dl; Hemoglobin A1C 6.9 %
[2021-01-25 01:14] LABS: Basophils % 0.5 %; Eosinophils # 0.1 K/mcL (0.0-0.6); Eosinophils % 1.5 %; Hematocrit 27.2 % (35.3-44.9); Hemoglobin 8.5 g/dL (11.5-15.4); Immature Granulocytes % 4.8 % (0-4); Lymphocytes # 0.8 K/mcL (0.6-4.6); Lymphocytes % 12.7 %; Mean Corpuscular HGB Conc 31.3 g/dL (31.6-35.5); Mean Corpuscular Hemoglobin 29.8 pg (28.0-33.3); Mean Corpuscular Volume 95.4 fL (83.0-100.0); Mean Platelet Volume 10.1 fL (9.4-12.4); Monocytes # 0.7 K/mcL (0.0-1.3); Monocytes % 10.6 %; Neutrophils # 4.6 K/mcL (1.6-8.9); Nucleated Red Blood Cells 1.7 /100 WBC (0); Platelet Count 193 K/mcL (140-400); Red Blood Count 2.85 M/mcL (3.82-4.97); Red Cell Distribution Width 17.4 % (11.5-14.5); Segmented Neutrophils % 69.9 %; White Blood Count 6.5 K/mcL (4.3-11.1)
[2021-01-25 01:33] LABS: Alanine Aminotransferase 6 Units/L (7-52); Albumin 2.6 g/dL (3.5-5.7); Albumin/Globulin Ratio 1.2 (1.1-2.2); Alkaline Phosphatase 63 Units/L (34-104); Aspartate Amino Transferase 9 Units/L (13-39); BUN/Creatinine Ratio 18 (6-26); Bilirubin,Total 0.4 mg/dL (0.3-1.0); Blood Urea Nitrogen 17 mg/dL (8-23); Calcium 8.2 mg/dL (8.6-10.3); Carbon Dioxide 31 mEq/L (23-29); Chloride 100 mEq/L (98-107); Globulin 2.2 g/dL (2.4-3.5); Glucose 224 mg/dL (70-105); Osmolality,Calculated 291 (280-300); Potassium 3.1 mEq/L (3.5-5.1); Sodium 136 mEq/L (136-145); Total Protein 4.8 g/dL (6.4-8.9); eGFR For African Americans > 60 (> 60); eGFR For Non-African Americans 58 (> 60)
[2021-01-25] MEDS ORDERED: Isosorbide MONOnitrate (24 HR) 30 MG TAB.ER.24H PO SCH (09:00)
[2021-01-25] MEDS: *HR* Rivaroxaban 15 MG TABLET PO SCH (09:13)
[2021-01-25] MEDS: carvediloL 6.25 MG TABLET PO SCH (09:17)
[2021-01-25] MEDS: Ranolazine 500 MG TAB.ER.12H PO SCH (09:17)
[2021-01-25] MEDS: Pimavanserin Tartrate [Nuplazid] 34 MG Capsule PO SCH (09:17)
[2021-01-25] MEDS: Furosemide 40 MG/4 ML VIAL IVP SCH (09:19)
[2021-01-25] MEDS: Insulin LISPRO 300 UNITS/3 ML VIAL SUBQ SCH (09:19)
[2021-01-25] MEDS: Aspirin Enteric Coated 81 MG Tablet PO SCH (09:19)
[2021-01-25] MEDS: Carbidopa/Levodopa 25/100 TABLET PO SCH ×2 (09:23→13:12)
[2021-01-25 11:00] VITALS: BP 104/62; PULSE 86; TEMP 97.8; O2SAT 97
[2021-01-25 13:06] LABS: Adenovirus Not Detected (Not Detect); Bordetella Pertussis Not Detected (Not Detect); Chlamydophila pneumoniae Not Detected (Not Detect); Coronavirus 229E Not Detected (Not Detect); Coronavirus HKU1 Not Detected (Not Detect); Coronavirus NL63 Not Detected (Not Detect); Coronavirus OC43 Not Detected (Not Detect); Human Metapneumovirus Not Detected (Not Detect); Human Rhinovirus/Enterovirus Not Detected (Not Detect); Influenza A Subtype 2009 H1 Not Detected (Not Detect); Influenza B Not Detected (Not Detect); Mycoplasma pneumoniae Not Detected (Not Detect); Parainfluenza Virus 1 Not Detected (Not Detect); Parainfluenza Virus 2 Not Detected (Not Detect); Parainfluenza Virus 3 Not Detected (Not Detect); Parainfluenza Virus 4 Not Detected (Not Detect); Respiratory Syncytial Virus Not Detected (Not Detect); SARS-CoV-2 Not Detected (Not Detect)
[2021-01-25] MEDS ORDERED: Iron Sucrose Complex 200 MG in 0.9 % Sodium Chloride 100 ML IVPB ONE (14:00)
[2021-01-25 17:37] LABS: Ferritin 411 ng/mL (10-120)
== END 2021-01-25 14:50 | disposition other institution (70) | DRG 668 ==
LOC: 3BNU → SUATTDRO 01-23 15:41
PROVIDERS: ADMIT Pharmacist; ATTEND Registered Nurse